=== PATIENT | male | born 1960 | race Caucasian/White ===

== ENCOUNTER → 2016-05-12 | Outpatient (CLI) | payer OTHER ==
[~2016-05-12] MED LIST: ASPI-461 PO; CLX/40 PO; FOLI20CA PO; KPP/1000 PO; LEVE500T PO; MELA3TAB PO; MULT-106 PO; TRAZ50TA35 PO; ZLF/100 PO
[2016-05-12 13:26] LABS: ALT/SGPT 38 U/L (12-78); AST/SGOT 31 U/L (15-37); BLOOD UREA NITROGEN 12 mg/dl (7-18); BUN/CREATININE RATIO 13.5 (10-20); CALCIUM 9.4 mg/dl (8.5-10.1); CARBON DIOXIDE 31 mmol/L (21-32); CHLORIDE 101 mmol/L (98-107); CREATININE 0.88 mg/dl (0.60-1.40); GLUCOSE 92 mg/dl (70-99); POTASSIUM 4.3 mmol/L (3.5-5.1); SODIUM 140 mmol/L (136-145)
[2016-05-12 13:27] LABS: ALB/GLOB RATIO 1.4 (0.9-2); ALKALINE PHOSPHATASE 58 U/L (45-117)
== END | disposition home or self-care (01) ==
LOC: C.LAB1850 11:30
PROVIDERS: ATTEND Internal Medicine
DX: F32.9 Major depressive disorder, single episode, unspecified (principal); Z11.59 Encounter for screening for other viral diseases; R20.0 Anesthesia of skin

== ENCOUNTER 2016-06-17 11:55 | Emergency (ER) | payer OTHER ==
[~2016-06-17] VITALS: Ht 177.8 cm; Wt 56.2 kg
[~2016-06-17 11:55] MED LIST changes: -ASPI-461 PO; -LEVE500T PO; -MELA3TAB PO; -ZLF/100 PO
[2016-06-17 12:05] VITALS: TEMP 36.8; O2SAT 100; Ht 177.8 cm; Wt 56.2 kg
[2016-06-17] MEDS ORDERED: ACETAMINOPHEN 500 MG TAB PO STA (12:15)
[2016-06-17] MEDS ORDERED: SODIUM CHLORIDE 0.9% 1000ML 1,000 ML IV STA (12:15)
[2016-06-17] MEDS ORDERED: MELA3TAB PO (12:49)
[2016-06-17] MEDS ORDERED: LEVE500T PO (12:49)
[2016-06-17] MEDS ORDERED: ZLF/100 PO (12:49)
[2016-06-17] MEDS ORDERED: ASPI-461 PO (12:49)
[2016-06-17 12:55] LABS: BASO % 0.9 %; BASO ABS # 0.04 K/uL (0-0.2); COMPLETE YES; EOS % 2.9 %; HEMATOCRIT 37.3 % (42-52); LYMPH % 16.3 %; LYMPH ABS # 0.74 K/uL (1.2-3.4); MEAN CELL VOLUME 89.7 fL (80-100); MEAN CORPUSCULAR HEMOGLOBIN 31.5 pg (25-34); MEAN CORPUSCULAR HGB CONC 35.1 g/dl (32-36); MEAN PLATELET VOLUME 9.6 fL (7.4-10.4); MONO % 6.2 %; NEUT % 73.7 %; PLATELET COUNT 150 K/uL (130-400); RED BLOOD COUNT 4.16 M/uL (4.7-6.1); WHITE BLOOD COUNT 4.54 K/uL (4.8-10.8)
[2016-06-17 13:03] LABS: INR 1.1 (0.9-1.1); PARTIAL THROMBOPLASTIN RATIO 1.2; PROTHROMBIN TIME (PATIENT) 11.4 SECONDS (9.0-12.0)
--- NOTE | 2016-06-17 13:04 | DIAGNOSTIC IMAGING REPORT ---
CT OF THE HEAD WITHOUT CONTRAST CLINICAL HISTORY: Seizure. COMPARISON STUDY: Head CT T. August and MRI of the brain December 07, 2014. CT DOSE: 537.48 mGy.cm TECHNIQUE: Helical axial images of the head were obtained without IV contrast. Automated exposure control was utilized for the study. FINDINGS: No acute intracranial hemorrhage, midline shift or mass effect is present. Ventricular system is normal. Basilar cisterns are patent. There are no extra-axial collections. Blunt-white differentiation is maintained. There are no findings to suggest acute dural sinus thrombosis or acute territorial infarct. There is no calvarial fracture. Visualized portions of the sinuses and the mastoid air cells are clear. IMPRESSION: No acute intracranial findings. Electronically signed by: Harry Jose M.D. 06/17/2016 1:02 PM Dictated Date/Time: 06/17/2016 1:00 PM
[2016-06-17 13:08] LABS: URINE APPEARANCE CLEAR (CLEAR); URINE BILIRUBIN NEG (NEG); URINE COLOR YELLOW; URINE NITRITE NEG (NEG); URINE SPECIFIC GRAVITY 1.004 (1.000-1.030); UROBILINOGEN NEG (NEG)
[2016-06-17 13:11] LABS: BUN/CREATININE RATIO 12.6 (10-20); CALCIUM 8.9 mg/dl (8.5-10.1); CREATININE 0.85 mg/dl (0.60-1.40); MAGNESIUM 2.1 mg/dl (1.8-2.4)
[2016-06-17 13:11] LABS: MANUAL MICROSCOPIC REQUIRED? NO; REVIEW REQ? NO
[2016-06-17 13:22] LABS: PHOSPHORUS 2.6 mg/dl (2.5-4.9); THYROID STIMULATING HORMONE 2.66 uIu/ml (0.300-4.500)
[2016-06-17] MEDS ORDERED: LEVETIRACETAM 500 MG TAB PO STA (14:40)
[2016-06-17 16:14] VITALS: BP 125/86; PULSE 48; O2SAT 99
--- NOTE | 2016-06-17 19:52 | EMERGENCY ROOM VISIT NOTE ---
History Report prepared by Stellaibsusana: Kate Christiansen Under the Supervision of: Dr. Karthikeyan Lau M.D. First contact with patient: 12:06 Chief Complaint: SEIZURE Stated Complaint: SEIZURE History of Present Illness The patient is a 55 year old male who presents to the Emergency Room with complaints of a possible seizure that occurred this morning. The patient has a history of seizures and takes Keppra twice a day. He denies any recent missed doses. He follows with Kyra De La Rosa of Neurology. Per nursing staff, this morning, the patient was walking through a park and started to feel his legs get numb. He sat down on a bench. Other people in the park found the patient on the ground shaking. Upon EMS arrival, his seizure-like activity seemed to have resolved. Currently, the patient complains of a mild headache. He did hit his head, as he has an abrasion to the right side of the forehead. He reports that he has been gradually feeling better since the event. He did not lose continence or bite his tongue. The patient reports that he gets intermittent numbness in his legs frequently, which his doctor believes is due to circulation issues. Pt denies fevers, chills, diaphoresis, visual changes, neck pain, chest pain, breathing difficulties, nausea, vomiting, abdominal pain, back pain, melena, hematochezia, urinary symptoms, weakness, lymphadenopathy, rash, or other complaints. Source of History: patient, nursing staff Onset: this morning Position: other (global) Quality: other (seizure-like activity) Timing: other (episode) Associated Symptoms: + headache, + numbness (legs) Review of Systems See HPI for pertinent positives and negatives. A total of ten systems were reviewed and were otherwise negative. Past Medical & Surgical Medical Problems: (1) Mental health disorder (2) Seizure Family History FHx: seizures Social History Smoking Status: Never Smoker Alcohol Use: heavy Marital Status: other Housing Status: lives alone Occupation Status: unemployed Current/Historical Medications Scheduled Aspirin (Aspirin), 1 TAB PO DAILY Folic Acid (Folic Acid), 1 CAP PO HS Levetiractam (Levetiracetam), 3 TAB PO BID Melatonin (Melatonin), 1 TAB PO HS Multiple Vitamins W/ Minerals (One Daily Mens), 1 TAB PO QAM Sertraline HCl (Sertraline HCl), 1.5 TAB PO QAM Trazodone Hcl (Trazodone), 100 MG PO HS Allergies Coded Allergies: No Known Allergies (Verified , 06/17/16) Physical Exam Vital Signs Date Time Temp Pulse Resp B/P Pulse Ox O2 Delivery O2 Flow Rate FiO2 06/17/16 16:14 48 18 125/86 99 06/17/16 14:28 53 16 118/83 99 Room Air 06/17/16 13:40 46 18 115/82 100 Room Air 06/17/16 12:06 57 06/17/16 12:05 100 Room Air 06/17/16 12:05 36.8 57 18 120/78 100 Room Air Physical Exam GENERAL: Awake, alert, tired appearing, no distress, slow to answer questions. HENT: Normocephalic, abrasion to the right forehead. TM's normal. Oropharynx unremarkable. EYES: PERRL. EOMI. Normal conjunctiva. Sclera non-icteric. NECK: Supple. No nuchal rigidity. FROM. No JVD or bruit. RESPIRATORY: CTA CARDIAC: RRR. No murmur. ABDOMEN: Soft, non distended. No tenderness to palpation. No rebound or guarding. No masses. RECTAL: Deferred. MUSCULOSKELETAL: Unremarkable. No edema. No discoloration. Gross motor strength symmetric. Upper and lower extremities are atraumatic. NEURO: Cranial nerves 2-12 grossly intact. Normal sensorium. No sensory or motor deficits noted. Speech normal. No pronator drift. SKIN: No rash or jaundice noted. LYMPH: No adenopathy. Medical Decision & Procedures ER Provider Diagnostic Interpretation: Radiology results as stated below per my review and radiologist interpretation CT OF THE HEAD WITHOUT CONTRAST CLINICAL HISTORY: Seizure. COMPARISON STUDY: Head CT T. August and MRI of the brain December 07, 2014. CT DOSE: 537.48 mGy.cm TECHNIQUE: Helical axial images of the head were obtained without IV contrast. Automated exposure control was utilized for the study. FINDINGS: No acute intracranial hemorrhage, midline shift or mass effect is present. Ventricular system is normal. Basilar cisterns are patent. There are no extra-axial collections. Blunt-white differentiation is maintained. There are no findings to suggest acute dural sinus thrombosis or acute territorial infarct. There is no calvarial fracture. Visualized portions of the sinuses and the mastoid air cells are clear. IMPRESSION: No acute intracranial findings. Electronically signed by: Harry Jose M.D. 06/17/2016 1:02 PM Dictated Date/Time: 06/17/2016 1:00 PM Laboratory Results 06/17/16 12:45 Red Blood Count 4.16, Mean Corpuscular Volume 89.7, Mean Corpuscular Hemoglobin 31.5, Mean Corpuscular Hemoglobin Concent 35.1, Mean Platelet Volume 9.6, Neutrophils (%) (Auto) 73.7, Lymphocytes (%) (Auto) 16.3, Monocytes (%) (Auto) 6.2, Eosinophils (%) (Auto) 2.9, Basophils (%) (Auto) 0.9, Neutrophils # (Auto) 3.35, Lymphocytes # (Auto) 0.74, Monocytes # (Auto) 0.28, Eosinophils # (Auto) 0.13, Basophils # (Auto) 0.04 06/17/16 12:45 Test 06/17/16 12:40 06/17/16 12:45 Urine Color YELLOW Urine Appearance CLEAR (CLEAR) Urine pH 7.0 (4.5-7.5) Urine Specific Homer 1.004 (1.000-1.030) Urine Protein NEG (NEG) Urine Glucose (UA) NEG (NEG) Urine Ketones NEG (NEG) Urine Occult Blood NEG (NEG) Urine Nitrite NEG (NEG) Urine Bilirubin NEG (NEG) Urine Urobilinogen NEG (NEG) Urine Leukocyte Esterase NEG (NEG) White Blood Count 4.54 K/uL (4.8-10.8) Red Blood Count 4.16 M/uL (4.7-6.1) Hemoglobin 13.1 g/dL (14.0-18.0) Hematocrit 37.3 % (42-52) Mean Corpuscular Volume 89.7 fL (80-100) Mean Corpuscular Hemoglobin 31.5 pg (25-34) Mean Corpuscular Hemoglobin Concent 35.1 g/dl (32-36) Platelet Count 150 K/uL (130-400) Mean Platelet Volume 9.6 fL (7.4-10.4) Neutrophils (%) (Auto) 73.7 % Lymphocytes (%) (Auto) 16.3 % Monocytes (%) (Auto) 6.2 % Eosinophils (%) (Auto) 2.9 % Basophils (%) (Auto) 0.9 % Neutrophils # (Auto) 3.35 K/uL (1.4-6.5) Lymphocytes # (Auto) 0.74 K/uL (1.2-3.4) Monocytes # (Auto) 0.28 K/uL (0.11-0.59) Eosinophils # (Auto) 0.13 K/uL (0-0.5) Basophils # (Auto) 0.04 K/uL (0-0.2) RDW Standard Deviation 43.4 fL (36.4-46.3) RDW Coefficient of Variation 13.3 % (11.5-14.5) Immature Granulocyte % (Auto) 0.0 % Immature Granulocyte # (Auto) 0.00 K/uL (0.00-0.02) Prothrombin Time 11.4 SECONDS (9.0-12.0) Prothromb Time International Ratio 1.1 (0.9-1.1) Activated Partial Thromboplast Time 30.1 SECONDS (21.0-31.0) Partial Thromboplastin Ratio 1.2 Anion Gap 5.0 mmol/L (3-11) Est Creatinine Clear Calc Drug Dose 78.1 ml/min Estimated GFR () 113.7 Estimated GFR (Non- 98.1 BUN/Creatinine Ratio 12.6 (10-20) Calcium Level 8.9 mg/dl (8.5-10.1) Phosphorus Level 2.6 mg/dl (2.5-4.9) Magnesium Level 2.1 mg/dl (1.8-2.4) Thyroid Stimulating Hormone (TSH) 2.660 uIu/ml (0.300-4.500) Laboratory results reviewed by me Medications Administered Medications (Trade) Dose Ordered Sig/Cameron Route Start Time Stop Time Status Last Admin Dose Admin Sodium Chloride (Nss 1000ml) 1,000 ml @ 999 mls/hr Q1H1M STAT IV 06/17/16 12:15 06/17/16 13:15 DC 06/17/16 12:36 999 MLS/HR Acetaminophen (Tylenol Tab) 1,000 mg NOW STAT PO 06/17/16 12:15 06/17/16 12:17 DC 06/17/16 12:35 1,000 MG Levetiracetam (Keppra Tab) 500 mg NOW STAT PO 06/17/16 14:40 4/11/17 14:42 DC 06/17/16 15:02 500 MG ECG Indication: other (seizure) Rate (beats per minute): 57 Rhythm: sinus bradycardia Findings: 1st degree AV block, no acute ischemic change, no ectopy ED Course 1208: The patient was evaluated in room B12B. A complete history and physical exam was performed. 1215: Ordered Acetaminophen 1000 mg PO, NSS 1000 ml @ 999 mls/hr IV. 1358: I reassessed the patient and updated him on results so far. 1424: I discussed the case with Dr. Isabel Marie Neurology. She recommended increasing the patient's Keppra to 2000 mg BID. The office will call him tomorrow to get him an appointment. 1440: Ordered Keppra 500 mg PO. 1443: I reassessed the patient. He was resting comfortably. 1550: I reevaluated the patient. Discussed results and discharge instructions: He verbalized understanding and agreement. The patient is ready for discharge. Medical Decision Triage Nursing notes reviewed. The patient's presentation and history were concerning for a seizure. Etiologies such as breakthrough seizure, trauma, vasovagal event, infection, hypoglycemia, electrolyte abnormalities, cardiac sources, intracerebral event, toxicologic, neurologic, as well as others were entertained. The patient was evaluated. He had a witnessed episode that was described like a generalized tonic-clonic seizure. There was a postictal period afterwards. The patient suffered a mild contusion to the right forehead. CT imaging did not reveal any intracranial trauma. ECG shows bradycardia without ischemia or ectopy. His CBC, chemistry panel, magnesium, phosphorus, and urinalysis were negative. His abrasion was dressed. The patient was monitored. He did very well. I did consult with his neurology team and spoke to Dr. Kyra Hall. She recommended increasing his Keppra to 2000 mg twice a day. She will see the patient in the office for follow-up. I did discuss this with the patient and he was in agreement. He was given an extra 500 mg of Keppra here and then will take 2000 mg tonight. His Keppra level was sent to assist neurology in his follow-up. The patient is not currently driving. By the evaluation outlined above other emergent etiologies such as those listed in the differential, as well as others, were deemed relatively unlikely. The patient was informed about the findings as listed above. All questions were answered and he was pleased with the treatment. Return instructions were outlined and the patient was discharged in stable condition. The patient was referred to neurology for follow-up this week for a recheck of the current condition. The chart was completed utilizing [employer] Speech voice recognition software. Grammatical errors, random word insertions, pronoun errors, and incomplete sentences are an occasional consequence of this system due to software limitations, ambient noise, and hardware issues. Any formal questions or concerns about the content, text, or information contained within the body of this dictation should be directly addressed to the physician for clarification. Consults Time Called: 1400 Consulting Physician: Dr. Isabel Marie Neurology Returned Call: [phone] I discussed the case with her. She recommended increasing the patient's Keppra to 2000 mg twice a day. The office will call him tomorrow to get him an appointment. Impression Primary Impression: Seizure Scribe Attestation The scribe's documentation has been prepared under my direction and personally reviewed by me in its entirety. I confirm that the note above accurately reflects all work, treatment, procedures, and medical decision making performed by me. Departure Information Dispostion Home / Self-Care Referrals RENE Kirkpatrick., MD Hall, Kyra Raman M.D. Patient Instructions My [facility] Additional Instructions Increase Keppra to 2000 mg twice daily. Ibuprofen(Motrin, Advil) may be used for fever or pain. Use 600mg every six hours as needed. Take with food. Avoid using more than 2400mg in a 24 hour period. Do not use 2400mg per day for more than three consecutive days without physician direction. Prolonged inappropriate use can lead to stomach upset or ulcers. (AND/OR) Acetaminophen(Tylenol) may be used for fever or pain. Use 1000mg every six hours as needed. Avoid using more than 4000mg in a 24 hour period. Rest and drink plenty of fluids as tolerated. Continue current medications. Return to the ER for passing out, chest pain, headache, persistent vomiting, fevers, abdominal pain, chest pains, difficulty breathing, black or bloody stools, worsening of your condition, or as needed. No driving until cleared by neurology. Follow-up with neurology as discussed. You should receive a call from the [facility] tomorrow. If you do not hear from them called them. Follow up with your primary physician in 2-3 days for a recheck of your current condition
== END 2016-06-17 16:17 | disposition home or self-care (01) ==
LOC: EDBD 11:55 → C.EDB 11:57
DX: R56.9 Unspecified convulsions (principal); F99 Mental disorder, not otherwise specified; Z79.82 Long term (current) use of aspirin; Z79.899 Other long term (current) drug therapy

== ENCOUNTER → 2017-05-13 | Outpatient (CLI) | payer OTHER ==
[~2017-05-13] MED LIST changes: -CLX/40 PO; +FLV1 PO; -FOLI20CA PO; -TRAZ50TA35 PO; +ZLF/100 PO
[2017-05-13 12:12] LABS: BASO % 0.7 %; BASO ABS # 0.04 K/uL (0-0.2); EOS % 2.6 %; EOS ABS # 0.14 K/uL (0-0.5); HEMATOCRIT 42.8 % (42-52); HEMOGLOBIN 14.9 g/dL (14.0-18.0); IG# 0.02 K/uL (0.00-0.02); LYMPH % 12.6 %; LYMPH ABS # 0.69 K/uL (1.2-3.4); MEAN CELL VOLUME 95.5 fL (80-100); MEAN CORPUSCULAR HEMOGLOBIN 33.3 pg (25-34); MEAN CORPUSCULAR HGB CONC 34.8 g/dl (32-36); MEAN PLATELET VOLUME 10.1 fL (7.4-10.4); MONO ABS # 0.33 K/uL (0.11-0.59); NEUT % 77.7 %; NEUT ABS # 4.27 K/uL (1.4-6.5); PLATELET COUNT 207 K/uL (130-400); RED CELL DISTRIBUTION WIDTH CV 14.1 % (11.5-14.5); RED CELL DISTRIBUTION WIDTH SD 49.2 fL (36.4-46.3); WHITE BLOOD COUNT 5.49 K/uL (4.8-10.8)
[2017-05-13 12:42] LABS: ALKALINE PHOSPHATASE 60 U/L (45-117); ALT/SGPT 28 U/L (12-78); AST/SGOT 24 U/L (15-37); BLOOD UREA NITROGEN 15 mg/dl (7-18); CALCIUM 9.3 mg/dl (8.5-10.1); CARBON DIOXIDE 27 mmol/L (21-32); CREATININE 0.88 mg/dl (0.60-1.40); GLUCOSE 98 mg/dl (70-99); POTASSIUM 4.6 mmol/L (3.5-5.1); SODIUM 137 mmol/L (136-145); TOTAL PROTEIN 7.4 gm/dl (6.4-8.2)
[2017-05-13 12:53] LABS: CHOLESTEROL 193 mg/dl (0-200); LDL CHOLESTEROL CALCULATED 65 mg/dl
== END | disposition home or self-care (01) ==
LOC: C.LAB1850 10:13
PROVIDERS: ATTEND Internal Medicine
DX: R35.1 Nocturia (principal); F32.9 Major depressive disorder, single episode, unspecified; Z13.220 Encounter for screening for lipoid disorders

== ENCOUNTER 2018-12-30 12:36 | Inpatient (IN) ==
[2018-12-30] MEDS ORDERED: DIAZEPAM 5 MG/ML INJ 10ML VIAL IV STA ×2 (13:00→14:45)
[2018-12-30] MEDS ORDERED: SODIUM CHLORIDE 0.9% 1000ML 1,000 ML IV ONE (13:01)
--- NOTE | 2018-12-30 13:21 | XRay Report ---
XR chest 1V portable CLINICAL HISTORY: weakness dyspnea COMPARISON STUDY: 04/20/2015 FINDINGS: The bones soft tissues and hemidiaphragms are normal. The cardiomediastinal silhouette is n ormal. The lungs are clear. The pulmonary vasculature is normal. There are several old left-sided rib fractures. These are unchanged. IMPRESSION: No acute process. The lungs are clear. The above report was generated using voice recognition software. It may contain grammatical, syntax or spelling errors. Electronically signed by: Murtaza Messer M.D. 12/30/2018 1:19 PM
[2018-12-30 13:49] LABS: Hematocrit (blood only) 43.1 % (42-52); Hemoglobin 15.7 g/dL (14.0-18.0); Mean Corpuscular Hemoglobin 34.2 pg (25-34); Mean Corpuscular Hgb Conc 36.4 g/dL (32-36); Mean Corpuscular Volume 93.9 fL (80-100); Mean Platelet Volume 9.3 fL (7.4-10.4); Platelet Count 84 K/uL (130-400); RDW Coefficient of Variation 13.7 % (11.5-14.5); RDW Standard Deviation 47.2 fL (36.4-46.3); Red Blood Count 4.59 M/uL (4.7-6.1); White Blood Count 6.82 K/uL (4.8-10.8)
--- NOTE | 2018-12-30 13:52 | CT Scan Report ---
CT head/brain wo con CLINICAL HISTORY: 58 years-old Male presenting with nausea vomiting, h/o ICH. TECHNIQUE: Multidetector CT imaging of the head was performed without the use of intravenous contrast . IV contrast: None. One or more dose lowering techniques were used consistent with the principles of ALARA (as low as reasonably achievable), including automatic exposure control, mA or kV adjustment t o individual patient size, and/or use of iterative reconstruction. COMPARISON: 06/04/2018. CT DOSE (mGy.cm): The estimated cumulative dose is 537.48 mGy.cm. FINDINGS: Accounting Coordinator topogram: Unremarkable. Proportional ventricular and sulcal prominence, likely age-related parenchymal volume loss. No hemorr angela. Periventricular and subcortical white matter hypoattenuation, nonspecific but likely indicative of chronic small vessel ischemic change. Limited cortical infarct or other chronic or congenital abn ormality remains present and is unchanged at the right frontoparietal vertex (series 2 image 23). No acute territorial infarct. No mass effect or midline shift. No extra-axial fluid collection. Paranasa l sinuses and mastoid air cells clear. Calvarium intact. IMPRESSION: 1. Chronic small vessel ischemic change. No acute intracranial abnormality. Electronically signed by: Alfredo Johns M.D. 12/30/2018 1:50 PM
[2018-12-30 14:01] LABS: Basophils # (auto) 0.05 K/uL (0-0.2); Basophils % (auto) 0.7 %; Immature Granulocytes # (auto) 0.01 K/uL (0.00-0.02); Immature Granulocytes % (auto) 0.1 %; Lymphocytes # (auto) 0.41 K/uL (1.2-3.4); Monocytes # (auto) 0.22 K/uL (0.11-0.59); Monocytes % (auto) 3.2 %; Neutrophils # (auto) 6.13 K/uL (1.4-6.5)
[2018-12-30 14:05] LABS: Alanine Aminotransferase 49 U/L (12-78); Albumin Level 4.7 gm/dl (3.4-5.0); Aspartate Aminotransferase 83 U/L (15-37); BUN Creatinine Ratio 13.2 (10-20); Blood Urea Nitrogen 11 mg/dl (7-18); Calcium 9.6 mg/dl (8.5-10.1); Carbon Dioxide 18 mmol/L (21-32); Chloride 99 mmol/L (98-107); Creatinine Clr Calc Pharmacy 100.2 ml/min; Est GFR (African American) 112.4; Glucose 88 mg/dl (70-99); Magnesium 1.8 mg/dl (1.8-2.4); Potassium 3.6 mmol/L (3.5-5.1); Sodium 136 mmol/L (136-145)
[2018-12-30 14:19] LABS: Albumin Globulin Ratio 1.3 (0.9-2); Alkaline Phosphatase 80 U/L (45-117); Bilirubin,Total 1.3 mg/dl (0.2-1); Globulin 3.5 gm/dl (2.5-4.0); Total Protein 8.2 gm/dl (6.4-8.2); Troponin I < 0.015 ng/ml (0-0.045)
[2018-12-30] MEDS ORDERED: THIAMINE HCL 200 MG in SODIUM CHLORIDE 0.9% 50 ML IV STA (14:28)
[2018-12-30] MEDS ORDERED: FOLIC ACID 1 MG in SYRINGE 9.8 ML IV STA (14:28)
[2018-12-30] MEDS ORDERED: D5W AND 1/2NSS 1,000 ML IV SCH (14:30)
[2018-12-30 14:37] LABS: Acetaminophen < 2 ug/ml (10-30); Salicylate < 1.7 mg/dl (2.8-20)
[2018-12-30 14:40] LABS: Appearance Urine Clear (Clear); Bacteria Urine Automated Negative (Negative); Bilirubin Urine Negative (Negative); Blood Urine Negative (Negative); Cast Urine Automated 0 /lpf (0-5); Color Urine Dark Yellow; Epithelial Cell Urine Auto 0-5 /lpf (0-5); Glucose Urine UA Negative (Negative); Leukocyte Esterase Urine Negative (Negative); Nitrite Urine Negative (Negative); Protein Urine Trace (Negative); RBC Urine Automated 0-4 /hpf (0-4); Urobilinogen Urine Negative (Negative)
[2018-12-30 14:55] LABS: Ketones Urine 3+ (Negative)
--- NOTE | 2018-12-30 15:22 | History & Physical Report ---
Date of Service December 30, 2018 Assessment & Plan (1) Alcohol withdrawal: Admit to PCU on telemetry Vital signs every 4 hours CIWA per protocol for alcohol withdrawal with lorazepam. Replenish electrolytes Famotidine 20 mg IV for possible varices twice daily\ Seizure precautions PT/INR/PTT Hold DVT prophylaxis patient may have possible varices due to long-term alcohol abuse Ambulation when able SCDs and teds Elevated transaminases AST. Trend down AST. Liver sonogram pending Thiamine, folate acid, given already banana bag. Patient is a full code Present on Admission?: Yes (2) Suicide attempt: Patient denies any suicidal ideations Present on Admission?: Yes (3) History of seizure: Patient denies any recent seizure. Continue monitoring Present on Admission?: Yes History of Present Illness Chief Complaint: Alcohol withdrawal Primary Care Provider: Danyn Hanley MD Patient is a 58 years old male with past medical history of alcohol abuse, history of alcohol induced seizures, status epilepticus, suicide attempt, skull fracture with intracranial hemorrhage who presents to the emergency room with alcohol withdrawal symptoms started this morning. Patient complains of tremors all over his body. He states that he drinks 6 or 7 shots of vodka per day as well as some beer. Patient said that on occasion he had nausea but did not vomit. Patient said nothing helped for his symptoms. Patient denies suicidal ideations at this time. Labs are reviewed and shows white blood cell of 6.82, hemoglobin 15.7, hematocrit 43.1, platelets 84, PT, PTT, INR pending, sodium 136, potassium 3.6, anion gap 19, BUN 11, creatinine 0.83, EFR 97 total bili 1.3, AST 83, ALT 49, troponin 0 0.015, TSH 2.7. Chest x-ray is no acute process the lungs are clear. CT scan of the head: Chronic small vessel ischemic changes. No acute intracranial abnormality. Decision was made to admit patient for acute alcohol withdrawal syndrome and PCU telemetry and to prevent possible seizures. Allergies Allergy/AdvReac Type Severity Reaction Status Date / Time No Known Allergies Allergy Verified 12/30/18 13:54 Home Medications Home Medications Medication Instructions Recorded Confirmed Type multivit with act-[id number] [One 1 tab PO QAM 06/04/18 12/30/18 History Daily For Men] folic acid 1 mg PO QAM 12/30/18 12/30/18 History lacosamide [Vimpat] 150 mg PO BID 12/30/18 12/30/18 History Past Med/Surg History Medical History Seizure (Chronic) Mental health disorder (Resolved) Altered mental status (Acute) Emesis (Acute) Encounter for removal of sutures (Acute) History of seizure (Acute) Intracranial hemorrhage (Acute) Seizure (Acute) Skull fracture (Acute) Status epilepticus (Acute) Suicide attempt (Acute) Wrist pain (Acute) Surgical History No history of previous surgery Family History Sister Seizure Brother Seizure Mother No pertinent family history Father No pertinent family history Social History Preferred Language: Polish Communication Ability: Effective Visual Impairment: No Limitations Hearing Ability: Normal marital status: Current Living Situation: Spouse Feels Safe at Home: Yes Smoking Status: Former smoker Hx Alcohol Use: Yes Hx Substance Use: No Childhood Exposure to Second-Hand Smoke: No Seatbelt Use: always Review of Systems Review of Systems: All systems reviewed & are unremarkable except as noted in HPI & below Physical Exam Constitutional: WD/WN, vitals as above well developed and + frail appearing Eyes: PERRL, conjunctivae normal, anicteric sclerae ENMT: external ear and nose normal, oropharynx normal Neck: trachea midline, no thyromegaly Respiratory: normal respiratory effort, lungs clear to auscultation Cardiovascular: Heart Sounds: normal S1 and normal S2 Palpation: + palpable S3 Vessels: dorsalis pedis pulses present Gastrointestinal (Abdomen): normal bowel sounds, soft, nontender, no hepatosplenomegaly Musculoskeletal: no cyanosis or clubbing, extremities motor strength 5/5 Skin: no rashes, warm and dry Neurologic: Cranial Nerves: PERRL and tongue midline Gait: + shuffling gait Tremulous, Psychiatric: A+Ox3, euthymic affect Lymphatic: no cervical or axillary lymphadenopathy Results & Data Vital Signs (Past 12 Hours) Vital Signs Temp Pulse Pulse Resp BP BP Pulse Ox 12/30/18 14:57 68 15 149/92 H 100 12/30/18 13:13 37.0 C 84 30 H 151/98 H 96 12/30/18 13:00 99 Code Status & VTE Plan Code Status Full code VTE Prophylaxis Plan VTE Prophylaxis will be ordered: No PG Care Time/CCT Total # of Minutes Spent Total Time Spent with Patient: Total time spent is greater than 50% in coordination of care (as documented) at patient's floor/unit and/or counseling patient:
[2018-12-30 15:27] LABS: Amphetamines+Metham, Urine Neg (Neg); Barbiturates, Urine Neg (Neg); Benzodiazepine, Urine Neg (Neg); Cocaine, Urine Neg (Neg); MDMA (Ecstacy), Urine Neg (Neg); Methadone, Urine Neg (Neg); Opiate, Urine Neg (Neg); Phencyclidine, Urine Neg (Neg)
[2018-12-30] MEDS ORDERED: MAGNESIUM SULFATE / D5W 1 GM/100 ML BAG IV ONE (15:36)
[2018-12-30] MEDS ORDERED: ACETAMINOPHEN 325 MG TAB PO PRN (16:03)
[2018-12-30] MEDS ORDERED: POLYETHYLENE (MIRALAX) 17 GM PACK PO PRN (16:03)
[2018-12-30] MEDS ORDERED: MAGNESIUM HYDROXIDE SUSP 30 ML UDC PO PRN (16:03)
[2018-12-30] MEDS ORDERED: LORazepam 1 MG/2 ML VIAL IV PRN (16:03)
[2018-12-30] MEDS ORDERED: POTASSIUM CHLORIDE 20 MEQ TABCR PO STA (16:03)
[2018-12-30] MEDS ORDERED: ALUMINUM/MAGNESIUM SUSP 30 ML UDC PO PRN (16:03)
[2018-12-30] MEDS ORDERED: ONDANSETRON INJ 2 MG/ML 2 ML VIAL IV PRN (16:03)
[2018-12-30] MEDS: SODIUM CHLORIDE 0.9% 1000ML 1,000 ML IV SCH (16:40)
[2018-12-30 16:44] LABS: Prothrombin Time 10.3 Seconds (9.0-12.0)
--- NOTE | 2018-12-30 19:18 | Emergency Department Note ---
Entered by Kristal Barker acting as a scribe for History of Present Illness General Chief complaint: Illness Stated complaint: Illness, Nausea/vomiting Time Seen by Provider: 12/30/18 12:43 Source: patient Mode of arrival: wheelchair Limitations: no limitations History of Present Illness Onset (ago): day(s) 3 Location: abdomen Radiation: non-radiation Pain Consistency: + constant Relieved By: + none Exacerbated By: + none Associated symptoms: + other (+abdominal pain) Treatments prior to arrival: none The patient is a 58 year old white male w/ PMHx of alcoholism, intracranial hemorrhage and seizures who presents to the ED w/ CC of nausea and vomiting beginning a few days ago. He admits to some abdominal pain, stating "its real sore". He states he cannot remember when he last drank alcohol. He does complain of severe "shakiness". He denies any recent falls or injuries. The patient notes he has decreased strength on the left after an intra-cranial hemorrhage last spring. Home Medications Home Medications Medication Instructions Recorded Confirmed Type multivit with [id number] [One 1 tab PO QAM 06/04/18 12/30/18 History Daily For Men] folic acid 1 mg PO QAM 12/30/18 12/30/18 History lacosamide [Vimpat] 150 mg PO BID 12/30/18 12/30/18 History Allergies Allergy/AdvReac Type Severity Reaction Status Date / Time lamotrigine Allergy Unknown Verified 12/30/18 16:16 meclizine Allergy Unknown Verified 12/30/18 16:16 Past Med/Surg History Medical History Seizure (Chronic) Mental health disorder (Resolved) Altered mental status (Acute) Emesis (Acute) Encounter for removal of sutures (Acute) History of seizure (Acute) Intracranial hemorrhage (Acute) Seizure (Acute) Skull fracture (Acute) Status epilepticus (Acute) Suicide attempt (Acute) Wrist pain (Acute) Surgical History No history of previous surgery Family History Sister Seizure Brother Seizure Mother No pertinent family history Father No pertinent family history Social History Preferred Language: Turkmen Communication Ability: Effective Visual Impairment: No Limitations Hearing Ability: Normal Beliefs That Will Affect Care: None marital status: Current Living Situation: Alone Current Living Situation Comment: APARTMENT Feels Safe at Home: Yes Smoking Status: Former smoker Hx Alcohol Use: Yes Alcohol type: hard liquor Hx Substance Use: No Childhood Exposure to Second-Hand Smoke: No Seatbelt Use: always Review of Systems See HPI for pertinent positives & negatives. and A total of 10 systems reviewed and were otherwise negative Physical Exam Vital Signs Vital Signs - 24 hr 12/30/18 13:00 12/30/18 13:13 12/30/18 14:57 Temperature 37.0 C Temperature Source Oral Sepsis Recent Fever Within 48 Hours No Sepsis Action Taken by Nursing No Action Required Pulse Rate 84 Pulse Rate [Right Finger] 68 Respiratory Rate 30 H 15 Respiratory Effort / Characteristics Non-Labored Spontaneous Respiratory Depth Shallow Normal Respiratory Pattern Tachypnea Regular Blood Pressure 151/98 H Blood Pressure [Left Arm] 149/92 H Blood Pressure Mean 115 Blood Pressure Mean [Left Arm] 111 Blood Pressure Position [Left Arm] Lying Pulse Oximetry 99 96 100 Oxygen Delivery Method Room Air Room Air Room Air GENERAL: Patient is tremulous, mild distress EYE EXAM: Normal conjunctiva. PERRL, no anisocoria and EOM's grossly intact w/o pain. OROPHARYNX: Moist mucous membranes. Grossly normal dentition. NECK: Supple, no nuchal rigidity, no adenopathy, non-tender. No signs of meningismus. LUNGS: Clear to auscultation. Normal chest wall mechanics. HEART: NSR, no MRG. ABDOMEN: Abdomen soft, non-tender, normo-active bowel sounds, no masses, no rebound or guarding. BACK: No CVA TTP. SKIN: No rashes and no bruising. UPPER EXTREMITIES: Upper extremities are grossly normal. B/l UE tremors noted. LOWER EXTREMITIES: No pitting edema. No calf pain. NEURO EXAM: A&O x3, cranial nerves II-XII grossly intact, normal speech, b ilateral upper extremity tremors noted, moves all 4 extremities on command w/o issue. Course 1251: The patient was evaluated in room C5 and a complete history and physical were performed. 1415: I reevaluated the patient. He is resting comfortably. I discussed his results and my recommendation he remain in the hospital for further evaluation and management. He is agreeable with the plan. 1435: I [facility] the [facility] The patient will be further evaluated. Consultations Consultation #1: I discussed the patients [facility] The patient will be further evaluated. Time: 14:35 Administered Medications Sodium Chloride (Nss 1000ml) 1,000 mls @ 80 mls/hr IV .[id number] EMIL Stop: 01/29/19 16:02 Last Admin: 12/30/18 16:40 Dose: 80 mls/hr Documented by: [id number] Discontinued Medications Diazepam (Valium) 10 mg IV NOW STA Stop: 12/30/18 13:01 Last Admin: 12/30/18 13:28 Dose: 10 mg Documented by: [id number] Diazepam (Valium) 5 mg IV NOW STA Stop: 12/30/18 14:46 Last Admin: 12/30/18 15:27 Dose: 5 mg Documented by: [id number] Sodium Chloride (Nss 1000ml) 1,000 mls @ 999 mls/hr IV .Q1H1M ONE Stop: 12/30/18 14:01 Last Infusion: 12/30/18 14:55 Dose: 0 mls/hr Documented by: [id number] Admin: 12/30/18 13:27 Dose: 999 mls/hr Documented by: [id number] Dextrose/Sodium Chloride (D5w And 1/2nss) 1,000 mls @ 125 mls/hr IV .Q8H EMIL Stop: 01/29/19 14:29 Last Infusion: 12/30/18 16:27 Dose: 0 mls/hr Documented by: [id number] Admin: 12/30/18 14:57 Dose: 125 mls/hr Documented by: [id number] Thiamine HCl 200 mg/ Sodium (Chloride) 52 mls @ 208 mls/hr IV NOW STA Stop: 12/30/18 14:42 Last Infusion: 12/30/18 15:11 Dose: 0 mls/hr Documented by: [id number] Admin: 12/30/18 14:56 Dose: 208 mls/hr Documented by: [id number] Folic Acid 1 mg/ Syringe 10 mls @ 5 mls/min IV NOW STA Stop: 12/30/18 14:29 Last Admin: 12/30/18 14:56 Dose: 5 mls/min Documented by: [id number] Magnesium Sulfate/Dextrose (Magnesium Sulfate / D5w) 1 gm in 100 mls @ 100 mls/hr IV ONE ONE Stop: 12/30/18 16:35 Last Infusion: 12/30/18 18:52 Dose: 0 mls/hr Documented by: [id number] Admin: 12/30/18 17:41 Dose: 100 mls/hr Documented by: [id number] Potassium Chloride (Klor-Con M20) 40 meq PO NOW STA Stop: 12/30/18 16:04 Last Admin: 12/30/18 16:40 Dose: 40 meq Documented by: [id number] Medical Decision Making Differential Diagnosis Differential diagnosis: Etiologies such as gastroenteritis, food borne illness, infections, appendicitis, diverticulitis, inflammatory bowel disease, obstruction, GI bleed, biliary pathology, alcohol withdrawal, as well as others were entertained. Medical Records Attestation: I reviewed the patient's medical records. Home Medications Current Medication List: was personally reviewed by me Laboratory Data Attestation: I reviewed the patient's lab results. Result diagrams: 12/30/18 13:20 12/30/18 13:20 Lab Results 12/30/18 12/30/18 12/30/18 Range/Units 13:20 13:20 13:20 WBC 6.82 (4.8-10.8) K/uL RBC 4.59 L (4.7-6.1) M/uL Hgb 15.7 (14.0-18.0) g/dL Hct 43.1 (42-52) % MCV 93.9 (80-100) fL MCH 34.2 H (25-34) pg MCHC 36.4 H (32-36) g/dL RDW Std Deviation 47.2 H (36.4-46.3) fL RDW Coeff of Teddy 13.7 (11.5-14.5) % Plt Count 84 L (130-400) K/uL MPV 9.3 (7.4-10.4) fL Immature Gran % (Auto) 0.1 % Neut % (Auto) 90.0 % Lymph % (Auto) 6.0 % [place] % (Auto) 3.2 % Eos % (Auto) 0.0 % Baso % (Auto) 0.7 % Immature Gran # (Auto) 0.01 (0.00-0.02) K/uL Neut # (Auto) 6.13 (1.4-6.5) K/uL Lymph # (Auto) 0.41 L (1.2-3.4) K/uL [place] # (Auto) 0.22 (0.11-0.59) K/uL Eos # (Auto) 0.00 (0-0.5) K/uL Baso # (Auto) 0.05 (0-0.2) K/uL Sodium 136 (136-145) mmol/L Potassium 3.6 (3.5-5.1) mmol/L Chloride 99 (98-107) mmol/L Carbon Dioxide 18 L (21-32) mmol/L Anion Gap 19.0 H (3-11) BUN 11 (7-18) mg/dl Creatinine 0.83 (0.6-1.4) mg/dl Est Cr Clr Drug Dosing 100.2 ml/min Est GFR ( Amer) 112.4 Est GFR (Non-Af Amer) 97.0 BUN/Creatinine Ratio 13.2 (10-20) Glucose 88 (70-99) mg/dl Calcium 9.6 (8.5-10.1) mg/dl Magnesium 1.8 (1.8-2.4) mg/dl Total Bilirubin 1.3 H (0.2-1) mg/dl AST 83 H (15-37) U/L ALT 49 (12-78) U/L Alkaline Phosphatase 80 (45-117) U/L Troponin I < 0.015 (0-0.045) ng/ml Total Protein 8.2 (6.4-8.2) gm/dl Albumin 4.7 (3.4-5.0) gm/dl Globulin 3.5 (2.5-4.0) gm/dl Albumin/Globulin Ratio 1.3 (0.9-2) TSH 2.700 (0.300-4.500) uIu/ml Urine Color Urine Appearance (Clear) Urine pH (4.5-7.5) Ur Specific [place] (1.000-1.030) Urine Protein (Negative) Urine Glucose (UA) (Negative) Urine Ketones (Negative) Urine Blood (Negative) Urine Nitrite (Negative) Urine Bilirubin (Negative) Urine Urobilinogen (Negative) Ur Leukocyte Esterase (Negative) Urine WBC (Auto) (0-5) /hpf Urine RBC (Auto) (0-4) /hpf U Hyaline Cast (Auto) (0-5) /lpf U Epithel Cells (Auto) (0-5) /lpf Urine Bacteria (Auto) (Negative) Salicylates < 1.7 L (2.8-20) mg/dl Urine Opiates Screen (Neg) Ur Methadone, Qual (Neg) Acetaminophen < 2 L (10-30) ug/ml Urine Barbiturates (Neg) Ur Phencyclidine (PCP) (Neg) U Amphetamin/Meth Scrn (Neg) MDMA (Ecstasy) Screen (Neg) U Benzodiazepines Scrn (Neg) Ur Cocaine Metabolite (Neg) U Marijuana (THC) Screen (Neg) Ethyl Alcohol mg/dL (0-3) mg/dl 12/30/18 12/30/18 12/30/18 Range/Units 13:20 14:04 14:04 WBC (4.8-10.8) K/uL RBC (4.7-6.1) M/uL Hgb (14.0-18.0) g/dL Hct (42-52) % MCV (80-100) fL MCH (25-34) pg MCHC (32-36) g/dL RDW Std Deviation (36.4-46.3) fL RDW Coeff of Teddy (11.5-14.5) % Plt Count (130-400) K/uL MPV (7.4-10.4) fL Immature Gran % (Auto) % Neut % (Auto) % Lymph % (Auto) % [place] % (Auto) % Eos % (Auto) % Baso % (Auto) % Immature Gran # (Auto) (0.00-0.02) K/uL Neut # (Auto) (1.4-6.5) K/uL Lymph # (Auto) (1.2-3.4) K/uL [place] # (Auto) (0.11-0.59) K/uL Eos # (Auto) (0-0.5) K/uL Baso # (Auto) (0-0.2) K/uL Sodium (136-145) mmol/L Potassium (3.5-5.1) mmol/L Chloride (98-107) mmol/L Carbon Dioxide (21-32) mmol/L Anion Gap (3-11) BUN (7-18) mg/dl Creatinine (0.6-1.4) mg/dl Est Cr Clr Drug Dosing ml/min Est GFR ( Amer) Est GFR (Non-Af Amer) BUN/Creatinine Ratio (10-20) Glucose (70-99) mg/dl Calcium (8.5-10.1) mg/dl Magnesium (1.8-2.4) mg/dl Total Bilirubin (0.2-1) mg/dl AST (15-37) U/L ALT (12-78) U/L Alkaline Phosphatase (45-117) U/L Troponin I (0-0.045) ng/ml Total Protein (6.4-8.2) gm/dl Albumin (3.4-5.0) gm/dl Globulin (2.5-4.0) gm/dl Albumin/Globulin Ratio (0.9-2) TSH (0.300-4.500) uIu/ml Urine Color Dark Yellow Urine Appearance Clear (Clear) Urine pH 6.0 (4.5-7.5) Ur Specific [place] 1.020 (1.000-1.030) Urine Protein Trace H (Negative) Urine Glucose (UA) Negative (Negative) Urine Ketones 3+ H (Negative) Urine Blood Negative (Negative) Urine Nitrite Negative (Negative) Urine Bilirubin Negative (Negative) Urine Urobilinogen Negative (Negative) Ur Leukocyte Esterase Negative (Negative) Urine WBC (Auto) 1-5 (0-5) /hpf Urine RBC (Auto) 0-4 (0-4) /hpf U Hyaline Cast (Auto) 0 (0-5) /lpf U Epithel Cells (Auto) 0-5 (0-5) /lpf Urine Bacteria (Auto) Negative (Negative) Salicylates (2.8-20) mg/dl Urine Opiates Screen Neg (Neg) Ur Methadone, Qual Neg (Neg) Acetaminophen (10-30) ug/ml Urine Barbiturates Neg (Neg) Ur Phencyclidine (PCP) Neg (Neg) U Amphetamin/Meth Scrn Neg (Neg) MDMA (Ecstasy) Screen Neg (Neg) U Benzodiazepines Scrn Neg (Neg) Ur Cocaine Metabolite Neg (Neg) U Marijuana (THC) Screen Neg (Neg) Ethyl Alcohol mg/dL 16.5 H (0-3) mg/dl Imaging Data Radiologist's Impression: Radiology results as stated below per my review and the radiologist's interpretation: CT head/brain wo con CLINICAL HISTORY: 58 years-old Male presenting with nausea vomiting, h/o ICH. TECHNIQUE: Multidetector CT imaging of the head was performed without the use of intravenous contrast. IV contrast: None. One or more dose lowering techniques were used consistent with the principles of ALARA (as low as reasonably achievable), including automatic exposure control, mA or kV adjustment to individual patient size, and/or use of iterative reconstruction. COMPARISON: 06/04/2018. CT DOSE (mGy.cm): The estimated cumulative dose is 537.48 mGy.cm. FINDINGS: Application Dba topogram: Unremarkable. Proportional ventricular and sulcal prominence, likely age-related parenchymal volume loss. No hemorrhage. Periventricular and subcortical white matter hypoattenuation, nonspecific but likely indicative of chronic small vessel ischemic change. Limited cortical infarct or other chronic or congenital abnormality remains present and is unchanged at the right frontoparietal vertex (series 2 image 23). No acute territorial infarct. No mass effect or midline shift. No extra-axial fluid collection. Paranasal sinuses and mastoid air cells clear. Calvarium intact. IMPRESSION: 1. Chronic small vessel ischemic change. No acute intracranial abnormality. Electronically signed by: Alfredo Johns M.D. 12/30/2018 1:50 PM XR chest 1V portable CLINICAL HISTORY: weakness dyspnea COMPARISON STUDY: 04/20/2015 FINDINGS: The bones soft tissues and hemidiaphragms are normal. The cardiomediastinal silhouette is normal. The lungs are clear. The pulmonary vasculature is normal. There are several old left-sided rib fractures. These are unchanged. IMPRESSION: No acute process. The lungs are clear. The above report was generated using voice recognition software. It may contain grammatical, syntax or spelling errors. Electronically signed by: Murtaza Messer M.D. 12/30/2018 1:19 PM ECG Data Attestation: I personally reviewed and interpreted this ECG as follows: Indication: weakness Rate (beats per minute): 80 Rhythm: normal sinus Findings: + other (Normal intervals, no STS changes), + T-wave inversion (in V2) and + left axis deviation Blood Pressure Blood Pressure Findings: Elevated blood pressure Blood Pressure Disposition: further management by hospitalist ANAMIKA Chen The patient is a 58 year old white male w/ PMHx of alcoholism, intracranial hemorrhage and seizures who presents to the ED w/ CC of nausea and vomiting beginning a few days ago. Patient was seen and evaluated the bedside. The patient does have prior history of seizures as well as prior ICH. The patient is a known alcoholic. The patient did a blood work completed along with urine drug and tox screen alcohol level. The patient was given 10 Valium and IV fluids. Patient also did have CT the brain along with additional blood work. Patient's blood work showed the patient does still have alcohol in his system. Tox screen and UDS negative. The patient was offered admission and the patient is willing to consider alcohol abstinence. Patient was counseled on the harms of alcohol use. Patient was admitted to the medicine service. Impression & Plan Alcohol withdrawal, Tremulousness, Alcohol abuse Critical Care Time Critical Care Time: Yes Total Critical Care Time: 45 I have personally spent 45 minutes of critical care time in the direct management of this patient. This includes bedside care, interpretation of diagnostic studies, and testing, discussion with consultants, patient, and family members, and other required patient management activities. This 45 minutes is in excess of all separately billable procedures. Discharge Plan Visit Data *Final* Discharge Date/Time: 12/30/18 15:55 Chief Complaint: Illness Stated Complaint: Illness, Nausea/vomiting ED Provider: Filemon Malone Discharge Problem: Alcohol withdrawal, Tremulousness, Alcohol abuse Patient Disposition: Admitted As Inpatient Discharge Instructions Interventions: ED Discharge Assessment Last Done: 12/30/18 15:55 The scribe's documentation has been prepared under my direction and personally reviewed by me in its entirety. I confirm that the note above accurately reflects all work, treatment, procedures, and medical decision making performed by me.
[2018-12-30] MEDS: FAMOTIDINE 20 MG in SYRINGE 3 ML IV SCH (21:28)
[2018-12-31] MEDS: SODIUM CHLORIDE 0.9% 1000ML 1,000 ML IV SCH ×2 (05:21→22:15)
[2018-12-31 06:45] LABS: Hematocrit (blood only) 41.3 % (42-52); Hemoglobin 14.7 g/dL (14.0-18.0); Mean Corpuscular Hemoglobin 33.8 pg (25-34); Mean Corpuscular Hgb Conc 35.6 g/dL (32-36); Mean Corpuscular Volume 94.9 fL (80-100); RDW Coefficient of Variation 13.6 % (11.5-14.5); RDW Standard Deviation 47.7 fL (36.4-46.3); Red Blood Count 4.35 M/uL (4.7-6.1); White Blood Count 3.97 K/uL (4.8-10.8)
--- NOTE | 2018-12-31 07:07 | Ultrasound Report ---
ABDOMINAL ULTRASOUND, RIGHT UPPER QUADRANT HISTORY: Elevated transaminases. COMPARISON: Abdomen and pelvis CT 06/04/2017. FINDINGS: Pancreas: The visualized pancreas demonstrates a normal echotexture. Liver: The liver is echogenic consistent with fatty change. Gallbladder: No gallbladder wall thickening. No gallstones. CBD: 4 mm. Right kidney: No hydronephrosis. IMPRESSION: 1. Hepatic steatosis. 2. Normal gallbladder. No gallstones. Electronically signed by: Stevie Morin M.D. 12/31/2018 7:05 AM
[2018-12-31 07:17] LABS: Mean Platelet Volume 9.8 fL (7.4-10.4); Platelet Count 66 K/uL (130-400)
[2018-12-31 07:21] LABS: Albumin Globulin Ratio 1.2 (0.9-2); Albumin Level 3.9 gm/dl (3.4-5.0); BUN Creatinine Ratio 12.6 (10-20); Bilirubin,Total 1.7 mg/dl (0.2-1); Calcium 8.9 mg/dl (8.5-10.1); Creatinine Clr Calc Pharmacy 92.1 ml/min; Est GFR (Non-African American) 97.5; Globulin 3.3 gm/dl (2.5-4.0); Potassium 4.3 mmol/L (3.5-5.1); Total Protein 7.2 gm/dl (6.4-8.2)
[2018-12-31 07:22] LABS: Basophils # (auto) 0.03 K/uL (0-0.2); Basophils % (auto) 0.8 %; Eosinophils # (auto) 0.03 K/uL (0-0.5); Eosinophils % (auto) 0.8 %; Immature Granulocytes # (auto) 0.01 K/uL (0.00-0.02); Immature Granulocytes % (auto) 0.3 %; Lymphocytes # (auto) 0.85 K/uL (1.2-3.4); Lymphocytes % (auto) 21.4 %; Monocytes # (auto) 0.38 K/uL (0.11-0.59); Monocytes % (auto) 9.6 %; Neutrophils # (auto) 2.67 K/uL (1.4-6.5); Neutrophils % (auto) 67.1 %
[2018-12-31 07:24] LABS: RBC Morphology Unremarkable
[2018-12-31] MEDS: FOLIC ACID 1 MG TAB PO SCH (08:42)
[2018-12-31] MEDS: THIAMINE HCL 100 MG TAB PO SCH (08:42)
[2018-12-31] MEDS: FAMOTIDINE 20 MG in SYRINGE 3 ML IV SCH ×2 (08:42→20:36)
--- NOTE | 2018-12-31 09:24 | Family Medicine Progress Note ---
Date of Service December 31, 2018 Assessment & Plan (1) Alcohol withdrawal: Patient currently on alcohol withdrawal precautions. Does not appear he is received any further benzodiazepines since being given Valium in the ER. He appears to be stable now. Continue thiamine and folate repletion by mouth. Continue IV hydration. Case management to discuss possible inpatient versus outpatient alcohol rehab. Patient's LFTs are mildly abnormal, likely secondary to mild alcoholic hepatitis. Improved from admission, will recheck in the morning. (2) Suicide attempt: Patient currently not suicidal, does have a history of suicide ideation in the past. (3) History of seizure: Patient denies any recent seizure. Continue Vimpat as per outpatient regimen. Subjective Patient denies any acute issues at this time. He does have a mild tremor. He is otherwise comfortable and does not appear to be actively withdrawing from alcohol at this time. Patient denies any chest pain, shortness breath, palpitations, diaphoresis, or other issues at this time. Review of Systems Review of Systems: All systems reviewed & are unremarkable except as noted in HPI & below Physical Exam Physical Exam: GENERAL: Non-toxic in appearance. INTEGUMENTARY: Warm, dry, and Gerber. HEAD: Normocephalic. EYES: without scleral icterus or trauma. ENT/OROPHARYNX: clear and moist. LYMPHADENOPATHY/NECK: Is supple without lymphadenopathy or meningismus. RESPIRATORY: Lungs clear and equal. CARDIOVASCULAR: Regular rate and rhythm. GI/ABDOMEN: Soft and nontender. No organomegaly or pulsatile mass. No rebound or guarding. Normal bowel sounds. EXTREMITIES: Warm and well perfused. BACK: No CVA tenderness. NEUROLOGICAL: Intact without focal deficits. Minimal fine tremor. PSYCHIATRIC: normal affect. MUSCULOSKELETAL: Normally developed with good muscle tone. Results & Data Vital Signs (Past 12 Hours) Vital Signs Temp Pulse Pulse Resp BP BP Pulse Ox 12/31/18 08:00 36.9 C 66 16 140/104 H 98 12/31/18 03:27 37.1 C 52 L 20 137/86 98 12/31/18 00:00 53 L 12/30/18 23:41 36.9 C 55 L 20 135/83 100 PG Care Time/CCT Total # of Minutes Spent Total Time Spent with Patient: Total time spent is greater than 50% in coordination of care (as documented) at patient's floor/unit and/or counseling patient:
[2018-12-31] MEDS: LACOSAMIDE PO SCH ×2 (09:56→20:19)
[2018-12-31] MEDS ORDERED: cloNIDine HCL 0.1 MG TAB PO ONE (15:11)
[2019-01-01 06:18] LABS: Hemoglobin 13.5 g/dL (14.0-18.0); Mean Corpuscular Hemoglobin 33.1 pg (25-34); Mean Corpuscular Hgb Conc 34.6 g/dL (32-36); Mean Corpuscular Volume 95.6 fL (80-100); RDW Coefficient of Variation 13.7 % (11.5-14.5); RDW Standard Deviation 47.8 fL (36.4-46.3); Red Blood Count 4.08 M/uL (4.7-6.1); White Blood Count 3.34 K/uL (4.8-10.8)
[2019-01-01 06:27] LABS: Mean Platelet Volume 10.5 fL (7.4-10.4); Platelet Count 59 K/uL (130-400)
[2019-01-01 06:43] LABS: Basophils # (auto) 0.02 K/uL (0-0.2); Basophils % (auto) 0.6 %; Eosinophils # (auto) 0.07 K/uL (0-0.5); Eosinophils % (auto) 2.1 %; Giant Platelets 1+; Immature Granulocytes # (auto) 0.01 K/uL (0.00-0.02); Immature Granulocytes % (auto) 0.3 %; Lymphocytes # (auto) 0.94 K/uL (1.2-3.4); Lymphocytes % (auto) 28.1 %; Monocytes # (auto) 0.35 K/uL (0.11-0.59); Monocytes % (auto) 10.5 %; Neutrophils # (auto) 1.95 K/uL (1.4-6.5); Neutrophils % (auto) 58.4 %
[2019-01-01 06:50] LABS: Albumin Level 3.5 gm/dl (3.4-5.0); BUN Creatinine Ratio 15.9 (10-20); Calcium 8.8 mg/dl (8.5-10.1); Creatinine Clr Calc Pharmacy 100.6 ml/min; Est GFR (African American) 116.6; Est GFR (Non-African American) 100.6; Potassium 3.4 mmol/L (3.5-5.1)
[2019-01-01 06:58] LABS: Albumin Globulin Ratio 1.2 (0.9-2); Bilirubin,Total 1.2 mg/dl (0.2-1); Total Protein 6.5 gm/dl (6.4-8.2)
[2019-01-01] MEDS: FOLIC ACID 1 MG TAB PO SCH (07:21)
[2019-01-01] MEDS: THIAMINE HCL 100 MG TAB PO SCH (07:23)
[2019-01-01] MEDS: LACOSAMIDE PO SCH (07:23)
[2019-01-01] MEDS: FAMOTIDINE 20 MG in SYRINGE 3 ML IV SCH (08:09)
--- NOTE | 2019-01-01 09:07 | Discharge Summary ---
Date of Service January 01, 2019 Admission HPI Per Admitting Provider Patient is a 58 years old male with past medical history of alcohol abuse, history of alcohol induced seizures, status epilepticus, suicide attempt, skull fracture with intracranial hemorrhage who presents to the emergency room with alcohol withdrawal symptoms started this morning. Patient complains of tremors all over his body. He states that he drinks 6 or 7 shots of vodka per day as well as some beer. Patient said that on occasion he had nausea but did not vomit. Patient said nothing helped for his symptoms. Patient denies suicidal ideations at this time. Labs are reviewed and shows white blood cell of 6.82, hemoglobin 15.7, hematocrit 43.1, platelets 84, PT, PTT, INR pending, sodium 136, potassium 3.6, anion gap 19, BUN 11, creatinine 0.83, EFR 97 total bili 1.3, AST 83, ALT 49, troponin 0 0.015, TSH 2.7. Chest x-ray is no acute process the lungs are clear. CT scan of the head: Chronic small vessel ischemic changes. No acute intracranial abnormality. Decision was made to admit patient for acute alcohol withdrawal syndrome and PCU telemetry and to prevent possible seizures. Admission Exam Per Admitting Provider Constitutional: WD/WN, vitals as above well developed and + frail appearing Eyes: PERRL, conjunctivae normal, anicteric sclerae ENMT: external ear and nose normal, oropharynx normal Neck: trachea midline, no thyromegaly Respiratory: normal respiratory effort, lungs clear to auscultation Cardiovascular: Heart Sounds: normal S1 and normal S2 Palpation: + palpable S3 Vessels: dorsalis pedis pulses present Gastrointestinal (Abdomen): normal bowel sounds, soft, nontender, no hepatosplenomegaly Musculoskeletal: no cyanosis or clubbing, extremities motor strength 5/5 Skin: no rashes, warm and dry Neurologic: Cranial Nerves: PERRL and tongue midline Gait: + shuffling gait Tremulous, Psychiatric: A+Ox3, euthymic affect Lymphatic: no cervical or axillary lymphadenopathy Principal Diagnosis 1. Acute alcohol withdrawal 2. History of alcohol abuse 3. History of suicide attempt, stable this admission 4. Seizure disorder by history Discharge Exam GENERAL: Non-toxic in appearance. INTEGUMENTARY: Warm, dry, and [place]. HEAD: Normocephalic. EYES: without scleral icterus or trauma. ENT/OROPHARYNX: clear and moist. LYMPHADENOPATHY/NECK: Is supple without lymphadenopathy or meningismus. RESPIRATORY: Lungs clear and equal. CARDIOVASCULAR: Regular rate and rhythm. GI/ABDOMEN: Soft and nontender. No organomegaly or pulsatile mass. No rebound or guarding. Normal bowel sounds. EXTREMITIES: Warm and well perfused. BACK: No CVA tenderness. NEUROLOGICAL: Intact without focal deficits, very minimal tremor, very much improved since admission PSYCHIATRIC: normal affect. MUSCULOSKELETAL: Normally developed with good muscle tone. Discharge Data Allergies Allergy/AdvReac Type Severity Reaction Status Date / Time lamotrigine Allergy Unknown Verified 12/30/18 16:16 meclizine Allergy Unknown Verified 12/30/18 16:16 Consultations 12/30/18 14:53 ED Decision to Admit Stat Ordered Studies 12/30/18 13:01 CT head/brain wo con Stat 12/30/18 16:[address] head/brain wo con CLINICAL HISTORY: 58 years-old Male presenting with nausea vomiting, h/o ICH. TECHNIQUE: Multidetector CT imaging of the head was performed without the use of intravenous contrast. IV contrast: None. One or more dose lowering techniques were used consistent with the principles of ALARA (as low as reasonably achievable), including automatic exposure control, mA or kV adjustment to individual patient size, and/or use of iterative reconstruction. COMPARISON: 06/04/2018. CT DOSE (mGy.cm): The estimated cumulative dose is 537.48 mGy.cm. FINDINGS: [employer] topogram: Unremarkable. Proportional ventricular and sulcal prominence, likely age-related parenchymal volume loss. No hemorrhage. Periventricular and subcortical white matter hypoattenuation, nonspecific but likely indicative of chronic small vessel ischemic change. Limited cortical infarct or other chronic or congenital abnormality remains present and is unchanged at the right frontoparietal vertex (series 2 image 23). No acute territorial infarct. No mass effect or midline shift. No extra-axial fluid collection. Paranasal sinuses and mastoid air cells clear. Calvarium intact. IMPRESSION: 1. Chronic small vessel ischemic change. No acute intracranial abnormality. --- ABDOMINAL ULTRASOUND, RIGHT UPPER QUADRANT HISTORY: Elevated transaminases. COMPARISON: Abdomen and pelvis CT 06/04/2017. FINDINGS: Pancreas: The visualized pancreas demonstrates a normal echotexture. Liver: The liver is echogenic consistent with fatty change. Gallbladder: No gallbladder wall thickening. No gallstones. CBD: 4 mm. Right kidney: No hydronephrosis. IMPRESSION: 1. Hepatic steatosis. 2. Normal gallbladder. No gallstones. Hospital Course (1) Alcohol withdrawal: Patient was initially admitted with acute alcohol withdrawal. He was given a dose of diazepam in the emergency room. He was admitted to the floor on monitor with alcohol withdrawal protocol. Patient did not require any further Ativan. His tremor did resolve prior to discharge. Patient did not have any further signs and symptoms of alcohol withdrawal. Case management to discuss treatment options with him, patient has had good success in the past with Alcoholics Anonymous and was willing to seek this treatment out again. Plan today will be to discharge patient stable condition. He is to follow with his primary care provider and avoid alcohol use as previously discussed. (2) Suicide attempt: Patient currently not suicidal, does have a history of suicide ideation in the past. (3) History of seizure: Patient denies any recent seizure. Continue Vimpat as per outpatient regimen. Total Time Total Time Spent Total Time Spent (In Minutes): Time for discharge in excess of 30 minutes. Discharge Plan Discharge Items Patient Disposition: Home - Self-Care Reason For Visit: ALCOHOL WITHDRAWAL Discharge Diagnosis: 1. Acute alcohol withdrawal 2. Previous history of suicide attempt 3. Seizure disorder by history Activity: Resume your previous activity Driving/Machine Use: No limitations Weightbearing: Full weightbearing Non-emergency contact: Primary Care Provider Call non-emergency contact if: your symptoms worsen Follow-up/Referrals: Danny Hanley MD [Primary Care Provider] - Diet: Regular Addtl Attending Provider Instructions: None Pending Studies at Discharge: No Stand-Alone Forms: [place], Smoking Cessation Medications and DC Order Prescriptions: Continued One Daily For Men 0.4-600 mg-mcg Tablet 1 tab PO QAM RF: 0 Vimpat 150 mg tablet 150 mg PO BID RF: 0 folic acid 1 mg tablet 1 mg PO QAM RF: 0 Discharge Orders: Discharge Order (Routine); Ordered 01/01/19 Ordered By: Michael Scott Admission Data Admit Date/Time: 12/30/18 15:18 Attending Provider: Michael Scott Admit Provider: Corinna Roberts Primary Care Provider: Danny Hanley V. Other Providers: Corinna Roberts
[2019-01-01] MEDS ORDERED: POTASSIUM CHLORIDE 20 MEQ TABCR PO STA (09:38)
== END 2019-01-01 11:29 | disposition home or self-care (01) | DRG 897 ==
LOC: ED 12:36 → SUATTDRO 15:18 → 2E 15:18

== ENCOUNTER 2019-02-07 15:28 | Inpatient (IN) ==
[2019-02-07] MEDS ORDERED: LORazepam 1 MG/2 ML VIAL IV STA ×2 (15:49→17:06)
[2019-02-07] MEDS ORDERED: MULTI-VITAMIN INFUSION 10 ML, THIAMINE HCL 100 MG, FOLIC ACID 1 MG in SODIUM CHLORIDE 0... IV ONE ×2 (15:49→22:00)
--- NOTE | 2019-02-07 16:06 | Emergency Department Note ---
History of Present Illness General Chief complaint: Confusion Stated complaint: CONFUSION Time Seen by Provider: 02/07/19 15:31 Source: patient Mode of arrival: EMS Limitations: altered mental status History of Present Illness This patient is a 58-year-old male who presents emergency department via EMS for evaluation of confusion. Per EMS, there was a call to the patient's house earlier due to a fall. At that time, the patient had declined transport. They were called again and reported that at that time, the house was trashed and the patient was the only one in the house. The patient believes that he fell while he was taking out the trash. He does not remember falling, but did hit his head. He states that he feels like he is living "in a dream." He states that sometimes he hears people talking but he feels that they do not see him. Patient reports that he drinks alcohol 2 times per week, but admits to drinking a lot last night with his brother who is in town. Patient does report he injured his right elbow when he fell. He denies any complaints at this time. He denies any drug use. He reports a seizure history and is on Vimpat but has not been taking this for some time. Home Medications Home Medications Medication Instructions Recorded Confirmed Type One Daily For Men 1 tab PO QAM 06/04/18 02/07/19 History Vimpat 150 mg PO BID 12/30/18 02/07/19 History folic acid 1 mg PO QAM 12/30/18 02/07/19 History sertraline 50 mg PO QAM 01/20/19 02/07/19 History Allergies Allergy/AdvReac Type Severity Reaction Status Date / Time lamotrigine Allergy Unknown Unknown Verified 02/07/19 16:02 meclizine Allergy Unknown Unknown Verified 02/07/19 16:02 Past Med/Surg History Medical History Alcohol abuse (Acute) Alcohol withdrawal (Acute) Altered mental status (Resolved) Emesis (Resolved) Encounter for removal of sutures (Acute) History of seizure (Resolved) Intracranial hemorrhage (Acute) Mental health disorder (Resolved) Seizure (Chronic) Seizure (Acute) Skull fracture (Acute) Status epilepticus (Acute) Suicide attempt (Resolved) Tremulousness (Acute) Wrist pain (Acute) Surgical History No history of previous surgery Family History Sister Seizure Brother Seizure Mother No pertinent family history Father No pertinent family history Social History Preferred Language: Pakistani Communication Ability: Effective Visual Impairment: No Limitations Hearing Ability: Normal Beliefs That Will Affect Care: None marital status: Current Living Situation: Alone Current Living Situation Comment: Apartment Feels Safe at Home: Yes Smoking Status: Former smoker Hx Alcohol Use: Yes Alcohol type: hard liquor Hx Substance Use: No Childhood Exposure to Second-Hand Smoke: No Seatbelt Use: always Review of Systems A total of 10 systems reviewed and were otherwise negative Physical Exam Vital Signs Vital Signs - 24 hr 02/07/19 15:33 02/07/19 15:36 02/07/19 15:38 Temperature 36.9 C Temperature Source Oral Pulse Rate 111 H 110 H 109 H Pulse Rate [Right Finger] Pulse Rate from SpO2 Sensor 111 H 110 H Pulse Rhythm Regular Pulse Strength Normal Respiratory Rate 25 H 16 22 Respiratory Effort / Characteristics Non-Labored Spontaneous Respiratory Depth Normal Respiratory Pattern Regular Blood Pressure 167/106 H 167/106 H Blood Pressure [Left Arm] Blood Pressure Mean 120 126 Blood Pressure Mean [Left Arm] Blood Pressure Position Lying Pulse Oximetry 99 96 98 Oxygen Delivery Method Room Air Room Air Room Air Sepsis Recent Fever Within 48 Hours No Sepsis New/Unexplained Change in Mental Status No Sepsis Action Taken by Nursing No Action Required 02/07/19 16:00 02/07/19 16:01 02/07/19 16:02 Temperature Temperature Source Pulse Rate 103 H 107 H Pulse Rate [Right Finger] Pulse Rate from SpO2 Sensor 105 H 108 H Pulse Rhythm Pulse Strength Respiratory Rate 19 24 Respiratory Effort / Characteristics Respiratory Depth Respiratory Pattern Blood Pressure 162/107 H Blood Pressure [Left Arm] Blood Pressure Mean 118 Blood Pressure Mean [Left Arm] Blood Pressure Position Pulse Oximetry 99 98 97 Oxygen Delivery Method Room Air Room Air Room Air Sepsis Recent Fever Within 48 Hours Sepsis New/Unexplained Change in Mental Status Sepsis Action Taken by Nursing 02/07/19 16:30 02/07/19 16:31 02/07/19 17:00 Temperature Temperature Source Pulse Rate 113 H 109 H 99 H Pulse Rate [Right Finger] Pulse Rate from SpO2 Sensor 108 H 98 H Pulse Rhythm Pulse Strength Respiratory Rate 17 22 23 Respiratory Effort / Characteristics Respiratory Depth Respiratory Pattern Blood Pressure 168/119 H Blood Pressure [Left Arm] Blood Pressure Mean 129 Blood Pressure Mean [Left Arm] Blood Pressure Position Pulse Oximetry 96 96 Oxygen Delivery Method Room Air Room Air Sepsis Recent Fever Within 48 Hours Sepsis New/Unexplained Change in Mental Status Sepsis Action Taken by Nursing 02/07/19 17:01 02/07/19 17:02 02/07/19 17:30 Temperature Temperature Source Pulse Rate 99 H 101 H 99 H Pulse Rate [Right Finger] Pulse Rate from SpO2 Sensor Pulse Rhythm Pulse Strength Respiratory Rate 20 21 24 Respiratory Effort / Characteristics Respiratory Depth Respiratory Pattern Blood Pressure 159/101 H 157/105 H Blood Pressure [Left Arm] Blood Pressure Mean 109 122 Blood Pressure Mean [Left Arm] Blood Pressure Position Pulse Oximetry 97 98 Oxygen Delivery Method Room Air Room Air Sepsis Recent Fever Within 48 Hours Sepsis New/Unexplained Change in Mental Status Sepsis Action Taken by Nursing 02/07/19 17:31 02/07/19 18:00 02/07/19 18:01 Temperature Temperature Source Pulse Rate 99 H 100 H 99 H Pulse Rate [Right Finger] Pulse Rate from SpO2 Sensor Pulse Rhythm Pulse Strength Respiratory Rate 24 17 18 Respiratory Effort / Characteristics Respiratory Depth Respiratory Pattern Blood Pressure 156/109 H Blood Pressure [Left Arm] Blood Pressure Mean 112 Blood Pressure Mean [Left Arm] Blood Pressure Position Pulse Oximetry 97 99 Oxygen Delivery Method Room Air Room Air Sepsis Recent Fever Within 48 Hours Sepsis New/Unexplained Change in Mental Status Sepsis Action Taken by Nursing 02/07/19 18:30 02/07/19 18:31 02/07/19 19:24 Temperature Temperature Source Pulse Rate 97 H 90 Pulse Rate [Right Finger] 114 H Pulse Rate from SpO2 Sensor Pulse Rhythm Pulse Strength Respiratory Rate 19 24 18 Respiratory Effort / Characteristics Respiratory Depth Respiratory Pattern Blood Pressure 159/110 H Blood Pressure [Left Arm] 173/113 H Blood Pressure Mean 120 Blood Pressure Mean [Left Arm] 133 Blood Pressure Position Pulse Oximetry 98 98 Oxygen Delivery Method Room Air Room Air Sepsis Recent Fever Within 48 Hours Sepsis New/Unexplained Change in Mental Status Sepsis Action Taken by Nursing VITALS: Vitals are noted on the nurse's note and reviewed by myself. GENERAL: This is a 58-year-old male, cachectic appearing, tremulous. SKIN: Superficial abrasion noted to the right elbow. HEAD: Normocephalic atraumatic. EARS: External auditory canals clear, tympanic membranes pearly pinto without erythema or effusion bilaterally. No hemotympanum. EYES: Pupils equal round and reactive to light and accommodation. Extraocular movements intact. MOUTH: Mucous membranes dry, lips dry and cracked. NECK: Supple without nuchal rigidity. Cervical spine is nontender. HEART: Regular rate and rhythm without murmurs gallops or rubs. LUNGS: Clear to auscultation bilaterally without wheezes, rales or rhonchi. MUSCULOSKELETAL: Strength 5/5 throughout. EXTREMITIES: No peripheral edema. NEURO: Patient was alert and oriented to person place and time. Patient rambling and repeating several statements. Course Consultations Consultation #1: Dr. Arturo Jeong [facility] [place] hospitalist Administered Medications Folic Acid (Folvite) 1 mg PO QAM [facility] Stop: 03/10/19 08:59 Last Admin: 02/09/19 07:51 Dose: 1 mg Documented by: [id number] Admin: 02/08/19 08:45 Dose: Not Given Documented by: [id number] Lorazepam (Ativan) 1 mg in 2 mls @ 2 mls/min IV UD PRN; Protocol PRN Reason: EtOH Withdrawl AWSS Score 6,7 Stop: 03/09/19 21:24 Last Admin: 02/08/19 01:20 Dose: 2 mls/min Documented by: [id number] Lorazepam (Ativan) 3 mg in 6 mls @ 4 mls/min IV ONCE PRN; Protocol PRN Reason: EtOH Withdrawl AWSS Score >=10 Stop: 03/09/19 21:24 Last Admin: 02/08/19 08:21 Dose: 4 mls/min Documented by: [id number] Admin: 02/08/19 04:35 Dose: 4 mls/min Documented by: [id number] Lacosamide (Vimpat) 150 mg PO BID [facility] Stop: 03/09/19 22:59 Last Admin: 02/09/19 20:57 Dose: 150 mg Documented by: [id number] Admin: 02/09/19 07:51 Dose: 150 mg Documented by: [id number] Admin: 02/08/19 19:35 Dose: 150 mg Documented by: [id number] Admin: 02/08/19 08:03 Dose: 150 mg Documented by: [id number] Admin: 02/07/19 22:43 Dose: 150 mg Documented by: [id number] Sertraline HCl (Zoloft) 50 mg PO [facility] Stop: 03/10/19 08:59 Last Admin: 02/09/19 07:51 Dose: 50 mg Documented by: [id number] Admin: 02/08/19 08:03 Dose: 50 mg Documented by: [id number] Tamsulosin HCl (Flomax) 0.4 mg PO [facility] Stop: 03/11/19 20:59 Last Admin: 02/09/19 20:57 Dose: 0.4 mg Documented by: [id number] Thiamine HCl (Vitamin B-1) 100 mg PO [facility] Stop: 03/10/19 08:59 Last Admin: 02/09/19 07:51 Dose: 100 mg Documented by: [id number] Admin: 02/08/19 08:45 Dose: Not Given Documented by: [id number] Discontinued Medications Diazepam (Valium) 10 mg PO NOW ONE Stop: 02/07/19 22:01 Last Admin: 02/07/19 22:42 Dose: 10 mg Documented by: [id number] Diazepam (Valium) 10 mg PO NOW ONE Stop: 02/08/19 01:01 Last Admin: 02/08/19 01:20 Dose: 10 mg Documented by: [id number] Multivitamins 10 ml/ Thiamine HCl 100 mg/ Folic Acid 1 mg/Sodium Chloride 1,011.2 mls @ 1,011.2 mls/hr IV .Q1H ONE Stop: 02/07/19 16:48 Last Infusion: 02/07/19 17:32 Dose: 0 mls/hr Documented by: [id number] Admin: 02/07/19 16:32 Dose: 1,011.2 mls/hr Documented by: [id number] Lorazepam (Ativan) 1 mg in 2 mls @ 2 mls/min IV NOW STA Stop: 02/07/19 15:50 Last Admin: 02/07/19 16:32 Dose: 2 mls/min Documented by: [id number] Lorazepam (Ativan) 1 mg in 2 mls @ 2 mls/min IV NOW STA Stop: 02/07/19 17:07 Last Admin: 02/07/19 17:17 Dose: 2 mls/min Documented by: [id number] Lorazepam (Ativan) 2 mg in 4 mls @ 4 mls/min IV NOW STA Stop: 02/07/19 19:51 Last Admin: 02/07/19 19:56 Dose: 4 mls/min Documented by: [id number] Thiamine HCl 500 mg/ Sodium (Chloride) 105 mls @ 210 mls/hr IV NOW STA Stop: 02/07/19 21:08 Last Infusion: 02/07/19 23:21 Dose: 0 mls/hr Documented by: [id number] Admin: 02/07/19 21:01 Dose: 210 mls/hr Documented by: [id number] Multivitamins 10 ml/ Thiamine HCl 100 mg/ Folic Acid 1 mg/Sodium Chloride 1,011.2 mls @ 500 mls/hr IV .Q2H2M ONE Stop: 02/08/19 00:01 Last Infusion: 02/08/19 00:53 Dose: 0 mls/hr Documented by: [id number] Admin: 02/07/19 22:42 Dose: 500 mls/hr Documented by: [id number] Thiamine HCl 100 mg/ Syringe 10 mls @ 2 mls/min IV QAM [facility] Stop: 03/10/19 08:59 Last Admin: 02/08/19 08:03 Dose: 2 mls/min Documented by: [id number] Folic Acid 1 mg/ Syringe 10 mls @ 5 mls/min IV QAM [facility] Stop: 03/10/19 08:59 Last Admin: 02/08/19 08:03 Dose: 5 mls/min Documented by: [id number] Lorazepam (Ativan) 4 mg in 8 mls @ 1 mls/min IV NOW STA Stop: 02/08/19 05:16 Last Admin: 02/08/19 06:36 Dose: 1 mls/min Documented by: [id number] Potassium Chloride (Klor-Con M20) 40 meq PO NOW STA Stop: 02/08/19 10:09 Last Admin: 02/08/19 10:55 Dose: 40 meq Documented by: [id number] Medical Decision Making Differential Diagnosis Differential diagnosis includes alcohol withdrawal, alcohol intoxication, intracranial bleed, CVA, TIA, infection, among others. Medical Records Attestation: I reviewed the patient's medical records. Home Medications Current Medication List: was personally reviewed by me Laboratory Data Attestation: I reviewed the patient's lab results. Result diagrams: 02/09/19 06:21 02/09/19 06:21 Lab Results 02/07/19 02/07/19 02/07/19 Range/Units 16:21 16:21 16:21 WBC (4.8-10.8) K/uL RBC (4.7-6.1) M/uL Hgb (14.0-18.0) g/dL Hct (42-52) % MCV (80-100) fL MCH (25-34) pg MCHC (32-36) g/dL RDW Std Deviation (36.4-46.3) fL RDW Coeff of Teddy (11.5-14.5) % Plt Count Not Reportable MPV (7.4-10.4) fL Immature Gran % (Auto) % Neut % (Auto) % Lymph % (Auto) % Jack % (Auto) % Eos % (Auto) % Baso % (Auto) % Immature Gran # (Auto) (0.00-0.02) K/uL Neut # (Auto) (1.4-6.5) K/uL Lymph # (Auto) (1.2-3.4) K/uL Jack # (Auto) (0.11-0.59) K/uL Eos # (Auto) (0-0.5) K/uL Baso # (Auto) (0-0.2) K/uL Platelet Estimate (Normal) PT (9.0-12.0) Seconds INR (0.9-1.1) APTT (21.0-31.0) Seconds PTT Ratio Sodium 137 (136-145) mmol/L Potassium 3.5 (3.5-5.1) mmol/L Chloride 104 (98-107) mmol/L Carbon Dioxide 19 L (21-32) mmol/L Anion Gap 14.0 H (3-11) BUN 13 (7-18) mg/dl Creatinine 1.35 (0.6-1.4) mg/dl Est Cr Clr Drug Dosing 56.3 ml/min Est GFR ( Amer) 66.6 Est GFR (Non-Af Amer) 57.5 BUN/Creatinine Ratio 9.6 L (10-20) Glucose 93 (70-99) mg/dl Calcium 10.0 (8.5-10.1) mg/dl Magnesium 2.5 H (1.8-2.4) mg/dl Total Bilirubin 1.1 H (0.2-1) mg/dl AST 71 H (15-37) U/L ALT 64 (12-78) U/L Alkaline Phosphatase 85 (45-117) U/L Ammonia (11-32) umol/L Troponin I < 0.015 (0-0.045) ng/ml Total Protein 8.3 H (6.4-8.2) gm/dl Albumin 4.8 (3.4-5.0) gm/dl Globulin 3.5 (2.5-4.0) gm/dl Albumin/Globulin Ratio 1.4 (0.9-2) Ethyl Alcohol mg/dL 56.0 H (0-3) mg/dl 02/07/19 02/07/19 02/07/19 Range/Units 16:21 16:21 17:28 WBC 8.02 (4.8-10.8) K/uL RBC 3.73 L (4.7-6.1) M/uL Hgb 12.4 L (14.0-18.0) g/dL Hct 35.8 L (42-52) % MCV 96.0 (80-100) fL MCH 33.2 (25-34) pg MCHC 34.6 (32-36) g/dL RDW Std Deviation 47.2 H (36.4-46.3) fL RDW Coeff of Teddy 13.4 (11.5-14.5) % Plt Count 83 L MPV 9.1 (7.4-10.4) fL Immature Gran % (Auto) 0.1 % Neut % (Auto) 86.7 % Lymph % (Auto) 7.1 % Jack % (Auto) 6.0 % Eos % (Auto) 0.0 % Baso % (Auto) 0.1 % Immature Gran # (Auto) 0.01 (0.00-0.02) K/uL Neut # (Auto) 6.95 H (1.4-6.5) K/uL Lymph # (Auto) 0.57 L (1.2-3.4) K/uL Jack # (Auto) 0.48 (0.11-0.59) K/uL Eos # (Auto) 0.00 (0-0.5) K/uL Baso # (Auto) 0.01 (0-0.2) K/uL Platelet Estimate Decreased L (Normal) PT 10.3 (9.0-12.0) Seconds INR 1.0 (0.9-1.1) APTT 29.1 (21.0-31.0) Seconds PTT Ratio 1.1 Sodium (136-145) mmol/L Potassium (3.5-5.1) mmol/L Chloride (98-107) mmol/L Carbon Dioxide (21-32) mmol/L Anion Gap (3-11) BUN (7-18) mg/dl Creatinine (0.6-1.4) mg/dl Est Cr Clr Drug Dosing ml/min Est GFR ( Amer) Est GFR (Non-Af Amer) BUN/Creatinine Ratio (10-20) Glucose (70-99) mg/dl Calcium (8.5-10.1) mg/dl Magnesium (1.8-2.4) mg/dl Total Bilirubin (0.2-1) mg/dl AST (15-37) U/L ALT (12-78) U/L Alkaline Phosphatase (45-117) U/L Ammonia 26.0 (11-32) umol/L Troponin I (0-0.045) ng/ml Total Protein (6.4-8.2) gm/dl Albumin (3.4-5.0) gm/dl Globulin (2.5-4.0) gm/dl Albumin/Globulin Ratio (0.9-2) Ethyl Alcohol mg/dL (0-3) mg/dl Imaging Data Attestation: I personally reviewed and interpreted this imaging study as follows: Blood Pressure Blood Pressure Findings: Elevated blood pressure Blood Pressure Disposition: further management by hospitalist [facility] Narrative This patient is a 58-year-old male who presents to the emergency department for evaluation of a fall and confusion. Labs revealed no leukocytosis, mild anemia and thrombocytopenia. Labs consistent with a mild acidosis, with bicarb of 19 and anion gap of 14. There were no significant electrolyte abnormalities. Troponin is not elevated. EtOH measured at 56. Patient did seem to be displaying some hallucinations which worsened throughout his visit. I believe these are likely due to alcohol withdrawal/early delirium tremens. Patient was given IV lorazepam, banana bag and thiamine. Patient did state several times that he wanted to leave, however after evaluation the patient does not have decision-making capacity. After lengthy discussions, patient is agreeable to admission. [facility] for further care. The patient was independently evaluated by Dr. Jean Baptiste, who agreed with my assessment and treatment plan. Impression & Plan Alcohol withdrawal, Hallucinations, visual Discharge Plan Visit Data *Final* Discharge Date/Time: 02/07/19 21:13 Chief Complaint: Confusion Stated Complaint: CONFUSION ED Provider: Edy Jean Baptiste ED Midlevel Provider: Alayna López Discharge Problem: Alcohol withdrawal, Hallucinations, visual Patient Disposition: Admitted As Inpatient Discharge Instructions Interventions: ED Discharge Assessment Last Done: 02/07/19 21:13
--- NOTE | 2019-02-07 16:12 | XRay Report ---
XR chest 1V portable CLINICAL HISTORY: confusion COMPARISON STUDY: 01/10/2019 FINDINGS: The cardiac and mediastinal contours are normal. There is no evidence of focal pulmonary co nsolidation. There is no evidence of failure. No pleural effusions are visualized.[There are multiple old left-sided rib fractures. IMPRESSION: No active disease in the chest. Electronically signed by: Miki Gleason M.D. 02/07/2019 4:11 PM
--- NOTE | 2019-02-07 16:13 | XRay Report ---
XR elbow RT min 3V routine CLINICAL HISTORY: Right elbow pain status post trauma COMPARISON: None. DISCUSSION: No acute fractures or dislocations are visualized. There are moderate arthritic changes p resent with radial head spurring, as well as trochlear and coronoid process spurring. IMPRESSION: 1. No acute fractures or dislocations 2. Moderate arthritic change Electronically signed by: Miki Gleason M.D. 02/07/2019 4:12 PM
[2019-02-07 16:48] LABS: Partial Thromboplastin Ratio 1.1; Partial Thromboplastin Time 29.1 Seconds (21.0-31.0); Prothrombin Time 10.3 Seconds (9.0-12.0)
[2019-02-07 16:58] LABS: Alanine Aminotransferase 64 U/L (12-78); Albumin Level 4.8 gm/dl (3.4-5.0); Aspartate Aminotransferase 71 U/L (15-37); BUN Creatinine Ratio 9.6 (10-20); Blood Urea Nitrogen 13 mg/dl (7-18); Carbon Dioxide 19 mmol/L (21-32); Chloride 104 mmol/L (98-107); Creatinine Clr Calc Pharmacy 56.3 ml/min; Est GFR (African American) 66.6; Est GFR (Non-African American) 57.5; Glucose 93 mg/dl (70-99); Magnesium 2.5 mg/dl (1.8-2.4); Potassium 3.5 mmol/L (3.5-5.1); Sodium 137 mmol/L (136-145)
[2019-02-07 17:03] LABS: Albumin Globulin Ratio 1.4 (0.9-2); Alkaline Phosphatase 85 U/L (45-117); Bilirubin,Total 1.1 mg/dl (0.2-1); Globulin 3.5 gm/dl (2.5-4.0); Total Protein 8.3 gm/dl (6.4-8.2); Troponin I < 0.015 ng/ml (0-0.045)
--- NOTE | 2019-02-07 17:04 | CT Scan Report ---
CT head/brain wo con CLINICAL HISTORY: fall, confusion COMPARISON STUDY: 01/10/2019 TECHNIQUE: Axial CT of the brain is performed from the vertex to the skull base. IV contrast was not administered for this examination. A dose lowering technique was utilized adhering to the principles of ALARA. CT DOSE: 1041.11 mGy.cm FINDINGS: No intra or extra-axial mass lesions are visualized. There is no CT evidence of acute cortical infarc tion. There is no evidence of midline shift. There is no acute hemorrhage. No calvarial fractures ar e visualized. There are minimal white matter hypodensities likely on a small vessel basis. There is no evidence of pathologic ventricular dilatation. There is minimal max sinus mucosal thickening IMPRESSION: No acute intracranial findings Electronically signed by: Miki Gleason M.D. 02/07/2019 5:02 PM
--- NOTE | 2019-02-07 17:05 | CT Scan Report ---
CT OF THE CERVICAL SPINE CLINICAL HISTORY: Neck pain status post trauma COMPARISON STUDY: 01/10/2019 CT DOSE: TECHNIQUE: CT scan of the cervical spine was performed from the skull base to the thoracic inlet. Mabel ges are reviewed in the axial, sagittal, and coronal planes. IV contrast was not administered for thi s examination. A dose lowering technique was utilized adhering to the principles of ALARA. FINDINGS: The visualized portions of the lung apices reveal no evidence of pneumothorax. The prevertebral soft tissues are normal. No fractures or subluxations are visualized. There are multilevel degenerative changes IMPRESSION: No evidence of acute fracture or traumatic subluxation. Electronically signed by: Miki Gleason M.D. 02/07/2019 5:04 PM
[2019-02-07 17:43] LABS: Hematocrit (blood only) 35.8 % (42-52); Hemoglobin 12.4 g/dL (14.0-18.0); Mean Corpuscular Hemoglobin 33.2 pg (25-34); Mean Corpuscular Hgb Conc 34.6 g/dL (32-36); RDW Coefficient of Variation 13.4 % (11.5-14.5); RDW Standard Deviation 47.2 fL (36.4-46.3); Red Blood Count 3.73 M/uL (4.7-6.1); White Blood Count 8.02 K/uL (4.8-10.8)
[2019-02-07 18:03] LABS: Mean Platelet Volume 9.1 fL (7.4-10.4); Platelet Count 83 K/uL (130-400)
[2019-02-07 18:04] LABS: Basophils # (auto) 0.01 K/uL (0-0.2); Basophils % (auto) 0.1 %; Immature Granulocytes # (auto) 0.01 K/uL (0.00-0.02); Immature Granulocytes % (auto) 0.1 %; Lymphocytes # (auto) 0.57 K/uL (1.2-3.4); Lymphocytes % (auto) 7.1 %; Monocytes # (auto) 0.48 K/uL (0.11-0.59); Neutrophils # (auto) 6.95 K/uL (1.4-6.5); Neutrophils % (auto) 86.7 %; Platelet Estimate Decreased (Normal)
[2019-02-07] MEDS ORDERED: LORazepam 2 MG/4 ML VIAL IV STA (19:50)
[2019-02-07] MEDS ORDERED: THIAMINE HCL 500 MG in SYRINGE 9 ML IV STA (20:32)
[2019-02-07] MEDS ORDERED: THIAMINE HCL 500 MG in 0.9 % SODIUM CHLORIDE 100 ML IV STA (20:39)
[2019-02-07] MEDS ORDERED: ATIVAN IV ALCOHOL WITHDRAWL IV SCH (20:45)
[2019-02-07] MEDS ORDERED: LORazepam 2 MG/4 ML VIAL IV PRN (21:25)
[2019-02-07] MEDS ORDERED: LORazepam 1 MG/2 ML VIAL IV PRN (21:25)
[2019-02-07] MEDS ORDERED: ATIVAN IV ALCOHOL WITHDRAWL IV PRN (21:25)
--- NOTE | 2019-02-07 21:45 | Emergency Department Note ---
ED Visit Note HPI: 58M with PMHX etoh abuse, etoh withdrawl, sz d/o vs etoh withdrawal seizure presents with altered mental status and falls in the setting of likely etoh withdrawal. PE: AFVSS, NAD Neuro: Tremulous. Unsteady gait. Poor insight. A/P: Presentation c/w etoh withdrawal/delirium tremens. Admit CIWA, Ativan, Fluids, Banana bag. Patient initially declining admission however he does not have medical decision making capacity. I wet with the patient together with OTTONIEL López and despite being told multiple times about his condition and our concerns he was unable to explain sufficiently in his own words concerns for worsening withdrawal, seizures, delirium and the risks/benefits of recommended treatment and alternatives. Ultimately the patient was redirectable and agreeable for admission. I reviewed the patient's past medical history, medications, and visit nursing notes. I discussed the case with the physician financial administrative assistant, examined the patient, and agree with the findings and plan as documented in OTTONIEL López's note. .
[2019-02-07] MEDS ORDERED: diazePAM 5 MG TABLET PO ONE (22:00)
--- NOTE | 2019-02-07 22:28 | History & Physical Report ---
Date of Service February 07, 2019 Assessment & Plan (1) Alcohol withdrawal: Suspected alcohol withdrawal. Unable to quantify amount of EtOH consumed or last drink. Patient presently tremulous, tachycardic, hypertensive and seems to be hallucinating. -Admit to PCU -Check U tox, UA, TFTs Seizure precautions We will administer Valium 10 mg p.o. x1 Ativan per AWSS -Continue thiamine and folate supplementation Present on Admission?: Yes (2) Seizure: Chronic. Patient not adherent with medications for the last 2 weeks at least due to inability to obtain his medicines. -Continue Vimpat 150 mg p.o. twice daily Consider case management consult to assist with obtaining medications Present on Admission?: Yes (3) Anxiety: Chronic. Continue sertraline 50 mg p.o. every morning F/E/Nadminister banana bag x1, monitor electrolytes and replete as needed, diet as tolerated Prophylaxispatient low risk for DVT Codefull Admit to PCU History of Present Illness Chief Complaint: Confusion Primary Care Provider: Danny Kebede MD 58-year-old male presenting to the ER via EMS for evaluation of confusion. They were called to the patient's house earlier in the day secondary to a fall. Patient reports that he tripped while taking out the trash and suffered an abrasion to his right elbow. He denies head trauma or loss of consciousness. Patient reports he drinks alcohol but is unable to quantify amount or when he had his last drink. Upon arrival to the ER he was found to be tachycardic, hypertensive, episodes of auditory and visual hallucinations as well as tremulous numbness. ER coursebanana bag x1, Ativan 1 mg, 1 mg, 2 mg, thiamine 500 mg IV Allergies Allergy/AdvReac Type Severity Reaction Status Date / Time lamotrigine Allergy Unknown Unknown Verified 02/07/19 16:02 meclizine Allergy Unknown Unknown Verified 02/07/19 16:02 Home Medications Home Medications Medication Instructions Recorded Confirmed Type One Daily For Men 1 tab PO QAM 06/04/18 02/07/19 History Vimpat 150 mg PO BID 12/30/18 02/07/19 History folic acid 1 mg PO QAM 12/30/18 02/07/19 History sertraline 50 mg PO QAM 01/20/19 02/07/19 History Past Med/Surg History Medical History Alcohol abuse (Acute) Alcohol withdrawal (Acute) Altered mental status (Resolved) Emesis (Resolved) Encounter for removal of sutures (Acute) History of seizure (Resolved) Intracranial hemorrhage (Acute) Mental health disorder (Resolved) Seizure (Chronic) Seizure (Acute) Skull fracture (Acute) Status epilepticus (Acute) Suicide attempt (Resolved) Tremulousness (Acute) Wrist pain (Acute) Surgical History No history of previous surgery Social History Preferred Language: [place] Communication Ability: Effective Visual Impairment: No Limitations Hearing Ability: Normal Beliefs That Will Affect Care: None marital status: Current Living Situation: Alone Current Living Situation Comment: Apartment Other Information That Helps Us Care for You: No Feels Safe at Home: Yes Safety Concerns: Feels Safe At This Time Smoking Status: Former smoker Hx Alcohol Use: Yes Alcohol type: hard liquor Hx Substance Use: No Childhood Exposure to Second-Hand Smoke: No Seatbelt Use: always Review of Systems Review of Systems: Unobtainable due to cognitive status Physical Exam Physical Exam: General: patient restless, tremulous, appears ill kempt and cachectic appearing Skin: warm, dry, superficial abrasion on the right elbow with bandage in place HEENT: NC/AT, pupils dilated, round and reactive bilaterally, EOMI, anicteric sclera, conjunctiva without injection, external ear normal to inspection and nontender, nares patent, dry mucus membranes, dentition intact, no oropharyngeal lesions, neck supple, trachea midline, no LAD, no thyromegaly, no JVD Heart: +S1/S2, regular, tachycardic, no m/r/g Lungs: equal air entry bilaterally, no rales/rhonchi/wheezes Abd: +BS, soft, NT/ND, no masses/organomegaly/ascites Ext: warm, 2+ pulses in UE/LE bilaterally, no clubbing/cyanosis or edema Neuro: nonfocal, patient AA&O x 4, speech intact, no facial droop, moving all extremities on command with equal strength 5/5, episodes of questionable hallucinations. Patient seeing "snipers in trees" and other people in the room Results & Data Vital Signs (Past 12 Hours) Vital Signs Temp Pulse Pulse Resp BP BP Pulse Ox 02/07/19 21:26 37.0 C 108 H 20 178/112 H 96 02/07/19 21:02 91 H 20 166/109 H 98 02/07/19 19:24 114 H 18 173/113 H 98 02/07/19 18:31 90 24 02/07/19 18:30 97 H 19 159/110 H 98 02/07/19 18:01 99 H 18 02/07/19 18:00 100 H 17 156/109 H 99 02/07/19 17:31 99 H 24 97 02/07/19 17:30 99 H 24 157/105 H 98 02/07/19 17:02 101 H 21 02/07/19 17:01 99 H 20 159/101 H 97 02/07/19 17:00 99 H 23 96 02/07/19 16:31 109 H 22 168/119 H 96 02/07/19 16:30 113 H 17 02/07/19 16:02 97 02/07/19 16:01 107 H 24 98 02/07/19 16:00 103 H 19 162/107 H 99 02/07/19 15:38 109 H 22 98 02/07/19 15:36 36.9 C 110 H 16 167/106 H 96 02/07/19 15:33 111 H 25 H 167/106 H 99 Laboratory Results Lab Results 02/07/19 02/07/19 02/07/19 Range/Units 16:21 16:21 16:21 WBC (4.8-10.8) K/uL RBC (4.7-6.1) M/uL Hgb (14.0-18.0) g/dL Hct (42-52) % MCV (80-100) fL MCH (25-34) pg MCHC (32-36) g/dL RDW Std Deviation (36.4-46.3) fL RDW Coeff of Teddy (11.5-14.5) % Plt Count Not Reportable MPV (7.4-10.4) fL Immature Gran % (Auto) % Neut % (Auto) % Lymph % (Auto) % Phillips % (Auto) % Eos % (Auto) % Baso % (Auto) % Immature Gran # (Auto) (0.00-0.02) K/uL Neut # (Auto) (1.4-6.5) K/uL Lymph # (Auto) (1.2-3.4) K/uL Phillips # (Auto) (0.11-0.59) K/uL Eos # (Auto) (0-0.5) K/uL Baso # (Auto) (0-0.2) K/uL Platelet Estimate (Normal) PT (9.0-12.0) Seconds INR (0.9-1.1) APTT (21.0-31.0) Seconds PTT Ratio Sodium 137 (136-145) mmol/L Potassium 3.5 (3.5-5.1) mmol/L Chloride 104 (98-107) mmol/L Carbon Dioxide 19 L (21-32) mmol/L Anion Gap 14.0 H (3-11) BUN 13 (7-18) mg/dl Creatinine 1.35 (0.6-1.4) mg/dl Est Cr Clr Drug Dosing 56.3 ml/min Est GFR ( Amer) 66.6 Est GFR (Non-Af Amer) 57.5 BUN/Creatinine Ratio 9.6 L (10-20) Glucose 93 (70-99) mg/dl Calcium 10.0 (8.5-10.1) mg/dl Magnesium 2.5 H (1.8-2.4) mg/dl Total Bilirubin 1.1 H (0.2-1) mg/dl AST 71 H (15-37) U/L ALT 64 (12-78) U/L Alkaline Phosphatase 85 (45-117) U/L Ammonia (11-32) umol/L Troponin I < 0.015 (0-0.045) ng/ml Total Protein 8.3 H (6.4-8.2) gm/dl Albumin 4.8 (3.4-5.0) gm/dl Globulin 3.5 (2.5-4.0) gm/dl Albumin/Globulin Ratio 1.4 (0.9-2) Ethyl Alcohol mg/dL 56.0 H (0-3) mg/dl 02/07/19 02/07/19 02/07/19 Range/Units 16:21 16:21 17:28 WBC 8.02 (4.8-10.8) K/uL RBC 3.73 L (4.7-6.1) M/uL Hgb 12.4 L (14.0-18.0) g/dL Hct 35.8 L (42-52) % MCV 96.0 (80-100) fL MCH 33.2 (25-34) pg MCHC 34.6 (32-36) g/dL RDW Std Deviation 47.2 H (36.4-46.3) fL RDW Coeff of Teddy 13.4 (11.5-14.5) % Plt Count 83 L MPV 9.1 (7.4-10.4) fL Immature Gran % (Auto) 0.1 % Neut % (Auto) 86.7 % Lymph % (Auto) 7.1 % Phillips % (Auto) 6.0 % Eos % (Auto) 0.0 % Baso % (Auto) 0.1 % Immature Gran # (Auto) 0.01 (0.00-0.02) K/uL Neut # (Auto) 6.95 H (1.4-6.5) K/uL Lymph # (Auto) 0.57 L (1.2-3.4) K/uL Phillips # (Auto) 0.48 (0.11-0.59) K/uL Eos # (Auto) 0.00 (0-0.5) K/uL Baso # (Auto) 0.01 (0-0.2) K/uL Platelet Estimate Decreased L (Normal) PT 10.3 (9.0-12.0) Seconds INR 1.0 (0.9-1.1) APTT 29.1 (21.0-31.0) Seconds PTT Ratio 1.1 Sodium (136-145) mmol/L Potassium (3.5-5.1) mmol/L Chloride (98-107) mmol/L Carbon Dioxide (21-32) mmol/L Anion Gap (3-11) BUN (7-18) mg/dl Creatinine (0.6-1.4) mg/dl Est Cr Clr Drug Dosing ml/min Est GFR ( Amer) Est GFR (Non-Af Amer) BUN/Creatinine Ratio (10-20) Glucose (70-99) mg/dl Calcium (8.5-10.1) mg/dl Magnesium (1.8-2.4) mg/dl Total Bilirubin (0.2-1) mg/dl AST (15-37) U/L ALT (12-78) U/L Alkaline Phosphatase (45-117) U/L Ammonia 26.0 (11-32) umol/L Troponin I (0-0.045) ng/ml Total Protein (6.4-8.2) gm/dl Albumin (3.4-5.0) gm/dl Globulin (2.5-4.0) gm/dl Albumin/Globulin Ratio (0.9-2) Ethyl Alcohol mg/dL (0-3) mg/dl Diagnostic Findings CT OF THE CERVICAL SPINE CLINICAL HISTORY: Neck pain status post trauma COMPARISON STUDY: 01/10/2019 CT DOSE: TECHNIQUE: CT scan of the cervical spine was performed from the skull base to the thoracic inlet. Images are reviewed in the axial, sagittal, and coronal planes. IV contrast was not administered for this examination. A dose lowering technique was utilized adhering to the principles of ALARA. FINDINGS: The visualized portions of the lung apices reveal no evidence of pneumothorax. The prevertebral soft tissues are normal. No fractures or subluxations are visualized. There are multilevel degenerative changes IMPRESSION: No evidence of acute fracture or traumatic subluxation. Electronically signed by: Miki Gleason M.D. 02/07/2019 5:04 PM Dictated: 02/07/191701 Transcribed: 02/07/191701 CT head/brain wo con CLINICAL HISTORY: fall, confusion COMPARISON STUDY: 01/10/2019 TECHNIQUE: Axial CT of the brain is performed from the vertex to the skull base. IV contrast was not administered for this examination. A dose lowering technique was utilized adhering to the principles of ALARA. CT DOSE: 1041.11 mGy.cm FINDINGS: No intra or extra-axial mass lesions are visualized. There is no CT evidence of acute cortical infarction. There is no evidence of midline shift. There is no acute hemorrhage. No calvarial fractures are visualized. There are minimal white matter hypodensities likely on a small vessel basis. There is no evidence of pathologic ventricular dilatation. There is minimal max sinus mucosal thickening IMPRESSION: No acute intracranial findings Electronically signed by: Miki Gleason M.D. 02/07/2019 5:02 PM Dictated: 02/07/191701 Transcribed: 02/07/191701 XR chest 1V portable CLINICAL HISTORY: confusion COMPARISON STUDY: 01/10/2019 FINDINGS: The cardiac and mediastinal contours are normal. There is no evidence of focal pulmonary consolidation. There is no evidence of failure. No pleural effusions are visualized.[There are multiple old left-sided rib fractures. IMPRESSION: No active disease in the chest. Electronically signed by: Miki Gleason M.D. 02/07/2019 4:11 PM Dictated: 02/07/191609 Transcribed: 02/07/191609 XR elbow RT min 3V routine CLINICAL HISTORY: Right elbow pain status post trauma COMPARISON: None. DISCUSSION: No acute fractures or dislocations are visualized. There are moderate arthritic changes present with radial head spurring, as well as trochlear and coronoid process spurring. IMPRESSION: 1. No acute fractures or dislocations 2. Moderate arthritic change Electronically signed by: Miki Gleason M.D. 02/07/2019 4:12 PM Dictated: 02/07/191610 Transcribed: 02/07/191610 Code Status & VTE Plan Code Status Full code PG Care Time/CCT Total # of Minutes Spent Total Time Spent with Patient: Total time spent is greater than 50% in coordination of care (as documented) at patient's floor/unit and/or counseling patient: (1) Alcohol withdrawal Complication of substance-induced condition: with delirium Qualified Code(s): F10.231 - Alcohol dependence with withdrawal delirium
[2019-02-07] MEDS: LACOSAMIDE 50 MG TABLET PO SCH (22:43)
[2019-02-08] MEDS ORDERED: diazePAM 5 MG TABLET PO ONE (01:00)
[2019-02-08 01:45] LABS: Appearance Urine Clear (Clear); Bacteria Urine Automated Negative (Negative); Bilirubin Urine Negative (Negative); Blood Urine Negative (Negative); Color Urine Dark Yellow; Glucose Urine UA Negative (Negative); Ketones Urine 2+ (Negative); Leukocyte Esterase Urine Negative (Negative); Nitrite Urine Negative (Negative); Protein Urine 1+ (Negative); RBC Urine Automated 0-4 /hpf (0-4); Specific Gravity Urine 1.021 (1.000-1.030); Urobilinogen Urine Negative (Negative)
[2019-02-08 02:10] LABS: Amphetamines+Metham, Urine Pos (Neg); Barbiturates, Urine Neg (Neg); Benzodiazepine, Urine Neg (Neg); Cocaine, Urine Neg (Neg); MDMA (Ecstacy), Urine Pos (Neg); Methadone, Urine Neg (Neg); Opiate, Urine Neg (Neg); Phencyclidine, Urine Neg (Neg)
[2019-02-08] MEDS: LORazepam 3 MG/6 ML VIAL IV PRN ×2 (04:35→08:21)
[2019-02-08] MEDS ORDERED: LORazepam 4 MG/8 ML VIAL IV STA (05:09)
[2019-02-08 06:25] LABS: Hematocrit (blood only) 33.7 % (42-52); Hemoglobin 12.2 g/dL (14.0-18.0); Mean Corpuscular Hemoglobin 34.4 pg (25-34); Mean Corpuscular Hgb Conc 36.2 g/dL (32-36); Mean Corpuscular Volume 94.9 fL (80-100); RDW Coefficient of Variation 13.4 % (11.5-14.5); RDW Standard Deviation 47.1 fL (36.4-46.3); Red Blood Count 3.55 M/uL (4.7-6.1); White Blood Count 4.21 K/uL (4.8-10.8)
[2019-02-08 06:27] LABS: Mean Platelet Volume 9.5 fL (7.4-10.4); Platelet Count 82 K/uL (130-400)
[2019-02-08 06:44] LABS: Basophils # (auto) 0.01 K/uL (0-0.2); Basophils % (auto) 0.2 %; Eosinophils # (auto) 0.03 K/uL (0-0.5); Eosinophils % (auto) 0.7 %; Immature Granulocytes # (auto) 0.01 K/uL (0.00-0.02); Immature Granulocytes % (auto) 0.2 %; Lymphocytes % (auto) 11.9 %; Monocytes # (auto) 0.55 K/uL (0.11-0.59); Monocytes % (auto) 13.1 %; Neutrophils # (auto) 3.11 K/uL (1.4-6.5); Neutrophils % (auto) 73.9 %
[2019-02-08 06:52] LABS: Giant Platelets 1+
[2019-02-08 07:02] LABS: BUN Creatinine Ratio 15.5 (10-20); Calcium 8.9 mg/dl (8.5-10.1); Creatinine Clr Calc Pharmacy 100.2 ml/min; Est GFR (African American) 118.5; Est GFR (Non-African American) 102.2
[2019-02-08 07:14] LABS: Thyroid Stimulating Hormone 2.51 uIu/ml (0.300-4.500)
[2019-02-08] MEDS: LACOSAMIDE 50 MG TABLET PO SCH ×2 (08:03→19:35)
[2019-02-08] MEDS: SERTRALINE HCL 50 MG TABLET PO SCH (08:03)
--- NOTE | 2019-02-08 08:40 | Hospitalist Progress Note ---
Date of Service February 08, 2019 Assessment & Plan (1) Alcohol withdrawal: Patient likely has multiple reasons for active confusion hallucinations, including acute alcohol withdrawal. Patient also tested positive for methamphetamine and MDMA at time of presentation which is likely contributing to this confusion. For now we will need to continue alcohol withdrawal, monitor vitals closely and treat as needed. Patient will continue to need one-to-one as he is climbing in bed and is a definite fall risk. Vitals are otherwise stable. Continue thiamine and folate, can be changed over to oral preparations. (2) Seizure: Patient is high risk for seizures, especially considering alcohol withdrawal. Vimpat was restarted on admission he will need to be continued. Again, close monitoring over the next 24-48 hours will be needed. (3) Anxiety: Chronic. Continue sertraline 50 mg p.o. every morning F/E/Nadminister banana bag x1, monitor electrolytes and replete as needed, diet as tolerated Prophylaxispatient low risk for DVT Codefull Subjective Patient awake, oriented to person and place. Otherwise seems very confused and attempting to climb out of bed. Patient has a one-to-one in the room. About to be medicated with Ativan for alcohol withdrawal. Patient expresses no complaints and seems to be in a very good mood today. Physical Exam Physical Exam: Gen: Alert, oriented to person and place. Very confused and climbing out of bed HEENT: neck supple, no JVD. MMM. Heart: RR, no murmurs, limited exam Lungs: clear to auscultation in all elise, limited exam Abd: soft, nontender, nondistended. Normal BS Neuro: awake, alert. Psych: Confused as noted above. Ext: No clubbing, cyanosis, edema Results & Data Vital Signs (Past 12 Hours) Vital Signs Temp Pulse Pulse Resp BP Pulse Ox 02/08/19 08:04 36.9 C 92 H 18 126/97 97 02/08/19 07:03 36.7 C 75 24 139/81 96 02/08/19 06:28 36.9 C 96 H 22 132/89 02/08/19 04:28 37.0 C 112 H 20 149/100 H 02/08/19 03:22 36.6 C 95 H 20 130/90 98 02/08/19 01:46 98 H 02/08/19 01:10 37.3 C 88 20 145/93 H 97 02/07/19 23:27 36.8 C 02/07/19 23:25 166/102 H 02/07/19 22:55 36.6 C 100 H 20 193/121 H 99 02/07/19 21:26 37.0 C 108 H 20 178/112 H 96 02/07/19 21:02 91 H 20 166/109 H 98 PG Care Time/CCT Total # of Minutes Spent Total Time Spent with Patient: Total time spent is greater than 50% in coordinat ion of care (as documented) at patient's floor/unit and/or counseling patient:
[2019-02-08] MEDS: FOLIC ACID 1 MG TAB PO SCH (08:45)
[2019-02-08] MEDS: THIAMINE HCL 100 MG TAB PO SCH (08:45)
[2019-02-08] MEDS ORDERED: FOLIC ACID 1 MG in SYRINGE 9.8 ML IV SCH (09:00)
[2019-02-08] MEDS ORDERED: THIAMINE HCL 100 MG in SYRINGE 9 ML IV SCH (09:00)
[2019-02-08] MEDS ORDERED: POTASSIUM CHLORIDE 20 MEQ TABCR PO STA (10:08)
[2019-02-09 06:47] LABS: Basophils # (auto) 0.03 K/uL (0-0.2); Basophils % (auto) 0.7 %; Eosinophils # (auto) 0.04 K/uL (0-0.5); Hematocrit (blood only) 35.8 % (42-52); Lymphocytes # (auto) 0.81 K/uL (1.2-3.4); Lymphocytes % (auto) 19.3 %; Mean Corpuscular Hemoglobin 35.4 pg (25-34); Mean Corpuscular Hgb Conc 36.3 g/dL (32-36); Mean Corpuscular Volume 97.5 fL (80-100); Mean Platelet Volume 9.2 fL (7.4-10.4); Monocytes # (auto) 0.56 K/uL (0.11-0.59); Monocytes % (auto) 13.3 %; Neutrophils # (auto) 2.76 K/uL (1.4-6.5); Neutrophils % (auto) 65.7 %; Platelet Count 104 K/uL (130-400); RDW Coefficient of Variation 13.3 % (11.5-14.5); RDW Standard Deviation 47.5 fL (36.4-46.3); Red Blood Count 3.67 M/uL (4.7-6.1)
[2019-02-09 07:20] LABS: BUN Creatinine Ratio 17.1 (10-20); Calcium 8.9 mg/dl (8.5-10.1); Creatinine Clr Calc Pharmacy 104.3 ml/min; Est GFR (African American) 119.9; Est GFR (Non-African American) 103.4; Potassium 3.1 mmol/L (3.5-5.1)
[2019-02-09] MEDS: LACOSAMIDE 50 MG TABLET PO SCH ×2 (07:51→20:57)
[2019-02-09] MEDS: SERTRALINE HCL 50 MG TABLET PO SCH (07:51)
[2019-02-09] MEDS: FOLIC ACID 1 MG TAB PO SCH (07:51)
[2019-02-09] MEDS: THIAMINE HCL 100 MG TAB PO SCH (07:51)
--- NOTE | 2019-02-09 09:02 | Hospitalist Progress Note ---
Date of Service February 09, 2019 Assessment & Plan (1) Alcohol withdrawal: Patient's mental status is likely at his baseline. I suspect the effects of MDMA, meth, and alcohol since resolved. He does not appear to be in alcohol withdrawal at this time.We will continue to monitor for the next 24 hours. Patient will need PT/OT evaluations prior to any consideration of discharge. (2) Seizure: Patient was started on Vimpat yesterday which seems to tolerate well. Continue to monitor. (3) Anxiety: Chronic. Continue sertraline 50 mg p.o. every morning F/E/Nadminister banana bag x1, monitor electrolytes and replete as needed, diet as tolerated Prophylaxispatient low risk for DVT Codefull (4) Urinary retention: May be secondary to patient's illicit substance abuse. Continue straight cath. Will ask urology to evaluate. Subjective Patient's mental status seems much improved today. I suspect this is his baseline as he is able to answer questions. He is oriented to person place and time, no longer trying to climb out of bed. Nursing does report that the patient has been having urinary retention requiring straight cath x2 during the night. Physical Exam Physical Exam: Gen: AAOx3, NAD HEENT: neck supple, no JVD. MMM. Heart: RR, no murmurs Lungs: clear to auscultation in all elise Abd: soft, nontender, nondistended. Normal BS Neuro: awake, alert. Nonfocal Psych: appropriate mood and affect Ext: No clubbing, cyanosis, edema Results & Data Vital Signs (Past 12 Hours) Vital Signs Temp Pulse Pulse Resp BP Pulse Ox 02/09/19 08:22 36.9 C 92 H 20 145/97 H 95 02/09/19 02:51 37 C 65 16 137/85 97 02/08/19 23:08 69 02/08/19 23:03 37.1 C 73 18 157/103 H 98 PG Care Time/CCT Total # of Minutes Spent Total Time Spent with Patient: Total time spent is greater than 50% in coordination of care (as documented) at patient's floor/unit and/or counseling patient:
--- NOTE | 2019-02-09 09:19 | Urology Consultation ---
Date of Consultation February 09, 2019 Assessment & Plan (1) Urinary retention: 58yo comorbid male, admitted with multifactorial confusion, including positive drug screen; with urinary retention. Pt likely with baseline LUTS, but difficult to determine. Given hx of being uncooperative and climbing out of bed, I don't feel an indwelling catheter is a responsible choice at this time. Will continue straight cath x8 hours for now. May consider restarting IVF for poor PO intake. Will allow for primary team to manage. Will add flomax, monitor for orthostasis. Will continue to monitor, thank you for the consultation. History of Present Illness Attending Physician: Michael Scott, DO History of Present Illness 58yo M with multiple comorbidities including seizure admitted on 02/07 due to AMS, confusion; suspected ETOH withdrawal, positive for MDMA and methamphetamine. During hospitalization, pt has required repeat straight catheterization, unable to spontaneously void. On chart review, his Creatinine is WNL, UA not suspicious for UTI. Pt is oriented to self and place, but only answering yes/no questions. Giving blank stare with all questioning, but able to converse on phone with family members. Denies any previous urologic issues, never previously evaluated by Urology service. Per nursing, pt has required straight cath q8h, marginal urine output. Cr WNL Pt taking PO but unsure of quantity. PSA levels have been normal in the past. 2018 - 0.845, [address] abd/pelvis obtained in May 2018 reveals a distended bladder at that time, mild prostatomegaly. No stones, no hydronephrosis. Per PCP notes, pt has noted nocturia in the past. Allergies Allergy/AdvReac Type Severity Reaction Status Date / Time lamotrigine Allergy Unknown Unknown Verified 02/07/19 16:02 meclizine Allergy Unknown Unknown Verified 02/07/19 16:02 Home Medications Home Medications Medication Instructions Recorded Confirmed Type One Daily For Men 1 tab PO QAM 06/04/18 02/07/19 History Vimpat 150 mg PO BID 12/30/18 02/07/19 History folic acid 1 mg PO QAM 12/30/18 02/07/19 History sertraline 50 mg PO QAM 01/20/19 02/07/19 History Patient History Medical History Alcohol abuse (Acute) Alcohol withdrawal (Acute) Altered mental status (Resolved) Emesis (Resolved) Encounter for removal of sutures (Acute) History of seizure (Resolved) Intracranial hemorrhage (Acute) Mental health disorder (Resolved) Seizure (Chronic) Seizure (Acute) Skull fracture (Acute) Status epilepticus (Acute) Suicide attempt (Resolved) Tremulousness (Acute) Wrist pain (Acute) Surgical History No history of previous surgery Family History Sister Seizure Brother Seizure Mother No pertinent family history Father No pertinent family history Social History Preferred Language: Ma[place] Communication Ability: Effective Visual Impairment: No Limitations Hearing Ability: Normal Beliefs That Will Affect Care: None marital status: Current Living Situation: Alone Current Living Situation Comment: Apartment Other Information That Helps Us Care for You: No Feels Safe at Home: Yes Safety Concerns: Feels Safe At This Time Smoking Status: Former smoker Hx Alcohol Use: Yes Alcohol type: hard liquor Hx Substance Use: No Childhood Exposure to Second-Hand Smoke: No Seatbelt Use: always Physical Exam Physical Exam: A&Ox3 RRR abd soft, flat Results & Data Vital Signs (Past 12 Hours) Vital Signs Temp Pulse Pulse Resp BP Pulse Ox 02/09/19 08:22 36.9 C 92 H 20 145/97 H 95 02/09/19 02:51 37 C 65 16 137/85 97 02/08/19 23:08 69 02/08/19 23:03 37.1 C 73 18 157/103 H 98 PG Care Time/CCT Total # of Minutes Spent Total Time Spent with Patient: Total time spent is greater than 50% in coordination of care (as documented) at patient's floor/unit and/or counseling patient:
[2019-02-09] MEDS ORDERED: TAMSULOSIN HCL 0.4 MG CAP PO SCH (21:00)
[2019-02-10 07:48] LABS: Basophils # (auto) 0.02 K/uL (0-0.2); Basophils % (auto) 0.6 %; Eosinophils # (auto) 0.05 K/uL (0-0.5); Eosinophils % (auto) 1.6 %; Hematocrit (blood only) 37.6 % (42-52); Immature Granulocytes # (auto) 0.01 K/uL (0.00-0.02); Immature Granulocytes % (auto) 0.3 %; Lymphocytes # (auto) 0.77 K/uL (1.2-3.4); Lymphocytes % (auto) 24.1 %; Mean Corpuscular Hemoglobin 33.5 pg (25-34); Mean Corpuscular Hgb Conc 34.6 g/dL (32-36); Mean Corpuscular Volume 96.9 fL (80-100); Mean Platelet Volume 9.6 fL (7.4-10.4); Monocytes # (auto) 0.53 K/uL (0.11-0.59); Monocytes % (auto) 16.6 %; Neutrophils # (auto) 1.81 K/uL (1.4-6.5); Neutrophils % (auto) 56.8 %; Platelet Count 118 K/uL (130-400); RDW Coefficient of Variation 13.3 % (11.5-14.5); RDW Standard Deviation 46.6 fL (36.4-46.3); Red Blood Count 3.88 M/uL (4.7-6.1); White Blood Count 3.19 K/uL (4.8-10.8)
[2019-02-10 08:14] LABS: RBC Morphology Unremarkable
[2019-02-10 08:17] LABS: BUN Creatinine Ratio 18.6 (10-20); Calcium 9.5 mg/dl (8.5-10.1); Creatinine Clr Calc Pharmacy 104.4 ml/min; Est GFR (African American) 119.9; Est GFR (Non-African American) 103.4; Potassium 3.2 mmol/L (3.5-5.1)
[2019-02-10] MEDS: FOLIC ACID 1 MG TAB PO SCH (08:31)
[2019-02-10] MEDS: LACOSAMIDE 50 MG TABLET PO SCH (08:31)
[2019-02-10] MEDS: THIAMINE HCL 100 MG TAB PO SCH (08:31)
[2019-02-10] MEDS: SERTRALINE HCL 50 MG TABLET PO SCH (08:32)
[2019-02-10] MEDS ORDERED: POTASSIUM CHLORIDE 20 MEQ TABCR PO STA (09:24)
--- NOTE | 2019-02-10 16:29 | Hospitalist Progress Note ---
Date of Service February 10, 2019 Assessment & Plan (1) Alcohol withdrawal: Patient's mental status is likely at his baseline. I suspect the effects of MDMA, meth, and alcohol since resolved. He does not appear to be in alcohol withdrawal at this time.We will continue to monitor for the next 24 hours. Patient will need PT/OT evaluations prior to any consideration of discharge. (2) Seizure: Patient was started on Vimpat yesterday which seems to tolerate well. Continue to monitor. (3) Anxiety: Chronic. Continue sertraline 50 mg p.o. every morning F/E/Nadminister banana bag x1, monitor electrolytes and replete as needed, diet as tolerated Prophylaxispatient low risk for DVT Codefull (4) Urinary retention: May be secondary to patient's illicit substance abuse. Continue straight cath. Will ask urology to evaluate. Results & Data Vital Signs (Past 12 Hours) Vital Signs Temp Pulse Pulse Resp BP Pulse Ox 02/10/19 15:33 36.9 C 72 17 122/82 97 02/10/19 11:16 37.0 C 79 15 125/92 98 02/10/19 09:50 59 L 02/10/19 07:30 36.9 C 71 16 124/80 97 02/10/19 04:33 36.8 C 82 20 130/88 98 PG Care Time/CCT Total # of Minutes Spent Total Time Spent with Patient: Total time spent is greater than 50% in coordination of care (as documented) at patient's floor/unit and/or counseling patient:
[2019-02-10] MEDS ORDERED: LACOSAMIDE 50 MG TABLET PO SCH ×2 (21:00)
[2019-02-11 15:46] LABS: Amphetamine Urine, Confirm 11100 ng/mL (<250)
--- NOTE | 2019-02-14 16:58 | Discharge Summary ---
Date of Service February 10, 2019 Admission HPI Per Admitting Provider 58-year-old male presenting to the ER via EMS for evaluation of confusion. They were called to the patient's house earlier in the day secondary to a fall. Patient reports that he tripped while taking out the trash and suffered an abrasion to his right elbow. He denies head trauma or loss of consciousness. Patient reports he drinks alcohol but is unable to quantify amount or when he had his last drink. Upon arrival to the ER he was found to be tachycardic, hypertensive, episodes of auditory and visual hallucinations as well as tremulous numbness. ER coursebanana bag x1, Ativan 1 mg, 1 mg, 2 mg, thiamine 500 mg IV Discharge Data Allergies Allergy/AdvReac Type Severity Reaction Status Date / Time lamotrigine Allergy Unknown Unknown Verified 02/07/19 16:02 meclizine Allergy Unknown Unknown Verified 02/07/19 16:02 Consultations 02/07/19 18:21 ED Decision to Admit Stat 02/09/19 09:00 Consult Urology Routine Ordered Studies 02/07/19 15:49 CT cervical spine wo con Stat 02/07/19 15:50 CT head/brain wo con Stat Hospital Course (1) Alcohol withdrawal: Patient's mental status is likely at his baseline. I suspect the effects of MDMA, meth, and alcohol since resolved. He does not appear to be in alcohol withdrawal at this time.We will continue to monitor for the next 24 hours. Patient will need PT/OT evaluations prior to any consideration of discharge. (2) Seizure: Patient was started on Vimpat yesterday which seems to tolerate well. Continue to monitor. (3) Anxiety: Chronic. Continue sertraline 50 mg p.o. every morning F/E/Nadminister banana bag x1, monitor electrolytes and replete as needed, diet as tolerated Prophylaxispatient low risk for DVT Codefull (4) Urinary retention: May be secondary to patient's illicit substance abuse. Continue straight cath. Will ask urology to evaluate. Discharge Plan Discharge Items Patient Disposition: Home - Self-Care Reason For Visit: Alcohol WITHDRAWAL Discharge Diagnosis: Alcohol withdrawal Condition on Discharge: Fair Activity: Resume your previous activity Non-emergency contact: Primary Care Provider and Neurologist Call non-emergency contact if: you have any medication questions and your symptoms worsen Follow-up/Referrals: Danny Hanley MD [Primary Care Provider] - 02/15/19 11:15 am (Please, follow up with Dr. Kirkpatrick on ThursdayFebruary 15 at 11:15 am. *If you need to change this appointment, call the office at [phone].) Kyra De La Rosa PA-C [Physician Senior Contracts Manager] - 03/24/19 10:25 am (Please, follow up at [facility] with Kyra De La Rosa PA-C on March 24 at 10:25 am. *SOMEONE FROM THIS OFFICE MAY BE CALLING YOU WITH A SOONER APPOINTMENT, IF IT CAN BE ARRANGED. The office is located at [address] in [place]. If you need to change this appointment, call the office at [phone].) Diet: Regular Addtl Attending Provider Instructions: Please go to see Kyra De La Rosa's nurse tomorrow morning at the [facility] office at 10:30. They will help you fill out paperwork to get your Vimpat after you leave the hospital. For now, the hospital pharmacy has given you a 5 day supply of the medication. It is very important that you NOT DRINK ANY ALCOHOL any more. You were started on a medication to help you urinate better called tamsulosin. Please continue this once daily at bedtime. Your sertraline can be obtained at a [facility] pharmacy for $4 if you desire. Please follow up with your primary care provider as scheduled for you. Pending Studies at Discharge: No Stand-Alone Forms: My [facility], Smoking Cessation Medications and DC Order Prescriptions: New thiamine HCl (vitamin B1) [Vitamin B-1] 100 mg Tablet 100 mg PO QAM Qty: 30 RF: 0 tamsulosin 0.4 mg Capsule 0.4 mg PO HS Qty: 30 RF: 0 Continued One Daily For Men 0.4-600 mg-mcg Tablet 1 tab PO QAM RF: 0 Vimpat 150 mg tablet 150 mg PO BID RF: 0 folic acid 1 mg tablet 1 mg PO QAM RF: 0 sertraline 50 mg tablet 50 mg PO QAM Qty: 30 RF: 0 Discharge Orders: Discharge Order (Routine); Ordered 02/10/19 Ordered By: Estelita Mack/Other Patient Handouts: Alcoholism, Alcoholism Get Help Admission Data Admit Date/Time: 02/07/19 20:21 Attending Provider: Estelita Yao Admit Provider: Cynthia Morris Primary Care Provider: Danny Hanley V. Other Providers: Cynthia Morris ; Sen Last Other Interventions: Discharge Summary Assessment (RN) Last Done: 02/10/19 18:01 DC Date/Time DO NOT enter until pt leaves facility: 02/10/19 18:43
== END 2019-02-10 18:43 | disposition home or self-care (01) | DRG 897 ==
LOC: ED 15:28 → SUATTDRO 20:21 → 2E 20:21

== ENCOUNTER 2020-03-01 18:24 | Inpatient (IN) ==
[2020-03-01] MEDS ORDERED: LORazepam 2 MG/4 ML VIAL IV STA (18:37)
[2020-03-01] MEDS ORDERED: MULTI-VITAMIN INFUSION 10 ML, THIAMINE HCL 100 MG, FOLIC ACID 1 MG in SODIUM CHLORIDE 0... IV ONE (18:37)
[2020-03-01] MEDS ORDERED: THIAMINE HCL 200 MG in SODIUM CHLORIDE 0.9% 50 ML IV STA (18:37)
[2020-03-01] MEDS ORDERED: LACOSAMIDE 150 MG in SODIUM CHLORIDE 0.9% 50 ML IV STA (18:37)
[2020-03-01] MEDS ORDERED: DIPHTHERIA/TETANUS/PERTUSSIS 0.5 ML SYR/VIAL IM ONE (18:42)
--- NOTE | 2020-03-01 19:07 | XRay Report ---
XR chest 1V portable HISTORY: SEPSIS COMPARISON: Chest 03/21/2019. FINDINGS: Cardiac silhouette is normal in size. No pleural effusions. No pneumothorax. Old, healed le ft-sided rib fractures. No acute fractures identified. The lungs are clear. IMPRESSION: No acute process. ACT 112: Negative or not required by law. Electronically signed by: Stevie Morin M.D. 03/01/2020 7:06 PM
[2020-03-01 19:30] LABS: Hematocrit (blood only) 39.7 % (42-52); Hemoglobin 13.5 g/dL (14.0-18.0); Mean Corpuscular Hemoglobin 34.9 pg (25-34); Mean Corpuscular Volume 102.6 fL (80-100); RDW Coefficient of Variation 14.5 % (11.5-14.5); RDW Standard Deviation 54.3 fL (36.4-46.3); Red Blood Count 3.87 M/uL (4.7-6.1); White Blood Count 3.09 K/uL (4.8-10.8)
[2020-03-01 19:36] LABS: iSTAT Creatinine 1.2 mg/dl (0.6-1.3); iSTAT Hemoglobin 14.3 g/dl (14.0-18.0); iSTAT Ionized Calcium 1.08 mmol/l (1.12-1.32); iSTAT Potassium 3.7 mmol/L (3.3-5.0)
[2020-03-01 19:39] LABS: Partial Thromboplastin Time 28.9 Seconds (21.0-31.0); Prothrombin Time 10.3 Seconds (9.0-12.0)
[2020-03-01] MEDS ORDERED: IOVERSOL 100ml IV ONE (19:40)
[2020-03-01 19:46] LABS: Alanine Aminotransferase 93 U/L (12-78); Aspartate Aminotransferase 115 U/L (15-37); BUN Creatinine Ratio 21.6 (10-20); Bilirubin Direct 0.1 mg/dl (0-0.2); Blood Urea Nitrogen 16 mg/dl (7-18); Calcium 8.8 mg/dl (8.5-10.1); Carbon Dioxide 26 mmol/L (21-32); Chloride 107 mmol/L (98-107); Creatinine Clr Calc Pharmacy 107.5 ml/min; Glucose 98 mg/dl (70-99); Magnesium 2.2 mg/dl (1.8-2.4); Potassium 3.7 mmol/L (3.5-5.1); Sodium 144 mmol/L (136-145)
[2020-03-01 19:51] LABS: Mean Platelet Volume 9.3 fL (7.4-10.4); Platelet Count 75 K/uL (130-400)
[2020-03-01 19:55] LABS: Albumin Globulin Ratio 1.2 (0.9-2); Alkaline Phosphatase 105 U/L (45-117); Bilirubin,Total 0.3 mg/dl (0.2-1); Creatine Kinase 240 U/L (39-308); Globulin 3.3 gm/dl (2.5-4.0); Total Protein 7.3 gm/dl (6.4-8.2); Troponin I < 0.015 ng/ml (0-0.045)
[2020-03-01 20:01] LABS: Base Excess VBG 2.4 mEq/L; HCO3 VBG 29 mmol/L; PCO2 VBG 52 mmHg (38-50); PO2 VBG 29 mmHg; pH VBG 7.36 (7.36-7.41)
[2020-03-01 20:02] LABS: Oxygen Saturation VBG < 60.0 %
[2020-03-01 20:07] LABS: T4 Free Thyroxine 0.75 ng/dl (0.8-1.6)
[2020-03-01] MEDS ORDERED: XYLOCAINE 1%/SOD BICARB 20 ML VIAL INFIL ONE (20:08)
[2020-03-01 20:14] LABS: Basophils # (auto) 0.09 K/uL (0-0.2); Basophils % (auto) 2.9 %; Eosinophils # (auto) 0.03 K/uL (0-0.5); Giant Platelets 1+; Immature Granulocytes # (auto) 0.02 K/uL (0.00-0.02); Immature Granulocytes % (auto) 0.6 %; Lymphocytes # (auto) 0.65 K/uL (1.2-3.4); Monocytes # (auto) 0.25 K/uL (0.11-0.59); Monocytes % (auto) 8.1 %; Neutrophils # (auto) 2.05 K/uL (1.4-6.5); Neutrophils % (auto) 66.4 %
[2020-03-01] MEDS ORDERED: SODIUM CHLORIDE 0.9% 1000ML 1,000 ML IV ONE (20:14)
--- NOTE | 2020-03-01 20:14 | Emergency Department Note ---
Impression & Plan Alcohol abuse, Seizure disorder, Elevated lactic acid level, Dehydration, Laceration of eyebrow, left ED Provider Note NAME: TO GASPAR AGE: 59 SEX: M ARRIVES VIA: Ambulance INFORMANT: Patient, ED PROVIDER(S): Edy Jean Baptiste MD CHIEF COMPLAINT: Syncope, Seizure PLAN: Disposition: Admit MEDICAL DECISION MAKING: The patient is a 59-year-old gentleman with a past medical history of alcohol abuse, alcohol withdrawal, seizure disorder on Vimpat, history of subarachnoid hemorrhage who presents emergency department after being found on the ground wet and confused by police on [facility]. EMS reports he had brief episodes of absence seizure-like episodes but no tonic-clonic activity. The patient arrives alert and oriented to self mildly disoriented to situation and does not recall how he fell or what he was doing. He does admit to drinking alcohol every day and feels as though he did today but admits that he may also be having some withdrawal symptoms. He does agree with recommendation for admission given the severity of his presentation On arrival the patient is in no acute distress, afebrile with temperature of 36.4 rectally and vital signs otherwise stable. He does have superficial abrasion to the midline forehead and left lateral temporal area. There is a 2.6 cm slightly gaping laceration of the left eyebrow. The patient is moving all extremities equally without focal neurologic deficits. He appears clinically dry. EKG without overt acute ischemia. Chest x-ray negative for acute cardiopulm onary process. WBC 3, nonspecific. H/H 13.5/three 9.7 similar to prior range of values. Platelets 70 5K, similar to prior range of values in the setting of alcohol abuse. VBG unremarkable. Chemistry without metabolic acidosis. BUN/creatinine > 20 consistent with the patient's clinically dry appearance. Lactate 3.8 most likely related to dehydration. LFTs slightly elevated from prior, nonspecific with AST and ALT 115 and 93 respectively. Ammonia 38, marginally elevated and nonspecific. Troponin negative/undetectable. CPK within normal limits. Procalcitonin undetectable. TSH 5.8 with free T4 slightly decreased at 0.75. Patient's blood alcohol was 340. COVID-19 RNA, NAAT test was negative. CT of the head and cervical spine negative for acute process. Done pelvis negative for acute process. Question of slightly progressed enlargement of appendix however without periappendiceal inflammation. Unlikely represent appendicitis at this time given the patient has no GI symptoms or abdominal pain on exam. Left eyebrow laceration repair per PAC Airam's note. Case was discussed with Dr. New, [facility] hospitalist, who will evaluate the patient for admission. Triage Nursing notes reviewed and agree them. Additional history obtained from EMS Prior medical records reviewed Vital Signs: reviewed and remarkable for no significant abnormalities Differential diagnosis: Infection, dehydration, metabolic abnormality, hypo/hyperglycemia, electrolyte disturbance, anemia, hypoxia, cardiac sources, intracerebral event, toxicologic, neurologic, as well as other pathologies. ER treatment provided: See below. Diagnostics interpreted by me: ECG: Normal sinus rhythm with sinus arrhythmia, 71 bpm, no ectopy, no overt ST elevation or depression, QTC 425, QRS 90. Cardiac Monitoring: An order for continuous cardiac monitoring was placed and demonstrated normal sinus rhythm, sinus arrhythmia, 71 bpm, no ectopy. Laboratory studies: See below Imaging studies: XR chest 1V portable HISTORY: SEPSIS COMPARISON: Chest 03/21/2019. FINDINGS: Cardiac silhouette is normal in size. No pleural effusions. No pneumothorax. Old, healed left-sided rib fractures. No acute fractures identified. The lungs are clear. IMPRESSION: No acute process. -- HEAD CT NONCONTRAST CT DOSE: 1773.38 mGy.cm HISTORY: pain fall TECHNIQUE: Multiaxial CT images of the head were performed without the use of intravenous contrast. Automated exposure control was utilized for this study. A dose lowering technique was utilized adhering to the principles of ALARA. Comparison: Mild mucosal thickening within the maxillary sinuses. There is left periorbital soft tissue swelling. Findings: The paranasal sinuses and mastoid air cells are clear. The calvarium and skull base are intact. There is no mass, hematoma, midline shift, acute infarct. White matter hypodensity is nonspecific but suggestive of microvascular ischemic change. The ventricles and sulci demonstrate mild age-related involutional changes. Small focus of encephalomalacia within the right frontal lobe consistent with an old infarct. Impression: No acute intracranial abnormality. ACT 112: Negative or not required by law. CERVICAL SPINE CT CT DOSE: HISTORY: Neck pain fall TECHNIQUE: Multiaxial CT images of the cervical spine were performed and reformatted in the sagittal and coronal plane without the use of contrast. A dose lowering technique was utilized adhering to the principles of ALARA. COMPARISON: Cervical spine CT 04/28/2019. FINDINGS: No fractures. No subluxation. Prevertebral soft tissues and the C1-C2 interval are intact. No pneumothorax. Moderate disc space narrowing at C5-C6. IMPRESSION: No fractures within the cervical spine. -- ABDOMEN AND PELVIS CT WITH IV CONTRAST CT DOSE: HISTORY: back pain, fall TECHNIQUE: Multiaxial CT images of the abdomen and pelvis were performed following the use of intravenous contrast. A dose lowering technique was utilized adhering to the principles of ALARA. COMPARISON STUDY: Abdomen and pelvis CT 06/04/2018. FINDINGS: Groundglass densities within the lower lobes favor mild dependent change. No pneumoperitoneum. No pneumatosis. Old left-sided rib fractures. There is also an old L2 superior endplate compression fracture. No acute fractures identified. Small fat-containing left inguinal hernia. Mild hepatic steatosis. The main portal vein is patent. The gallbladder, pancreas, spleen, adrenal glands, and kidneys are within normal limits. No hydronephrosis. Mild bilateral perinephric edema is likely chronic. No retroperitoneal lymphadenopathy or hematoma. Normal caliber abdominal aorta. The bladder is mildly distended. No pelvic free fluid. No bowel wall thickening or obstruction. The appendix is slightly distended measuring up to 7 mm in diameter. This has slightly progressed compared to the prior study. The mid to distal appendix remains filled with fluid. No periappendiceal fat stranding to suggest acute appe ndicitis. IMPRESSION: 1. No acute traumatic process within the abdomen or pelvis. 2. Old, healed left-sided rib fractures and an old L2 superior endplate compression fracture. 3. Mildly distended and fluid-filled appendix measuring up to 7 mm in diameter. This has slightly progressed. No periappendiceal fat stranding to suggest acute appendicitis. Consider follow-up nonemergent surgical consultation to exclude the possibility of a mucocele. Consultation(s): Case was discussed with Dr. New, [facility] hospitalist, who will evaluate the patient for admission. HPI: The patient is a 59-year-old gentleman with a past medical history of alcohol abuse, alcohol withdrawal, seizure disorder on Vimpat, history of subarachnoid hemorrhage who presents emergency department after being found on the ground wet and confused by police on [facility]. EMS reports he had brief episodes of absence seizure-like episodes but no tonic-clonic activity. The patient arrives alert and oriented to self mildly disoriented to situation and does not recall how he fell or what he was doing. He does admit to drinking alcohol every day and feels as though he did today but admits that he may also be having some withdrawal symptoms. ROS: See above HPI for pertinent positives & negatives. A total of 10 systems re viewed and were otherwise negative. PAST MEDICAL HISTORY:See Below PAST SURGICAL HISTORY:See Below FAMILY HISTORY:See Below SOCIAL HISTORY:See Below HOME MEDICATIONS:See Below ALLERGIES:See Below VITALS:See Below PHYSICAL EXAMINATION: GENERAL: Awake, alert, fatigued, confused-appearing, in no distress HENT: Normocephalic. Superficial abrasion to the midline forehead and left lateral temporal area. There is a 1 cm slightly gaping laceration of the left eyebrow. Oropharynx with dry mucous membranes and otherwise unremarkable. EYES: Normal conjunctiva. Sclera non-icteric. NECK: Supple. No nuchal rigidity. FROM. No JVD. RESPIRATORY: Clear to auscultation. CARDIAC: Regular rate, normal rhythm. Extremities warm and well perfused. Pulses equal. ABDOMEN: Soft, non-distended. No tenderness to palpation. No rebound or guarding. No masses. RECTAL: Deferred. MUSCULOSKELETAL: Chest examination reveals no tenderness. The back is symmetrical on inspection without obvious abnormality. There is no CVA tenderness to palpation. No joint edema. LOWER EXTREMITIES: Calves are equal size bilaterally and non-tender. No edema. No discoloration. NEURO: Normal sensorium. No sensory or motor deficits noted. SKIN: No rash or jaundice noted. ED COURSE: Critical Care: I have personally spent greater than 45 minutes of critical care time in the direct management of this patient. This includes bedside care, interpretation of diagnostic studies, and testing, discussion with consultants, patient, and family members, and other required patient management activities. This 45 minutes is in excess of all separately billable procedures. Edy Jean Baptiste MD Past Med/Surg History Medical History Alcohol abuse Alcohol withdrawal Altered mental status Emesis History of seizure Intracranial hemorrhage Mental health disorder Seizure Skull fracture Status epilepticus Suicide attempt Surgical History No history of previous surgery Family History Sister Seizure Brother Seizure Mother No pertinent family history Father No pertinent family history Social History Smoking Status: Never smoker Hx Alcohol Use: Yes Alcohol type: beer and hard liquor Hx Substance Use: No Preferred Language: Bahraini Communication Ability: Effective Visual Impairment: No Limitations Hearing Ability: Normal Caustic Liquor Maker Required: No Beliefs That Will Affect Care: None marital status: Current Living Situation: Alone Current Living Situation Comment: Apartment current occupational status: disabled Feels Safe at Home: Yes Childhood Exposure to Second-Hand Smoke: No Seatbelt Use: always Assistive Devices: Contacts Allergies Allergies Allergy/AdvReac Type Severity Reaction Status Date / Time lamotrigine Allergy Unknown Unknown Verified 03/01/20 18:52 meclizine Allergy Unknown Unknown Verified 03/01/20 18:52 Home Meds Home Medications Medication Instructions Recorded Confirmed multivitamin with minerals [Men's 1 tab PO DAILY 03/01/20 03/01/20 One Daily] Previous Rx's Medication Instructions Recorded folic acid 1 mg tablet 1 mg PO QAM #90 tab 06/27/19 Results & Data (ED) Vital Signs Vital Signs - 24 hr 03/01/20 18:47 03/01/20 19:09 03/01/20 19:29 Temperature 36.4 C L Temperature Source Rectal Pulse Rate 97 H 88 Respiratory Rate 18 16 Respiratory Effort / Characteristics Non-Labored Blood Pressure 171/112 H 137/101 H Blood Pressure Mean 131 108 Pulse Oximetry 96 96 93 Oxygen Delivery Method Room Air Room Air Sepsis Recent Fever Within 48 Hours No Sepsis New/Unexplained Change in Mental Status No Sepsis Action Taken by Nursing No Action Required 03/01/20 20:30 03/01/20 21:00 Temperature Temperature Source Pulse Rate 91 H 85 Respiratory Rate 18 16 Respiratory Effort / Characteristics Blood Pressure 148/109 H 143/103 H Blood Pressure Mean 125 114 Pulse Oximetry 96 96 Oxygen Delivery Method Sepsis Recent Fever Within 48 Hours Sepsis New/Unexplained Change in Mental Status Sepsis Action Taken by Nursing Laboratory Data Attestation: I reviewed the patient's lab results. Result diagrams: 03/01/20 19:17 03/01/20 19:17 Lab Results 03/01/20 03/01/20 03/01/20 Range/Units 19:17 19:17 19:17 WBC 3.09 L (4.8-10.8) K/uL RBC 3.87 L (4.7-6.1) M/uL Hgb 13.5 L (14.0-18.0) g/dL POC Hgb (14.0-18.0) g/dl Hct 39.7 L (42-52) % POC Hct (42-52) % MCV 102.6 H (80-100) fL MCH 34.9 H (25-34) pg MCHC 34.0 (32-36) g/dL RDW Std Deviation 54.3 H (36.4-46.3) fL RDW Coeff of Teddy 14.5 (11.5-14.5) % Plt Count 75 L (130-400) K/uL MPV 9.3 (7.4-10.4) fL Immature Gran % (Auto) 0.6 % Neut % (Auto) 66.4 % Lymph % (Auto) 21.0 % [place] % (Auto) 8.1 % Eos % (Auto) 1.0 % Baso % (Auto) 2.9 % Neut # (Auto) 2.05 (1.4-6.5) K/uL Lymph # (Auto) 0.65 L (1.2-3.4) K/uL [place] # (Auto) 0.25 (0.11-0.59) K/uL Eos # (Auto) 0.03 (0-0.5) K/uL Baso # (Auto) 0.09 (0-0.2) K/uL Immature Gran # (Auto) 0.02 (0.00-0.02) K/uL Giant Platelets 1+ PT (9.0-12.0) Seconds INR (0.9-1.1) APTT (21.0-31.0) Seconds PTT Ratio VBG pH (7.36-7.41) VBG pCO2 (38-50) mmHg VBG pO2 mmHg VBG HCO3 mmol/L VBG O2 Saturation % VBG Base Excess mEq/L Barometric Pressure mm/Hg POC Sodium (135-144) mmol/L Sodium 144 (136-145) mmol/L POC Potassium (3.3-5.0) mmol/L Potassium 3.7 (3.5-5.1) mmol/L POC Chloride (101-112) mmol/L Chloride 107 (98-107) mmol/L Carbon Dioxide 26 (21-32) mmol/L POC Total CO2 (24-31) mmol/L Anion Gap 11.0 (3-11) POC Anion Gap (16-25) mmol/L POC BUN (7-18) mg/dl BUN 16 (7-18) mg/dl Creatinine 0.74 (0.6-1.4) mg/dl POC Creatinine (0.6-1.3) mg/dl Est Cr Clr Drug Dosing 107.5 ml/min Est GFR ( Amer) 117.0 Est GFR (Non-Af Amer) 101.0 BUN/Creatinine Ratio 21.6 H (10-20) Glucose 98 (70-99) mg/dl POC Glucose (other) (70-99) mg/dl Lactate (0.4-2.0) mmol/L Calcium 8.8 (8.5-10.1) mg/dl POC Ioniz Calcium Gio (1.12-1.32) mmol/l Phosphorus 4.0 (2.5-4.9) mg/dl Magnesium 2.2 (1.8-2.4) mg/dl Total Bilirubin 0.3 (0.2-1) mg/dl Direct Bilirubin 0.1 (0-0.2) mg/dl AST 115 H (15-37) U/L ALT 93 H (12-78) U/L Alkaline Phosphatase 105 (45-117) U/L Ammonia (11-32) umol/L Total Creatine Kinase 240 (39-308) U/L Troponin I < 0.015 (0-0.045) ng/ml Total Protein 7.3 (6.4-8.2) gm/dl Albumin 4.0 (3.4-5.0) gm/dl Globulin 3.3 (2.5-4.0) gm/dl Albumin/Globulin Ratio 1.2 (0.9-2) Procalcitonin < 0.05 (0-0.5) ng/ml TSH 5.850 H (0.300-4.500) uIu/ml Free T4 0.75 L (0.8-1.6) ng/dl Urine Color Urine Appearance (Clear) Urine pH (4.5-7.5) Ur Specific [place] (1.000-1.030) Urine Protein (Negative) Urine Glucose (UA) (Negative) Urine Ketones (Negative) Urine Blood (Negative) Urine Nitrite (Negative) Urine Bilirubin (Negative) Urine Urobilinogen (Negative) Ur Leukocyte Esterase (Negative) Urine WBC (Auto) (0-5) /hpf Urine RBC (Auto) (0-4) /hpf U Hyaline Cast (Auto) (0-5) /lpf U Epithel Cells (Auto) (0-5) /lpf Urine Bacteria (Auto) (Negative) Urine Yeast Ethyl Alcohol mg/dL (0-3) mg/dl COVID-19 Eval Order SARS-CoV-2, RNA, NAAT (NEGATIVE) 03/01/20 03/01/20 03/01/20 Range/Units 19:17 19:17 19:17 WBC (4.8-10.8) K/uL RBC (4.7-6.1) M/uL Hgb (14.0-18.0) g/dL POC Hgb (14.0-18.0) g/dl Hct (42-52) % POC Hct (42-52) % MCV (80-100) fL MCH (25-34) pg MCHC (32-36) g/dL RDW Std Deviation (36.4-46.3) fL RDW Coeff of Teddy (11.5-14.5) % Plt Count (130-400) K/uL MPV (7.4-10.4) fL Immature Gran % (Auto) % Neut % (Auto) % Lymph % (Auto) % [place] % (Auto) % Eos % (Auto) % Baso % (Auto) % Neut # (Auto) (1.4-6.5) K/uL Lymph # (Auto) (1.2-3.4) K/uL [place] # (Auto) (0.11-0.59) K/uL Eos # (Auto) (0-0.5) K/uL Baso # (Auto) (0-0.2) K/uL Immature Gran # (Auto) (0.00-0.02) K/uL Giant Platelets PT 10.3 (9.0-12.0) Seconds INR 1.0 (0.9-1.1) APTT 28.9 (21.0-31.0) Seconds PTT Ratio 1.0 VBG pH (7.36-7.41) VBG pCO2 (38-50) mmHg VBG pO2 mmHg VBG HCO3 mmol/L VBG O2 Saturation % VBG Base Excess mEq/L Barometric Pressure mm/Hg POC Sodium (135-144) mmol/L Sodium (136-145) mmol/L POC Potassium (3.3-5.0) mmol/L Potassium (3.5-5.1) mmol/L POC Chloride (101-112) mmol/L Chloride (98-107) mmol/L Carbon Dioxide (21-32) mmol/L POC Total CO2 (24-31) mmol/L Anion Gap (3-11) POC Anion Gap (16-25) mmol/L POC BUN (7-18) mg/dl BUN (7-18) mg/dl Creatinine (0.6-1.4) mg/dl POC Creatinine (0.6-1.3) mg/dl Est Cr Clr Drug Dosing ml/min Est GFR ( Amer) Est GFR (Non-Af Amer) BUN/Creatinine Ratio (10-20) Glucose (70-99) mg/dl POC Glucose (other) (70-99) mg/dl Lactate 3.8 H* (0.4-2.0) mmol/L Calcium (8.5-10.1) mg/dl POC Ioniz Calcium Gio (1.12-1.32) mmol/l Phosphorus (2.5-4.9) mg/dl Magnesium (1.8-2.4) mg/dl Total Bilirubin (0.2-1) mg/dl Direct Bilirubin (0-0.2) mg/dl AST (15-37) U/L ALT (12-78) U/L Alkaline Phosphatase (45-117) U/L Ammonia 38.4 H (11-32) umol/L Total Creatine Kinase (39-308) U/L Troponin I (0-0.045) ng/ml Total Protein (6.4-8.2) gm/dl Albumin (3.4-5.0) gm/dl Globulin (2.5-4.0) gm/dl Albumin/Globulin Ratio (0.9-2) Procalcitonin (0-0.5) ng/ml TSH (0.300-4.500) uIu/ml Free T4 (0.8-1.6) ng/dl Urine Color Urine Appearance (Clear) Urine pH (4.5-7.5) Ur Specific [place] (1.000-1.030) Urine Protein (Negative) Urine Glucose (UA) (Negative) Urine Ketones (Negative) Urine Blood (Negative) Urine Nitrite (Negative) Urine Bilirubin (Negative) Urine Urobilinogen (Negative) Ur Leukocyte Esterase (Negative) Urine WBC (Auto) (0-5) /hpf Urine RBC (Auto) (0-4) /hpf U Hyaline Cast (Auto) (0-5) /lpf U Epithel Cells (Auto) (0-5) /lpf Urine Bacteria (Auto) (Negative) Urine Yeast Ethyl Alcohol mg/dL (0-3) mg/dl COVID-19 Eval Order SARS-CoV-2, RNA, NAAT (NEGATIVE) 03/01/20 03/01/20 03/01/20 Range/Units 19:17 19:17 19:23 WBC (4.8-10.8) K/uL RBC (4.7-6.1) M/uL Hgb (14.0-18.0) g/dL POC Hgb 14.3 (14.0-18.0) g/dl Hct (42-52) % POC Hct 42 (42-52) % MCV (80-100) fL MCH (25-34) pg MCHC (32-36) g/dL RDW Std Deviation (36.4-46.3) fL RDW Coeff of Teddy (11.5-14.5) % Plt Count (130-400) K/uL MPV (7.4-10.4) fL Immature Gran % (Auto) % Neut % (Auto) % Lymph % (Auto) % [place] % (Auto) % Eos % (Auto) % Baso % (Auto) % Neut # (Auto) (1.4-6.5) K/uL Lymph # (Auto) (1.2-3.4) K/uL [place] # (Auto) (0.11-0.59) K/uL Eos # (Auto) (0-0.5) K/uL Baso # (Auto) (0-0.2) K/uL Immature Gran # (Auto) (0.00-0.02) K/uL Giant Platelets PT (9.0-12.0) Seconds INR (0.9-1.1) APTT (21.0-31.0) Seconds PTT Ratio VBG pH (7.36-7.41) VBG pCO2 (38-50) mmHg VBG pO2 mmHg VBG HCO3 mmol/L VBG O2 Saturation % VBG Base Excess mEq/L Barometric Pressure mm/Hg POC Sodium 142 (135-144) mmol/L Sodium (136-145) mmol/L POC Potassium 3.7 (3.3-5.0) mmol/L Potassium (3.5-5.1) mmol/L POC Chloride 104 (101-112) mmol/L Chloride (98-107) mmol/L Carbon Dioxide (21-32) mmol/L POC Total CO2 26 (24-31) mmol/L Anion Gap (3-11) POC Anion Gap 17.0 (16-25) mmol/L POC BUN 15 (7-18) mg/dl BUN (7-18) mg/dl Creatinine (0.6-1.4) mg/dl POC Creatinine 1.2 (0.6-1.3) mg/dl Est Cr Clr Drug Dosing ml/min Est GFR ( Amer) Est GFR (Non-Af Amer) BUN/Creatinine Ratio (10-20) Glucose (70-99) mg/dl POC Glucose (other) 102 H (70-99) mg/dl Lactate (0.4-2.0) mmol/L Calcium (8.5-10.1) mg/dl POC Ioniz Calcium Gio 1.08 L (1.12-1.32) mmol/l Phosphorus (2.5-4.9) mg/dl Magnesium (1.8-2.4) mg/dl Total Bilirubin (0.2-1) mg/dl Direct Bilirubin (0-0.2) mg/dl AST (15-37) U/L ALT (12-78) U/L Alkaline Phosphatase (45-117) U/L Ammonia (11-32) umol/L Total Creatine Kinase (39-308) U/L Troponin I (0-0.045) ng/ml Total Protein (6.4-8.2) gm/dl Albumin (3.4-5.0) gm/dl Globulin (2.5-4.0) gm/dl Albumin/Globulin Ratio (0.9-2) Procalcitonin (0-0.5) ng/ml TSH (0.300-4.500) uIu/ml Free T4 (0.8-1.6) ng/dl Urine Color Urine Appearance (Clear) Urine pH (4.5-7.5) Ur Specific [place] (1.000-1.030) Urine Protein (Negative) Urine Glucose (UA) (Negative) Urine Ketones (Negative) Urine Blood (Negative) Urine Nitrite (Negative) Urine Bilirubin (Negative) Urine Urobilinogen (Negative) Ur Leukocyte Esterase (Negative) Urine WBC (Auto) (0-5) /hpf Urine RBC (Auto) (0-4) /hpf U Hyaline Cast (Auto) (0-5) /lpf U Epithel Cells (Auto) (0-5) /lpf Urine Bacteria (Auto) (Negative) Urine Yeast Ethyl Alcohol mg/dL (0-3) mg/dl COVID-19 Eval Order Covid19 IDNow On license of [facility] SARS-CoV-2, RNA, NAAT NEGATIVE (NEGATIVE) 03/01/20 03/01/20 03/01/20 Range/Units 19:42 19:42 20:50 WBC (4.8-10.8) K/uL RBC (4.7-6.1) M/uL Hgb (14.0-18.0) g/dL POC Hgb (14.0-18.0) g/dl Hct (42-52) % POC Hct (42-52) % MCV (80-100) fL MCH (25-34) pg MCHC (32-36) g/dL RDW Std Deviation (36.4-46.3) fL RDW Coeff of Teddy (11.5-14.5) % Plt Count (130-400) K/uL MPV (7.4-10.4) fL Immature Gran % (Auto) % Neut % (Auto) % Lymph % (Auto) % [place] % (Auto) % Eos % (Auto) % Baso % (Auto) % Neut # (Auto) (1.4-6.5) K/uL Lymph # (Auto) (1.2-3.4) K/uL [place] # (Auto) (0.11-0.59) K/uL Eos # (Auto) (0-0.5) K/uL Baso # (Auto) (0-0.2) K/uL Immature Gran # (Auto) (0.00-0.02) K/uL Giant Platelets PT (9.0-12.0) Seconds INR (0.9-1.1) APTT (21.0-31.0) Seconds PTT Ratio VBG pH 7.36 (7.36-7.41) VBG pCO2 52 H (38-50) mmHg VBG pO2 29 mmHg VBG HCO3 29 mmol/L VBG O2 Saturation < 60.0 % VBG Base Excess 2.4 mEq/L Barometric Pressure 722.6 mm/Hg POC Sodium (135-144) mmol/L Sodium (136-145) mmol/L POC Potassium (3.3-5.0) mmol/L Potassium (3.5-5.1) mmol/L POC Chloride (101-112) mmol/L Chloride (98-107) mmol/L Carbon Dioxide (21-32) mmol/L POC Total CO2 (24-31) mmol/L Anion Gap (3-11) POC Anion Gap (16-25) mmol/L POC BUN (7-18) mg/dl BUN (7-18) mg/dl Creatinine (0.6-1.4) mg/dl POC Creatinine (0.6-1.3) mg/dl Est Cr Clr Drug Dosing ml/min Est GFR ( Amer) Est GFR (Non-Af Amer) BUN/Creatinine Ratio (10-20) Glucose (70-99) mg/dl POC Glucose (other) (70-99) mg/dl Lactate (0.4-2.0) mmol/L Calcium (8.5-10.1) mg/dl POC Ioniz Calcium Gio (1.12-1.32) mmol/l Phosphorus (2.5-4.9) mg/dl Magnesium (1.8-2.4) mg/dl Total Bilirubin (0.2-1) mg/dl Direct Bilirubin (0-0.2) mg/dl AST (15-37) U/L ALT (12-78) U/L Alkaline Phosphatase (45-117) U/L Ammonia (11-32) umol/L Total Creatine Kinase (39-308) U/L Troponin I (0-0.045) ng/ml Total Protein (6.4-8.2) gm/dl Albumin (3.4-5.0) gm/dl Globulin (2.5-4.0) gm/dl Albumin/Globulin Ratio (0.9-2) Procalcitonin (0-0.5) ng/ml TSH (0.300-4.500) uIu/ml Free T4 (0.8-1.6) ng/dl Urine Color Yellow Urine Appearance Clear (Clear) Urine pH 5.0 (4.5-7.5) Ur Specific [place] 1.023 (1.000-1.030) Urine Protein Trace H (Negative) Urine Glucose (UA) Negative (Negative) Urine Ketones Negative (Negative) Urine Blood Negative (Negative) Urine Nitrite Negative (Negative) Urine Bilirubin Negative (Negative) Urine Urobilinogen Negative (Negative) Ur Leukocyte Esterase Negative (Negative) Urine WBC (Auto) 1-5 (0-5) /hpf Urine RBC (Auto) 0-4 (0-4) /hpf U Hyaline Cast (Auto) 0 (0-5) /lpf U Epithel Cells (Auto) 0-5 (0-5) /lpf Urine Bacteria (Auto) Negative (Negative) Urine Yeast Not Reportable Ethyl Alcohol mg/dL 340.3 H (0-3) mg/dl COVID-19 Eval Order SARS-CoV-2, RNA, NAAT (NEGATIVE) Administered Medications Potassium Chloride/Sodium Chloride (Normal Saline W/20 Meq Kcl) 20 meq in 1,000 mls @ 100 mls/hr IV .Q10H [facility] Stop: 03/31/20 22:42 Last Admin: 03/01/20 23:50 Dose: 100 mls/hr Documented by: [id number] Discontinued Medications Diphtheria/Pertussis/Tetanus Vacc (Diphtheria/Tetanus/Pertussis 0.5 Ml Syr/Vial) 0.5 ml IM .ONCE ONE Stop: 03/01/20 18:43 Last Admin: 03/01/20 19:26 Dose: Not Given Documented by: [id number] Gabapentin (Gabapentin 600 Mg Tab) 1,200 mg PO NOW ONE Stop: 03/01/20 22:44 Last Admin: 03/01/20 23:52 Dose: 1,200 mg Documented by: [id number] Lacosamide 150 mg/ Sodium (Chloride) 65 mls @ 130 mls/hr IV NOW STA Stop: 03/01/20 18:38 Last Infusion: 03/01/20 20:20 Dose: 0 mls/hr Documented by: [id number] Admin: 03/01/20 19:34 Dose: 130 mls/hr Documented by: [id number] Lorazepam (Ativan) 2 mg in 4 mls @ 4 mls/min IV NOW STA Stop: 03/01/20 18:38 Last Admin: 03/01/20 19:12 Dose: 4 mls/min Documented by: [id number] Multivitamins 10 ml/ Thiamine HCl 100 mg/ Folic Acid 1 mg/Sodium Chloride 1,011.2 mls @ 1,011.2 mls/hr IV .Q1H ONE Stop: 03/01/20 19:36 Last Infusion: 03/01/20 21:42 Dose: 0 mls/hr Documented by: [id number] Admin: 03/01/20 20:28 Dose: 1,011.2 mls/hr Documented by: [id number] Thiamine HCl 200 mg/ Sodium (Chloride) 52 mls @ 208 mls/hr IV NOW STA Stop: 03/01/20 18:51 Last Infusion: 03/01/20 20:54 Dose: 0 mls/hr Documented by: [id number] Admin: 03/01/20 20:29 Dose: 208 mls/hr Documented by: [id number] Sodium Chloride (Nss 1000ml) 1,000 mls @ 999 mls/hr IV .Q1H1M ONE Stop: 03/01/20 21:14 Last Infusion: 03/01/20 21:30 Dose: 0 mls/hr Documented by: [id number] Admin: 03/01/20 20:28 Dose: 999 mls/hr Documented by: [id number] Ioversol (Ioversol 100ml) 93 ml IV ONCE ONE Stop: 03/01/20 19:41 Last Admin: 03/01/20 19:40 Dose: 1 ml Documented by: [id number] Lidocaine HCl (Xylocaine 1%/Sod Bicarb 20 Ml Vial) 20 ml INFIL NOW ONE Stop: 03/01/20 20:09 Last Admin: 03/01/20 20:32 Dose: 20 ml Documented by: [id number] Discharge Plan Visit Data Chief Complaint: Fall Stated Complaint: FALL, HEAD INJURY ED Provider: Edy Jean Baptiste Discharge Problem: Alcohol abuse, Seizure disorder, Elevated lactic acid level, Dehydration, Laceration of eyebrow, left Patient Disposition: Admitted As Inpatient Discharge Instructions Interventions: ED Discharge Assessment Last Done: 03/01/20 22:04
--- NOTE | 2020-03-01 20:31 | CT Scan Report ---
HEAD CT NONCONTRAST CT DOSE: 1773.38 mGy.cm HISTORY: pain fall TECHNIQUE: Multiaxial CT images of the head were performed without the use of intravenous contrast. A utomated exposure control was utilized for this study. A dose lowering technique was utilized adheri ng to the principles of ALARA. Comparison: Mild mucosal thickening within the maxillary sinuses. There is left periorbital soft tiss ue swelling. Findings: The paranasal sinuses and mastoid air cells are clear. The calvarium and skull base are int act. There is no mass, hematoma, midline shift, acute infarct. White matter hypodensity is nonspecifi c but suggestive of microvascular ischemic change. The ventricles and sulci demonstrate mild age-rela osmin involutional changes. Small focus of encephalomalacia within the right frontal lobe consistent wi th an old infarct. Impression: No acute intracranial abnormality. ACT 112: Negative or not required by law. Electronically signed by: Stevie Morin M.D. 03/01/2020 8:29 PM
--- NOTE | 2020-03-01 20:34 | CT Scan Report ---
CERVICAL SPINE CT CT DOSE: HISTORY: Neck pain fall TECHNIQUE: Multiaxial CT images of the cervical spine were performed and reformatted in the sagittal and coronal plane without the use of contrast. A dose lowering technique was utilized adhering to th e principles of ALARA. COMPARISON: Cervical spine CT 04/28/2019. FINDINGS: No fractures. No subluxation. Prevertebral soft tissues and the C1-C2 interval are intact. No pneumothorax. Moderate disc space narrowing at C5-C6. IMPRESSION: No fractures within the cervical spine. ACT 112: Negative or not required by law. Electronically signed by: Stevie Morin M.D. 03/01/2020 8:33 PM
--- NOTE | 2020-03-01 20:42 | CT Scan Report ---
ABDOMEN AND PELVIS CT WITH IV CONTRAST CT DOSE: HISTORY: back pain, fall TECHNIQUE: Multiaxial CT images of the abdomen and pelvis were performed following the use of intrave nous contrast. A dose lowering technique was utilized adhering to the principles of ALARA. COMPARISON STUDY: Abdomen and pelvis CT 06/04/2018. FINDINGS: Groundglass densities within the lower lobes favor mild dependent change. No pneumoperitone um. No pneumatosis. Old left-sided rib fractures. There is also an old L2 superior endplate compressi on fracture. No acute fractures identified. Small fat-containing left inguinal hernia. Mild hepatic s teatosis. The main portal vein is patent. The gallbladder, pancreas, spleen, adrenal glands, and kidn eys are within normal limits. No hydronephrosis. Mild bilateral perinephric edema is likely chronic. No retroperitoneal lymphadenopathy or hematoma. Normal caliber abdominal aorta. The bladder is mildly distended. No pelvic free fluid. No bowel wall thickening or obstruction. The appendix is slightly d istended measuring up to 7 mm in diameter. This has slightly progressed compared to the prior study. The mid to distal appendix remains filled with fluid. No periappendiceal fat stranding to suggest acu te appendicitis. IMPRESSION: 1. No acute traumatic process within the abdomen or pelvis. 2. Old, healed left-sided rib fractures and an old L2 superior endplate compression fracture. 3. Mildly distended and fluid-filled appendix measuring up to 7 mm in diameter. This has slightly pro gressed. No periappendiceal fat stranding to suggest acute appendicitis. Consider follow-up nonemerge nt surgical consultation to exclude the possibility of a mucocele. ACT 112: Negative or not required by law. Electronically signed by: Stevie Morin M.D. 03/01/2020 8:41 PM
[2020-03-01 21:01] LABS: Appearance Urine Clear (Clear); Bacteria Urine Automated Negative (Negative); Bilirubin Urine Negative (Negative); Blood Urine Negative (Negative); Cast Urine Automated 0 /lpf (0-5); Color Urine Yellow; Epithelial Cell Urine Auto 0-5 /lpf (0-5); Glucose Urine UA Negative (Negative); Ketones Urine Negative (Negative); Leukocyte Esterase Urine Negative (Negative); Nitrite Urine Negative (Negative); Protein Urine Trace (Negative); RBC Urine Automated 0-4 /hpf (0-4); Specific Gravity Urine 1.023 (1.000-1.030); Urobilinogen Urine Negative (Negative)
--- NOTE | 2020-03-01 21:03 | History & Physical Report ---
Date of Service March 01, 2020 Assessment & Plan (1) Confusion and disorientation: Confusion disorientation/alcohol withdrawal/history of alcohol abuse/alcohol withdrawal seizures/diffuse cerebral atrophy and encephalomalacia/memory deficit- Likely has Warnicke's encephalopathy The patient will be admitted to telemetry for serial cardiac enzymes, serial EKG's, cardiac rhythm monitoring and a 2-D echocardiogram with Dopplers. CT of head, cervical spine, abdomen and pelvis without acute findings Seizure precautions Folic acid 1 mg p.o. every morning Thiamine 100 mg p.o. every morning Multivitamin 1 p.o. every morning NSS + KCl 20 mEq at 100 mils per hour AWSS protocol with gabapentin orally and Ativan IV Consult social work supervisor. Present on Admission?: Yes (2) Alcohol abuse: (3) Alcohol withdrawal: (4) Seizure disorder: (5) Depression: (6) Encephalomalacia: (7) Diffuse cerebral atrophy: (8) Alcohol withdrawal seizure: (9) Memory deficit: (10) SAH (subarachnoid hemorrhage): No recurrence on CT today Present on Admission?: Yes (11) Thrombocytopenia: Platelets 75 upon admission. Follow serially Present on Admission?: Yes History of Present Illness Chief Complaint: The patient was brought to the emergency department by police after being found on the ground wet and confused on [facility] [place] Primary Care Provider: Danny Hanley MD The patient is a 59-year-old male with a past medical history including subarachnoid hemorrhage, bilateral hand numbness, depression, difficulty controlling anger, diffuse cerebral atrophy, encephalomalacia, headache, hearing loss, alcohol withdrawal seizures, memory deficit, nocturia, thrombosis of right popliteal vein, anxiety and alcohol withdrawal seizures. The patient was brought to the emergency department by police after being found on the ground wet and confused on [facility] [place]. EMS reported patient had brief episodes of absence type seizures without tonic-clonic activity. The patient does not remember how he fell or what he was doing at the time. Reports his last alcohol intake was yesterday but does drink on a daily basis. He does feel that he is having some withdrawal symptoms at this time. He was found to have head laceration that required suturing in the ED. Allergies Allergy/AdvReac Type Severity Reaction Status Date / Time lamotrigine Allergy Unknown Unknown Verified 03/01/20 18:52 meclizine Allergy Unknown Unknown Verified 03/01/20 18:52 Home Medications Medication Instructions Recorded Confirmed Type folic acid 1 mg tablet 1 mg PO QAM #90 tab 06/27/19 03/01/20 Rx multivitamin with minerals [Men's 1 tab PO DAILY 03/01/20 03/01/20 History One Daily] Past Med/Surg History Medical History (Updated 03/01/20 @ 22:30 by George New MD) Alcohol abuse Alcohol withdrawal Altered mental status Emesis History of seizure Intracranial hemorrhage Mental health disorder Seizure Skull fracture Status epilepticus Suicide attempt Surgical History No history of previous surgery Family History Sister Seizure Brother Seizure Mother No pertinent family history Father No pertinent family history Social History Smoking Status: Current every day smoker Hx Alcohol Use: Yes Alcohol type: hard liquor Hx Substance Use: No Preferred Language: Kinyarwanda Communication Ability: Effective Visual Impairment: No Limitations Hearing Ability: Normal Beliefs That Will Affect Care: None marital status: Current Living Situation: Alone Current Living Situation Comment: Apartment current occupational status: disabled Feels Safe at Home: Yes Childhood Exposure to Second-Hand Smoke: No Seatbelt Use: always Assistive Devices: None Review of Systems Review of Systems: The patient denies chest pain, palpitations, shortness of breath, dyspnea on exertion, cough, lower extremity swelling, sore throat, fevers, chills, sweats, nausea, vomiting, diarrhea , constipation, abdominal pain, pelvic pain, blood in urine or stool, dysuria, urinary frequency or urgency, focal weakness, numbness or tingling in arms or legs, back or neck pain, or night sweats. The review of systems is otherwise negative other than for that already noted above, and at least 10 systems have been reviewed. Physical Exam Physical Exam: The patient is awake, lethargic, mildly confused, lying in bed and in no acute distress. HEENT--PERRL, EOMI, mucous membranes and oropharynx dry. Scalp laceration noted Neck--supple. No JVD. No bruits. Thyroid normal, trachea midline, no adenopathy. Heart--normal S1 and S2. No murmurs, rubs or gallops. Lungs--clear bilaterally, no respiratory distress, no accessory muscle use. Abdomen--normal bowel sounds and soft. Nontender. Nondistended. Extremities--no cyanosis or clubbing. No edema. Dermatologic--head neck laceration noted Neurologic--cranial nerves II through XII grossly intact. Rheumatologic--normal range of motion. Psychiatric--lethargic Results & Data Results & Data ([facility]) Vital Signs (Past 12 Hours) Vital Signs Temp Pulse Resp BP Pulse Ox 03/01/20 21:00 85 16 143/103 H 96 03/01/20 20:30 91 H 18 148/109 H 96 03/01/20 19:29 93 03/01/20 19:09 88 16 137/101 H 96 03/01/20 18:47 97.5 F L 97 H 18 171/112 H 96 Laboratory Results Laboratory Results WBC 3.09 K/uL (4.8-10.8) L 03/01/20 19:17 RBC 3.87 M/uL (4.7-6.1) L 03/01/20 19:17 Hgb 13.5 g/dL (14.0-18.0) L 03/01/20 19:17 POC Hgb 14.3 g/dl (14.0-18.0) 03/01/20 19:23 Hct 39.7 % (42-52) L 03/01/20 19:17 POC Hct 42 % (42-52) 03/01/20 19:23 MCV 102.6 fL (80-100) H 03/01/20 19:17 MCH 34.9 pg (25-34) H 03/01/20 19:17 MCHC 34.0 g/dL (32-36) 03/01/20 19:17 RDW Std Deviation 54.3 fL (36.4-46.3) H 03/01/20 19:17 RDW Coeff of Teddy 14.5 % (11.5-14.5) 03/01/20 19:17 Plt Count 75 K/uL (130-400) L 03/01/20 19:17 MPV 9.3 fL (7.4-10.4) 03/01/20 19:17 Immature Gran % (Auto) 0.6 % 03/01/20 19:17 Neut % (Auto) 66.4 % 03/01/20 19:17 Lymph % (Auto) 21.0 % 03/01/20 19:17 Ferry % (Auto) 8.1 % 03/01/20 19:17 Eos % (Auto) 1.0 % 03/01/20 19:17 Baso % (Auto) 2.9 % 03/01/20 19:17 Neut # (Auto) 2.05 K/uL (1.4-6.5) 03/01/20 19:17 Lymph # (Auto) 0.65 K/uL (1.2-3.4) L 03/01/20 19:17 Ferry # (Auto) 0.25 K/uL (0.11-0.59) 03/01/20 19:17 Eos # (Auto) 0.03 K/uL (0-0.5) 03/01/20 19:17 Baso # (Auto) 0.09 K/uL (0-0.2) 03/01/20 19:17 Immature Gran # (Auto) 0.02 K/uL (0.00-0.02) 03/01/20 19:17 Giant Platelets 1+ 03/01/20 19:17 PT 10.3 Seconds (9.0-12.0) 03/01/20 19:17 INR 1.0 (0.9-1.1) 03/01/20 19:17 APTT 28.9 Seconds (21.0-31.0) 03/01/20 19:17 PTT Ratio 1.0 03/01/20 19:17 VBG pH 7.36 (7.36-7.41) 03/01/20 19:42 VBG pCO2 52 mmHg (38-50) H 03/01/20 19:42 VBG pO2 29 mmHg 03/01/20 19:42 VBG HCO3 29 mmol/L 03/01/20 19:42 VBG O2 Saturation < 60.0 % 03/01/20 19:42 VBG Base Excess 2.4 mEq/L 03/01/20 19:42 Barometric Pressure 722.6 mm/Hg 03/01/20 19:42 POC Sodium 142 mmol/L (135-144) 03/01/20 19:23 Sodium 144 mmol/L (136-145) 03/01/20 19:17 POC Potassium 3.7 mmol/L (3.3-5.0) 03/01/20 19:23 Potassium 3.7 mmol/L (3.5-5.1) 03/01/20 19:17 POC Chloride 104 mmol/L (101-112) 03/01/20 19:23 Chloride 107 mmol/L (98-107) 03/01/20 19:17 Carbon Dioxide 26 mmol/L (21-32) 03/01/20 19:17 POC Total CO2 26 mmol/L (24-31) 03/01/20 19:23 Anion Gap 11.0 (3-11) 03/01/20 19:17 POC Anion Gap 17.0 mmol/L (16-25) 03/01/20 19:23 POC BUN 15 mg/dl (7-18) 03/01/20 19:23 BUN 16 mg/dl (7-18) 03/01/20 19:17 Creatinine 0.74 mg/dl (0.6-1.4) 03/01/20 19:17 POC Creatinine 1.2 mg/dl (0.6-1.3) 03/01/20 19:23 Est Cr Clr Drug Dosing 107.5 ml/min 03/01/20 19:17 Est GFR ( Amer) 117.0 03/01/20 19:17 Est GFR (Non-Af Amer) 101.0 03/01/20 19:17 BUN/Creatinine Ratio 21.6 (10-20) H 03/01/20 19:17 Glucose 98 mg/dl (70-99) 03/01/20 19:17 POC Glucose (other) 102 mg/dl (70-99) H 03/01/20 19:23 Lactate 3.0 mmol/L (0.4-2.0) H* 03/01/20 21:38 Calcium 8.8 mg/dl (8.5-10.1) 03/01/20 19:17 POC Ioniz Calcium Gio 1.08 mmol/l (1.12-1.32) L 03/01/20 19:23 Phosphorus 4.0 mg/dl (2.5-4.9) 03/01/20 19:17 Magnesium 2.2 mg/dl (1.8-2.4) 03/01/20 19:17 Total Bilirubin 0.3 mg/dl (0.2-1) 03/01/20 19:17 Direct Bilirubin 0.1 mg/dl (0-0.2) 03/01/20 19:17 AST 115 U/L (15-37) H 03/01/20 19:17 ALT 93 U/L (12-78) H 03/01/20 19:17 Alkaline Phosphatase 105 U/L (45-117) 03/01/20 19:17 Ammonia 38.4 umol/L (11-32) H 03/01/20 19:17 Total Creatine Kinase 240 U/L (39-308) 03/01/20 19:17 Troponin I < 0.015 ng/ml (0-0.045) 03/01/20 19:17 Total Protein 7.3 gm/dl (6.4-8.2) 03/01/20 19:17 Albumin 4.0 gm/dl (3.4-5.0) 03/01/20 19:17 Globulin 3.3 gm/dl (2.5-4.0) 03/01/20 19:17 Albumin/Globulin Ratio 1.2 (0.9-2) 03/01/20 19:17 Procalcitonin < 0.05 ng/ml (0-0.5) 03/01/20 19:17 TSH 5.850 uIu/ml (0.300-4.500) H 03/01/20 19:17 Free T4 0.75 ng/dl (0.8-1.6) L 03/01/20 19:17 Urine Color Yellow 03/01/20 20:50 Urine Appearance Clear (Clear) 03/01/20 20:50 Urine pH 5.0 (4.5-7.5) 03/01/20 20:50 Ur Specific [place] 1.023 (1.000-1.030) 03/01/20 20:50 Urine Protein Trace (Negative) H 03/01/20 20:50 Urine Glucose (UA) Negative (Negative) 03/01/20 20:50 Urine Ketones Negative (Negative) 03/01/20 20:50 Urine Blood Negative (Negative) 03/01/20 20:50 Urine Nitrite Negative (Negative) 03/01/20 20:50 Urine Bilirubin Negative (Negative) 03/01/20 20:50 Urine Urobilinogen Negative (Negative) 03/01/20 20:50 Ur Leukocyte Esterase Negative (Negative) 03/01/20 20:50 Urine WBC (Auto) 1-5 /hpf (0-5) 03/01/20 20:50 Urine RBC (Auto) 0-4 /hpf (0-4) 03/01/20 20:50 U Hyaline Cast (Auto) 0 /lpf (0-5) 03/01/20 20:50 U Epithel Cells (Auto) 0-5 /lpf (0-5) 03/01/20 20:50 Urine Bacteria (Auto) Negative (Negative) 03/01/20 20:50 Urine Yeast Not Reportable 03/01/20 20:50 Ethyl Alcohol mg/dL 340.3 mg/dl (0-3) H 03/01/20 19:42 COVID-19 Eval Order Covid19 IDNow atMAZC 03/01/20 19:17 SARS-CoV-2, RNA, NAAT NEGATIVE (NEGATIVE) 03/01/20 19:17 Diagnostic Findings [facility], [id number] CT Scan Report Patient: TO GASPAR DAdmit Date: 03/01/20#: [id number]: [address]Acct ID:[id number]: [facility] Zip: [place], [place] [address]Erw: 59Location: EDSex: MRoom/Bed:Att Phy:Diagnosis: FALL, HEAD INJURYPri Phy: RV. Kaya, MDService Date: 03/01/20Fam Phy:Interpreting Phy: Stevie Morin MDAdmit Phy: Ordering Phy: Edy Jean Baptiste M.D. cc: ~ ABDOMEN AND PELVIS CT WITH IV CONTRAST CT DOSE: HISTORY: back pain, fall TECHNIQUE: Multiaxial CT images of the abdomen and pelvis were performed following the use of intravenous contrast. A dose lowering technique was utilized adhering to the principles of ALARA. COMPARISON STUDY: Abdomen and pelvis CT 06/04/2018. FINDINGS: Groundglass densities within the lower lobes favor mild dependent change. No pneumoperitoneum. No pneumatosis. Old left-sided rib fractures. There is also an old L2 superior endplate compression fracture. No acute fractures identified. Small fat-containing left inguinal hernia. Mild hepatic steatosis. The main portal vein is patent. The gallbladder, pancreas, spleen, adrenal glands, and kidneys are within normal limits. No hydronephrosis. Mild bilateral perinephric edema is likely chronic. No retroperitoneal lymphadenopathy or hematoma. Normal caliber abdominal aorta. The bladder is mildly distended. No pelvic free fluid. No bowel wall thickening or obstruction. The appendix is slightly distended measuring up to 7 mm in diameter. This has slightly progressed compared to the prior study. The mid to distal appendix remains filled with fluid. No periappendiceal fat stranding to suggest acute appendicitis. IMPRESSION: 1. No acute traumatic process within the abdomen or pelvis. 2. Old, healed left-sided rib fractures and an old L2 superior endplate compression fracture. 3. Mildly distended and fluid-filled appendix measuring up to 7 mm in diameter. This has slightly progressed. No periappendiceal fat stranding to suggest acute appendicitis. Consider follow-up nonemergent surgical consultation to exclude the possibility of a mucocele. ACT 112: Negative or not required by law. Electronically signed by: Stevie Morin M.D. 03/01/2020 8:41 PM Dictated: 03/01/202032Transcribed: 03/01/202032 [facility], [id number] CT Scan Report Patient: TO GASPAR DAdmit Date: 03/01/20#: [id number]: [address]Acct ID:[id number]: Date: [address] [place] [address] Zip: [place], [place] [address]Evw: 59Location: EDSex: MRoom/Bed:Att Phy:Diagnosis: FALL, HEAD INJURYPri Phy: RV. Kaya, MDService Date: 03/01/20Fa Phy:Interpreting Phy: Stevie Morin MDAit Phy: Ordering Phy: Edy Jean Baptiste M.D. cc: ~ CERVICAL SPINE CT CT DOSE: HISTORY: Neck pain fall TECHNIQUE: Multiaxial CT images of the cervical spine were performed and reformatted in the sagittal and coronal plane without the use of contrast. A dose lowering technique was utilized adhering to the principles of ALARA. COMPARISON: Cervical spine CT 04/28/2019. FINDINGS: No fractures. No subluxation. Prevertebral soft tissues and the C1-C2 interval are intact. No pneumothorax. Moderate disc space narrowing at C5-C6. IMPRESSION: No fractures within the cervical spine. ACT 112: Negative or not required by law. Electronically signed by: Stevie Morin M.D. 03/01/2020 8:33 PM Dictated: 03/01/202028Transcribed: 03/01/202028 [facility], [id number] CT Scan Report Patient: TO GASPAR Date: 03/01/20#: [id number]: [address]Acct ID:[id number]: Date: [address] [place] [address] Zip: [place], [place] [address]Jlm: 59Location: EDSex: MRoom/Bed:Att Phy:Diagnosis: FALL, HEAD INJURYPri Phy: RV. Kaya, MDService Date: 03/01/20Fa Phy:Interpreting Phy: Stevie Morin MDAdmit Phy: Ordering Phy: Edy Jean Baptiste M.D. cc: ~ HEAD CT NONCONTRAST CT DOSE: 1773.38 mGy.cm HISTORY: pain fall TECHNIQUE: Multiaxial CT images of the head were performed without the use of intravenous contrast. Automated exposure control was utilized for this study. A dose lowering technique was utilized adhering to the principles of ALARA. Comparison: Mild mucosal thickening within the maxillary sinuses. There is left periorbital soft tissue swelling. Findings: The paranasal sinuses and mastoid air cells are clear. The calvarium and skull base are intact. There is no mass, hematoma, midline shift, acute infarct. White matter hypodensity is nonspecific but suggestive of microvascular ischemic change. The ventricles and sulci demonstrate mild age-related involutional changes. Small focus of encephalomalacia within the right frontal lobe consistent with an old infarct. Impression: No acute intracranial abnormality. ACT 112: Negative or not required by law. Electronically signed by: Stevie Morin M.D. 03/01/2020 8:29 PM Dictated: 03/01/202025Transcribed: 03/01/202025 [facility], [id number] XRay Report Patient: TO GASPAR Date: 03/01/20MR#: [id number]: [address]Acct ID:[id number]: [facility] Zip: [place], [place] [address]Klm: 59Location: EDSex: MRoom/Bed:Att Phy:Diagnosis: FALL, HEAD INJURYPri Phy: RV. Kaya, MDService Date: 03/01/20Fa Phy:Interpreting Phy: Stevie Morin MDAdmit Phy: Ordering Phy: Edy Jean Baptiste M.D. cc: ~ XR chest 1V portable HISTORY: SEPSIS COMPARISON: Chest 03/21/2019. FINDINGS: Cardiac silhouette is normal in size. No pleural effusions. No pneumothorax. Old, healed left-sided rib fractures. No acute fractures identifi ed. The lungs are clear. IMPRESSION: No acute process. ACT 112: Negative or not required by law. Electronically signed by: Stevie Morin M.D. 03/01/2020 7:06 PM Dictated: 03/01/201902Transcribed: 03/01/201902 Code Status & VTE Plan Code Status Full code VTE Prophylaxis Plan VTE Prophylaxis will be ordered: Yes PG Care Time/CCT Total # of Minutes Spent Total Time Spent with Patient: Total time spent is greater than 50% in coordination of care (as documented) at patient's floor/unit and/or counseling patient: Coding Level of Care Code 53025 Initial Inpt Care Lvl 2 Diagnoses Confusion and disorientation R41.0 Alcohol abuse F10.10 Alcohol withdrawal F10.239 Seizure disorder G40.909 Depression F32.9 Encephalomalacia G93.89 Diffuse cerebral atrophy G31.9 Alcohol withdrawal seizure F10.239; R56.9 Memory deficit R41.3 SAH (subarachnoid hemorrhage) I60.9 Thrombocytopenia D69.6
--- NOTE | 2020-03-01 21:41 | Emergency Department Note ---
Impression & Plan Alcohol abuse, Seizure disorder, Elevated lactic acid level, Dehydration, Laceration of eyebrow, left ED Provider Note Patient was seen and evaluated at the request of my attending physician, Dr. Jean Baptiste, for a left eyebrow laceration. Please see Dr. Jean Baptiste dictation for full history of present illness and emergency department course. On examination the patient has a jagged 2.6 cm laceration to the lateral left eyebrow. This does gape and will require repair. Laceration repair. Patient elects to have their laceration repaired. Verbal consent was obtained to perform the procedure. There is an abundance of materials available for the procedure. Patient is not allergic to latex. Using sterile technique the wound was cleaned with Betadine. The area was ster ilely draped. 3 ml of 1% buffered lidocaine was used to anesthetize the eyebrow laceration. Once the patient was anesthetized, the wound was copiously irrigated under pressure with sterile saline. The wound was explored and there were no deep structures injured such as tendons, bone, or significant blood vessels. The laceration was repaired using 3 simple interrupted 5-0 nylon sutures with the wound edges being well approximated. Hemostasis was achieved. The area was cleaned with sterile saline and dressed with bacitracin ointment and bandage. Patient tolerated the procedure well without complications. Blood loss was negligible. Past Med/Surg History Medical History Alcohol abuse Alcohol withdrawal Altered mental status Emesis History of seizure Intracranial hemorrhage Mental health disorder Seizure Skull fracture Status epilepticus Suicide attempt Surgical History No history of previous surgery Family History Sister Seizure Brother Seizure Mother No pertinent family history Father No pertinent family history Social History Smoking Status: Never smoker Hx Alcohol Use: Yes Alcohol type: beer and hard liquor Hx Substance Use: No Preferred Language: Persian Communication Ability: Effective Visual Impairment: No Limitations 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 Beliefs That Will Affect Care: None marital status: Single Current Living Situation: Alone Current Living Situation Comment: Apartment current occupational status: disabled Feels Safe at Home: Yes Childhood Exposure to Second-Hand Smoke: No Seatbelt Use: always Assistive Devices: Denture - Upper Allergies Allergies Allergy/AdvReac Type Severity Reaction Status Date / Time lamotrigine Allergy Unknown Unknown Verified 03/01/20 18:52 meclizine Allergy Unknown Unknown Verified 03/01/20 18:52 Home Meds Home Medications Medication Instructions Recorded Confirmed multivitamin with minerals [Men's 1 tab PO DAILY 03/01/20 03/01/20 One Daily] Previous Rx's Medication Instructions Recorded folic acid 1 mg tablet 1 mg PO QAM #90 tab 06/27/19 Results & Data (ED) Vital Signs Vital Signs - 24 hr 03/01/20 18:47 03/01/20 19:09 03/01/20 19:29 Temperature 36.4 C L Temperature Source Rectal Pulse Rate 97 H 88 Respiratory Rate 18 16 Respiratory Effort / Characteristics Non-Labored Blood Pressure 171/112 H 137/101 H Blood Pressure Mean 131 108 Pulse Oximetry 96 96 93 Oxygen Delivery Method Room Air Room Air Sepsis Recent Fever Within 48 Hours No Sepsis New/Unexplained Change in Mental Status No Sepsis Action Taken by Nursing No Action Required 03/01/20 20:30 03/01/20 21:00 Temperature Temperature Source Pulse Rate 91 H 85 Respiratory Rate 18 16 Respiratory Effort / Characteristics Blood Pressure 148/109 H 143/103 H Blood Pressure Mean 125 114 Pulse Oximetry 96 96 Oxygen Delivery Method Sepsis Recent Fever Within 48 Hours Sepsis New/Unexplained Change in Mental Status Sepsis Action Taken by Nursing Laboratory Data Result diagrams: 03/02/20 05:24 03/02/20 05:24 Lab Results 03/01/20 03/01/20 03/01/20 Range/Units 19:17 19:17 19:17 WBC 3.09 L (4.8-10.8) K/uL RBC 3.87 L (4.7-6.1) M/uL Hgb 13.5 L (14.0-18.0) g/dL POC Hgb (14.0-18.0) g/dl Hct 39.7 L (42-52) % POC Hct (42-52) % MCV 102.6 H (80-100) fL MCH 34.9 H (25-34) pg MCHC 34.0 (32-36) g/dL RDW Std Deviation 54.3 H (36.4-46.3) fL RDW Coeff of Teddy 14.5 (11.5-14.5) % Plt Count 75 L (130-400) K/uL MPV 9.3 (7.4-10.4) fL Immature Gran % (Auto) 0.6 % Neut % (Auto) 66.4 % Lymph % (Auto) 21.0 % Bradford % (Auto) 8.1 % Eos % (Auto) 1.0 % Baso % (Auto) 2.9 % Neut # (Auto) 2.05 (1.4-6.5) K/uL Lymph # (Auto) 0.65 L (1.2-3.4) K/uL Bradford # (Auto) 0.25 (0.11-0.59) K/uL Eos # (Auto) 0.03 (0-0.5) K/uL Baso # (Auto) 0.09 (0-0.2) K/uL Immature Gran # (Auto) 0.02 (0.00-0.02) K/uL Giant Platelets 1+ PT (9.0-12.0) Seconds INR (0.9-1.1) APTT (21.0-31.0) Seconds PTT Ratio VBG pH (7.36-7.41) VBG pCO2 (38-50) mmHg VBG pO2 mmHg VBG HCO3 mmol/L VBG O2 Saturation % VBG Base Excess mEq/L Barometric Pressure mm/Hg POC Sodium (135-144) mmol/L Sodium 144 (136-145) mmol/L POC Potassium (3.3-5.0) mmol/L Potassium 3.7 (3.5-5.1) mmol/L POC Chloride (101-112) mmol/L Chloride 107 (98-107) mmol/L Carbon Dioxide 26 (21-32) mmol/L POC Total CO2 (24-31) mmol/L Anion Gap 11.0 (3-11) POC Anion Gap (16-25) mmol/L POC BUN (7-18) mg/dl BUN 16 (7-18) mg/dl Creatinine 0.74 (0.6-1.4) mg/dl POC Creatinine (0.6-1.3) mg/dl Est Cr Clr Drug Dosing 107.5 ml/min Est GFR ( Amer) 117.0 Est GFR (Non-Af Amer) 101.0 BUN/Creatinine Ratio 21.6 H (10-20) Glucose 98 (70-99) mg/dl POC Glucose (other) (70-99) mg/dl Lactate (0.4-2.0) mmol/L Calcium 8.8 (8.5-10.1) mg/dl POC Ioniz Calcium Gio (1.12-1.32) mmol/l Phosphorus 4.0 (2.5-4.9) mg/dl Magnesium 2.2 (1.8-2.4) mg/dl Total Bilirubin 0.3 (0.2-1) mg/dl Direct Bilirubin 0.1 (0-0.2) mg/dl AST 115 H (15-37) U/L ALT 93 H (12-78) U/L Alkaline Phosphatase 105 (45-117) U/L Ammonia (11-32) umol/L Total Creatine Kinase 240 (39-308) U/L Troponin I < 0.015 (0-0.045) ng/ml Total Protein 7.3 (6.4-8.2) gm/dl Albumin 4.0 (3.4-5.0) gm/dl Globulin 3.3 (2.5-4.0) gm/dl Albumin/Globulin Ratio 1.2 (0.9-2) Procalcitonin < 0.05 (0-0.5) ng/ml TSH 5.850 H (0.300-4.500) uIu/ml Free T4 0.75 L (0.8-1.6) ng/dl Urine Color Urine Appearance (Clear) Urine pH (4.5-7.5) Ur Specific [place] (1.000-1.030) Urine Protein (Negative) Urine Glucose (UA) (Negative) Urine Ketones (Negative) Urine Blood (Negative) Urine Nitrite (Negative) Urine Bilirubin (Negative) Urine Urobilinogen (Negative) Ur Leukocyte Esterase (Negative) Urine WBC (Auto) (0-5) /hpf Urine RBC (Auto) (0-4) /hpf U Hyaline Cast (Auto) (0-5) /lpf U Epithel Cells (Auto) (0-5) /lpf Urine Bacteria (Auto) (Negative) Urine Yeast Ethyl Alcohol mg/dL (0-3) mg/dl COVID-19 Eval Order SARS-CoV-2, RNA, NAAT (NEGATIVE) 03/01/20 03/01/20 03/01/20 Range/Units 19:17 19:17 19:17 WBC (4.8-10.8) K/uL RBC (4.7-6.1) M/uL Hgb (14.0-18.0) g/dL POC Hgb (14.0-18.0) g/dl Hct (42-52) % POC Hct (42-52) % MCV (80-100) fL MCH (25-34) pg MCHC (32-36) g/dL RDW Std Deviation (36.4-46.3) fL RDW Coeff of Teddy (11.5-14.5) % Plt Count (130-400) K/uL MPV (7.4-10.4) fL Immature Gran % (Auto) % Neut % (Auto) % Lymph % (Auto) % Bradford % (Auto) % Eos % (Auto) % Baso % (Auto) % Neut # (Auto) (1.4-6.5) K/uL Lymph # (Auto) (1.2-3.4) K/uL Bradford # (Auto) (0.11-0.59) K/uL Eos # (Auto) (0-0.5) K/uL Baso # (Auto) (0-0.2) K/uL Immature Gran # (Auto) (0.00-0.02) K/uL Giant Platelets PT 10.3 (9.0-12.0) Seconds INR 1.0 (0.9-1.1) APTT 28.9 (21.0-31.0) Seconds PTT Ratio 1.0 VBG pH (7.36-7.41) VBG pCO2 (38-50) mmHg VBG pO2 mmHg VBG HCO3 mmol/L VBG O2 Saturation % VBG Base Excess mEq/L Barometric Pressure mm/Hg POC Sodium (135-144) mmol/L Sodium (136-145) mmol/L POC Potassium (3.3-5.0) mmol/L Potassium (3.5-5.1) mmol/L POC Chloride (101-112) mmol/L Chloride (98-107) mmol/L Carbon Dioxide (21-32) mmol/L POC Total CO2 (24-31) mmol/L Anion Gap (3-11) POC Anion Gap (16-25) mmol/L POC BUN (7-18) mg/dl BUN (7-18) mg/dl Creatinine (0.6-1.4) mg/dl POC Creatinine (0.6-1.3) mg/dl Est Cr Clr Drug Dosing ml/min Est GFR ( Amer) Est GFR (Non-Af Amer) BUN/Creatinine Ratio (10-20) Glucose (70-99) mg/dl POC Glucose (other) (70-99) mg/dl Lactate 3.8 H* (0.4-2.0) mmol/L Calcium (8.5-10.1) mg/dl POC Ioniz Calcium Gio (1.12-1.32) mmol/l Phosphorus (2.5-4.9) mg/dl Magnesium (1.8-2.4) mg/dl Total Bilirubin (0.2-1) mg/dl Direct Bilirubin (0-0.2) mg/dl AST (15-37) U/L ALT (12-78) U/L Alkaline Phosphatase (45-117) U/L Ammonia 38.4 H (11-32) umol/L Total Creatine Kinase (39-308) U/L Troponin I (0-0.045) ng/ml Total Protein (6.4-8.2) gm/dl Albumin (3.4-5.0) gm/dl Globulin (2.5-4.0) gm/dl Albumin/Globulin Ratio (0.9-2) Procalcitonin (0-0.5) ng/ml TSH (0.300-4.500) uIu/ml Free T4 (0.8-1.6) ng/dl Urine Color Urine Appearance (Clear) Urine pH (4.5-7.5) Ur Specific [place] (1.000-1.030) Urine Protein (Negative) Urine Glucose (UA) (Negative) Urine Ketones (Negative) Urine Blood (Negative) Urine Nitrite (Negative) Urine Bilirubin (Negative) Urine Urobilinogen (Negative) Ur Leukocyte Esterase (Negative) Urine WBC (Auto) (0-5) /hpf Urine RBC (Auto) (0-4) /hpf U Hyaline Cast (Auto) (0-5) /lpf U Epithel Cells (Auto) (0-5) /lpf Urine Bacteria (Auto) (Negative) Urine Yeast Ethyl Alcohol mg/dL (0-3) mg/dl COVID-19 Eval Order SARS-CoV-2, RNA, NAAT (NEGATIVE) 03/01/20 03/01/20 03/01/20 Range/Units 19:17 19:17 19:23 WBC (4.8-10.8) K/uL RBC (4.7-6.1) M/uL Hgb (14.0-18.0) g/dL POC Hgb 14.3 (14.0-18.0) g/dl Hct (42-52) % POC Hct 42 (42-52) % MCV (80-100) fL MCH (25-34) pg MCHC (32-36) g/dL RDW Std Deviation (36.4-46.3) fL RDW Coeff of Teddy (11.5-14.5) % Plt Count (130-400) K/uL MPV (7.4-10.4) fL Immature Gran % (Auto) % Neut % (Auto) % Lymph % (Auto) % Bradford % (Auto) % Eos % (Auto) % Baso % (Auto) % Neut # (Auto) (1.4-6.5) K/uL Lymph # (Auto) (1.2-3.4) K/uL Bradford # (Auto) (0.11-0.59) K/uL Eos # (Auto) (0-0.5) K/uL Baso # (Auto) (0-0.2) K/uL Immature Gran # (Auto) (0.00-0.02) K/uL Giant Platelets PT (9.0-12.0) Seconds INR (0.9-1.1) APTT (21.0-31.0) Seconds PTT Ratio VBG pH (7.36-7.41) VBG pCO2 (38-50) mmHg VBG pO2 mmHg VBG HCO3 mmol/L VBG O2 Saturation % VBG Base Excess mEq/L Barometric Pressure mm/Hg POC Sodium 142 (135-144) mmol/L Sodium (136-145) mmol/L POC Potassium 3.7 (3.3-5.0) mmol/L Potassium (3.5-5.1) mmol/L POC Chloride 104 (101-112) mmol/L Chloride (98-107) mmol/L Carbon Dioxide (21-32) mmol/L POC Total CO2 26 (24-31) mmol/L Anion Gap (3-11) POC Anion Gap 17.0 (16-25) mmol/L POC BUN 15 (7-18) mg/dl BUN (7-18) mg/dl Creatinine (0.6-1.4) mg/dl POC Creatinine 1.2 (0.6-1.3) mg/dl Est Cr Clr Drug Dosing ml/min Est GFR ( Amer) Est GFR (Non-Af Amer) BUN/Creatinine Ratio (10-20) Glucose (70-99) mg/dl POC Glucose (other) 102 H (70-99) mg/dl Lactate (0.4-2.0) mmol/L Calcium (8.5-10.1) mg/dl POC Ioniz Calcium Gio 1.08 L (1.12-1.32) mmol/l Phosphorus (2.5-4.9) mg/dl Magnesium (1.8-2.4) mg/dl Total Bilirubin (0.2-1) mg/dl Direct Bilirubin (0-0.2) mg/dl AST (15-37) U/L ALT (12-78) U/L Alkaline Phosphatase (45-117) U/L Ammonia (11-32) umol/L Total Creatine Kinase (39-308) U/L Troponin I (0-0.045) ng/ml Total Protein (6.4-8.2) gm/dl Albumin (3.4-5.0) gm/dl Globulin (2.5-4.0) gm/dl Albumin/Globulin Ratio (0.9-2) Procalcitonin (0-0.5) ng/ml TSH (0.300-4.500) uIu/ml Free T4 (0.8-1.6) ng/dl Urine Color Urine Appearance (Clear) Urine pH (4.5-7.5) Ur Specific [place] (1.000-1.030) Urine Protein (Negative) Urine Glucose (UA) (Negative) Urine Ketones (Negative) Urine Blood (Negative) Urine Nitrite (Negative) Urine Bilirubin (Negative) Urine Urobilinogen (Negative) Ur Leukocyte Esterase (Negative) Urine WBC (Auto) (0-5) /hpf Urine RBC (Auto) (0-4) /hpf U Hyaline Cast (Auto) (0-5) /lpf U Epithel Cells (Auto) (0-5) /lpf Urine Bacteria (Auto) (Negative) Urine Yeast Ethyl Alcohol mg/dL (0-3) mg/dl COVID-19 Eval [email or web address] SARS-[facility]-2, RNA, NAAT NEGATIVE (NEGATIVE) 03/01/20 03/01/20 03/01/20 Range/Units 19:42 19:42 20:50 WBC (4.8-10.8) K/uL RBC (4.7-6.1) M/uL Hgb (14.0-18.0) g/dL POC Hgb (14.0-18.0) g/dl Hct (42-52) % POC Hct (42-52) % MCV (80-100) fL MCH (25-34) pg MCHC (32-36) g/dL RDW Std Deviation (36.4-46.3) fL RDW Coeff of Teddy (11.5-14.5) % Plt Count (130-400) K/uL MPV (7.4-10.4) fL Immature Gran % (Auto) % Neut % (Auto) % Lymph % (Auto) % Bradford % (Auto) % Eos % (Auto) % Baso % (Auto) % Neut # (Auto) (1.4-6.5) K/uL Lymph # (Auto) (1.2-3.4) K/uL Bradford # (Auto) (0.11-0.59) K/uL Eos # (Auto) (0-0.5) K/uL Baso # (Auto) (0-0.2) K/uL Immature Gran # (Auto) (0.00-0.02) K/uL Giant Platelets PT (9.0-12.0) Seconds INR (0.9-1.1) APTT (21.0-31.0) Seconds PTT Ratio VBG pH 7.36 (7.36-7.41) VBG pCO2 52 H (38-50) mmHg VBG pO2 29 mmHg VBG HCO3 29 mmol/L VBG O2 Saturation < 60.0 % VBG Base Excess 2.4 mEq/L Barometric Pressure 722.6 mm/Hg POC Sodium (135-144) mmol/L Sodium (136-145) mmol/L POC Potassium (3.3-5.0) mmol/L Potassium (3.5-5.1) mmol/L POC Chloride (101-112) mmol/L Chloride (98-107) mmol/L Carbon Dioxide (21-32) mmol/L POC Total CO2 (24-31) mmol/L Anion Gap (3-11) POC Anion Gap (16-25) mmol/L POC BUN (7-18) mg/dl BUN (7-18) mg/dl Creatinine (0.6-1.4) mg/dl POC Creatinine (0.6-1.3) mg/dl Est Cr Clr Drug Dosing ml/min Est GFR ( Amer) Est GFR (Non-Af Amer) BUN/Creatinine Ratio (10-20) Glucose (70-99) mg/dl POC Glucose (other) (70-99) mg/dl Lactate (0.4-2.0) mmol/L Calcium (8.5-10.1) mg/dl POC Ioniz Calcium Gio (1.12-1.32) mmol/l Phosphorus (2.5-4.9) mg/dl Magnesium (1.8-2.4) mg/dl Total Bilirubin (0.2-1) mg/dl Direct Bilirubin (0-0.2) mg/dl AST (15-37) U/L ALT (12-78) U/L Alkaline Phosphatase (45-117) U/L Ammonia (11-32) umol/L Total Creatine Kinase (39-308) U/L Troponin I (0-0.045) ng/ml Total Protein (6.4-8.2) gm/dl Albumin (3.4-5.0) gm/dl Globulin (2.5-4.0) gm/dl Albumin/Globulin Ratio (0.9-2) Procalcitonin (0-0.5) ng/ml TSH (0.300-4.500) uIu/ml Free T4 (0.8-1.6) ng/dl Urine Color Yellow Urine Appearance Clear (Clear) Urine pH 5.0 (4.5-7.5) Ur Specific [place] 1.023 (1.000-1.030) Urine Protein Trace H (Negative) Urine Glucose (UA) Negative (Negative) Urine Ketones Negative (Negative) Urine Blood Negative (Negative) Urine Nitrite Negative (Negative) Urine Bilirubin Negative (Negative) Urine Urobilinogen Negative (Negative) Ur Leukocyte Esterase Negative (Negative) Urine WBC (Auto) 1-5 (0-5) /hpf Urine RBC (Auto) 0-4 (0-4) /hpf U Hyaline Cast (Auto) 0 (0-5) /lpf U Epithel Cells (Auto) 0-5 (0-5) /lpf Urine Bacteria (Auto) Negative (Negative) Urine Yeast Not Reportable Ethyl Alcohol mg/dL 340.3 H (0-3) mg/dl COVID-19 Eval Order SARS-CoV-2, RNA, NAAT (NEGATIVE) Administered Medications Acetaminophen (Acetaminophen 325 Mg Tab) 650 mg PO Q6H PRN PRN Reason: Pain or Fever Stop: 04/01/20 08:47 Last Admin: 03/02/20 09:05 Dose: 650 mg Documented by: [id number] Folic Acid (Folic Acid 1 Mg Tab) 1 mg PO QAM EMIL Stop: 04/01/20 08:59 Last Admin: 03/02/20 08:33 Dose: 1 mg Documented by: [id number] Lorazepam (Ativan) 1 mg in 2 mls @ 2 mls/min IV UD PRN; Protocol PRN Reason: EtOH Withdrawl AWSS Score 6,7 Stop: 03/31/20 22:42 Last Admin: 03/02/20 09:05 Dose: 2 mls/min Documented by: [id number] Potassium Chloride/Sodium Chloride (Normal Saline W/20 Meq Kcl) 20 meq in 1,000 mls @ 100 mls/hr IV .Q10H EMIL Stop: 03/31/20 22:42 Last Admin: 03/02/20 09:07 Dose: 100 mls/hr Documented by: [id number] Infusion: 03/02/20 09:07 Dose: 100 mls/hr Documented by: [id number] Admin: 03/01/20 23:50 Dose: 100 mls/hr Documented by: [id number] Multivitamins/Minerals (Cerovite Adv Formula Tab) 1 tab PO DAILY EMIL Stop: 04/01/20 08:59 Last Admin: 03/02/20 08:34 Dose: 1 tab Documented by: [id number] Thiamine HCl (Thiamine Hcl 100 Mg Tab) 100 mg PO QAM [facility] Stop: 04/01/20 08:59 Last Admin: 03/02/20 08:34 Dose: 100 mg Documented by: [id number] Discontinued Medications Diphtheria/Pertussis/Tetanus Vacc (Diphtheria/Tetanus/Pertussis 0.5 Ml Syr/Vial) 0.5 ml IM .ONCE ONE Stop: 03/01/20 18:43 Last Admin: 03/01/20 19:26 Dose: Not Given Documented by: [id number] Gabapentin (Gabapentin 600 Mg Tab) 1,200 mg PO NOW ONE Stop: 03/01/20 22:44 Last Admin: 03/01/20 23:52 Dose: 1,200 mg Documented by: [id number] Gabapentin (Gabapentin 600 Mg Tab) 600 mg PO Q6H [facility] Stop: 03/02/20 12:01 Last Admin: 03/02/20 12:22 Dose: 600 mg Documented by: [id number] Admin: 03/02/20 05:33 Dose: 600 mg Documented by: [id number] Lacosamide 150 mg/ Sodium (Chloride) 65 mls @ 130 mls/hr IV NOW STA Stop: 03/01/20 18:38 Last Infusion: 03/01/20 20:20 Dose: 0 mls/hr Documented by: [id number] Admin: 03/01/20 19:34 Dose: 130 mls/hr Documented by: [id number] Lorazepam (Ativan) 2 mg in 4 mls @ 4 mls/min IV NOW STA Stop: 03/01/20 18:38 Last Admin: 03/01/20 19:12 Dose: 4 mls/min Documented by: [id number] Multivitamins 10 ml/ Thiamine HCl 100 mg/ Folic Acid 1 mg/Sodium Chloride 1,011.2 mls @ 1,011.2 mls/hr IV .Q1H ONE Stop: 03/01/20 19:36 Last Infusion: 03/01/20 21:42 Dose: 0 mls/hr Documented by: [id number] Admin: 03/01/20 20:28 Dose: 1,011.2 mls/hr Documented by: [id number] Thiamine HCl 200 mg/ Sodium (Chloride) 52 mls @ 208 mls/hr IV NOW STA Stop: 03/01/20 18:51 Last Infusion: 03/01/20 20:54 Dose: 0 mls/hr Documented by: [id number] Admin: 03/01/20 20:29 Dose: 208 mls/hr Documented by: [id number] Sodium Chloride (Nss 1000ml) 1,000 mls @ 999 mls/hr IV .Q1H1M ONE Stop: 03/01/20 21:14 Last Infusion: 03/01/20 21:30 Dose: 0 mls/hr Documented by: [id number] Admin: 03/01/20 20:28 Dose: 999 mls/hr Documented by: [id number] Ioversol (Ioversol 100ml) 93 ml IV ONCE ONE Stop: 03/01/20 19:41 Last Admin: 03/01/20 19:40 Dose: 1 ml Documented by: [id number] Lidocaine HCl (Xylocaine 1%/Sod Bicarb 20 Ml Vial) 20 ml INFIL NOW ONE Stop: 03/01/20 20:09 Last Admin: 03/01/20 20:32 Dose: 20 ml Documented by: [id number] Discharge Plan Visit Data Chief Complaint: Fall Stated Complaint: FALL, HEAD INJURY ED Provider: Edy Jean Baptiste Discharge Problem: Alcohol abuse, Seizure disorder, Elevated lactic acid level, Dehydration, Laceration of eyebrow, left Patient Disposition: Admitted As Inpatient Discharge Instructions Interventions: ED Discharge Assessment Last Done: 03/01/20 22:04
[2020-03-01] MEDS ORDERED: ONDANSETRON INJ 2 MG/ML 2 ML VIAL IV PRN (22:43)
[2020-03-01] MEDS ORDERED: ATIVAN IV ALCOHOL WITHDRAWL IV PRN (22:43)
[2020-03-01] MEDS ORDERED: GABAPENTIN 1200MG ALCOHOL WITHDRAWAL LOAD PO STA (22:43)
[2020-03-01] MEDS ORDERED: GABAPENTIN 600 MG TAB PO ONE (22:43)
[2020-03-01] MEDS ORDERED: LORazepam 3 MG/6 ML VIAL IV PRN (22:43)
[2020-03-01] MEDS: NSS + 20MEQ KCL 20 MEQ/1,000 ML BAG IV SCH (23:50)
[2020-03-02] MEDS: GABAPENTIN 600 MG TAB PO SCH ×3 (05:33→19:36)
[2020-03-02 05:51] LABS: Hematocrit (blood only) 36.5 % (42-52); Hemoglobin 12.4 g/dL (14.0-18.0); Mean Corpuscular Hemoglobin 34.8 pg (25-34); Mean Corpuscular Volume 102.5 fL (80-100); RDW Coefficient of Variation 14.4 % (11.5-14.5); RDW Standard Deviation 54.2 fL (36.4-46.3); Red Blood Count 3.56 M/uL (4.7-6.1); White Blood Count 3.86 K/uL (4.8-10.8)
[2020-03-02 06:02] LABS: Platelet Count 74 K/uL (130-400)
[2020-03-02 06:03] LABS: Partial Thromboplastin Ratio 1.1; Partial Thromboplastin Time 30.2 Seconds (21.0-31.0); Prothrombin Time 10.9 Seconds (9.0-12.0)
[2020-03-02 06:14] LABS: Basophils # (auto) 0.08 K/uL (0-0.2); Basophils % (auto) 2.1 %; Eosinophils # (auto) 0.05 K/uL (0-0.5); Eosinophils % (auto) 1.3 %; Giant Platelets 1+; Immature Granulocytes # (auto) 0.01 K/uL (0.00-0.02); Immature Granulocytes % (auto) 0.3 %; Lymphocytes % (auto) 18.1 %; Monocytes # (auto) 0.46 K/uL (0.11-0.59); Monocytes % (auto) 11.9 %; Neutrophils # (auto) 2.56 K/uL (1.4-6.5); Neutrophils % (auto) 66.3 %
[2020-03-02 06:42] LABS: Albumin Level 3.6 gm/dl (3.4-5.0); BUN Creatinine Ratio 15.6 (10-20); Calcium 8.1 mg/dl (8.5-10.1); Creatinine Clr Calc Pharmacy 115.7 ml/min; Est GFR (Non-African American) 102.7; Magnesium 1.8 mg/dl (1.8-2.4)
[2020-03-02 06:45] LABS: Albumin Globulin Ratio 1.1 (0.9-2); Bilirubin,Total 0.4 mg/dl (0.2-1); Globulin 3.2 gm/dl (2.5-4.0); Total Protein 6.8 gm/dl (6.4-8.2)
[2020-03-02] MEDS: FOLIC ACID 1 MG TAB PO SCH (08:33)
[2020-03-02] MEDS: CEROVITE ADV FORMULA TAB PO SCH (08:34)
[2020-03-02] MEDS: THIAMINE HCL 100 MG TAB PO SCH (08:34)
[2020-03-02] MEDS ORDERED: ACETAMINOPHEN 325 MG TAB PO PRN (08:48)
[2020-03-02] MEDS ORDERED: KETOROLAC TROMETHAMINE 15 MG/ML VIAL IV PRN (08:48)
[2020-03-02] MEDS: LORazepam 1 MG/2 ML VIAL IV PRN (09:05)
[2020-03-02] MEDS: NSS + 20MEQ KCL 20 MEQ/1,000 ML BAG IV SCH ×2 (09:07→19:36)
--- NOTE | 2020-03-02 09:53 | Electrocardiogram Report ---
Test Reason : Blood Pressure : / mmHG Vent. Rate : 071 BPM Atrial Rate : 071 BPM P-R Int : 206 ms QRS Dur : 090 ms QT Int : 392 ms P-R-T Axes : 035 -50 019 degrees QTc Int : 425 ms Normal sinus rhythm with sinus arrhythmia Left anterior fascicular block Abnormal ECG When compared with ECG of 28-APR-2019 15:26, Nonspecific T wave abnormality no longer evident in Anterior leads Confirmed by Tarik Lucio ([id number]) on 03/02/2020 9:53:31 AM Referred By: REFERRED SELF Confirmed By:Tarik Lucio
--- NOTE | 2020-03-02 13:59 | Hospitalist Progress Note ---
Date of Service March 02, 2020 Assessment & Plan (1) Alcohol abuse: On KARMEN as he has had prior seizures from withdrawal. - Monitor - Encourage cessation - Gabapentin taper - Thiamine and folic acid PO supplements (2) Seizure disorder: Not on any antiepileptic; presumed due to alcohol withdrawal. - Monitor - Seizure precautions (3) Depression: On no meds for this. - Monitor (4) SAH (subarachnoid hemorrhage): History of. No recurrence on CT head on 03/01. - Monitor (5) Thrombocytopenia: Platelets 75 upon admission. Likely due to bone marrow suppression. No indication of cirrhosis on imaging of CT a/p and labs indicate adequate synthetic function of liver (normal INR & albumin). - Follow serially (6) DVT prophylaxis: SCDs - Low DVT risk per admission calculator Admission and Anticipated Discharge Date Admission Date: March 01, 2020 Subjective Pain over the left eye from his fall. Mild withdrawal symptoms only. Otherwise, reports no fevers/chills, chest pain, shortness of breath, abdominal pain, nausea, or vomiting. Physical Exam Constitutional: WD/WN, vitals as above Eyes: + eyelid abnormality (Large bruising around left eye) and EOM intact bilaterally; no conjunctival abnormality ENMT: external ear and nose normal, oropharynx normal Neck: trachea midline, no thyromegaly normal visual inspection Respiratory: normal respiratory effort, lungs clear to auscultation no respiratory distress Cardiovascular: RRR, no murmur, no edema Gastrointestinal (Abdomen): Inspection/Auscultation: abdomen normal to inspection; abdomen not distended Musculoskeletal: Head/Neck/Chest: + head abnormal to inspection (Bruising and stitches over left eye); + abnormal head shape and + evidence of head trauma Skin: no rashes, warm and dry Neurologic: moves all extremities and awake Psychiatric: Orientation: alert, oriented to person and cooperative Results & Data Results & Data ([facility]) Vital Signs (Past 12 Hours) Vital Signs Temp Pulse Pulse Resp BP Pulse Ox 03/02/20 12:39 75 03/02/20 11:20 37.0 C 88 16 160/84 H 96 03/02/20 07:41 37.3 C 76 18 140/83 94 03/02/20 02:41 37.4 C 82 14 97/61 L 94 PG Care Time/CCT Total # of Minutes Spent Total Time Spent with Patient: Total time spent is greater than 50% in coordination of care (as documented) at patient's floor/unit and/or counseling patient: Coding Level of Care Code 13720 Subseq Hosp Care Lvl 3 Diagnoses Alcohol abuse F10.10 Seizure disorder G40.909 Depression F32.9 SAH (subarachnoid hemorrhage) I60.9 Thrombocytopenia D69.6 DVT prophylaxis Z29.9
[2020-03-03] MEDS: GABAPENTIN 600 MG TAB PO SCH ×3 (04:05→23:48)
[2020-03-03] MEDS: NSS + 20MEQ KCL 20 MEQ/1,000 ML BAG IV SCH ×2 (05:34→15:25)
[2020-03-03] MEDS: LORazepam 1 MG/2 ML VIAL IV PRN ×2 (07:58→20:24)
[2020-03-03] MEDS: THIAMINE HCL 100 MG TAB PO SCH (07:59)
[2020-03-03] MEDS: FOLIC ACID 1 MG TAB PO SCH (07:59)
[2020-03-03] MEDS: CEROVITE ADV FORMULA TAB PO SCH (07:59)
[2020-03-03 11:30] LABS: Hematocrit (blood only) 39.7 % (42-52); Hemoglobin 13.5 g/dL (14.0-18.0); Mean Corpuscular Hemoglobin 34.6 pg (25-34); Mean Corpuscular Volume 101.8 fL (80-100); RDW Coefficient of Variation 13.8 % (11.5-14.5); RDW Standard Deviation 51.7 fL (36.4-46.3); White Blood Count 3.87 K/uL (4.8-10.8)
[2020-03-03 11:34] LABS: Mean Platelet Volume 9.8 fL (7.4-10.4); Platelet Count 93 K/uL (130-400)
[2020-03-03 11:42] LABS: Partial Thromboplastin Ratio 1.1; Prothrombin Time 10.6 Seconds (9.0-12.0)
[2020-03-03 11:45] LABS: Basophils # (auto) 0.03 K/uL (0-0.2); Basophils % (auto) 0.8 %; Eosinophils # (auto) 0.06 K/uL (0-0.5); Eosinophils % (auto) 1.6 %; Immature Granulocytes # (auto) 0.01 K/uL (0.00-0.02); Immature Granulocytes % (auto) 0.3 %; Lymphocytes # (auto) 0.46 K/uL (1.2-3.4); Lymphocytes % (auto) 11.9 %; Monocytes # (auto) 0.66 K/uL (0.11-0.59); Monocytes % (auto) 17.1 %; Neutrophils # (auto) 2.65 K/uL (1.4-6.5); Neutrophils % (auto) 68.3 %
[2020-03-03 12:11] LABS: Albumin Globulin Ratio 1.1 (0.9-2); Albumin Level 3.8 gm/dl (3.4-5.0); BUN Creatinine Ratio 8.6 (10-20); Bilirubin,Total 0.9 mg/dl (0.2-1); Globulin 3.6 gm/dl (2.5-4.0); Magnesium 2.3 mg/dl (1.8-2.4); Potassium 4.3 mmol/L (3.5-5.1); Total Protein 7.4 gm/dl (6.4-8.2)
[2020-03-03] MEDS: LORazepam 2 MG/4 ML VIAL IV PRN ×2 (17:18→23:47)
--- NOTE | 2020-03-03 18:02 | Hospitalist Progress Note ---
Date of Service March 03, 2020 Assessment & Plan (1) Alcohol abuse: On KARMEN as he has had prior seizures from withdrawal. - Encouraged cessation - Continue gabapentin taper - Thiamine and folic acid PO supplements - Monitor for withdrawal - Has needed 2 doses so far today. (2) Seizure disorder: Not on any antiepileptic; presumed due to alcohol withdrawal. - Monitor - Seizure precautions (3) Depression: On no meds for this. - Monitor (4) SAH (subarachnoid hemorrhage): History of. No recurrence on CT head on 03/01. - Monitor (5) Thrombocytopenia: Platelets 75 upon admission. Likely due to bone marrow suppression. No indication of cirrhosis on imaging of CT a/p and labs indicate adequate synthetic function of liver (normal INR & albumin). - Follow serially - Up to 93 today. (6) DVT prophylaxis: SCDs - Low DVT risk per admission calculator Admission and Anticipated Discharge Date Admission Date: March 01, 2020 Subjective Feeling better today. Less pain/swelling in the eye. Minor shakes, but no major withdrawal symptoms. Reports no fevers/chills, chest pain, shortness of breath, abdominal pain, nausea, or vomiting. Physical Exam Constitutional: WD/WN, vitals as above Eyes: + eyelid abnormality (Large bruising around left eye) and EOM intact bilaterally; no conjunctival abnormality ENMT: external ear and nose normal, oropharynx normal Neck: trachea midline, no thyromegaly normal visual inspection Respiratory: normal respiratory effort, lungs clear to auscultation no respiratory distress Cardiovascular: RRR, no murmur, no edema Gastrointestinal (Abdomen): Inspection/Auscultation: abdomen normal to inspection; abdomen not distended Musculoskeletal: Head/Neck/Chest: + head abnormal to inspection (Bruising and stitches over left eye); + evidence of head trauma Skin: no rashes, warm and dry Neurologic: moves all extremities and awake Mild tremor and tongue fasciculations Psychiatric: Orientation: alert, oriented to person and cooperative Results & Data Results & Data ([facility]) Vital Signs (Past 12 Hours) Vital Signs Temp Pulse Pulse Resp BP BP Pulse Ox 03/03/20 16:57 37.1 C 93 H 20 158/105 H 97 03/03/20 16:04 73 03/03/20 13:03 37.3 C 65 18 161/100 H 97 03/03/20 09:29 63 03/03/20 07:52 37.1 C 67 20 166/100 H 173/101 H 96 PG Care Time/CCT Total # of Minutes Spent Total Time Spent with Patient: Total time spent is greater than 50% in coordination of care (as documented) at patient's floor/unit and/or counseling patient: Coding Level of Care Code 34894 Subseq Hosp Care Lvl 2 Diagnoses Alcohol abuse F10.10 Seizure disorder G40.909 Depression F32.9 SAH (subarachnoid hemorrhage) I60.9 Thrombocytopenia D69.6 DVT prophylaxis Z29.9
[2020-03-04] MEDS: NSS + 20MEQ KCL 20 MEQ/1,000 ML BAG IV SCH ×3 (01:04→20:29)
[2020-03-04] MEDS: LORazepam 1 MG/2 ML VIAL IV PRN ×3 (01:43→15:57)
[2020-03-04] MEDS: CEROVITE ADV FORMULA TAB PO SCH (08:49)
[2020-03-04] MEDS: FOLIC ACID 1 MG TAB PO SCH (08:49)
[2020-03-04] MEDS: THIAMINE HCL 100 MG TAB PO SCH (08:49)
[2020-03-04] MEDS: LORazepam 2 MG/4 ML VIAL IV PRN ×3 (08:56→21:54)
[2020-03-04] MEDS: GABAPENTIN 600 MG TAB PO SCH (11:12)
[2020-03-04 11:16] LABS: Basophils # (auto) 0.04 K/uL (0-0.2); Eosinophils # (auto) 0.08 K/uL (0-0.5); Hematocrit (blood only) 41.4 % (42-52); Hemoglobin 14.3 g/dL (14.0-18.0); Immature Granulocytes # (auto) 0.01 K/uL (0.00-0.02); Immature Granulocytes % (auto) 0.2 %; Lymphocytes # (auto) 0.38 K/uL (1.2-3.4); Lymphocytes % (auto) 9.4 %; Mean Corpuscular Hemoglobin 35.1 pg (25-34); Mean Corpuscular Hgb Conc 34.5 g/dL (32-36); Mean Corpuscular Volume 101.7 fL (80-100); Monocytes # (auto) 0.67 K/uL (0.11-0.59); Monocytes % (auto) 16.5 %; Neutrophils # (auto) 2.88 K/uL (1.4-6.5); Neutrophils % (auto) 70.9 %; Nucleated RBC # (auto) 0.03 K/uL (0-0); Nucleated RBC % (auto) 0.7 %; Platelet Count 114 K/uL (130-400); RDW Coefficient of Variation 13.7 % (11.5-14.5); RDW Standard Deviation 51.5 fL (36.4-46.3); Red Blood Count 4.07 M/uL (4.7-6.1); White Blood Count 4.06 K/uL (4.8-10.8)
[2020-03-04 11:24] LABS: Partial Thromboplastin Time 28.9 Seconds (21.0-31.0); Prothrombin Time 10.4 Seconds (9.0-12.0)
[2020-03-04 11:43] LABS: Albumin Globulin Ratio 0.9 (0.9-2); Albumin Level 3.7 gm/dl (3.4-5.0); BUN Creatinine Ratio 11.5 (10-20); Bilirubin,Total 0.9 mg/dl (0.2-1); Calcium 9.6 mg/dl (8.5-10.1); Creatinine Clr Calc Pharmacy 115.7 ml/min; Est GFR (Non-African American) 102.7; Globulin 4.1 gm/dl (2.5-4.0); Magnesium 2.2 mg/dl (1.8-2.4); Potassium 4.2 mmol/L (3.5-5.1); Total Protein 7.8 gm/dl (6.4-8.2)
--- NOTE | 2020-03-04 12:30 | Hospitalist Progress Note ---
Date of Service March 04, 2020 Assessment & Plan (1) Alcohol abuse: On KARMEN as he has had prior seizures from withdrawal. - Encouraged cessation - Continue gabapentin taper - Thiamine and folic acid PO supplements - Monitor for withdrawal - Has needed 2 doses so far today, though mostly for high diastolic BP and tremors (which may be baseline for him). (2) Seizure disorder: Not on any antiepileptic; presumed due to alcohol withdrawal. - Monitor - Seizure precautions (3) Hypertension: BP today is 170/125. Likely some aspect of essential HTN and withdrawal. - Hydralazine PRN - If persists to be hypertensive, will start daily oral med (4) Depression: On no meds for this. - Monitor (5) SAH (subarachnoid hemorrhage): History of. No recurrence on CT head on 03/01. - Monitor (6) Thrombocytopenia: Platelets 75 upon admission. Likely due to bone marrow suppression. No indication of cirrhosis on imaging of CT a/p and labs indicate adequate synthetic function of liver (normal INR & albumin). - Follow serially - Up to 114 on 03/04. (7) DVT prophylaxis: SCDs - Low DVT risk per admission calculator Admission and Anticipated Discharge Date Admission Date: March 01, 2020 Subjective Doing better overall. Less tremor. Eye is looking great. Reports no fevers/chills, chest pain, shortness of breath, abdominal pain, nausea, or vomiting. Physical Exam Constitutional: WD/WN, vitals as above Eyes: + eyelid abnormality (Improving bruising around left eye) and EOM intact bilaterally; no conjunctival abnormality ENMT: external ear and nose normal, oropharynx normal Neck: trachea midline, no thyromegaly normal visual inspection Respiratory: normal respiratory effort, lungs clear to auscultation no respiratory distress Cardiovascular: RRR, no murmur, no edema Gastrointestinal (Abdomen): Inspection/Auscultation: abdomen normal to inspection; abdomen not distended Musculoskeletal: Head/Neck/Chest: + head abnormal to inspection (Bruising and stitches over left eye); + evidence of head trauma Skin: no rashes, warm and dry Neurologic: moves all extremities and awake Psychiatric: Orientation: alert, oriented to person and cooperative Results & Data Results & Data ([facility]) Vital Signs (Past 12 Hours) Vital Signs Temp Pulse Pulse Resp BP BP Pulse Ox 03/04/20 12:03 36.8 C 87 16 169/126 H 94 03/04/20 11:07 37.0 C 93 H 20 136/96 96 03/04/20 08:53 36.9 C 90 20 157/113 H 96 03/04/20 07:52 89 03/04/20 07:11 36.9 C 76 16 150/102 H 163/108 H 98 03/04/20 06:10 36.9 C 92 H 18 147/101 H 95 03/04/20 03:17 37 C 90 20 147/83 H 95 03/04/20 01:04 36.9 C 80 18 178/107 H 98 PG Care Time/CCT Total # of Minutes Spent Total Time Spent with Patient: Total time spent is greater than 50% in coordination of care (as documented) at patient's floor/unit and/or counseling patient: Coding Level of Care Code 80791 Subseq Hosp Care Lvl 3 Diagnoses Alcohol abuse F10.10 Seizure disorder G40.909 Hypertension I10 Depression F32.9 SAH (subarachnoid hemorrhage) I60.9 Thrombocytopenia D69.6 DVT prophylaxis Z29.9
[2020-03-04] MEDS: hydrALAZINE HCL 20 MG/ML VIAL IV PRN (13:27)
[2020-03-05] MEDS: NSS + 20MEQ KCL 20 MEQ/1,000 ML BAG IV SCH ×2 (05:37→15:45)
[2020-03-05] MEDS: THIAMINE HCL 100 MG TAB PO SCH ×3 (08:26→20:47)
[2020-03-05] MEDS: FOLIC ACID 1 MG TAB PO SCH (08:27)
[2020-03-05] MEDS: CEROVITE ADV FORMULA TAB PO SCH (08:44)
[2020-03-05] MEDS: DOXYCYCLINE HYCLATE 100 MG CAP PO SCH ×2 (09:47→20:47)
[2020-03-05] MEDS ORDERED: GABAPENTIN 600 MG TAB PO SCH (12:00)
--- NOTE | 2020-03-06 00:30 | Hospitalist Progress Note ---
Date of Service March 05, 2020 Assessment & Plan (1) Alcohol abuse: with withdrawal improving last dose ativan late last pm pt feeling better however stop fluids tonight ambulate as tolerated and w/ assistance by staff to avoid fall/injury increase thiamine 200mg BID folate MVI completed gabapentin protocol reassess tomorrow (2) Seizure disorder: Not on any antiepileptic; presumed due to alcohol withdrawal. no seizures while here (3) Hypertension: BPs improved (4) Depression: no issues; not on meds (5) SAH (subarachnoid hemorrhage): History of. recent head CT neg. (6) Thrombocytopenia: likely due to alcohol abuse improving with cessation cbc in am previous b12/folate wnl (7) Mucocele, appendix: CT abd/pelvis with abnormal appendix distended, fluid-filled (NOT appendicitis). chronic. mucocele? send to gen surg post-d/c. (8) TSH elevation: with low FT4 repeat TFTs as outpatient may have early hypothyroidism (9) UTI (urinary tract infection): coag neg staph doxy 100mg BID x 7 days no prostatitis symptoms (10) DVT prophylaxis: if he doesn't go home tomorrow add chemical means Admission and Anticipated Discharge Date Admission Date: March 01, 2020 Subjective feels overall ok. last dose ativan - late last pm. feels shaky. eating ok. unsteady on feet still. a/o x 3 today. Review of Systems 2 Respiratory: no cough and no dyspnea Cardiovascular: no chest pain Gastrointestinal: no abdominal pain, no nausea and no vomiting Genitourinary: no dysuria and no difficulty urinating Physical Exam Constitutional: no acute distress and no altered mental status tremors/shaky Eyes: no nystagmus ENMT: external ear and nose normal, oropharynx normal Respiratory: normal respiratory effort, lungs clear to auscultation Cardiovascular: Rate/Rhythm: regular rhythm and + tachycardic Heart Sounds: normal S1 and normal S2; no murmur Vessels: posterior tibial pulses present and dorsalis pedis pulses present Extremities: no edema Gastrointestinal (Abdomen): Inspection/Auscultation: normal bowel sounds Percussion/Palpation: abdomen soft and + hepatomegaly; abdomen nontender and no splenomegaly Skin: no jaundice Neurologic: Motor/Sensory: + tremor Psychiatric: A+Ox3, euthymic affect Results & Data Results & Data ([facility]) Vital Signs (Past 12 Hours) Vital Signs Temp Pulse Pulse Resp BP Pulse Ox 03/06/20 00:17 79 03/06/20 00:06 37.0 C 82 18 137/89 96 03/05/20 19:40 36.9 C 82 18 145/96 H 96 03/05/20 16:20 37.4 C 100 H 18 149/93 H 97 03/05/20 15:57 97 H PG Care Time/CCT Total # of Minutes Spent Total Time Spent with Patient: Total time spent is greater than 50% in coordination of care (as documented) at patient's floor/unit and/or counseling patient: Coding Level of Care Code 62760 Subseq Hosp Care Lvl 2 Diagnoses Alcohol abuse F10.10 Seizure disorder G40.909 Hypertension I10 Depression F32.9 SAH (subarachnoid hemorrhage) I60.9 Thrombocytopenia D69.6 Mucocele, appendix K38.8 TSH elevation R79.89 UTI (urinary tract infection) N39.0 DVT prophylaxis Z29.9
[2020-03-06 07:26] LABS: Hemoglobin 14.4 g/dL (14.0-18.0); Mean Corpuscular Hemoglobin 34.9 pg (25-34); Mean Corpuscular Hgb Conc 34.3 g/dL (32-36); Mean Corpuscular Volume 101.7 fL (80-100); Mean Platelet Volume 9.5 fL (7.4-10.4); Platelet Count 149 K/uL (130-400); RDW Coefficient of Variation 13.5 % (11.5-14.5); RDW Standard Deviation 50.5 fL (36.4-46.3); Red Blood Count 4.13 M/uL (4.7-6.1); White Blood Count 4.31 K/uL (4.8-10.8)
[2020-03-06] MEDS: CEROVITE ADV FORMULA TAB PO SCH (07:32)
[2020-03-06] MEDS: hydrALAZINE HCL 20 MG/ML VIAL IV PRN (07:32)
[2020-03-06] MEDS: THIAMINE HCL 100 MG TAB PO SCH (07:32)
[2020-03-06] MEDS: DOXYCYCLINE HYCLATE 100 MG CAP PO SCH (07:32)
[2020-03-06] MEDS: FOLIC ACID 1 MG TAB PO SCH (07:33)
[2020-03-06 07:57] LABS: BUN Creatinine Ratio 14.2 (10-20); Calcium 9.5 mg/dl (8.5-10.1); Creatinine Clr Calc Pharmacy 115.7 ml/min; Est GFR (Non-African American) 102.7; Potassium 3.6 mmol/L (3.5-5.1)
--- NOTE | 2020-03-06 16:05 | Discharge Summary ---
Date of Service date of admission - March 01, 2020 date of discharge - March 06, 2020 Admission HPI Per Admitting Provider The patient is a 59-year-old male with a past medical history including subarachnoid hemorrhage, bilateral hand numbness, depression, difficulty controlling anger, diffuse cerebral atrophy, encephalomalacia, headache, hearing loss, alcohol withdrawal seizures, memory deficit, nocturia, thrombosis of right popliteal vein, anxiety and alcohol withdrawal seizures. The patient was brought to the emergency department by police after being found on the ground wet and confused on [facility] in [place]. EMS reported patient had brief episodes of absence type seizures without tonic-clonic activity. The patient does not remember how he fell or what he was doing at the time. Reports his last alcohol intake was yesterday but does drink on a daily basis. He does feel that he is having some withdrawal symptoms at this time. He was found to have head laceration that required suturing in the ED. Principal Diagnosis 1. fall with head injury and forehead laceration requiring suture repair 2. alcohol withdrawal 3. alcoholism 4. abnormal appendix on CT abdomen/pelvis Discharge Exam Constitutional no acute distress and no altered mental status Eyes no nystagmus ENMT external ear and nose normal, oropharynx normal Respiratory normal respiratory effort, lungs clear to auscultation Cardiovascular Rate/Rhythm: regular rate and regular rhythm Heart Sounds: normal S1 and normal S2; no murmur Vessels: posterior tibial pulses present and dorsalis pedis pulses present Extremities: no edema Gastrointestinal (Abdomen) Inspection/Auscultation: normal bowel sounds Percussion/Palpation: abdomen soft and + hepatomegaly; abdomen nontender and no splenomegaly Skin no jaundice Trauma: + evidence of skin trauma (Forehead, left periorbital area (resolving ecchymoses)) and + laceration (Left eyebrow - sutures intact, clean, no drainage) Neurologic Motor/Sensory: + tremor Psychiatric A+Ox3, euthymic affect Discharge Data Allergies Allergy/AdvReac Type Severity Reaction Status Date / Time lamotrigine Allergy Unknown Unknown Verified 03/08/20 08:16 meclizine Allergy Unknown Unknown Verified 03/08/20 08:16 Consultations 03/01/20 22:43 Consult Case Management - Discharge Planning Routine PT, OT Procedures Performed suture repair left eyebrow laceration (performed by ER) Ordered Studies 03/01/20 18:37 CT abd pelvis IV con only Stat - 1. No acute traumatic process within the abdomen or pelvis. 2. Old, healed left-sided rib fractures and an old L2 superior endplate compression fracture. 3. Mildly distended and fluid-filled appendix measuring up to 7 mm in diameter. This has slightly progressed. No periappendiceal fat stranding to suggest acute appendicitis. Consider follow-up nonemergent surgical consultation to exclude the possibility of a mucocele. CT cervical spine wo con Stat - no fractures. CT head/brain wo con Stat - no acute ICH or stroke; Small focus of encephalomalacia within the right frontal lobe consistent with an old infarct. Hospital Course (1) Alcohol abuse: With withdrawal. Improved with gabapentin protocol, ativan prn, and time. No IV ativan for nearly 48 hours prior to discharge. Minimal tremors at time of discharge. Seen by PT and felt appropriate for home with home PT evaluation advised. Patient was awake, alert, and oriented at discharge. Received thiamine 200mg BID, folate, and MVI while here. On day of discharge we had a discussion about alcohol abstinence but it seemed as if the patient was not ready to fully abstain at this time. He was given 2 days of librium to take at home for any residual minor etoh withdrawal symptoms but was counseled that if he resumed drinking he should THROW the LIBRIUM away and NOT take the medication. (2) Seizure disorder: Not on any antiepileptic; presumed due to alcohol withdrawal in the past. no seizures while here. (3) Hypertension: BPs mildly elevated during the stay likely due to alcohol withdrawal. Was NOT initiated on anti-hypertensives while here. (4) Depression: no issues; not on meds at this time. (5) SAH (subarachnoid hemorrhage): History of. recent head CT neg for any ICH. (6) Thrombocytopenia: likely due to alcohol abuse. improved while here. count was 149 at discharge. previous b12/folate wnl. (7) Mucocele, appendix: CT abd/pelvis with abnormal appendix. distended, fluid-filled (NOT appendicitis and abdominal exam normal while here). chronic. mucocele? send to gen surg post-d/c as soon as possible. likely to need elective appendectomy. (8) TSH elevation: with low FT4 repeat TFTs as outpatient may have early hypothyroidism medication was not started while here (9) UTI (urinary tract infection): coag neg staph doxy 100mg BID x 7 days no prostatitis symptoms (10) Laceration of face: left eyebrow region. sutures intact at discharge. needs sutures removed ~03/08/2020. patient reminded that sutures need removal about that time. Total Time Total Time Spent Total Time Spent (In Minutes): 40 Total Time Includes: Examination of the Patient, Discharge Planning, Medication Reconciliation and Communication With Other Providers Discharge Plan Discharge Items Patient Disposition: Home - Home Health Services Reason For Visit: FALL, ALCOHOL WITHDRAWAL Discharge Diagnosis: 1. alcohol withdrawal 2. fall with head injury 3. abnormal APPENDIX on CAT scan - FOLLOW-up with surgery stu 4. urinary tract infection 5. laceration left forehead - sutures present; WHEN YOU SEE SURGERY ON 03/08/2020 PLEASE ASK THEM TO REMOVE THESE SUTURES Activity: As commented below Activity Comment: gradually increase activity over next 5 days Bathing: No limitations Driving/Machine Use: NO DRIVING Non-emergency contact: Primary Care Provider and Surgeon Call non-emergency contact if: you have any medication questions, your symptoms worsen and you have a fever Follow-up/Referrals: Danny Hanley MD [Primary Care Provider] - 03/13/20 11:20 am (You have an appt with your PCP on Monday 03/13 at 1120. It is important that you keep this appt. Please arrive 15 minutes prior to your appt. Your appt is at [address] ) Nitesh Tuttle DO [Physician] - 03/08/20 8:30 am (You have an appt with Dr. Tuttle on , at 0830. It is important that you keep this appt. You will need to arrive 15 minutes prior to this appt. This appt is at [address] [place] [address] Dr. Quigley [address] [place], [place] ) Diet: Regular Addtl Attending Provider Instructions: You were treated for a fall with head injury. You had a laceration over the left forehead that was repaired by the emergency room. Sutures should be removed on 03/08/2020 - at your surgery appointment they can do this for you. You were treated for the problems listed in "discharge diagnoses" above. Most of your alcohol withdrawal is done. You can take chlordiazepoxide 10mg three times a day for 2 days only. HOWEVER -- if you resume drinking alcohol at home DO NOT TAKE THIS MEDICATION. THROW IT AWAY. If you remain sober - I encourage you to keep up the good work - then it is ok to take this medication. We are setting up physical therapy for you at your home. Take 6 more days of doxycycline antibiotic for urinary infection. This medication can sometimes cause heartburn. Follow-up - see separate section VERY VERY IMPORTANT TO ATTEND THE GENERAL SURGERY APPOINTMENT ON 03/08/20 FOR THE ABNORMAL APPENDIX AND GET YOUR SUTURES OUT It was my pleasure to meet you, Stay well, Dr Bland Pending Studies at Discharge: No Stand-Alone Forms: My [facility], Smoking Cessation Medications and DC Order Prescriptions: New doxycycline hyclate 100 mg Capsule 100 mg PO BID 6 Days Qty: 12 RF: 0 thiamine HCl (vitamin B1) [Vitamin B-1] 100 mg Tablet 200 mg PO BID 30 Days Qty: 120 RF: 0 Continued folic acid 1 mg tablet 1 mg PO QAM Qty: 90 RF: 3 multivitamin with minerals [Men's One Daily] Tablet 1 tab PO DAILY Qty: 90 RF: 3 Discharge Orders: Discharge Order (Routine); Ordered 03/06/20 Ordered By: Wilver Bland Admission Data Admit Date/Time: 03/01/20 21:02 Attending Provider: Wilver Bland Admit Provider: David Pittman Primary Care Provider: Danny Hanley V. Other Providers: Gilberto Fairbanks Other Interventions: Discharge Summary Assessment (RN) Last Done: 03/06/20 13:57 Coding Level of Care Code D/C Day Management >30 mins Diagnoses Alcohol abuse F10.10 Seizure disorder G40.909 Hypertension I10 Depression F32.9 SAH (subarachnoid hemorrhage) I60.9 Thrombocytopenia D69.6 Mucocele, appendix K38.8 TSH elevation R79.89 UTI (urinary tract infection) N39.0 Laceration of face S01.81XA
== END 2020-03-06 16:25 | disposition home health service (06) | DRG 897 ==
LOC: ED 18:24 → SUATTDRO 21:02 → 2N 21:24

== ENCOUNTER 2021-09-29 08:31 | Inpatient (IN) ==
[2021-09-29] MEDS ORDERED: LORazepam 1 MG TAB PO PRN ×2 (08:47→12:45)
[2021-09-29] MEDS ORDERED: MULTI-VITAMIN INFUSION 10 ML, THIAMINE HCL 100 MG, FOLIC ACID 1 MG in SODIUM CHLORIDE 0... IV ONE (08:47)
[2021-09-29] MEDS ORDERED: LORazepam 2 MG/1 ML VIAL IV STA ×2 (08:47→11:37)
[2021-09-29] MEDS ORDERED: THIAMINE HCL 200 MG in SODIUM CHLORIDE 0.9% 50 ML IV STA (08:47)
--- NOTE | 2021-09-29 08:55 | Emergency Department Note ---
Impression & Plan Alcohol withdrawal, Alcohol withdrawal delirium, Hypomagnesemia, Hallucination, visual ED Provider Note NAME: TO GASPAR AGE: 60 SEX: M : 1960 ARRIVES VIA: Police [employer] INFORMANT: Patient, ED PROVIDER(S): Blake Simeon DO CHIEF COMPLAINT: Altered mental status HPI: The patient is a 60-year-old male who presented to the emergency department for an evaluation of altered mental status. The patient called the police today because he was having people coming into his house or using a shower. He also states that doctors and nurses were coming into his house and taking things. When he arrived at the emergency department he continues to have the feeling that people are coming into his house. He states that children been coming into his house to use his shower in his bathroom. There was no signs of anybody was in his house the police were concerned because the patient appeared to be somewhat confused and brought him to the emergency department for further evaluation. The patient does have a history of alcohol abuse. He states he has not been taking his medications the way he supposed to and states that he has not used alcohol since last Thursday. He denies having any trauma. He denies having any headaches or vomiting. He states he has been having some trouble walking because of his right leg but states that it is not weak and he did not injure. The patient denies having any fever or cough. The patient denies having any suicidal homicidal ideation. ROS: See above HPI for pertinent positives & negatives. A total of 10 systems reviewed and were otherwise negative. PAST MEDICAL HISTORY: See Below PAST SURGICAL HISTORY: See Below FAMILY HISTORY: See Below SOCIAL HISTORY: See Below HOME MEDICATIONS: See Below ALLERGIES: See Below VITALS: See Below PHYSICAL EXAMINATION: GENERAL: Patient is awake and alert. The patient follows commands well. He does appear to be somewhat anxious. EYES: The conjunctivae are clear. The pupils are round and reactive. EARS, NOSE, MOUTH AND THROAT: The nose is without any evidence of any deformity. NECK: The neck is nontender and supple. RESPIRATORY: Normal respiratory effort is noted there is no evidence of wheezing rhonchi or rales CARDIOVASCULAR: Tachycardic and regular heart sounds were noted auscultation. There is no definite murmur. GASTROINTESTINAL: The abdomen is soft. Abdomen is nontender. MUSCULOSKELETAL/EXTREMITIES: There is no evidence of gross deformity full range of motion is noted in the hips and shoulders. SKIN: Skin is cool and diaphoretic. There is no significant pedal edema. Pulses are symmetric in both wrists. NEUROLOGIC: Patient is awake alert and oriented to person place and situation. Strength was symmetric. Patellar tendon reflexes were 3+ bilaterally. Clonus was noted in both feet. PSYCH: Patient is awake and alert. He makes good eye contact. He denies having any suicidal homicidal ideation but still continues to have thoughts that somebody was in his home. MEDICAL DECISION MAKING: The patient is a 60-year-old male who presented to the emergency department for an evaluation of altered mental status. The patient arrived with police. The patient's history is positive for alcohol abuse and alcohol withdrawal. The patient's history and physical exam do appear to be consistent with alcohol withdrawal. He initially was very tachycardic and hypertensive. He was treated with Ativan. He was also treated with IV fluids and banana bag. He was given supplemental thiamine as well. On reevaluation his vital signs were improved however the patient's mental status does not appear to be significantly improved. Given his presentation at the patient would appear to be a good candidate for inpatient management. The [facility] hospitalist was notified and will evaluate the patient in the emergency department. Triage Nursing notes reviewed. Prior medical records reviewed Vital Signs: reviewed and remarkable for tachycardia and hypertension. Differential diagnosis: Infection, hypoglycemia, electrolyte abnormalities, overdose, toxicologic, cardiac sources, intracerebral event, neurologic, trauma, as well as other path ologies. ER treatment provided: See below Diagnostics interpreted by me: ECG: EKG was obtained in the emergency department. My interpretation is sinus tachycardia 106 bpm. There is no ectopy. Poor wave progression with nonspecific ST segment abnormalities were noted. This was compared to a tracing from March 01, 2020. The rate is increased otherwise no changes were noted. Cardiac Monitoring: An order was placed for continuous cardiac monitoring. The monitor shows a rate of 105 bpm with sinus tachycardia. Laboratory studies: As stated above and show below. Imaging studies: See below Consultation(s): Dr. Doty was notified about the patient. ED COURSE: Procedures: none Critical Care: I have personally spent greater than 55 minutes of critical care time in the direct management of this patient. This includes bedside care, interpretation of diagnostic studies, and testing, discussion with consultants, patient, and family members, and other required patient management activities. This 55 sherry dajuan is in excess of all separately billable procedures. Past Med/Surg History Medical History Alcohol abuse Alcohol withdrawal seizure Altered mental status Depression Diffuse cerebral atrophy Encephalomalacia Noted on 02/[address] History of seizure Mixed etiology per review of records. H/o tonic-clonic seizures, possible absence sz, also seizures from ETOH withdrawal. Patient is supposed to be following with [facility] neurology but has been largely noncompliant and has many barriers to consistent care. Supposed to be on Vimpat but per review of S records patient has not been able to afford medication or has neglected to f/u with care. Admitted 03/01/20 to [facility] for AMS. Possible seizure activity noted by EMS in ambulance, but no seizures during admission. Hypothyroidism Mild, noted on 03/01/20 labs. Not on replacement therapy. Intracranial hemorrhage 2/ fall with head trauma/temporal bone fracture 05/2018. Laceration of eyebrow, left Memory deficit Mental health disorder Skull fracture Per review of records, temporal bone fracture first in 2014, and again 05/2018 (seen at [place] ED and flown to [place] for further tx) Suicide attempt 2015 Surgical History H/O colonoscopy No history of previous surgery Family History Sister Seizure Brother Seizure Mother No pertinent family history Father No pertinent family history Social History Smoking Status: Never smoker Hx Alcohol Use: Yes Alcohol type: beer and hard liquor Hx Substance Use: No Preferred Language: Persian Communication Ability: Effective Visual Impairment: No Limitations Hearing Ability: Normal Terrazzo Helper Required: No Beliefs That Will Affect Care: None marital status: Single Current Living Situation: Alone Current Living Situation Comment: Apartment current occupational status: disabled Feels Safe at Home: Yes Childhood Exposure to Second-Hand Smoke: No Seatbelt Use: always Assistive Devices: None Allergies Allergies Allergy/AdvReac Type Severity Reaction Status Date / Time lamotrigine Allergy Unknown Unknown Verified 04/11/20 09:49 meclizine Allergy Unknown Unknown Verified 04/11/20 09:49 Home Meds Previous Rx's Medication Instructions Recorded multivitamin with minerals (Men's 1 tab PO DAILY #90 tabs 03/06/20 One Daily) folic acid 1 mg tablet See Rx Instructions .Route 07/19/21 .COMPLEX #30 tabs Results & Data (ED) Vital Signs Vital Signs - 24 hr 09/29/21 08:35 09/29/21 08:49 Temperature 36.7 C Temperature Source Temporal Artery Scan Pulse Rate 127 H 105 H Pulse Rhythm Regular Pulse Strength Normal Respiratory Rate 18 Respiratory Effort / Characteristics Non-Labored Spontaneous Respiratory Depth Normal Respiratory Pattern Regular Blood Pressure 155/99 H Blood Pressure Mean 117 Blood Pressure Position Sitting Pulse Oximetry 96 95 Oxygen Delivery Method Room Air Room Air Sepsis Recent Fever Within 48 Hours No Sepsis New/Unexplained Change in Mental Status N/A Sepsis Action Taken by Nursing No Action Required Home Medications Current Medication List: was personally reviewed by me Laboratory Data Attestation: I reviewed the patient's lab results. Result diagrams: 09/29/21 09:02 09/29/21 09:02 Lab Results 09/29/21 09/29/21 09/29/21 Range/Units 08:37 09:00 09:02 WBC 6.88 (4.8-10.8) K/ul RBC 4.51 L (4.63-6.08) M/uL Hgb 15.6 (14.0-18.0) g/dl Hct 43.6 (40.1-51.0) % MCV 96.7 (80.0-100.0) fL MCH 34.6 H (25.0-34.0) pg MCHC 35.8 (32.0-36.0) g/dL RDW Std Deviation 43.3 (36.4-46.3) fL RDW Coeff of Teddy 12.1 (11.5-14.5) % Plt Count 147 (130-400) K/uL MPV 9.9 (9.4-12.4) fL Immature Gran % (Auto) 0.7 % Neut % (Auto) 78.6 % Lymph % (Auto) 8.3 % [place] % (Auto) 11.2 % Eos % (Auto) 0.3 % Baso % (Auto) 0.9 % Neut # (Auto) 5.41 (1.4-6.5) K/uL Lymph # (Auto) 0.57 L (1.2-3.4) K/uL [place] # (Auto) 0.77 (0.24-0.82) K/uL Eos # (Auto) 0.02 (0-0.50) K/uL Baso # (Auto) 0.06 (0-0.2) K/uL Immature Gran # (Auto) 0.05 H (0.00-0.02) K/uL PT (9.0-12.0) Seconds INR (0.9-1.1) APTT (21.0-31.0) Seconds PTT Ratio Sodium (136-145) mmol/L Potassium (3.5-5.1) mmol/L Chloride (98-107) mmol/L Carbon Dioxide (21-32) mmol/L Anion Gap (3-11) BUN (6-23) mg/dl Creatinine (0.6-1.4) mg/dl Est Cr Clr Drug Dosing ml/min Est GFR ( Amer) ml/min Est GFR (Non-Af Amer) ml/min BUN/Creatinine Ratio (10-20) Glucose (70-99(Fasting)) mg/dl POC Glucose 150 H (70-99) mg/dl Calcium (8.5-10.1) mg/dl Magnesium (1.7-2.4) mg/dl Total Bilirubin (0.2-1.0) mg/dl AST (13-39) U/L ALT (7-52) U/L Alkaline Phosphatase (34-104) U/L Total Creatine Kinase (30-223) U/L Troponin I High Sens (0-20) pg/ml Total Protein (6.0-8.3) gm/dl Albumin (3.4-5.0) gm/dl Globulin (2.5-4.0) gm/dl Albumin/Globulin Ratio (0.9-2) Lipase (11-82) U/L Salicylates (3.0-30) mg/dl Acetaminophen (10-30) ug/ml Ethyl Alcohol mg/dL (<10.0) mg/dl SARS-CoV-2, RNA, NAAT NEGATIVE (NEGATIVE) 07/24/22 07/24/22 07/24/22 Range/Units 09:02 09:02 09:02 WBC (4.8-10.8) K/ul RBC (4.63-6.08) M/uL Hgb (14.0-18.0) g/dl Hct (40.1-51.0) % MCV (80.0-100.0) fL MCH (25.0-34.0) pg MCHC (32.0-36.0) g/dL RDW Std Deviation (36.4-46.3) fL RDW Coeff of Teddy (11.5-14.5) % Plt Count (130-400) K/uL MPV (9.4-12.4) fL Immature Gran % (Auto) % Neut % (Auto) % Lymph % (Auto) % [place] % (Auto) % Eos % (Auto) % Baso % (Auto) % Neut # (Auto) (1.4-6.5) K/uL Lymph # (Auto) (1.2-3.4) K/uL [place] # (Auto) (0.24-0.82) K/uL Eos # (Auto) (0-0.50) K/uL Baso # (Auto) (0-0.2) K/uL Immature Gran # (Auto) (0.00-0.02) K/uL PT 10.9 (9.0-12.0) Seconds INR 1.0 (0.9-1.1) APTT 28.2 (21.0-31.0) Seconds PTT Ratio 1.0 Sodium 139 (136-145) mmol/L Potassium 3.4 L (3.5-5.1) mmol/L Chloride 102 (98-107) mmol/L Carbon Dioxide 22 (21-32) mmol/L Anion Gap 15 H (3-11) BUN 13 (6-23) mg/dl Creatinine 1.31 (0.6-1.4) mg/dl Est Cr Clr Drug Dosing 60.0 ml/min Est GFR ( Amer) 68.1 ml/min Est GFR (Non-Af Amer) 58.8 ml/min BUN/Creatinine Ratio 9.9 L (10-20) Glucose 126 H (70-99(Fasting)) mg/dl POC Glucose (70-99) mg/dl Calcium 10.8 H (8.5-10.1) mg/dl Magnesium 1.6 L (1.7-2.4) mg/dl Total Bilirubin 1.4 H (0.2-1.0) mg/dl AST 63 H (13-39) U/L ALT 39 (7-52) U/L Alkaline Phosphatase 64 (34-104) U/L Total Creatine Kinase 352 H (30-223) U/L Troponin I High Sens 9.2 (0-20) pg/ml Total Protein 8.7 H (6.0-8.3) gm/dl Albumin 5.2 H (3.4-5.0) gm/dl Globulin 3.5 (2.5-4.0) gm/dl Albumin/Globulin Ratio 1.5 (0.9-2) Lipase 18 (11-82) U/L Salicylates < 3.0 L (3.0-30) mg/dl Acetaminophen < 3 L (10-30) ug/ml Ethyl Alcohol mg/dL (<10.0) mg/dl SARS-CoV-2, RNA, NAAT (NEGATIVE) 09/29/21 Range/Units 09:02 WBC (4.8-10.8) K/ul RBC (4.63-6.08) M/uL Hgb (14.0-18.0) g/dl Hct (40.1-51.0) % MCV (80.0-100.0) fL MCH (25.0-34.0) pg MCHC (32.0-36.0) g/dL RDW Std Deviation (36.4-46.3) fL RDW Coeff of Teddy (11.5-14.5) % Plt Count (130-400) K/uL MPV (9.4-12.4) fL Immature Gran % (Auto) % Neut % (Auto) % Lymph % (Auto) % [place] % (Auto) % Eos % (Auto) % Baso % (Auto) % Neut # (Auto) (1.4-6.5) K/uL Lymph # (Auto) (1.2-3.4) K/uL [place] # (Auto) (0.24-0.82) K/uL Eos # (Auto) (0-0.50) K/uL Baso # (Auto) (0-0.2) K/uL Immature Gran # (Auto) (0.00-0.02) K/uL PT (9.0-12.0) Seconds INR (0.9-1.1) APTT (21.0-31.0) Seconds PTT Ratio Sodium (136-145) mmol/L Potassium (3.5-5.1) mmol/L Chloride (98-107) mmol/L Carbon Dioxide (21-32) mmol/L Anion Gap (3-11) BUN (6-23) mg/dl Creatinine (0.6-1.4) mg/dl Est Cr Clr Drug Dosing ml/min Est GFR ( Amer) ml/min Est GFR (Non-Af Amer) ml/min BUN/Creatinine Ratio (10-20) Glucose (70-99(Fasting)) mg/dl POC Glucose (70-99) mg/dl Calcium (8.5-10.1) mg/dl Magnesium (1.7-2.4) mg/dl Total Bilirubin (0.2-1.0) mg/dl AST (13-39) U/L ALT (7-52) U/L Alkaline Phosphatase (34-104) U/L Total Creatine Kinase (30-223) U/L Troponin I High Sens (0-20) pg/ml Total Protein (6.0-8.3) gm/dl Albumin (3.4-5.0) gm/dl Globulin (2.5-4.0) gm/dl Albumin/Globulin Ratio (0.9-2) Lipase (11-82) U/L Salicylates (3.0-30) mg/dl Acetaminophen (10-30) ug/ml Ethyl Alcohol mg/dL < 10.0 (<10.0) mg/dl SARS-CoV-2, RNA, NAAT (NEGATIVE) Administered Medications Multivitamins 10 ml/ Thiamine HCl 100 mg/ Folic Acid 1 mg/Sodium Chloride 1,011.2 mls @ 500 mls/hr IV .Q2H2M ONE Stop: 09/29/21 10:48 Last Admin: 09/29/21 09:12 Dose: 500 mls/hr Documented By: Discontinued Medications Sodium Chloride (Nss 1000ml) 1,000 mls @ 999 mls/hr IV .Q1H1M EMIL Stop: 09/29/21 10:00 Last Admin: 09/29/21 09:36 Dose: 999 mls/hr Documented By: ALBERTA Thiamine HCl 200 mg/ Sodium (Chloride) 52 mls @ 208 mls/hr IV NOW STA Stop: 09/29/21 08:48 Last Infusion: 09/29/21 09:27 Dose: 0 mls/hr Documented By: Admin: 09/29/21 09:12 Dose: 208 mls/hr Documented By: ALBERTA Lorazepam (Lorazepam 2 Mg/1 Ml Vial) 2 mg IV NOW STA; Protocol Stop: 09/29/21 08:48 Last Admin: 09/29/21 09:28 Dose: 2 mg Documented By: TOMMIE Imaging Data Radiologist's Impression: Chest X-Ray 09/29/21 08:47 XR chest 1V portable CLINICAL HISTORY: Altered mental status. COMPARISON STUDY: Chest radiograph March 01, 2020. FINDINGS: Lung volumes are normal. Lungs are clear. There is no pneumothorax or pleural effusion. Cardiac size is normal. Mediastinal contours are normal. There is no evidence for pulmonary edema. Multiple old bilateral rib fractures are again noted. IMPRESSION: No acute cardiopulmonary findings. ACT 112: Negative or not required by law. Electronically signed by: Harry Jose M.D. 09/29/2021 9:44 AM Discharge Plan Visit Data Chief Complaint: Alcohol Withdrawal Stated Complaint: MENTAL HEALTH EVAL ED Provider: Blake Simeon Discharge Problem: Alcohol withdrawal, Alcohol withdrawal delirium, Hypomagnesemia, Hallucination, visual Patient Disposition: Being Evaluated by Hospitalist Forms Stand Alone Forms: My [facility], Suicide Prevention Resources Prescriptions Prescriptions: No Action folic acid 1 mg tablet See Rx Instructions .ROUTE .COMPLEX Qty: 30 5RF Dose Instruction: TAKE 1 TABLET BY MOUTH EVERY MORNING Rx Instructions: TAKE 1 TABLET BY MOUTH EVERY MORNING multivitamin with minerals [Men's One Daily] Tablet 1 tab PO DAILY Qty: 90 3RF Referrals Referrals: Danny Hanley MD [Primary Care Provider] -
[2021-09-29] MEDS ORDERED: SODIUM CHLORIDE 0.9% 1000ML 1,000 ML IV SCH (09:00)
[2021-09-29 09:18] LABS: Basophils # (auto) 0.06 K/uL (0-0.2); Basophils % (auto) 0.9 %; Eosinophils # (auto) 0.02 K/uL (0-0.50); Eosinophils % (auto) 0.3 %; Hematocrit (blood only) 43.6 % (40.1-51.0); Hemoglobin 15.6 g/dl (14.0-18.0); Immature Granulocytes # (auto) 0.05 K/uL (0.00-0.02); Immature Granulocytes % (auto) 0.7 %; Lymphocytes # (auto) 0.57 K/uL (1.2-3.4); Lymphocytes % (auto) 8.3 %; Mean Corpuscular Hemoglobin 34.6 pg (25.0-34.0); Mean Corpuscular Hgb Conc 35.8 g/dL (32.0-36.0); Mean Corpuscular Volume 96.7 fL (80.0-100.0); Mean Platelet Volume 9.9 fL (9.4-12.4); Monocytes # (auto) 0.77 K/uL (0.24-0.82); Monocytes % (auto) 11.2 %; Neutrophils # (auto) 5.41 K/uL (1.4-6.5); Neutrophils % (auto) 78.6 %; Platelet Count 147 K/uL (130-400); RDW Coefficient of Variation 12.1 % (11.5-14.5); RDW Standard Deviation 43.3 fL (36.4-46.3); Red Blood Count 4.51 M/uL (4.63-6.08); White Blood Count 6.88 K/ul (4.8-10.8)
[2021-09-29 09:37] LABS: Partial Thromboplastin Time 28.2 Seconds (21.0-31.0); Prothrombin Time 10.9 Seconds (9.0-12.0)
[2021-09-29 09:42] LABS: Albumin Globulin Ratio 1.5 (0.9-2); Albumin Level 5.2 gm/dl (3.4-5.0); BUN Creatinine Ratio 9.9 (10-20); Bilirubin,Total 1.4 mg/dl (0.2-1.0); Calcium 10.8 mg/dl (8.5-10.1); Est GFR (African American) 68.1 ml/min; Est GFR (Non-African American) 58.8 ml/min; Globulin 3.5 gm/dl (2.5-4.0); Magnesium 1.6 mg/dl (1.7-2.4); Potassium 3.4 mmol/L (3.5-5.1); Total Protein 8.7 gm/dl (6.0-8.3)
--- NOTE | 2021-09-29 09:46 | XRay Report ---
XR chest 1V portable CLINICAL HISTORY: Altered mental status. COMPARISON STUDY: Chest radiograph March 01, 2020. FINDINGS: Lung volumes are normal. Lungs are clear. There is no pneumothorax or pleural effusion. Car diac size is normal. Mediastinal contours are normal. There is no evidence for pulmonary edema. Multi ple old bilateral rib fractures are again noted. IMPRESSION: No acute cardiopulmonary findings. ACT 112: Negative or not required by law. Electronically signed by: Harry Jose M.D. 09/29/2021 9:44 AM
[2021-09-29 09:49] LABS: Troponin I High Sensitivity 9.2 pg/ml (0-20)
[2021-09-29 10:00] LABS: Acetaminophen < 3 ug/ml (10-30); Salicylate < 3.0 mg/dl (3.0-30)
--- NOTE | 2021-09-29 10:36 | CT Scan Report ---
HEAD CT NONCONTRAST CT DOSE: 1547.15 mGy.cm HISTORY: Altered mental status. TECHNIQUE: Multiaxial CT images of the head were performed without the use of intravenous contrast. A utomated exposure control was utilized for this study. A dose lowering technique was utilized adheri ng to the principles of ALARA. Comparison: Head CT 03/01/2020. Findings: The paranasal sinuses and mastoid air cells are clear. The calvarium and skull base are int act. There is no mass, hematoma, midline shift, acute infarct. White matter hypodensity is nonspecifi c but suggestive of microvascular ischemic change. The ventricles and sulci demonstrate mild age-rela osmin involutional changes. Mild motion artifact. 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 Impression: No significant change compared to the prior study. No acute intracranial abnormality. ACT 112: Negative or not required by law. Electronically signed by: Stevie Morin M.D. 09/29/2021 10:34 AM
[2021-09-29] MEDS: MAGNESIUM SULFATE / D5W 1 GM/100 ML BAG IV SCH ×2 (10:38→11:45)
--- NOTE | 2021-09-29 11:48 | History & Physical Report ---
Date of Service September 29, 2021 Assessment & Plan (1) Alcohol withdrawal: Plan: Difficult to get history from patient. Possibly last alcohol drink on Thursday or Thursday. Unclear why he stopped but reports multiple tries to stop previously and rehab. Denies prior alcohol withdrawal seizure although this is seizure if mentioned on his past medical history - entered in 2019 and 2013. Initial plan to use gabapentin and lorazepam 1-3mg IV PRN however after 12mg of Ativan he is still trying to get out of bed, tremors, diaphoretic and tachycardic Therefore will transfer to the ICU for ongoing care as may need Precedex drip or Phenobarbital. LR @ 125ml/hr (2) Delirium tremens: Plan: Tachycardia, delirious. BP normal and no significant fever. Management as above (3) Hallucination, visual: Plan: Secondary to alcohol withdrawal as above (4) Wernickes encephalopathy: Plan: Possible diagnosis. No need for thiamine levels as already had banana bag and 200mg IV thiamine when seen. Having significant nystagmus especially while looking ot the left. Reports ambulatory dysfunction. Start thiamine 500mg IV TID for 2 days then 250mg IV daily after that (5) Hypomagnesemia: Plan: Magnesium level 1.6. Magnesium sulfate 2 g IV given in ER. Repeat with a.m. labs. Plan VTE Prophylaxis -defer to ICU Diet - regular Dispositon - admit to ICU Admission and Anticipated Discharge Date Admission Date: September 29, 2021 History of Present Illness Chief Complaint: Patient hallucinations and delusions of persecution Primary Care Provider: Danny Hanley MD Naveen Ahn is a 60 year old male who presents to the ER with him by [place] [employer] with visual hallucinations and delusions of persec ution. The patient is unable to give me much of a history only telling me for the last 2 days he has been off balance and confused. He cannot tell me how much he usually drinks but thinks he stopped drinking on Thursday or Thursday but cannot tell me why. He reports multiple previous admissions for alcohol withdrawal and going through inpatient rehab -but cannot elaborate on this. He denies any alcohol withdrawal seizures in the past however on review of the electronic health record this does not appear to be true. While trying to get a history he becomes very tangential and thinks that there is a street lamp in his room while pointing to the tap. Allergies Allergy/AdvReac Type Severity Reaction Status Date / Time lamotrigine Allergy Unknown Unknown Verified 09/29/21 15:49 meclizine Allergy Unknown Unknown Verified 09/29/21 15:49 Home Medications Medication Instructions Recorded Confirmed Type multivitamin with minerals (Men's 1 tab PO DAILY #90 tabs 03/06/20 09/29/21 Rx One Daily) folic acid 1 mg tablet 1 mg PO QAM 09/29/21 09/29/21 History Past Med/Surg History Medical History Alcohol abuse Alcohol withdrawal seizure Altered mental status Depression Diffuse cerebral atrophy Encephalomalacia Noted on 02/[address] History of seizure Mixed etiology per review of records. H/o tonic-clonic seizures, possible abs ence sz, also seizures from ETOH withdrawal. Patient is supposed to be following with [facility] neurology but has been largely noncompliant and has many barriers to consistent care. Supposed to be on Vimpat but per review of S records patient has not been able to afford medication or has neglected to f/u with care. Admitted 03/01/20 to [facility] for AMS. Possible seizure activity noted by EMS in ambulance, but no seizures during admission. Hypothyroidism Mild, noted on 03/01/20 labs. Not on replacement therapy. Intracranial hemorrhage 2/2 fall with head trauma/temporal bone fracture 05/2018. Laceration of eyebrow, left Memory deficit Mental health disorder Skull fracture Per review of records, temporal bone fracture first in 2014, and again 05/2018 (seen at [place] ED and flown to [place] for further tx) Suicide attempt 2015 Surgical History H/O colonoscopy No history of previous surgery Family History Sister Seizure Brother Seizure Mother No pertinent family history Father No pertinent family history Social History Smoking Status: Never smoker Tobacco Cessation Education Requested by Patient: No Hx Alcohol Use: Yes Alcohol type: beer and hard liquor Preferred Language: Austrian Communication Ability: Impaired Visual Impairment: No Limitations Hearing Ability: Normal 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 Beliefs That Will Affect Care: None marital status: Single Current Living Situation: Other Current Living Situation Comment: UNKNOWN current occupational status: disabled Feels Safe at Home: Yes Childhood Exposure to Second-Hand Smoke: No Seatbelt Use: always Assistive Devices: None Review of Systems Review of Systems: All systems reviewed & are unremarkable except as noted in HPI & below Physical Exam Constitutional: well developed, + acute distress (tremors, agitated) and + disheveled; + not well nourished Eyes: PERRL, conjunctivae normal, anicteric sclerae + nystagmus ENMT: Mouth: + dry oral mucous membranes Neck: trachea midline, no thyromegaly Respiratory: normal respiratory effort, lungs clear to auscultation Cardiovascular: Rate/Rhythm: regular rhythm and + tachycardic Heart Sounds: no murmur Extremities: normal capillary refill; no calf tenderness and no pedal edema Gastrointestinal (Abdomen): normal bowel sounds, soft, nontender, no hepatosplenomegaly Musculoskeletal: no cyanosis or clubbing, extremities motor strength 5/5 Skin: no rashes, warm and dry + erythema (on nasolabial folds) Neurologic: moves all extremities, awake and + confused; no focal motor deficits Speech / Cognition: + abnormal speech (mildly slurred) Motor/Sensory: + tremor (b/l resting R > L); no pronator drift Coordination: + abnormal [id number] test (b/l equal) Psychiatric: Orientation: alert and oriented to person (self); + not oriented to place and + not oriented to time Eye Contact: good eye contact Speech: normal rate/rhythm/volume of speech (some slurring) Affect: + labile affect Mood: + anxious mood Thought Process: + tangential thought process Thought Content: + persecution (deslusions of people coming into his house to take his stuff) Suicidal Thoughts: denies suicidal thoughts Homicidal Thoughts: denies homicidal thoughts Hallucinations: + visual hallucinations (thinks the tap is a lamp post) Insight: + severely impaired insight Judgement: + severely impaired judgement Genitourinary: no CVA tenderness Results & Data Results & [facility] ([facility]) Vital Signs (Past 12 Hours) Vital Signs Temp Pulse Pulse Resp BP BP Pulse Ox 09/29/21 10:30 96 H 20 142/115 H 96 07/24/22 11:30 99 H 16 125/89 97 09/29/21 11:14 102 H 23 144/72 H 96 09/29/21 08:49 105 H 95 09/29/21 08:35 36.7 C 127 H 18 155/99 H 96 O2 Del Method 09/29/21 10:30 Room Air 09/29/21 11:30 Room Air 09/29/21 11:14 Room Air 09/29/21 08:49 Room Air 09/29/21 08:35 Room Air Laboratory Results Abnormal lab results 09/29/21 09/29/21 09/29/21 Range/Units 08:37 09:02 09:02 RBC 4.51 L (4.63-6.08) M/uL MCH 34.6 H (25.0-34.0) pg Lymph # (Auto) 0.57 L (1.2-3.4) K/uL Immature Gran # (Auto) 0.05 H (0.00-0.02) K/uL Potassium 3.4 L (3.5-5.1) mmol/L Anion Gap 15 H (3-11) BUN/Creatinine Ratio 9.9 L (10-20) Glucose 126 H (70-99(Fasting)) mg/dl POC Glucose 150 H (70-99) mg/dl Calcium 10.8 H (8.5-10.1) mg/dl Magnesium 1.6 L (1.7-2.4) mg/dl Total Bilirubin 1.4 H (0.2-1.0) mg/dl AST 63 H (13-39) U/L Total Creatine Kinase 352 H (30-223) U/L Total Protein 8.7 H (6.0-8.3) gm/dl Albumin 5.2 H (3.4-5.0) gm/dl Salicylates (3.0-30) mg/dl Acetaminophen (10-30) ug/ml 09/29/21 Range/Units 09:02 RBC (4.63-6.08) M/uL MCH (25.0-34.0) pg Lymph # (Auto) (1.2-3.4) K/uL Immature Gran # (Auto) (0.00-0.02) K/uL Potassium (3.5-5.1) mmol/L Anion Gap (3-11) BUN/Creatinine Ratio (10-20) Glucose (70-99(Fasting)) mg/dl POC Glucose (70-99) mg/dl Calcium (8.5-10.1) mg/dl Magnesium (1.7-2.4) mg/dl Total Bilirubin (0.2-1.0) mg/dl AST (13-39) U/L Total Creatine Kinase (30-223) U/L Total Protein (6.0-8.3) gm/dl Albumin (3.4-5.0) gm/dl Salicylates < 3.0 L (3.0-30) mg/dl Acetaminophen < 3 L (10-30) ug/ml Diagnostic Findings HEAD CT NONCONTRAST CT DOSE: 1547.15 mGy.cm HISTORY: Altered mental status. TECHNIQUE: Multiaxial CT images of the head were performed without the use of intravenous contrast. Automated exposure control was utilized for this study. A dose lowering technique was utilized adhering to the principles of ALARA. Comparison: Head CT 03/01/2020. Findings: The paranasal sinuses and mastoid air cells are clear. The calvarium and skull base are intact. There is no mass, hematoma, midline shift, acute infarct. White matter hypodensity is nonspecific but suggestive of microvascular ischemic change. The ventricles and sulci demonstrate mild age-related involutional changes. Mild motion artifact. Old small infarct at the high convexity is again noted. Impression: No significant change compared to the prior study. No acute intracranial abnormality. XR chest 1V portable CLINICAL HISTORY: Altered mental status. COMPARISON STUDY: Chest radiograph March 01, 2020. FINDINGS: Lung volumes are normal. Lungs are clear. There is no pneumothorax or pleural effusion. Cardiac size is normal. Mediastinal contours are normal. There is no evidence for pulmonary edema. Multiple old bilateral rib fractures are again noted. IMPRESSION: No acute cardiopulmonary findings. Medications Administered ER Medications Given: NSS 1L bolus Thiamine 200mg IV Lorazepam 2mg IV + 1m IV Banana Bag Magnesium sulphate 1g IV x2 ECG Indication: tachycardia Rate (beats per minute): 106 Rhythm: sinus tachycardia Findings: + left axis deviation Comparison ECG Date: from (March 01, 2020) Change: the following changes noted (anterior infarct now present) Code Status & VTE Plan Code Status Full - presumed, patient lacks capacity to consent, unable to contact family members on admission VTE Prophylaxis Plan VTE Prophylaxis will be ordered: Yes PG Care Time/CCT Total # of Minutes Spent Total Time Spent with Patient: Total time spent is greater than 50% in coordination of care (as documented) at patient's floor/unit and/or counseling patient: Coding Level of Care Code 85095 Initial Inpt Care Lvl 3 Diagnoses Alcohol withdrawal F10.931 Complication of substance-induced condition: with delirium Delirium tremens F10.931 Hallucination, visual R44.1 Wernickes encephalopathy E51.2 Hypomagnesemia E83.42 (1) Alcohol withdrawal Complication of substance-induced condition: with delirium Qualified Code(s): F10.931 - Alcohol use, unspecified with withdrawal delirium
[2021-09-29] MEDS ORDERED: ONDANSETRON INJ 2 MG/ML 2 ML VIAL IV PRN (12:45)
[2021-09-29] MEDS ORDERED: FOLIC ACID 1 MG TAB PO SCH (12:45)
[2021-09-29] MEDS ORDERED: ACETAMINOPHEN 325 MG TAB PO PRN (12:45)
[2021-09-29] MEDS ORDERED: GABAPENTIN 1200MG ALCOHOL WITHDRAWAL LOAD PO STA (12:45)
[2021-09-29] MEDS ORDERED: GABAPENTIN 600 MG TAB PO ONE (13:00)
[2021-09-29] MEDS: LACTATED RINGER'S 1,000 ML IV SCH ×2 (13:12→21:52)
[2021-09-29] MEDS ORDERED: LORazepam 1 MG in SYRINGE 0.5 ML IV PRN (14:06)
[2021-09-29] MEDS ORDERED: LORazepam 2 MG in SYRINGE 1 ML IV PRN (14:06)
[2021-09-29] MEDS ORDERED: LORazepam 2 MG/1 ML VIAL ONE (14:12)
[2021-09-29] MEDS: LORazepam 3 MG in SYRINGE 1.5 ML IV PRN ×2 (14:13→14:56)
[2021-09-29] MEDS ORDERED: Ativan IV Alcohol Withdrawal--Active Protocol IV SCH (14:15)
[2021-09-29] MEDS: THIAMINE HCL 500 MG in SODIUM CHLORIDE 0.9% 50 ML IV SCH ×2 (14:19→21:52)
[2021-09-29] MEDS ORDERED: LORazepam 2 MG/1 ML VIAL IV PRN (14:24)
[2021-09-29] MEDS ORDERED: ICU PROTOCOL FOR HYPERGLYCEMIA PRN (16:31)
[2021-09-29] MEDS ORDERED: STAT IV Infusion **Titration per Protocol STA (19:24)
[2021-09-29] MEDS ORDERED: VASOPRESSIN 20 UNITS in 0.9 % SODIUM CHLORIDE 100 ML IV SCH (19:30)
[2021-09-29] MEDS ORDERED: GABAPENTIN 600 MG TAB PO SCH (20:00)
--- NOTE | 2021-09-29 20:06 | Critical Care Consultation ---
Date of Consultation September 29, 2021 Assessment & Plan (1) Admitted to intensive care unit: Reason Critically Ill: 60-year-old male presenting with altered mental status with concerns for alcohol withdrawal and delirium tremens requiring escalating doses of sedation with concerns for need for further aggressive sedation medications with need for airway monitoring. NEURO - * CAM ICU: POSITIVE * Altered mental status: * Likely secondary to alcohol withdrawal with delirium tremens. * Patient admitted for similar symptoms in the past. * Negative head CT today. No signs of trauma otherwise. * Currently on CIWA protocol with Ativan dosing per protocol. * Patient currently sedated, no need for further medications at this time (i.e. Precedex). Can certainly be started if needed. * End Tidal CO2 monitoring for now. * Seizure Disorder: * Per patient's record. * Not currently on antiepileptic medications. * Question if this diagnosis related to previous EtOH withdrawal. CARDIAC/VASCULAR - * Initially hypertensive and tachycardic: * Likely 2/2 EtOH withdrawal. * s/s improved w/ symptomatic management. * Elevated CPK: * Will recheck in AM. * Continue w/ IVF * Monitor on telemetry. RESPIRATORY - * No h/o pulmonary disease. * Saturating well on 2L now. GI/NUTRITION - * Progress diet as clinical course improves. RENAL/LYTES - * Hypokalemia: * Replace appropriately. * IVF: LR @ 100 mL/hr - * No concerns at this time. ENDO - * No h/o DM or thyroid disease. * BSGs per unit protocol. ISS --> gtt per unit policy. HEME - * Stable H&H ID - * No concerns for infectious contribution at this time. LINES/IV ACCESS - * PIVs x1 DVT PROPHYLAXIS - * SCDs I have personally spent 35 minutes of critical care time in the direct management of this patient. This is a life/limb threatening event. This includes time spent evaluating patient, direct bedside care, chart review, placing orders, interpretation of diagnostic studies, discussion with consultants, patient, and family members, as well as other required patient management activities. This time is exclusive of all separately billable procedures, and teaching time and separate from and in addition to any other critical care service time. Thank you for allowing us to participate in the care of this patient. Please refer to my attending physician's documentation for any further recommendations. (2) Alcohol withdrawal: (3) Delirium tremens: History of Present Illness Attending Physician: Wilver Doty MD History of Present Illness Patient is a 60-year-old male with a significant past medical history of alcoholism, anxiety, and seizure disorder. Patient had apparently called 911 this morning as he was confused. He was brought to the emergency department for ongoing care. Unfortunately, patient was found to be in delirium tremens. He had a negative head CT. Patient was hypertensive and tachycardic. His symptoms responded to Ativan. Unfortunately, the patient had required escalating doses of Ativan it was felt best the patient be admitted to the ICU. Patient unable to contribute to HPI secondary to current level of sedation status post Ativan administration. Allergies Allergy/AdvReac Type Severity Reaction Status Date / Time lamotrigine Allergy Unknown Unknown Verified 09/29/21 15:49 meclizine Allergy Unknown Unknown Verified 09/29/21 15:49 Home Medications Medication Instructions Recorded Confirmed Type multivitamin with minerals (Men's 1 tab PO DAILY #90 tabs 03/06/20 09/29/21 Rx One Daily) folic acid 1 mg tablet 1 mg PO QAM 09/29/21 09/29/21 History Patient History Medical History Alcohol abuse Alcohol withdrawal seizure Altered mental status Depression Diffuse cerebral atrophy Encephalomalacia Noted on 02/[address] History of seizure Mixed etiology per review of records. H/o tonic-clonic seizures, possible absence sz, also seizures from ETOH withdrawal. Patient is supposed to be following with [facility] neurology but has been largely noncompliant and has many barriers to consistent care. Supposed to be on Vimpat but per review of [facility] records patient has not been able to afford medication or has neglected to f/u with care. Admitted 03/01/20 to [facility] for AMS. Possible seizure activity noted by EMS in ambulance, but no seizures during admission. Hypothyroidism Mild, noted on 03/01/20 labs. Not on replacement therapy. Intracranial hemorrhage 2/2 fall with head trauma/temporal bone fracture 05/2018. Laceration of eyebrow, left Memory deficit Mental health disorder Skull fracture Per review of records, temporal bone fracture first in 2014, and again 05/2018 (seen at [place] ED and flown to [place] for further tx) Suicide attempt 2015 Surgical History H/O colonoscopy No history of previous surgery Family History Sister Seizure Brother Seizure Mother No pertinent family history Father No pertinent family history Social History Smoking Status: Never smoker Tobacco Cessation Education Requested by Patient: No Hx Alcohol Use: Yes Alcohol type: beer and hard liquor Preferred Language: Armenian Communication Ability: Impaired Visual Impairment: No Limitations Hearing Ability: Normal Rolled Ham Lacer Required: No Beliefs That Will Affect Care: None marital status: Single Current Living Situation: Other Current Living Situation Comment: UNKNOWN current occupational status: disabled Feels Safe at Home: Yes Childhood Exposure to Second-Hand Smoke: No Seatbelt Use: always Assistive Devices: None Review of Systems Review of Systems: Unobtainable due to cognitive status and Unobtainable due to reduced consciousness Physical Exam Physical Exam: VITAL SIGNS - Vital signs and nursing notes were reviewed. GENERAL - 60-year-old male appearing his stated age who is in no acute distress. Sleeping, but wake with stimuli. SKIN - Without rashes. HEAD - NC/AT. EYES - PERRL bilaterally. Sclera anicteric. EARS - No deformities of external structures noted on gross examination bilaterally. NOSE - Midline and without cyanosis. No epistaxis or purulent drainage noted. MOUTH/OROPHARYNX - Without perioral cyanosis. Buccal mucosa pink and moist and without leukoplakia. NECK - Neck with FROM. Supple to palpation. No nuchal rigidity. LUNGS - Chest wall symmetric without accessory muscle use, intercostals retractions, or central cyanosis. Normal vesicular breath sounds CTA B/L. No wheezes, rales, or rhonchi appreciated. CARDIAC - RRR with S1/S2. No murmur, rubs, or gallops appreciated. ABDOMEN - Abdominal contour flat without pulsations or visible masses. BS normoactive all four quadrants. No tenderness, palpable masses, hepatosplenomegaly, or ascites noted. EXTREMITIES - No clubbing or peripheral cyanosis. No pretibial edema present. +3/5 radial and dorsalis pedis pulses palpated throughout. +5/5 strength noted in UE/LE bilaterally. NEUROLOGIC/PSYCH - No focal neurological deficits appreciated. Patient sleeping but awakens to stimuli. Confused. Becomes agitated easily. Results & Data Results & Data ([facility]) Vital Signs (Past 12 Hours) Vital Signs Temp Pulse Pulse Resp BP BP Pulse Ox 09/29/21 19:41 09/29/21 16:31 36.8 C 09/29/21 19:00 84 20 97 09/29/21 19:00 99/73 L 09/29/21 18:00 88 24 95 09/29/21 17:00 86 20 93 09/29/21 17:00 96/66 L 09/29/21 16:13 115/84 09/29/21 16:13 85 16 96 09/29/21 16:09 96 H 18 95 09/29/21 15:30 92 H 22 92 09/29/21 15:30 96/77 L 09/29/21 15:01 108 H 17 09/29/21 15:01 155/97 H 09/29/21 15:00 111 H 26 H 09/29/21 14:30 152/105 H 09/29/21 14:30 116 H 18 09/29/21 14:26 143/116 H 09/29/21 14:26 106 H 21 09/29/21 14:00 124 H 27 H 09/29/21 14:00 168/112 H 09/29/21 13:31 100 H 23 09/29/21 13:31 150/105 H 09/29/21 13:01 103 H 22 96 09/29/21 13:01 132/94 09/29/21 13:00 103 H 21 96 09/29/21 12:01 139/89 09/29/21 12:01 19 09/29/21 12:00 120 H 17 09/29/21 11:32 104 H 15 96 09/29/21 11:32 125/89 09/29/21 11:14 144/72 H 09/29/21 11:14 113 H 20 97 09/29/21 11:00 97 H 23 09/29/21 10:30 140/115 H 09/29/21 10:30 98 H 18 09/29/21 10:01 145/100 H 09/29/21 10:01 99 H 18 09/29/21 10:00 105 H 26 H 09/29/21 09:30 120/88 09/29/21 09:30 105 H 25 H 93 09/29/21 09:16 116 H 20 93 09/29/21 16:26 36.8 C 105 H 28 H 115/84 96 09/29/21 15:43 37 C 90 18 96/77 L 93 09/29/21 12:57 37.4 C 101 H 22 132/94 97 09/29/21 12:57 09/29/21 10:30 96 H 20 142/115 H 96 09/29/21 11:30 99 H 16 125/89 97 09/29/21 11:14 102 H 23 144/72 H 96 09/29/21 08:49 105 H 95 09/29/21 08:35 36.7 C 127 H 18 155/99 H 96 Pulse Ox O2 Del Method O2 Del Method O2 Flow Rate 09/29/21 19:41 Nasal Cannula 2 09/29/21 16:31 09/29/21 19:00 09/29/21 19:00 09/29/21 18:00 09/29/21 17:00 09/29/21 17:00 09/29/21 16:13 09/29/21 16:13 09/29/21 16:09 09/29/21 15:30 09/29/21 15:30 09/29/21 15:01 09/29/21 15:01 09/29/21 15:00 09/29/21 14:30 09/29/21 14:30 09/29/21 14:26 09/29/21 14:26 09/29/21 14:00 09/29/21 14:00 09/29/21 13:31 09/29/21 13:31 09/29/21 13:01 09/29/21 13:01 09/29/21 13:00 09/29/21 12:01 09/29/21 12:01 09/29/21 12:00 09/29/21 11:32 09/29/21 11:32 09/29/21 11:14 09/29/21 11:14 09/29/21 11:00 09/29/21 10:30 09/29/21 10:30 09/29/21 10:01 09/29/21 10:01 09/29/21 10:00 09/29/21 09:30 09/29/21 09:30 09/29/21 09:16 09/29/21 16:26 Room Air 09/29/21 15:43 Room Air 09/29/21 12:57 Room Air 09/29/21 12:57 96 Room Air 09/29/21 10:30 Room Air 09/29/21 11:30 Room Air 09/29/21 11:14 Room Air 09/29/21 08:49 Room Air 09/29/21 08:35 Room Air Coding Level of Care Code Critical Care 1st 30-74 mins Diagnoses Admitted to intensive care unit Z78.9 Alcohol withdrawal F10.931 Complication of substance-induced condition: with delirium Delirium tremens F10.931 Time Spent (min) 35 (1) Alcohol withdrawal Complication of substance-induced condition: with delirium Qualified Code(s): F10.931 - Alcohol use, unspecified with withdrawal delirium
[2021-09-30] MEDS: LACTATED RINGER'S 1,000 ML IV SCH (06:01)
[2021-09-30 06:02] LABS: Appearance Urine Clear (Clear); Bacteria Urine Automated Negative (Negative); Bilirubin Urine Negative (Negative); Blood Urine Negative (Negative); Cast Urine Automated 0 /lpf (0-5); Color Urine Yellow; Glucose Urine UA Negative (Negative); Ketones Urine Negative (Negative); Leukocyte Esterase Urine Negative (Negative); Nitrite Urine Positive (Negative); Protein Urine Negative (Negative); RBC Urine Automated 0-4 /hpf (0-4); Specific Gravity Urine 1.007 (1.000-1.030); Urobilinogen Urine Negative (Negative); pH Urine 5.5 (4.5-7.5)
[2021-09-30 06:07] LABS: Albumin Globulin Ratio 1.4 (0.9-2); Albumin Level 3.7 gm/dl (3.4-5.0); BUN Creatinine Ratio 12.3 (10-20); Bilirubin,Total 1.1 mg/dl (0.2-1.0); Calcium 8.7 mg/dl (8.5-10.1); Creatinine Clr Calc Pharmacy 120.9 ml/min; Est GFR (African American) 122.6 ml/min; Est GFR (Non-African American) 105.7 ml/min; Globulin 2.6 gm/dl (2.5-4.0); Magnesium 1.9 mg/dl (1.7-2.4); Phosphorus 3.2 mg/dl (2.5-4.9); Potassium 3.3 mmol/L (3.5-5.1); Total Protein 6.3 gm/dl (6.0-8.3)
[2021-09-30 06:17] LABS: Basophils # (auto) 0.04 K/uL (0-0.2); Eosinophils # (auto) 0.05 K/uL (0-0.50); Eosinophils % (auto) 1.2 %; Hematocrit (blood only) 37.3 % (40.1-51.0); Hemoglobin 12.8 g/dl (14.0-18.0); Immature Granulocytes # (auto) 0.03 K/uL (0.00-0.02); Immature Granulocytes % (auto) 0.7 %; Lymphocytes % (auto) 16.7 %; Mean Corpuscular Hgb Conc 34.3 g/dL (32.0-36.0); Mean Corpuscular Volume 101.9 fL (80.0-100.0); Mean Platelet Volume 10.1 fL (9.4-12.4); Monocytes # (auto) 0.65 K/uL (0.24-0.82); Monocytes % (auto) 15.5 %; Neutrophils # (auto) 2.72 K/uL (1.4-6.5); Neutrophils % (auto) 64.9 %; Platelet Count 120 K/uL (130-400); RDW Coefficient of Variation 12.4 % (11.5-14.5); RDW Standard Deviation 46.6 fL (36.4-46.3); Red Blood Count 3.66 M/uL (4.63-6.08); White Blood Count 4.19 K/ul (4.8-10.8)
[2021-09-30 06:24] LABS: Amphetamines+Metham, Urine Neg (Neg); Barbiturates, Urine Neg (Neg); Benzodiazepine, Urine Neg (Neg); Cocaine, Urine Neg (Neg); MDMA (Ecstacy), Urine Neg (Neg); Methadone, Urine Neg (Neg); Opiate, Urine Neg (Neg); Phencyclidine, Urine Neg (Neg)
[2021-09-30] MEDS ORDERED: MAG SULFATE 50% 1GM/2ML VIAL IV STA (07:36)
[2021-09-30] MEDS ORDERED: POTASSIUM CHLORIDE CRTAB 20 MEQ TABCR PO STA (07:36)
[2021-09-30] MEDS ORDERED: MAGNESIUM SULFATE / D5W 1 GM/100 ML BAG IV ONE (07:45)
[2021-09-30] MEDS: THIAMINE HCL 500 MG in SODIUM CHLORIDE 0.9% 50 ML IV SCH ×3 (09:07→22:06)
[2021-09-30] MEDS: FOLIC ACID 1 MG TAB PO SCH ×2 (09:20→22:10)
--- NOTE | 2021-09-30 09:26 | Critical Care Progress Note ---
Date of Service September 30, 2021 Assessment & Plan (1) Admitted to intensive care unit: (2) Alcohol withdrawal: (3) Hallucination, visual: Plan Reason Critically Ill: 60-year-old male presenting with altered mental status with concerns for alcohol withdrawal and delirium tremens requiring escalating doses of sedation with concerns for need for further aggressive sedation medications with need for airway monitoring. NEURO - * CAM ICU: Negative * Altered mental status:--> Improved * Likely secondary to alcohol withdrawal. EtOH not detectable 09/29/2021 * Negative head CT. No signs of trauma otherwise. * Currently on CIWA protocol with Ativan dosing per protocol. * Patient currently sedated, no need for further medications at this time (i.e. Precedex). Can certainly be started if needed. * End Tidal CO2 monitoring for now. * Seizure Disorder: * Per patient's record. * Not currently on antiepileptic medications. * Question if this diagnosis related to previous EtOH withdrawal. CARDIAC/VASCULAR - * Initially hypertensive and tachycardic: * Likely 2/2 EtOH withdrawal. * s/s improved w/ symptomatic management. * Monitor on telemetry. RESPIRATORY - * No h/o pulmonary disease. GI/NUTRITION - * Progress diet as clinical course improves. RENAL/LYTES - * Hypokalemia: * Replace appropriately. - * No concerns at this time. ENDO - * No h/o DM or thyroid disease. * BSGs per unit protocol. ISS --> gtt per unit policy. HEME - * Stable H&H -- Thrombocytopenia Likely from chronic alcohol abuse Continue to monitor ID - * No concerns for infectious contribution at this time. --Prophylaxis VTE: IPC GI: None Lines: Peripheral Diet: Regular Plan: In/out: +3.9 L, urine output 700 mL Hypokalemia and hypomagnesemia being replaced Continue with thiamine and folic acid. DC IV fluids. Start the patient on regular diet Continue with withdrawal protocol Patient hemodynamically stable to be downgraded to medical floor Please note the above document was generated using voice recognition software. It may contain grammatical, syntax or spelling errors.Any formal questions or concerns about the content, text or information contained within the body of this dictation should be directly addressed to the provider for clarification. Admission and Anticipated Discharge Date Admission Date: September 29, 2021 Subjective Patient seen and examined at bedside. No acute distress, no adverse events overnight. Denies any headache, no nausea or vomiting Asking for food. Patient is awake alert oriented. Answering all questions appropriately Review of Systems Review of Systems: All systems reviewed & are unremarkable except as noted in Subjective Physical Exam Physical Exam: Constitutional: No acute distress HEENT: EOMI, PERRLA Respiratory system: Good air entry bilaterally, no wheeze, rhonchi, no crackles CVS: S1-S2 positive, no murmurs or gallops Abdomen: Soft, nontender, nondistended, positive bowel sounds x4 Extremities: +2 pulses bilaterally radialis/ dorsalis pedis, no cyanosis, no edema Neuro: Awake alert oriented x3 Psych: Normal mood and affect G/U: No Andrade Skin: no rashes, warm and dry Lymphatic: no cervical or axillary lymphadenopathy Results & Data Results & [facility] ([facility]) Vital Signs (Past 12 Hours) Vital Signs Temp Pulse Resp BP Pulse Ox O2 Del Method O2 Flow Rate 09/30/21 06:00 70 18 100 09/30/21 06:00 136/95 09/30/21 05:01 94 H 16 98 09/30/21 05:01 125/76 09/30/21 05:00 25 H 99 09/30/21 04:00 82 18 98 09/30/21 04:00 99/69 L 09/30/21 03:00 77 24 97 09/30/21 03:00 135/84 09/30/21 04:08 36.5 C 09/30/21 02:00 81 18 99 09/30/21 02:00 110/68 09/30/21 01:00 82 18 99 09/30/21 01:00 115/73 09/30/21 00:00 82 24 92 09/30/21 00:00 117/75 09/29/21 23:00 83 18 96 09/29/21 22:00 15 94 09/29/21 22:00 127/97 09/30/21 00:10 36.5 C 09/30/21 01:55 Nasal Cannula 2 Laboratory Results 09/30/21 04:56 09/30/21 04:56 Coding Level of Care Code 41760 Subseq Hosp Care Lvl 3 Diagnoses Admitted to intensive care unit Z78.9 Alcohol withdrawal F10.931 Complication of substance-induced condition: with delirium Hallucination, visual R44.1 (1) Alcohol withdrawal Complication of substance-induced condition: with delirium Qualified Code(s): F10.931 - Alcohol use, unspecified with withdrawal delirium
[2021-09-30] MEDS ORDERED: GABAPENTIN 600 MG TAB PO SCH (10:00)
--- NOTE | 2021-09-30 12:04 | Hospitalist Progress Note ---
Date of Service September 30, 2021 Assessment & Plan (1) Alcohol withdrawal: Plan: Appears to be doing much better today. Hemodynamics stable. Orientated x3. No further hallucinations. Will continue lorazepam just as needed per AWSS. Will continue to monitor overnight and have case management discuss rehabilitation with him and have PT/OT assess his safety for discharge. (2) Delirium tremens: Plan: Resolved (3) Hallucination, visual: Plan: Secondary to alcohol withdrawal as above - resolved (4) Wernickes encephalopathy: Plan: Possible diagnosis. No thiamine levels as already had banana bag and 200mg IV thiamine when admitted. Nystagmus improved. Will have PT/OT assess his ambulatory dysfunction. Continue thiamine 500mg IV TID for 2 days then 250mg IV daily after that (5) Hypomagnesemia: Plan: Repleted with supplementation Plan VTE Prophylaxis -Start lovenox 40mg SQ daily Diet - regular Disposition - stable for transfer to med/surg Admission and Anticipated Discharge Date Admission Date: September 29, 2021 Subjective Patient much improved today. No hallucinations. No tremors or agitation. Orientated x3. Able to recount what happened yesterday to some degree and remembered police bringing him in to the hospital. No chest pain, abdominal pain, shortness of breath. Review of Systems Review of Systems: All systems reviewed & are unremarkable except as noted in Subjective Physical Exam Constitutional: well developed and + disheveled; + not well nourished and no acute distress Eyes: PERRL, conjunctivae normal, anicteric sclerae + nystagmus (left lateral vision - improved) ENMT: Mouth: + dry oral mucous membranes Respiratory: normal respiratory effort, lungs clear to auscultation Cardiovascular: Rate/Rhythm: regular rate and regular rhythm Heart Sounds: no murmur Extremities: normal capillary refill; no calf tenderness and no pedal edema Gastrointestinal (Abdomen): normal bowel sounds, soft, nontender, no hepatosplenomegaly Musculoskeletal: no cyanosis or clubbing, extremities motor strength 5/5 Skin: no rashes, warm and dry Neurologic: moves all extremities and awake; not confused Speech / Cognition: normal speech Motor/Sensory: no tremor and no pronator drift Psychiatric: Orientation: alert and oriented x 3 Eye Contact: good eye contact Speech: normal rate/rhythm/volume of speech Affect: euthymic affect Mood: no anxious mood Thought Process: clear/coherent thought process Thought Content: no persecution Hallucinations: no visual hallucinations Results & Data Results & Data ([facility]) Vital Signs (Past 12 Hours) Vital Signs Temp Pulse Pulse Resp BP BP Pulse Ox 09/30/21 11:45 36.9 C 82 16 130/86 97 09/30/21 11:00 76 21 95 09/30/21 11:00 130/89 09/30/21 10:00 99 H 18 96 09/30/21 10:00 123/94 09/30/21 09:00 71 17 99 09/30/21 09:00 114/72 09/30/21 08:00 36.8 C 92 H 16 99 09/30/21 08:00 144/101 H 09/30/21 07:00 79 20 95 09/30/21 07:00 123/73 09/30/21 09:00 09/30/21 06:00 70 18 100 09/30/21 06:00 136/95 09/30/21 05:01 94 H 16 98 09/30/21 05:01 125/76 09/30/21 05:00 25 H 99 09/30/21 04:00 82 18 98 09/30/21 04:00 99/69 L 09/30/21 03:00 77 24 97 09/30/21 03:00 135/84 09/30/21 04:08 36.5 C 09/30/21 02:00 81 18 99 09/30/21 02:00 110/68 09/30/21 01:00 82 18 99 09/30/21 01:00 115/73 09/30/21 00:00 82 24 92 09/30/21 00:00 117/75 09/30/21 00:10 36.5 C 09/30/21 01:55 O2 Del Method O2 Flow Rate 09/30/21 11:45 Room Air 09/30/21 11:00 09/30/21 11:00 09/30/21 10:00 09/30/21 10:00 09/30/21 09:00 09/30/21 09:00 09/30/21 08:00 09/30/21 08:00 09/30/21 07:00 09/30/21 07:00 09/30/21 09:00 Room Air 09/30/21 06:00 09/30/21 06:00 09/30/21 05:01 09/30/21 05:01 09/30/21 05:00 09/30/21 04:00 09/30/21 04:00 09/30/21 03:00 09/30/21 03:00 09/30/21 04:08 09/30/21 02:00 09/30/21 02:00 09/30/21 01:00 09/30/21 01:00 09/30/21 00:00 09/30/21 00:00 09/30/21 00:10 09/30/21 01:55 Nasal Cannula 2 PG Care Time/CCT Total # of Minutes Spent Total Time Spent with Patient: Total time spent is greater than 50% in coordination of care (as documented) at patient's floor/unit and/or counseling patient: Coding Level of Care Code 37374 Subseq Hosp Care Lvl 2 Diagnoses Alcohol withdrawal F10.931 Complication of substance-induced condition: with delirium Delirium tremens F10.931 Hallucination, visual R44.1 Wernickes encephalopathy E51.2 Hypomagnesemia E83.42 (1) Alcohol withdrawal Complication of substance-induced condition: with delirium Qualified Code(s): F10.931 - Alcohol use, unspecified with withdrawal delirium
[2021-09-30] MEDS: ENOXAPARIN INJ 40 MG/0.4 ML SYR SQ SCH (12:19)
--- NOTE | 2021-09-30 13:59 | Electrocardiogram Report ---
Test Reason : Blood Pressure : / mmHG Vent. Rate : 106 BPM Atrial Rate : 106 BPM P-R Int : 176 ms QRS Dur : 078 ms QT Int : 344 ms P-R-T Axes : 031 -49 011 degrees QTc Int : 456 ms Poor data quality, interpretation may be adversely affected Sinus tachycardia Left axis deviation Low voltage QRS Inferior infarct (cited on or before 29-SEP-2021) Anterolateral infarct , age undetermined Abnormal ECG When compared with ECG of 01-MAR-2020 19:07, Vent. rate has increased BY 35 BPM Anterolateral infarct is now Present Questionable change in initial forces of Inferior leads Confirmed by Praful Reyes ([id number]) on 09/30/2021 1:59:17 PM Referred By: REFERRED SELF Confirmed By:Praful Reyes
[2021-10-01] MEDS: ENOXAPARIN INJ 40 MG/0.4 ML SYR SQ SCH (08:44)
[2021-10-01] MEDS: FOLIC ACID 1 MG TAB PO SCH (08:45)
[2021-10-01] MEDS: THIAMINE HCL 500 MG in SODIUM CHLORIDE 0.9% 50 ML IV SCH ×2 (08:48→16:40)
[2021-10-01 09:52] LABS: Albumin Globulin Ratio 1.5 (0.9-2); Albumin Level 4.1 gm/dl (3.4-5.0); BUN Creatinine Ratio 9.1 (10-20); Calcium 9.4 mg/dl (8.5-10.1); Est GFR (African American) 114.3 ml/min; Est GFR (Non-African American) 98.6 ml/min; Globulin 2.8 gm/dl (2.5-4.0); Magnesium 1.7 mg/dl (1.7-2.4); Phosphorus 2.3 mg/dl (2.5-4.9); Potassium 3.4 mmol/L (3.5-5.1); Total Protein 6.9 gm/dl (6.0-8.3)
--- NOTE | 2021-10-01 12:49 | Discharge Summary ---
Date of Service October 01, 2021 Admission HPI Per Admitting Provider Naveen Ahn is a 60 year old male who presents to the ER with him by [place] [employer] with visual hallucinations and delusions of persecution. The patient is unable to give me much of a history only telling me for the last 2 days he has been off balance and confused. He cannot tell me how much he usually drinks but thinks he stopped drinking on Thursday or Thursday but cannot tell me why. He reports multiple previous admissions for alcohol withdrawal and going through inpatient rehab -but cannot elaborate on this. He denies any alcohol withdrawal seizures in the past however on review of the [employer] record this does not appear to be true. While trying to get a history he becomes very tangential and thinks that there is a street lamp in his room while pointing to the tap. Principal Diagnosis Alcohol withdrawal with hallucinations Delirium tremens Possible Wernicke's encephalopathy Discharge Exam Constitutional well developed and + disheveled; + not well nourished and no acute distress Eyes PERRL, conjunctivae normal, anicteric sclerae no nystagmus Respiratory normal respiratory effort, lungs clear to auscultation Cardiovascular Rate/Rhythm: regular rate and regular rhythm Heart Sounds: no murmur Extremities: normal capillary refill; no calf tenderness and no pedal edema Gastrointestinal (Abdomen) normal bowel sounds, soft, nontender, no hepatosplenomegaly Musculoskeletal no cyanosis or clubbing, extremities motor strength 5/5 Skin no rashes, warm and dry + erythema (on nasolabial folds) Neurologic moves all extremities and awake; no focal motor deficits and not confused Speech / Cognition: normal speech Motor/Sensory: no tremor and no pronator drift Psychiatric Orientation: alert and oriented x 3 Eye Contact: good eye contact Speech: normal rate/rhythm/volume of speech Affect: euthymic affect Mood: no anxious mood Thought Process: linear/logical thought process and clear/coherent thought process Thought Content: no persecution Suicidal Thoughts: denies suicidal thoughts Homicidal Thoughts: denies homicidal thoughts Hallucinations: no visual hallucinations Genitourinary no CVA tenderness Discharge Data Allergies Allergy/AdvReac Type Severity Reaction Status Date / Time lamotrigine Allergy Unknown Unknown Verified 09/29/21 15:49 meclizine Allergy Unknown Unknown Verified 09/29/21 15:49 Consultations 09/29/21 10:30 ED Decision to Admit Stat 09/29/21 19:40 Consult Leather Colorer Routine Ordered Studies 09/29/21 08:48 CT head/brain wo con Stat Impression: No significant change compared to the prior study. No acute intracranial abnormality. Hospital Course (1) Alcohol withdrawal: You were admitted to [facility] from September 29 - 2021 due to hallucinations and ambulatory dysfunction. You were diagnosed with alcohol withdrawal with hallucinations and delirium tremens. This was treated with lorazepam during your inpatient stay but since you have not needed any in the last 24 hours does not need to be continued at home. You were treated with high dose thiamine for possible Wernicke's encephalopathy (combination of confusion, decreased balance and eye symptoms). Please continue on thiamine 250mg PO daily on discharge. You were cleared by physical therapy and occupational therapy and were not interest with rehabilitation on discharge. Recommend using your previously learned techniques from prior rehab to abstain from alcohol. (2) Delirium tremens: (3) Hallucination, visual: (4) Wernickes encephalopathy: (5) Hypomagnesemia: Total Time Total Time Spent Total Time Spent (In Minutes): 40 Discharge Plan Discharge Items Patient Disposition: Home - Self-Care Reason For Visit: alcohol withdrawal Discharge Diagnosis: Alcohol withdrawal with hallucinations Delirium tremens (from alcohol withdrawal) Possible Wernicke's encephalopathy (vitamin B1 deficiency) Activity: Resume your previous activity Non-emergency contact: Primary Care Provider Call non-emergency contact if: you have any medication questions and your symptoms worsen Follow-up/Referrals: Danny Hanley MD [Primary Care Provider] - 10/08/21 1:15 pm Diet: Regular Addtl Attending Provider Instructions: You were admitted to [facility] from September 29 - 2021 due to hallucinations and ambulatory dysfunction. You were diagnosed with alcohol withdrawal with hallucinations and delirium tremens. This was treated with lorazepam during your inpatient stay but since you have not needed any in the last 24 hours does not need to be continued at home. You were treated with high dose thiamine for possible Wernicke's encephalopathy (combination of confusion, decreased balance and eye symptoms). Please continue on thiamine 250mg PO daily on discharge. You were cleared by physical therapy and occupational therapy and were not interest with rehabilitation on discharge. Recommend using your previously learned techniques from prior rehab to abstain from alcohol. Pending Studies at Discharge: No Stand-Alone Forms: My [facility], Smoking Cessation Medications and DC Order Prescriptions: New thiamine HCl (vitamin B1) 250 mg tablet 250 mg PO DAILY Qty: 30 0RF Continued Men's One Daily Tablet 1 tab PO DAILY Qty: 90 3RF folic acid 1 mg tablet 1 mg PO QAM Rx Instructions: TAKE 1 TABLET BY MOUTH EVERY MORNING Discharge Orders: Discharge Order (Routine); Ordered 10/01/21 Ordered By: Wilver Mack/Other Patient Handouts: Alcohol Withdrawal: What to Expect, ED Alcohol Withdrawal Admission Data Admit Date/Time: 09/29/21 12:02 Attending Provider: Wilver Doty Admit Provider: Wilver Doty Primary Care Provider: Danny Hanley V. Other Providers: Wilver Doty ; Gigi Black Other Interventions: Discharge Summary Assessment (RN) Last Done: 10/01/21 15:28 Coding Diagnoses Alcohol withdrawal F10.931 Complication of substance-induced condition: with delirium Delirium tremens F10.931 Hallucination, visual R44.1 Wernickes encephalopathy E51.2 Hypomagnesemia E83.42
[2021-10-01] MEDS ORDERED: GABAPENTIN 600 MG TAB PO SCH (14:00)
[2021-10-03] MEDS ORDERED: GABAPENTIN 600 MG TAB PO SCH (06:00)
== END 2021-10-01 16:41 | disposition home or self-care (01) | DRG 897 ==
LOC: ED 08:31 → EDINP 12:02 → 1E 12:45 → 3W 09-30 11:39

== ENCOUNTER 2023-05-28 16:23 | Inpatient (IN) ==
[2023-05-28 16:58] LABS: Basophils # (auto) 0.04 K/uL (0.00-0.20); Basophils % (auto) 0.6 %; Eosinophils # (auto) 0.06 K/uL (0.00-0.50); Hematocrit (blood only) 43.8 % (42.0-52.0); Hemoglobin 15.4 g/dl (14.0-18.0); Immature Granulocytes # (auto) 0.03 K/uL (0.01-0.20); Immature Granulocytes % (auto) 0.5 %; Lymphocytes # (auto) 0.79 K/uL (1.20-3.40); Lymphocytes % (auto) 12.6 %; Mean Corpuscular Hemoglobin 33.5 pg (25.0-34.0); Mean Corpuscular Hgb Conc 35.2 g/dL (32.0-36.0); Mean Corpuscular Volume 95.2 fL (80.0-100.0); Mean Platelet Volume 10.1 fL (9.4-12.4); Monocytes # (auto) 0.68 K/uL (0.11-0.59); Monocytes % (auto) 10.9 %; Neutrophils # (auto) 4.65 K/uL (1.40-6.50); Neutrophils % (auto) 74.4 %; Platelet Count 170 K/uL (130-400); RDW Coefficient of Variation 11.4 % (11.5-14.5); RDW Standard Deviation 39.6 fL (36.4-46.3); White Blood Count 6.25 K/ul (4.8-10.8)
[2023-05-28 17:02] LABS: Alanine Aminotransferase 17 U/L (7-52); Albumin Globulin Ratio 1.5 (0.9-2); Albumin Level 4.6 gm/dl (3.4-5.0); Alkaline Phosphatase 67 U/L (34-104); Anion Gap 12 (3-11); Aspartate Aminotransferase 46 U/L (13-39); Bilirubin,Total 1.8 mg/dl (0.2-1.0); Blood Urea Nitrogen 12 mg/dl (6-23); Carbon Dioxide 24 mmol/L (21-32); Chloride 99 mmol/L (98-107); Est GFR (African American) 102.9 ml/min; Est GFR (Non-African American) 88.8 ml/min; Glucose 91 mg/dl (70-99(Fasting)); Potassium 3.6 mmol/L (3.5-5.1); Sodium 135 mmol/L (136-145); Total Protein 7.6 gm/dl (6.0-8.3)
[2023-05-28 17:06] LABS: INR 1.1 (0.9-1.1); Prothrombin Time 11.6 Seconds (9.0-12.0)
[2023-05-28] MEDS: SODIUM CHLORIDE 0.9% 1,000 ML IV ONE (17:21)
--- NOTE | 2023-05-28 17:23 | Emergency Department Note ---
Impression & Plan Weakness, Falling, Dizziness, Visual disorder ED Provider Note NAME: TO GASPAR Sr AGE: 62 SEX: M : 1960 ARRIVES VIA: Walk-In INFORMANT: [Patient] ED PROVIDER(S): [Jose Alfredo Plascencia MD] CHIEF COMPLAINT: Fall, weakness HISTORY OF PRESENT ILLNESS: The patient is a 62-year-old male who presents to the ER with frequent falls. He has had issues for over a month. The patient feels dizzy when he stands. He states that he has fallen several times, he has struck his head. He has been crawling on the floor to get around his home, today he crawled over to his neighbors. The ambulance was called. The patient denies fever or chills, denies cough or cold. The patient states his weakness is diffuse, his dizziness is diffuse, no one-sided symptoms. He is not on blood thinning agents. The patient states that he saw an eye doctor who told him he needed cataract surgery. PMHx/PSHx/Social Hx: See Below PHYSICAL EXAM: GENERAL: Patient is in no acute distress. HEENT: No acute trauma, normocephalic atraumatic, mucous membranes moist, no nasal congestion. Cloudy lenses consistent with cataracts NECK: No stridor, no adenopathy, no meningismus, trachea is midline. LUNGS: Clear to auscultation bilaterally, no wheeze, no rhonchi, breath sounds equal. HEART: Without murmurs gallops or rubs, regular rate and rhythm. ABDOMEN: Soft, nontender, no peritonitis. EXTREMITIES: No cyanosis, full range of motion of all the joints without pain or difficulty. NEUROLOGIC: Oriented x 3, no acute motor or sensory deficits, no focal weakness. No facial droop or extremity drift. Excellent historian SKIN: No jaundice, no diaphoresis. DIFFERENTIAL DIAGNOSIS: Debilitation, dehydration, electrolyte imbalance, anemia, intracranial bleeding, cataracts, among others EMERGENCY DEPARTMENT PROCEDURES: MEDICAL DECISION MAKING: There is no leukocytosis or concerning anemia. There is a normal platelet count. No worrisome coagulopathy. No significant electrolyte abnormality requiring emergent correction. There were some subtle liver enzyme elevations of unknown significance. Patient appeared to be in a euthyroid state. ECG shows a normal sinus rhythm, no ST elevation. Cardiac enzyme testing x 1 is not consistent with acute cardiac injury. Urinalysis shows some dehydration, no infection. Urine tox was negative. Alcohol level was undetectable. Chest x- ray did not show pneumonia or CHF. Brain CT showed no acute bleed or mass effect. On exam, the patient appeared to have cataracts bilaterally. He had no focal neurologic findings, no speech slur. Patient received IV saline for hydration. The patient is falling, he has been crawling around on the floor. His vision is extremely poor and I suspect this is a large part of why he is having significant difficulty at home. He is not able to care for himself in his current state. Patient was seen by case management. He is in no condition for discharge. Hospitalization is indicated. I did speak with the patient, the on-call hospitalist was consulted. Prior/Outside records/notes reviewed: Today's EMS notes describing his presentation and transport to this hospital. ECG per my interpretation: Indication was weakness and falling. The ECG shows a normal sinus rhythm with a rate of 86. There is a potential old anterior lateral infarct and potential old inferior infarct. There is no acute ST elevation, no PVCs. The QTc is 447. Continuous Cardiac Monitoring per my interpretation: An order was placed for continuous cardiac monitoring. The monitor shows a rate of 85 with normal sinus rhythm. Imaging/x-ray results per my interpretation: Chest x-ray does not show mediastinal widening, pneumonia or pneumothorax. Chronic Medical/Social conditions affecting care: Care/Management discussed with: Case management, the on-call hospitalist. Level of care consideration(s): After review of the information above and other included data: --I believe the patient requires escalation of care to admission DISPOSITION: Admission Past Med/Surg History Medical History Hypothyroidism Mild, noted on 03/01/20 labs. Not on replacement therapy. Mucocele, appendix TSH elevation Hypertension Laceration of eyebrow, left Thrombocytopenia SAH (subarachnoid hemorrhage) 04/28/2019- [facility]- ER Depression Diffuse cerebral atrophy Encephalomalacia Noted on 02/[address] Alcohol withdrawal seizure Memory deficit Alcohol abuse Alcohol withdrawal Suicide attempt 2014 Skull fracture Per review of records, temporal bone fracture first in 2014, and again 05/2018 (seen at [place] ED and flown to [place] for further tx) Intracranial hemorrhage 2/2 fall with head trauma/temporal bone fracture 05/2018. History of seizure Mixed etiology per review of records. H/o tonic-clonic seizures, possible absence sz, also seizures from ETOH withdrawal. Patient is supposed to be following with [facility] neurology but has been largely noncompliant and has many barriers to consistent care. Supposed to be on Vimpat but per review of S records patient has not been able to afford medication or has neglected to f/u with care. Admitted 03/01/20 to [facility] for AMS. Possible seizure activity noted by EMS in ambulance, but no seizures during admission. Altered mental status Mental health disorder Surgical History H/O colonoscopy No history of previous surgery Family History Sister Seizure Brother Seizure Mother No pertinent family history Father No pertinent family history Social History Smoking Status: Never smoker Hx Alcohol Use: Yes Alcohol type: beer and hard liquor Hx Substance Use: No Preferred Language: Togolese Communication Ability: Effective Visual Impairment: No Limitations Hearing Ability: Normal Shoe Worker Required: No Beliefs That Will Affect Care: None marital status: Single Current Living Situation: Alone Current Living Situation Comment: Lives alone in upstairs apartment current occupational status: disabled Other Information That Helps Us Care for You: No Feels Safe at Home: Hesitant to Answer Safety Concerns: Afraid for Self Childhood Exposure to Second-Hand Smoke: No Seatbelt Use: always Assistive Devices: None Allergies Allergies Allergy/AdvReac Type Severity Reaction Status Date / Time lamotrigine Allergy Unknown Unknown Verified 05/28/23 18:31 meclizine Allergy Unknown Unknown Verified 05/28/23 18:31 Home Meds Home Medications Medication Instructions Recorded Confirmed diphenhydramine HCl 25 mg tablet 25 mg PO HS PRN Sleep 05/28/23 05/28/23 (Sleep Aid (diphenhydramine)) multivitamin with minerals 1 tab PO DAILY 05/28/23 05/28/23 Results & Data (ED) Vital Signs Vital Signs - 24 hr 05/28/23 16:46 05/28/23 18:23 Pulse Rate [Apical] 85 79 Respiratory Rate 20 18 Respiratory Effort / Characteristics Non-Labored Spontaneous Non-Labored Spontaneous Respiratory Depth Normal Normal Respiratory Pattern Regular Regular Blood Pressure [Right Arm] 154/104 H 154/105 H Blood Pressure Mean [Right Arm] 120 121 Blood Pressure Position [Right Arm] Semi-fowlers Semi-fowlers Pulse Oximetry 97 95 Oxygen Delivery Method Room Air Room Air Home Medications Current Medication List: was personally reviewed by me Laboratory Data Attestation: I reviewed the patient's lab results. 05/28/23 14:31 05/28/23 14:31 Lab Results 05/28/23 Range/Units 14:31 WBC 6.25 (4.8-10.8) K/ul RBC 4.60 L (4.70-6.10) M/uL Hgb 15.4 (14.0-18.0) g/dl Hct 43.8 (42.0-52.0) % MCV 95.2 (80.0-100.0) fL MCH 33.5 (25.0-34.0) pg MCHC 35.2 (32.0-36.0) g/dL RDW Std Deviation 39.6 (36.4-46.3) fL RDW Coeff of Teddy 11.4 L (11.5-14.5) % Plt Count 170 (130-400) K/uL MPV 10.1 (9.4-12.4) fL Immature Gran % (Auto) 0.5 % Neut % (Auto) 74.4 % Lymph % (Auto) 12.6 % [place] % (Auto) 10.9 % Eos % (Auto) 1.0 % Baso % (Auto) 0.6 % Neut # (Auto) 4.65 (1.40-6.50) K/uL Lymph # (Auto) 0.79 L (1.20-3.40) K/uL [place] # (Auto) 0.68 H (0.11-0.59) K/uL Eos # (Auto) 0.06 (0.00-0.50) K/uL Baso # (Auto) 0.04 (0.00-0.20) K/uL Immature Gran # (Auto) 0.03 (0.01-0.20) K/uL PT 11.6 (9.0-12.0) Seconds INR 1.1 (0.9-1.1) APTT 33 H (21-31) Seconds PTT Ratio 1.2 Sodium 135 L (136-145) mmol/L Potassium 3.6 (3.5-5.1) mmol/L Chloride 99 (98-107) mmol/L Carbon Dioxide 24 (21-32) mmol/L Anion Gap 12 H (3-11) BUN 12 (6-23) mg/dl Creatinine 0.92 (0.6-1.4) mg/dl Est Cr Clr Drug Dosing Not Reportable Est GFR ( Amer) 102.9 ml/min Est GFR (Non-Af Amer) 88.8 ml/min BUN/Creatinine Ratio 13.0 (10-20) Glucose 91 (70-99(Fasting)) mg/dl Calcium 10.0 (8.6-10.3) mg/dl Magnesium 1.7 (1.7-2.4) mg/dl Total Bilirubin 1.8 H (0.2-1.0) mg/dl AST 46 H (13-39) U/L ALT 17 (7-52) U/L Alkaline Phosphatase 67 (34-104) U/L Troponin I High Sens 3.8 (0-20) pg/ml Total Protein 7.6 (6.0-8.3) gm/dl Albumin 4.6 (3.4-5.0) gm/dl Globulin 3.0 (2.5-4.0) gm/dl Albumin/Globulin Ratio 1.5 (0.9-2) TSH 3.652 (0.300-4.500) uIu/ml Administered Medications Discontinued Medications Gadobutrol (Gadobutrol 30ml Vial) 6.7 ml IV ONCE ONE Stop: 05/28/23 22:34 Last Admin: 05/28/23 22:35 Dose: 6.7 ml Documented By: ANNALEE Sodium Chloride (Nss) 1,000 mls @ 999 mls/hr IV .Q1H1M ONE Stop: 05/28/23 18:09 Last Infusion: 05/28/23 18:57 Dose: Infused Documented By: Admin: 05/28/23 17:21 Dose: 999 mls/hr Documented By: MILTON Imaging Data Radiologist's Impression: Head CT 05/28/23 17:[address] DOSE: 625.8 mGy.cm HISTORY: fall, hit head TECHNIQUE: Multiaxial CT images of the head were performed without the use of intravenous contrast. Automated exposure control was utilized for this study. A dose lowering technique was utilized adhering to the principles of ALARA. Comparison: None. Findings: Moderate mucosal thickening within the left maxillary sinus. The remaining paranasal sinuses and mastoid air cells are clear. The calvarium and skull base are intact. There is no mass, hematoma, midline shift, acute infarct. White matter hypodensity is nonspecific but suggestive of microvascular ischemic change. The ventricles and sulci demonstrate mild age-related involutional changes. Impression: No acute infarct or intracranial hemorrhage. ACT 112: Negative or not required by law. Electronically signed by: Stevie Morin M.D. 05/28/2023 6:09 PM Chest X-Ray 05/28/23 17:22 XR chest 1V portable HISTORY: weak COMPARISON: None. FINDINGS: No pneumothorax. No pleural effusions. The lungs are clear. The heart is normal in size. There are old, healed left-sided rib fractures. IMPRESSION: No acute process. ACT 112: Negative or not required by law. Electronically signed by: Stevie Morin M.D. 05/28/2023 5:41 PM Discharge Plan Visit Data Chief Complaint: Fall Stated Complaint: FALL, AMS ED Provider: Jose Alfredo Plascencia Discharge Problem: Weakness, Falling, Dizziness, Visual disorder Patient Disposition: Admitted As Inpatient Condition: Fair Discharge Instructions Interventions: ED Discharge Assessment Last Done: 05/28/23 21:42
[2023-05-28 17:34] LABS: Magnesium 1.7 mg/dl (1.7-2.4)
[2023-05-28 17:37] LABS: Partial Thromboplastin Ratio 1.2; Partial Thromboplastin Time 33 Seconds (21-31)
--- NOTE | 2023-05-28 17:43 | XRay Report ---
XR chest 1V portable HISTORY: weak COMPARISON: None. FINDINGS: No pneumothorax. No pleural effusions. The lungs are clear. The heart is normal in size. Th ere are old, healed left-sided rib fractures. IMPRESSION: No acute process. ACT 112: Negative or not required by law. Electronically signed by: Stevie Morin M.D. 05/28/2023 5:41 PM
[2023-05-28 17:59] LABS: Thyroid Stimulating Hormone 3.652 uIu/ml (0.300-4.500)
--- NOTE | 2023-05-28 18:11 | CT Scan Report ---
HEAD CT NONCONTRAST CT DOSE: 625.8 mGy.cm HISTORY: fall, hit head TECHNIQUE: Multiaxial CT images of the head were performed without the use of intravenous contrast. A utomated exposure control was utilized for this study. A dose lowering technique was utilized adheri ng to the principles of ALARA. Comparison: None. Findings: Moderate mucosal thickening within the left maxillary sinus. The remaining paranasal sinuse s and mastoid air cells are clear. The calvarium and skull base are intact. There is no mass, hematom a, midline shift, acute infarct. White matter hypodensity is nonspecific but suggestive of microvascu lar ischemic change. The ventricles and sulci demonstrate mild age-related involutional changes. Impression: No acute infarct or intracranial hemorrhage. ACT 112: Negative or not required by law. Electronically signed by: Stevie Morin M.D. 05/28/2023 6:09 PM
[2023-05-28 19:08] LABS: Troponin I High Sensitivity 3.8 pg/ml (0-20)
--- NOTE | 2023-05-28 19:22 | History & Physical Report ---
Date of Service May 28, 2023 Assessment & Plan (1) Frequent falls: Plan: - Etiology unclear; no focal neurological findings on exam, vision loss noted. - Vision issues seem to be contributing, needs cataract surgery - Will order MRI Brain to r/u mass or stroke that could be effecting vision/balance - Trop= 3.8, EKG with NSR; will monitor on telemetry- orthostatic vitals ordered - PT/OT ordered - Case management consulted (2) Vision abnormalities: Plan: - per pt has been seen by ophthalmology and needs B/l cataract surgery - significant vision loss on exam, will order MRI brain to r/u other cause of vision loss (3) Hypothyroidism: Plan: - noted in history, not on replacement - TSH= 3.652 on admission (4) Hypertension: Plan: - elevated in ED - has been on medications for HTN in the past, not currently on mediations - wait for results MRI Brain prior to treating - if remains elevated would consider re-starting daily mediation- could start with 20mg olmesartan (5) Alcohol abuse: Plan: - history of alcohol abuse requiring ICU admission - pt states he drinks 2-3 beers about once per week - ETOH level and UDS pending - was on thiamine/folate supplementation in the past; will restart PO supplementation. Order thiamine/folate levels - AWSS protocol ordered (6) Essential tremor: Plan: - right sided essential tremor noted - has been present for years, worse with anxiety - imaging as per above (7) Total bilirubin, elevated: Plan: - total bilirubin= 1.8 with AST= 46 - has been elevated in the past - hepatic steatosis noted on prior imaging with concern for fatty changes - lipid panel qAM Plan Code: DNR/DNI Diet: NPO pending MRI Brain results VTE Prophylaxis- SCDs, defer chemical until results MRI brain History of Present Illness Chief Complaint: Frequent falls. Question of secondary to visual impairment Primary Care Provider: NO PCP 62 year old male with a past medical history of alcohol abuse, anxiety, seizure disorder (not on anti-epileptics) presenting with concern for frequent falls. States that for about the last week he has been having issues with frequent falls. Denies LOC with these events. Feels as though his balance is off. Has been having issues with his vision, was seen by ophthalmology and needs cataract surgery, but has been unable to get as he does not have a ride. Lives in alone in apartment, has a son but is not in the area. Crawled over to neighbors apartment this morning and EMS was called. History of alcohol abuse, has been admitted for delirium tremens in the past. States that he has not been drinking recently, but unclear on exactly how much/how frequently he has been drinking. History of seizure noted in chart, unclear if related to alcohol use, but has not had any recent seizures and is not on any anti-epileptics. ED Course: Head CT/CXR without acute findings 1L NSS Allergies Allergy/AdvReac Type Severity Reaction Status Date / Time lamotrigine Allergy Unknown Unknown Verified 05/28/23 18:31 meclizine Allergy Unknown Unknown Verified 05/28/23 18:31 Home Medications Medication Instructions Recorded Confirmed Type diphenhydramine HCl 25 mg tablet 25 mg PO HS PRN Sleep 05/28/23 05/28/23 History (Sleep Aid (diphenhydramine)) multivitamin with minerals 1 tab PO DAILY 05/28/23 05/28/23 History Past Med/Surg History Medical History (Updated 05/28/23 @ 19:55 by Linda Simpson, ) Hypothyroidism Mild, noted on 03/01/20 labs. Not on replacement therapy. Mucocele, appendix TSH elevation Hypertension Laceration of eyebrow, left Thrombocytopenia SAH (subarachnoid hemorrhage) 04/28/2019- [facility]- ER Depression Diffuse cerebral atrophy Encephalomalacia Noted on 02/[address] Alcohol withdrawal seizure Memory deficit Alcohol abuse Alcohol withdrawal Suicide attempt 2014 Skull fracture Per review of records, temporal bone fracture first in 2014, and again 05/2018 (seen at [place] ED and flown to [place] for further tx) Intracranial hemorrhage 2/2 fall with head trauma/temporal bone fracture 05/2018. History of seizure Mixed etiology per review of records. H/o tonic-clonic seizures, possible absence sz, also seizures from ETOH withdrawal. Patient is supposed to be following with [facility] neurology but has been largely noncompliant and has many barriers to consistent care. Supposed to be on Vimpat but per review of S records patient has not been able to afford medication or has neglected to f/u with care. Admitted 03/01/20 to [facility] for AMS. Possible seizure activity noted by EMS in ambulance, but no seizures during admission. Altered mental status Mental health disorder Surgical History H/O colonoscopy No history of previous surgery Family History Sister Seizure Brother Seizure Mother No pertinent family history Father No pertinent family history Social History Smoking Status: Never smoker Hx Alcohol Use: Yes Alcohol type: beer and hard liquor Preferred Language: Nigerian Communication Ability: Impaired Visual Impairment: No Limitations Hearing Ability: Normal Information Lead Required: No Beliefs That Will Affect Care: None marital status: Single Current Living Situation: Other Current Living Situation Comment: UNKNOWN current occupational status: disabled Feels Safe at Home: Yes Childhood Exposure to Second-Hand Smoke: No Seatbelt Use: always Assistive Devices: None Review of Systems Review of Systems: As per above Physical Exam Physical Exam: Constitutional: well-appearing, no acute distress HEENT: NCAT, no conjunctival injection. PERRLA CV: regular rhythm, no murmur appreciated, extremities well-perfused, no LE edema Resp: CTABL, no wheezes/rales/rhonchi appreciated, no increased work of breathing GI: soft, nondistended, nontender, BS normoactive MSK: no gross deformities appreciated Skin: warm, dry, no rash appreciated Neuro: alert, oriented, no focal neurologic deficit appreciated. CN II-XII intact, strength 5/5 UE and LE B/L. Results & Data Results & Data Vital Signs (Past 12 Hours) Vital Signs Pulse Resp BP Pulse Ox O2 Del Method 05/28/23 18:23 79 18 154/105 H 95 Room Air 05/28/23 16:46 85 20 154/104 H 97 Room Air Supervising Physician Co-Signing Physician Notes I have personally seen, evaluated and examined the patient. I have also personally discussed the management of the patient with the resident physician/SHARIF and I agree with the exam findings documented in the history and physical examination and the documented assessment and plan unless otherwise stated below. Brief Exam: In general is a 63-year-old male who is alert and oriented x 3. I did address his CODE STATUS with him he told me it was May 27 and we are [facility]. He does wish to be a DNR. From a historical standpoint his vision loss issues is somewhat obscure it appears he has been having visual difficulty for at least a few years however over the last weeks to months its become profoundly worse resulting in frequent falls. Due to the profound vision loss on exam as documented below and above, we are going to do an MRI of the brain to rule out any type of central lesion contributing to his loss HEENT normocephalic atraumatic visual cataracts on exam. Patient has profound vision loss. I have a blue exam glove on I held my hand within 3 to 4 inches of his eyes and he cannot even tell me that my hand was there for sure. He cannot determine the number of fingers I hold up with either. Heart: Regular rate and rhythm no murmur. Lungs: Clear bilaterally. Abdomen flat soft and nontender with positive bowel sounds. Extremities intact his strength is paradoxical. He has some mild decrease strength in his left lower extremity compared to his right. And he has mild decrease strength in his right upper extremity compared to his left hand he is right-hand dominant. I do not appreciate cerebellar sign of pronator drift. The patient cannot do any finger-nose testing because of his visual impairment. Neurologically: As described above. Assessment/plan. As described above. Please refer to orders for further planning. Resident Activity Tracking Resident Involvement: Resident Care Provided Care Provided: Adult Hospital Medicine
[2023-05-28 20:22] LABS: Appearance Urine Clear (Clear); Bilirubin Urine Negative (Negative); Blood Urine Negative (Negative); Color Urine Orange; Glucose Urine UA Negative (Negative); Ketones Urine 2+ (Negative); Leukocyte Esterase Urine Negative (Negative); Nitrite Urine Negative (Negative); Protein Urine Negative (Negative); Specific Gravity Urine 1.009 (1.000-1.030); Urobilinogen Urine Negative (Negative); pH Urine 5.5 (4.5-7.5)
[2023-05-28 21:15] LABS: Amphetamines+Metham, Urine Neg (Neg); Barbiturates, Urine Neg (Neg); Benzodiazepine, Urine Neg (Neg); Cocaine, Urine Neg (Neg); MDMA (Ecstacy), Urine Neg (Neg); Marijuana, Urine Neg (Neg); Methadone, Urine Neg (Neg); Opiate, Urine Neg (Neg); Phencyclidine, Urine Neg (Neg)
[2023-05-28] MEDS: GADOBUTROL 30ML VIAL IV ONE (22:35)
--- NOTE | 2023-05-29 00:32 | Magnetic Resonance Report ---
Exam(s): MRI HEAD W/WO Contrast IV Amt: 6.7mL Gadavist given existing IV EXAM: MR Head Without and With Intravenous Contrast CLINICAL HISTORY: Reason for exam: Vision Loss. TECHNIQUE: Magnetic resonance images of the head/brain without and with intravenous contrast in multiple planes. CONTRAST: Patient received 6.7mL Gadavist given existing IV of IV contrast COMPARISON: Comparison made to prior head CT from September 29, 2021. FINDINGS: Brain: Mild nonspecific white matter changes. Remote ischemic injuries of the bilateral parietal lobes with hemosiderin staining. No mass. No hemorrhage. No acute infarct. The flow voids at the base of the brain are intact. Normal enhancement of the brain parenchyma. The dural venous sinuses are patent. Ventricles: Mild to moderate ventriculomegaly. Bones/joints: Unremarkable. No acute fracture. Sinuses: Chronic maxillary and ethmoid sinusitis. No acute sinusitis. Mastoid air cells: Unremarkable as visualized. No mastoid effusion. Orbits: Unremarkable as visualized. IMPRESSION: No evidence of acute intracranial pathology. Electronically signed by: Veronica Meng MD 05/29/23 00:30 AM
[2023-05-29] MEDS: THIAMINE HCL 500 MG in SODIUM CHLORIDE 0.9% 50 ML IV SCH (01:26)
--- NOTE | 2023-05-29 02:59 | CT Scan Report ---
Exam(s): CT C SPINE EXAM: CT Cervical Spine Without Intravenous Contrast CLINICAL HISTORY: Reason for exam: falls. TECHNIQUE: Axial computed tomography images of the cervical spine without intravenous contrast. CTDI is 16.43 mGy and DLP is 355.39 mGy-cm. Automated exposure control was utilized for the study. A dose lowering technique was utilized adhering to the principles of ALARA. COMPARISON: Comparison made to prior CT scan cervical spine from March 01, 2020. FINDINGS: Vertebrae: Unremarkable. No acute fracture. Discs/spinal canal/neural foramina: No acute findings. No spinal canal stenosis. Soft tissues: Unremarkable. IMPRESSION: No evidence of acute cervical spine pathology. Electronically signed by: Veronica Meng MD 05/29/23 02:58 AM
--- NOTE | 2023-05-29 03:02 | CT Scan Report ---
Exam(s): CT T SPINE EXAM: CT Thoracic Spine Without Intravenous Contrast CLINICAL HISTORY: Reason for exam: falls. TECHNIQUE: Axial computed tomography images of the thoracic spine without intravenous contrast. CTDI is 39.18 mGy and DLP is 2156.2 mGy-cm. Automated exposure control was utilized for the study. A dose lowering technique was utilized adhering to the principles of ALARA. COMPARISON: Comparison made to prior CT scan of the thoracic spine from December 20, 2012. FINDINGS: Remote bilateral rib fracture deformities. Vertebrae: Remote fracture deformities of the T3, T4, T5, T12, L1 and L2 segments. No acute fracture. Remote fracture of the left L2 transverse process. Discs/spinal canal/neural foramina: No acute findings. No spinal canal stenosis. Soft tissues: Unremarkable. IMPRESSION: No evidence of acute thoracic spine pathology. Electronically signed by: Veronica Meng MD 05/29/23 03:01 AM
--- NOTE | 2023-05-29 03:04 | Communication Note ---
Date of Service: May 29, 2023 Patient with new onset BLE paresthesias and weakness. No saddle paresthesia, urinary, or fecal incontinence. Most likely diagnosis is B12 deficiency. Will start on thiamine and folate IV with B12 sublingual. Ordered CT imaging as well. Multiple old spinal fractures. Probable L4 acute/subacute fracture. Ordered ortho consult. Would defer on further imaging to specialist team. Discussed case with Dr. New. See attending attestation for further documentation Resident Activity Tracking Resident Involvement: Resident Care Provided Care Provided: Adult [facility] Medicine
--- NOTE | 2023-05-29 03:06 | CT Scan Report ---
Exam(s): CT L SPINE EXAM: CT Lumbar Spine Without Intravenous Contrast CLINICAL HISTORY: Reason for exam: BLE weakness. TECHNIQUE: Axial computed tomography images of the lumbar spine without intravenous contrast. CTDI is 39.18 mGy and DLP is 2156.2 mGy-cm. Automated exposure control was utilized for the study. A dose lowering technique was utilized adhering to the principles of ALARA. COMPARISON: No relevant prior studies available. FINDINGS: Vertebrae: Findings concerning for acute/subacute single column fracture of the L4 vertebral body. Remote fracture deformities of the T12, L1, L2, and L3 segments. Transitional S1 segment. Discs/spinal canal/neural foramina: No acute findings. No spinal canal stenosis. Soft tissues: Unremarkable. IMPRESSION: Findings concerning for an acute/subacute single column superior endplate fracture of the L4 vertebral body. This fracture is amenable to vertebroplasty or kyphoplasty. Communications: Verify Receipt Electronically signed by: Veronica Meng MD 05/29/23 03:05 AM
[2023-05-29 06:54] LABS: Albumin Globulin Ratio 1.4 (0.9-2); Albumin Level 3.9 gm/dl (3.4-5.0); Bilirubin,Total 1.2 mg/dl (0.2-1.0); Calcium 9.1 mg/dl (8.6-10.3); Chol HDL Ratio 3.1 (0-5); Creatinine Clr Calc Pharmacy 114.6 ml/min; Est GFR (African American) 117.9 ml/min; Est GFR (Non-African American) 101.7 ml/min; Globulin 2.7 gm/dl (2.5-4.0); Magnesium 1.7 mg/dl (1.7-2.4); Phosphorus 3.4 mg/dl (2.5-4.9); Potassium 2.9 mmol/L (3.5-5.1); Total Protein 6.6 gm/dl (6.0-8.3)
[2023-05-29] MEDS: FOLIC ACID 1 MG in SYRINGE 9.8 ML IV SCH (08:19)
[2023-05-29] MEDS: CYANOCOBALAMIN (B-12) 500 MCG TABLET PO SCH (08:19)
[2023-05-29] MEDS ORDERED: THIAMINE HCL 100 MG TAB PO SCH (09:00)
[2023-05-29] MEDS ORDERED: FOLIC ACID 1 MG TAB PO SCH (09:00)
--- NOTE | 2023-05-29 12:00 | Electrocardiogram Report ---
Test Reason : Blood Pressure : / mmHG Vent. Rate : 086 BPM Atrial Rate : 086 BPM P-R Int : 178 ms QRS Dur : 074 ms QT Int : 374 ms P-R-T Axes : 035 -45 005 degrees QTc Int : 447 ms Normal sinus rhythm Left axis deviation Low voltage QRS possible Inferior infarct (cited on or before 29-SEP-2021) Anterolateral infarct (cited on or before 29-SEP-2021) Abnormal ECG When compared with ECG of 29-SEP-2021 09:07, No significant change was found Confirmed by Gulshan Markham ([id number]) on 05/29/2023 12:00:16 PM Referred By: REFERRED SELF Confirmed By:Jose Markham
[2023-05-29] MEDS ORDERED: chlordiazePOXIDE ALCOHOL WITHDRAWL 50MG PO STA (16:26)
--- NOTE | 2023-05-29 16:30 | Hospitalist Progress Note ---
Date of Service May 29, 2023 Assessment & Plan (1) Frequent falls: Plan: - Likely from chronic alcohol abuse and thiamine deficiency. -strokes have been rules out. Etiology unclear; no focal neurological findings on exam, vision loss noted. - Vision issues seem to be contributing, needs cataract surgery - Trop= 3.8, EKG with NSR; will monitor on telemetry- orthostatic vitals ordered - PT/OT ordered - Case management consulted -continue thiamine -added librium taper. (2) Vision abnormalities: Plan: - per pt has been seen by ophthalmology and needs B/l cataract surgery - significant vision loss on exam, will order MRI brain to r/u other cause of vision loss (3) Hypothyroidism: Plan: - noted in history, not on replacement - TSH= 3.652 on admission (4) Hypertension: Plan: - elevated in ED - has been on medications for HTN in the past, not currently on mediations - wait for results MRI Brain prior to treating - if remains elevated would consider re-starting daily mediation- could start with 20mg olmesartan (5) Alcohol abuse: Plan: - history of alcohol abuse requiring ICU admission - pt states he drinks 2-3 beers about once per week - ETOH level and UDS pending - was on thiamine/folate supplementation in the past; will restart PO supplementation. Order thiamine/folate levels - AWSS protocol ordered (6) Essential tremor: Plan: - right sided essential tremor noted - has been present for years, worse with anxiety - imaging as per above (7) Total bilirubin, elevated: Plan: - total bilirubin= 1.8 with AST= 46 - has been elevated in the past - hepatic steatosis noted on prior imaging with concern for fatty changes - lipid panel qAM Plan Code: DNR/DNI Diet: NPO pending MRI Brain results VTE Prophylaxis- SCDs, defer chemical until results MRI brain Admission and Anticipated Discharge Date Admission Date: May 28, 2023 Subjective 62 yo male is confused. Review of Systems Review of Systems: Unobtainable due to cognitive status Physical Exam Physical Exam: Constitutional: well-appearing, no acute distress HEENT: NCAT, no conjunctival injection. PERRLA CV: regular rhythm, no murmur appreciated, extremities well-perfused, no LE edema Resp: CTABL GI: soft, nondistended, nontender, BS normoactive MSK: no gross deformities appreciated Neuro: confused. Results & Data Results & Data Vital Signs (Past 12 Hours) Vital Signs Temp Pulse Pulse Resp BP Pulse Ox O2 Del Method 05/29/23 15:27 36.9 C 83 16 136/84 96 Room Air 05/29/23 12:28 36.6 C 56 L 16 129/84 96 Room Air 05/29/23 07:51 36.8 C 85 16 131/83 96 Room Air 05/29/23 07:29 76 PG Care Time/CCT Total # of Minutes Spent Total Time Spent with Patient: Total time spent is greater than 50% in coordination of care (as documented) at patient's floor/unit and/or counseling patient: Coding Level of Care Code 59690 SUB INP/OBS CARE 2/35MIN Diagnoses Frequent falls R29.6 Vision abnormalities H53.9 Hypothyroidism E03.9 Hypertension I10 Alcohol abuse F10.10 Essential tremor G25.0 Total bilirubin, elevated R17
[2023-05-29] MEDS: chlordiazePOXIDE HCl 25 MG CAP PO SCH (17:48)
[2023-05-29] MEDS: POTASSIUM CHLORIDE / WTR 10 MEQ/100 ML PLCT IV SCH (17:53)
[2023-05-29] MEDS: LORazepam 1 MG TAB PO PRN (22:30)
[2023-05-30] MEDS ORDERED: LORazepam 1 MG TAB PO PRN (01:03)
[2023-05-30] MEDS ORDERED: LORazepam 1 MG in SYRINGE 0.5 ML IV PRN (01:50)
[2023-05-30] MEDS ORDERED: Ativan IV Alcohol Withdrawal--Active Protocol IV PRN (01:50)
--- NOTE | 2023-05-30 01:54 | Communication Note ---
Date of Service: May 30, 2023 Notified by nursing on several occasions regarding patient agitation and restlessness. Initially tried soft mitts and one-to-one supervision, however patient became increasingly agitated despite PO ativan given per AWSS protocol. Patient scored AWSS of 15, based on increased levels of agitation the decision was made to implement the AWSS active active protocol for IV Ativan dosing and patient was transferred from med/tele status to PCU level of care. Will hold additional Librium upon initiation of IV ativan protocol, can be reassessed by day team. Resident Activity Tracking Resident Involvement: Resident Care Provided Care Provided: Adult Hospital Medicine
[2023-05-30] MEDS: LORazepam 3 MG in SYRINGE 1.5 ML IV PRN (02:01)
[2023-05-30] MEDS: LORazepam 1 MG in SYRINGE 0.5 ML IV STA (02:20)
[2023-05-30] MEDS: INFLUENZA VIRUS QUADRIVALENT VACCINE (IIV4) 0.5 ML SYR IM ONE (02:20)
[2023-05-30] MEDS: LORazepam 2 MG in SYRINGE 1 ML IV PRN (02:35)
[2023-05-30] MEDS ORDERED: chlordiazePOXIDE ALCOHOL WITHDRAWL 50MG PO STA (16:43)
[2023-05-30] MEDS: chlordiazePOXIDE HCl 25 MG CAP PO SCH (18:26)
--- NOTE | 2023-05-30 18:28 | Hospitalist Progress Note ---
Date of Service May 30, 2023 Assessment & Plan (1) Frequent falls: Plan: - Likely from chronic alcohol abuse and thiamine deficiency. -strokes have been rules out. Etiology unclear; no focal neurological findings on exam, vision loss noted. - Vision issues seem to be contributing, needs cataract surgery - Trop= 3.8, EKG with NSR; will monitor on telemetry- orthostatic vitals ordered - PT/OT ordered - Case management consulted -continue thiamine -added librium taper. Overnight patient worsened. SWitched to ativan doses. On 05/29 patient improved and resumed librium taper. (2) Vision abnormalities: Plan: - per pt has been seen by ophthalmology and needs B/l cataract surgery - significant vision loss on exam, will order MRI brain to r/u other cause of vision loss (3) Hypothyroidism: Plan: - noted in history, not on replacement - TSH= 3.652 on admission (4) Hypertension: Plan: - elevated in ED - has been on medications for HTN in the past, not currently on mediations - wait for results MRI Brain prior to treating - if remains elevated would consider re-starting daily mediation- could start with 20mg olmesartan (5) Alcohol abuse: Plan: - history of alcohol abuse requiring ICU admission - pt states he drinks 2-3 beers about once per week - ETOH level and UDS pending - was on thiamine/folate supplementation in the past; will restart PO supplementation. Order thiamine/folate levels - AWSS protocol ordered (6) Essential tremor: Plan: - right sided essential tremor noted - has been present for years, worse with anxiety - imaging as per above (7) Total bilirubin, elevated: Plan: - total bilirubin= 1.8 with AST= 46 - has been elevated in the past - hepatic steatosis noted on prior imaging with concern for fatty changes - lipid panel qAM Plan Code: DNR/DNI Diet: NPO pending MRI Brain results VTE Prophylaxis- SCDs, defer chemical until results MRI brain Admission and Anticipated Discharge Date Admission Date: May 29, 2023 Subjective Patient is resting. Review of Systems Review of Systems: All systems reviewed & are unremarkable except as noted in HPI & below Physical Exam Physical Exam: Constitutional: well-appearing, no acute distress HEENT: NCAT, no conjunctival injection. PERRLA CV: regular rhythm, no murmur appreciated, extremities well-perfused, no LE edema Resp: CTABL GI: soft, nondistended, nontender, BS normoactive MSK: no gross deformities appreciated Neuro: confused. Results & Data Results & Data Vital Signs (Past 12 Hours) Vital Signs Temp Pulse Pulse Resp BP Pulse Ox O2 Del Method 05/30/23 16:00 36.7 C 05/30/23 15:28 132/95 Room Air 05/30/23 15:28 75 18 96 05/30/23 14:00 67 18 99 05/30/23 14:00 122/85 05/30/23 12:14 36.6 C 05/30/23 12:00 68 21 98 05/30/23 12:00 117/87 05/30/23 11:00 70 24 99 05/30/23 10:00 82 20 100 05/30/23 10:00 116/86 05/30/23 09:20 73 18 98 Room Air 05/30/23 09:03 76 17 99 05/30/23 09:03 131/97 05/30/23 09:00 82 24 98 05/30/23 08:00 37.0 C 05/30/23 08:00 80 20 100 05/30/23 08:00 121/80 05/30/23 07:00 78 20 100 PG Care Time/CCT Total # of Minutes Spent Total Time Spent with Patient: Total time spent is greater than 50% in coordination of care (as documented) at patient's floor/unit and/or counseling patient: Coding Level of Care Code 35281 SUB INP/OBS CARE 2/35MIN Diagnoses Frequent falls R29.6 Vision abnormalities H53.9 Hypothyroidism E03.9 Hypertension I10 Alcohol abuse F10.10 Essential tremor G25.0 Total bilirubin, elevated R17
[2023-05-30] MEDS ORDERED: chlordiazePOXIDE HCl 25 MG CAP PO SCH (18:30)
[2023-05-31 08:17] LABS: Hematocrit (blood only) 41.9 % (42.0-52.0); Mean Corpuscular Hemoglobin 33.8 pg (25.0-34.0); Mean Corpuscular Hgb Conc 35.8 g/dL (32.0-36.0); Mean Corpuscular Volume 94.4 fL (80.0-100.0); Mean Platelet Volume 9.9 fL (9.4-12.4); Platelet Count 153 K/uL (130-400); RDW Coefficient of Variation 11.6 % (11.5-14.5); RDW Standard Deviation 39.8 fL (36.4-46.3); Red Blood Count 4.44 M/uL (4.70-6.10); White Blood Count 5.17 K/ul (4.8-10.8)
[2023-05-31 08:48] LABS: Potassium 3.5 mmol/L (3.5-5.1)
[2023-05-31 08:49] LABS: Calcium 9.3 mg/dl (8.6-10.3)
[2023-05-31 08:53] LABS: BUN Creatinine Ratio 7.4 (10-20); Creatinine Clr Calc Pharmacy 116.3 ml/min; Est GFR (African American) 118.6 ml/min; Est GFR (Non-African American) 102.4 ml/min
--- NOTE | 2023-05-31 15:00 | Hospitalist Progress Note ---
Date of Service May 31, 2023 Assessment & Plan (1) Frequent falls: Plan: - Likely from chronic alcohol abuse and thiamine deficiency. -strokes have been rules out. Etiology unclear; no focal neurological findings on exam, vision loss noted. - Vision issues seem to be contributing, needs cataract surgery - Trop= 3.8, EKG with NSR; will monitor on telemetry- orthostatic vitals ordered - PT/OT ordered - Case management consulted -continue thiamine -added librium taper. Overnight patient worsened. SWitched to ativan doses. On 05/29 patient improved and resumed librium taper. On 05/30, patient is no longer confused. (2) Vision abnormalities: Plan: - per pt has been seen by ophthalmology and needs B/l cataract surgery - significant vision loss on exam, will order MRI brain to r/u other cause of vision loss (3) Hypothyroidism: Plan: - noted in history, not on replacement - TSH= 3.652 on admission (4) Hypertension: Plan: - elevated in ED - has been on medications for HTN in the past, not currently on mediations - wait for results MRI Brain prior to treating - if remains elevated would consider re-starting daily mediation- could start with 20mg olmesartan (5) Alcohol abuse: Plan: - history of alcohol abuse requiring ICU admission - pt states he drinks 2-3 beers about once per week - ETOH level and UDS pending - was on thiamine/folate supplementation in the past; will restart PO supplementation. Order thiamine/folate levels - AWSS protocol ordered (6) Essential tremor: Plan: - right sided essential tremor noted - has been present for years, worse with anxiety - imaging as per above (7) Total bilirubin, elevated: Plan: - total bilirubin= 1.8 with AST= 46 - has been elevated in the past - hepatic steatosis noted on prior imaging with concern for fatty changes - lipid panel qAM Plan Code: DNR/DNI Diet: NPO pending MRI Brain results VTE Prophylaxis- SCDs, defer chemical until results MRI brain Admission and Anticipated Discharge Date Admission Date: May 29, 2023 Subjective 62 yo male reports no new symptoms. Patient is tolerating her diet. Review of Systems Review of Systems: All systems reviewed & are unremarkable except as noted in HPI & below Physical Exam Physical Exam: Constitutional: well-appearing, no acute distress HEENT: NCAT, no conjunctival injection. PERRLA CV: regular rhythm, no murmur appreciated, extremities well-perfused, no LE edema Resp: CTABL GI: soft, nondistended, nontender, BS normoactive MSK: no gross deformities appreciated Neuro: no longer confused. oriented to place person and time. Results & Data Results & Data Vital Signs (Past 12 Hours) Vital Signs Temp Pulse Pulse Resp BP Pulse Ox O2 Del Method 05/31/23 11:59 37.1 C 104 H 18 107/78 93 Room Air 05/31/23 08:15 76 05/31/23 07:46 36.7 C 66 18 105/70 94 Room Air 05/31/23 03:42 36.8 C 78 18 124/78 96 Room Air PG Care Time/CCT Total # of Minutes Spent Total Time Spent with Patient: Total time spent is greater than 50% in coordination of care (as documented) at patient's floor/unit and/or counseling patient: Coding Level of Care Code 55446 SUB INP/OBS CARE 2/35MIN Diagnoses Frequent falls R29.6 Vision abnormalities H53.9 Hypothyroidism E03.9 Hypertension I10 Alcohol abuse F10.10 Essential tremor G25.0 Total bilirubin, elevated R17
[2023-05-31] MEDS: chlordiazePOXIDE HCl 25 MG CAP PO SCH (17:58)
[2023-05-31] MEDS ORDERED: chlordiazePOXIDE HCl 25 MG CAP PO SCH (18:30)
[2023-05-31] MEDS: ACETAMINOPHEN 325 MG TAB PO PRN (20:49)
[2023-06-01 04:04] LABS: Mean Corpuscular Hemoglobin 33.6 pg (25.0-34.0); Mean Corpuscular Volume 95.9 fL (80.0-100.0); Platelet Count 144 K/uL (130-400); RDW Coefficient of Variation 11.6 % (11.5-14.5); RDW Standard Deviation 40.9 fL (36.4-46.3); Red Blood Count 4.17 M/uL (4.70-6.10); White Blood Count 4.09 K/ul (4.8-10.8)
[2023-06-01 04:20] LABS: Albumin Globulin Ratio 1.4 (0.9-2); Albumin Level 3.6 gm/dl (3.4-5.0); BUN Creatinine Ratio 9.1 (10-20); Bilirubin,Total 1.3 mg/dl (0.2-1.0); Calcium 9.1 mg/dl (8.6-10.3); Creatinine Clr Calc Pharmacy 102.7 ml/min; Est GFR (African American) 112.7 ml/min; Est GFR (Non-African American) 97.3 ml/min; Globulin 2.5 gm/dl (2.5-4.0); Magnesium 1.6 mg/dl (1.7-2.4); Phosphorus 4.1 mg/dl (2.5-4.9); Potassium 3.3 mmol/L (3.5-5.1); Total Protein 6.1 gm/dl (6.0-8.3)
[2023-06-01] MEDS: PERFLUTREN LIPID MICROSPHERE (DEFINITY) IV ONE (07:09)
--- NOTE | 2023-06-01 13:04 | XCELERA ---
[id number]
[2023-06-01] MEDS: chlordiazePOXIDE HCl 25 MG CAP PO SCH (18:09)
--- NOTE | 2023-06-01 21:33 | Hospitalist Progress Note ---
Date of Service June 01, 2023 Assessment & Plan (1) Frequent falls: Plan: - Likely from chronic alcohol abuse and thiamine deficiency. -strokes have been rules out. Etiology unclear; no focal neurological findings on exam, vision loss noted. - Vision issues seem to be contributing, needs cataract surgery - Trop= 3.8, EKG with NSR; will monitor on telemetry- orthostatic vitals ordered - PT/OT ordered - Case management consulted -continue thiamine -added librium taper. Overnight patient worsened. SWitched to ativan doses. On 05/29 patient improved and resumed librium taper. On 05/30, patient is no longer confused. On 05/31 awaiting consult from ortho for patient to be able to participate with PT/OT (2) Vision abnormalities: Plan: - per pt has been seen by ophthalmology and needs B/l cataract surgery - significant vision loss on exam, will order MRI brain to r/u other cause of vision loss (3) Hypothyroidism: Plan: - noted in history, not on replacement - TSH= 3.652 on admission (4) Hypertension: Plan: - elevated in ED - has been on medications for HTN in the past, not currently on mediations - wait for results MRI Brain prior to treating - if remains elevated would consider re-starting daily mediation- could start with 20mg olmesartan (5) Alcohol abuse: Plan: - history of alcohol abuse requiring ICU admission - pt states he drinks 2-3 beers about once per week - ETOH level and UDS pending - was on thiamine/folate supplementation in the past; will restart PO supplementation. Order thiamine/folate levels - AWSS protocol ordered (6) Essential tremor: Plan: - right sided essential tremor noted - has been present for years, worse with anxiety - imaging as per above (7) Total bilirubin, elevated: Plan: - total bilirubin= 1.8 with AST= 46 - has been elevated in the past - hepatic steatosis noted on prior imaging with concern for fatty changes - lipid panel qAM Plan Code: DNR/DNI Diet: NPO pending MRI Brain results VTE Prophylaxis- SCDs, defer chemical until results MRI brain Admission and Anticipated Discharge Date Admission Date: May 29, 2023 Subjective Patient reports no new symptoms. Review of Systems Review of Systems: All systems reviewed & are unremarkable except as noted in HPI & below Physical Exam Physical Exam: Constitutional: well-appearing, no acute distress HEENT: NCAT, no conjunctival injection. PERRLA CV: regular rhythm, no murmur appreciated, extremities well-perfused, no LE edema Resp: CTABL GI: soft, nondistended, nontender, BS normoactive MSK: no gross deformities appreciated Neuro: no longer confused. oriented to place person and time. Results & Data Results & Data Vital Signs (Past 12 Hours) Vital Signs Temp Pulse Pulse Resp BP Pulse Ox O2 Del Method 06/01/23 19:00 36.5 C 81 16 98/72 L 97 Room Air 06/01/23 15:07 75 06/01/23 14:47 36.7 C 69 18 99/64 L 97 Room Air 06/01/23 10:44 36.6 C 58 L 18 110/74 96 Room Air PG Care Time/CCT Total # of Minutes Spent Total Time Spent with Patient: Total time spent is greater than 50% in coordination of care (as documented) at patient's floor/unit and/or counseling patient: Coding Level of Care Code 21525 SUB INP/OBS CARE 2/35MIN Diagnoses Frequent falls R29.6 Vision abnormalities H53.9 Hypothyroidism E03.9 Hypertension I10 Alcohol abuse F10.10 Essential tremor G25.0 Total bilirubin, elevated R17
[2023-06-02 07:08] LABS: Hematocrit (blood only) 40.9 % (42.0-52.0); Hemoglobin 14.5 g/dl (14.0-18.0); Mean Corpuscular Hemoglobin 33.8 pg (25.0-34.0); Mean Corpuscular Hgb Conc 35.5 g/dL (32.0-36.0); Mean Corpuscular Volume 95.3 fL (80.0-100.0); Mean Platelet Volume 10.7 fL (9.4-12.4); Platelet Count 158 K/uL (130-400); RDW Coefficient of Variation 11.8 % (11.5-14.5); RDW Standard Deviation 40.8 fL (36.4-46.3); Red Blood Count 4.29 M/uL (4.70-6.10); White Blood Count 5.42 K/ul (4.8-10.8)
[2023-06-02 07:24] LABS: BUN Creatinine Ratio 9.9 (10-20); Creatinine Clr Calc Pharmacy 97.6 ml/min; Est GFR (African American) 110.4 ml/min; Est GFR (Non-African American) 95.3 ml/min; Potassium 3.4 mmol/L (3.5-5.1)
--- NOTE | 2023-06-02 09:50 | Consultation ---
Date of Consultation June 02, 2023 Assessment & Plan (1) Lumbar compression fracture: Dr. Dove has reviewed imaging and treatment plan. Treatment is conservative. He is a very poor surgical candidate. I will order an LSO brace to be worn with ambulation/standing and activity. May remove when in bed and when in a seated position. No lifting over 5 pounds. Ambulate ad karel. He can follow-up in our office in 2 weeks. [phone]. Will sign off. History of Present Illness Reason for Consultation: Lumbar compression fracture Attending Physician: Ugo Sheehan History of Present Illness Is a 62-year-old gentleman who has been in the hospital since May 28, 2023 with a diagnosis of frequent falls and vision imbalances. He has multiple chronic lumbar compression fractures and acute L4. It is difficult for him to answer my questions upon examination today. He does state he has some lower back pain. Allergies Allergy/AdvReac Type Severity Reaction Status Date / Time lamotrigine Allergy Unknown Unknown Verified 05/28/23 18:31 meclizine Allergy Unknown Unknown Verified 05/28/23 18:31 Home Medications Medication Instructions Recorded Confirmed Type diphenhydramine HCl 25 mg tablet 25 mg PO HS PRN Sleep 05/28/23 05/28/23 History (Sleep Aid (diphenhydramine)) multivitamin with minerals 1 tab PO DAILY 05/28/23 05/28/23 History Patient History Medical History Hypothyroidism Mild, noted on 03/01/20 labs. Not on replacement therapy. Mucocele, appendix TSH elevation Hypertension Laceration of eyebrow, left Thrombocytopenia SAH (subarachnoid hemorrhage) 04/28/2019- [facility]- ER Depression Diffuse cerebral atrophy Encephalomalacia Noted on 02/[address] Alcohol withdrawal seizure Memory deficit Alcohol abuse Alcohol withdrawal Suicide attempt 2014 Skull fracture Per review of records, temporal bone fracture first in 2014, and again 05/2018 (seen at [facility] and flown to [place] for further tx) Intracranial hemorrhage 2/2 fall with head trauma/temporal bone fracture 05/2018. History of seizure Mixed etiology per review of records. H/o tonic-clonic seizures, possible absence sz, also seizures from ETOH withdrawal. Patient is supposed to be following with [facility] neurology but has been largely noncompliant and has many barriers to consistent care. Supposed to be on Vimpat but per review of [facility] records patient has not been able to afford medication or has neglected to f/u with care. Admitted 03/01/20 to [facility] for AMS. Possible seizure activity noted by EMS in ambulance, but no seizures during admission. 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 Beliefs That Will Affect Care: None marital status: Single Current Living Situation: Alone Current Living Situation Comment: Lives alone in upstairs apartment current occupational status: disabled Other Information That Helps Us Care for You: No Feels Safe at Home: Hesitant to Answer Safety Concerns: Afraid for Self Childhood Exposure to Second-Hand Smoke: No Seatbelt Use: always Assistive Devices: Cane Review of Systems Review of Systems: All systems reviewed & are unremarkable except as noted in HPI & below Physical Exam Physical Exam: He is alert and oriented but slow to answer my questions, just staring Some tenderness over the midline lumbar spine Strength is intact bilateral lower extremities Results & Data Vital Signs (Past 12 Hours) Vital Signs Temp Pulse Pulse Resp BP Pulse Ox O2 Del Method 06/02/23 07:56 36.5 C 77 18 90/72 L 97 Room Air 06/02/23 07:40 74 06/02/23 02:57 36.7 C 71 16 101/68 96 Room Air 06/01/23 22:56 36.4 C L 70 16 93/61 L 96 Room Air Diagnostic Findings [facility], [place] [phone] CT Scan Report Patient: TO GASPAR Admit Date: 05/28/23 MR#: [id number] Address1: [address] Acct ID:[id number] Address2: Date: 1960 [facility] Zip: [place] [address] Age: 62 Location: 2N Sex: M Room/Bed: N287-2 Att Phy: Jesus Cooper, PhD, DO Diagnosis: FREQUENT FALLS Sowmya Phy: PCP,NO Service Date: 05/29/23 Fam Phy: Interpreting Phy: Veronica Hanna Phy: Linda Simpson, Ordering Phy: Joanie Blancas MD cc: ~ Exam(s): CT C SPINE EXAM: CT Cervical Spine Without Intravenous Contrast CLINICAL HISTORY: Reason for exam: falls. TECHNIQUE: Axial computed tomography images of the cervical spine without intravenous contrast. CTDI is 16.43 mGy and DLP is 355.39 mGy-cm. Automated exposure control was utilized for the study. A dose lowering technique was utilized adhering to the principles of ALARA. COMPARISON: Comparison made to prior CT scan cervical spine from March 01, 2020. FINDINGS: Vertebrae: Unremarkable. No acute fracture. Discs/spinal canal/neural foramina: No acute findings. No spinal canal stenosis. Soft tissues: Unremarkable. IMPRESSION: No evidence of acute cervical spine pathology. Electronically signed by: Veronica Meng MD 05/29/23 02:58 AM Dictated: 05/29/23257 Transcribed: 05/29/23257 [place], [place] [phone] CT Scan Report Patient: TO GASPAR Admit Date: 05/28/23 MR#: [id number] Address1: [address] Acct ID:[id number] Address2: Date: 1960 [facility] Zip: [place] [address] Age: 62 Location: 2N Sex: M Room/Bed: N2[facility] Att Phy: Jesus Cooper, PhD, DO Diagnosis: FREQUENT FALLS Sowmya Phy: PCP,NO Service Date: 05/29/23 Fam Phy: Interpreting Phy: Veronica Meng MDAdmit Phy: Linda Simpson, Ordering Phy: Joanie Blancas MD cc: ~ Exam(s): CT T SPINE EXAM: CT Thoracic Spine Without Intravenous Contrast CLINICAL HISTORY: Reason for exam: falls. TECHNIQUE: Axial computed tomography images of the thoracic spine without intravenous contrast. CTDI is 39.18 mGy and DLP is 2156.2 mGy-cm. Automated exposure control was utilized for the study. A dose lowering technique was utilized adhering to the principles of ALARA. COMPARISON: Comparison made to prior CT scan of the thoracic spine from December 20, 2012. FINDINGS: Remote bilateral rib fracture deformities. Vertebrae: Remote fracture deformities of the T3, T4, T5, T12, L1 and L2 segments. No acute fracture. Remote fracture of the left L2 transverse process. Discs/spinal canal/neural foramina: No acute findings. No spinal canal stenosis. Soft tissues: Unremarkable. IMPRESSION: No evidence of acute thoracic spine pathology. Electronically signed by: Veronica Meng MD 05/29/23 03:01 AM Dictated: 05/29/23300 Transcribed: 05/29/23300 [place], [place] [phone] CT Scan Report Patient: TO GASPAR Admit Date: 05/28/23 MR#: [id number] Address1: [address] Acct ID:[id number] Address2: Date: 1960 [facility] Zip: [place] [address] Age: 62 Location: Sex: M Room/Bed: [facility] Att Phy: Jesus Cooper, PhD, DO Diagnosis: FREQUENT FALLS Sowmya Phy: PCP,NO Service Date: 05/29/23 Fam Phy: Interpreting Phy: Veronica Meng MDAdmit Phy: Linda Simpson DO Ordering Phy: Joanie Blancas MD cc: ~ ADDENDUM ADDENDUM: 05/29/23 03:10 Verify Receipt Verified receipt with Nurse Ring for Dr. Blancas on 05/28 03:10 (-04:00) Electronically signed by: Veronica Meng MD Electronically signed by: Veronica Meng MD 05/29/23 03:05 AM ADDENDUM END Exam(s): CT L SPINE EXAM: CT Lumbar Spine Without Intravenous Contrast CLINICAL HISTORY: Reason for exam: BLE weakness. TECHNIQUE: Axial computed tomography images of the lumbar spine without intravenous contrast. CTDI is 39.18 mGy and DLP is 2156.2 mGy-cm. Automated exposure control was utilized for the study. A dose lowering technique was utilized adhering to the principles of ALARA. COMPARISON: No relevant prior studies available. FINDINGS: Vertebrae: Findings concerning for acute/subacute single column fracture of the L4 vertebral body. Remote fracture deformities of the T12, L1, L2, and L3 segments. Transitional S1 segment. Discs/spinal canal/neural foramina: No acute findings. No spinal canal stenosis. Soft tissues: Unremarkable. IMPRESSION: Findings concerning for an acute/subacute single column superior endplate fracture of the L4 vertebral body. This fracture is amenable to vertebroplasty or kyphoplasty. Communications: Verify Receipt Electronically signed by: Veronica Meng MD 05/29/23 03:05 AM Dictated: 05/29/23 0305 Transcribed: 05/29/23 0305 [employer] Auto-Saved
--- NOTE | 2023-06-02 21:51 | Hospitalist Progress Note ---
Date of Service June 02, 2023 Assessment & Plan (1) Frequent falls: Plan: Possible metabolic encephalopathy due to alcohol abuse - Likely from chronic alcohol abuse and thiamine deficiency. -strokes have been rules out. Etiology unclear; no focal neurological findings on exam, vision loss noted. - Vision issues seem to be contributing, needs cataract surgery - Trop= 3.8, EKG with NSR; will monitor on telemetry- orthostatic vitals ordered - PT/OT ordered - Case management consulted -continue thiamine -added librium taper. Overnight patient worsened. SWitched to ativan doses. On 05/29 patient improved and resumed librium taper. On 05/30, patient is no longer confused. On 05/31 awaiting consult from ortho for patient to be able to participate with PT/OT On 06/01 Patient now cleared for PT. will have eval tomorrow. (2) Vision abnormalities: Plan: - per pt has been seen by ophthalmology and needs B/l cataract surgery - significant vision loss on exam, will order MRI brain to r/u other cause of vision loss (3) Hypothyroidism: Plan: - noted in history, not on replacement - TSH= 3.652 on admission (4) Hypertension: Plan: - elevated in ED - has been on medications for HTN in the past, not currently on mediations - wait for results MRI Brain prior to treating - if remains elevated would consider re-starting daily mediation- could start with 20mg olmesartan (5) Alcohol abuse: Plan: - history of alcohol abuse requiring ICU admission - pt states he drinks 2-3 beers about once per week - ETOH level and UDS pending - was on thiamine/folate supplementation in the past; will restart PO supplementation. Order thiamine/folate levels - AWSS protocol ordered (6) Essential tremor: Plan: - right sided essential tremor noted - has been present for years, worse with anxiety - imaging as per above (7) Total bilirubin, elevated: Plan: - total bilirubin= 1.8 with AST= 46 - has been elevated in the past - hepatic steatosis noted on prior imaging with concern for fatty changes - lipid panel qAM Plan Code: DNR/DNI Diet: NPO pending MRI Brain results VTE Prophylaxis- SCDs, defer chemical until results MRI brain Admission and Anticipated Discharge Date Admission Date: May 29, 2023 Subjective 62 yo male reports no new symptoms. Review of Systems Review of Systems: All systems reviewed & are unremarkable except as noted in HPI & below Physical Exam Physical Exam: Constitutional: well-appearing, no acute distress HEENT: NCAT, no conjunctival injection. PERRLA CV: regular rhythm, no murmur appreciated, extremities well-perfused, no LE edema Resp: CTABL GI: soft, nondistended, nontender, BS normoactive MSK: no gross deformities appreciated Neuro: no longer confused. oriented to place person and time. Results & Data Results & Data Vital Signs (Past 12 Hours) Vital Signs Temp Pulse Pulse Resp BP Pulse Ox O2 Del Method 06/02/23 19:00 36.5 C 67 16 100/64 96 Room Air 06/02/23 15:58 95 H 06/02/23 14:00 36.5 C 71 18 124/74 93 Room Air 06/02/23 11:01 36.8 C 65 14 104/70 97 Room Air PG Care Time/CCT Total # of Minutes Spent Total Time Spent with Patient: Total time spent is greater than 50% in coordination of care (as documented) at patient's floor/unit and/or counseling patient: Coding Level of Care Code 13474 SUB INP/OBS CARE 2/35MIN Diagnoses Frequent falls R29.6 Vision abnormalities H53.9 Hypothyroidism E03.9 Hypertension I10 Alcohol abuse F10.10 Essential tremor G25.0 Total bilirubin, elevated R17
[2023-06-03 06:52] LABS: Hematocrit (blood only) 42.3 % (42.0-52.0); Hemoglobin 15.1 g/dl (14.0-18.0); Mean Corpuscular Hemoglobin 33.9 pg (25.0-34.0); Mean Corpuscular Hgb Conc 35.7 g/dL (32.0-36.0); Mean Corpuscular Volume 94.8 fL (80.0-100.0); Mean Platelet Volume 10.3 fL (9.4-12.4); Platelet Count 161 K/uL (130-400); RDW Coefficient of Variation 11.6 % (11.5-14.5); RDW Standard Deviation 40.3 fL (36.4-46.3); Red Blood Count 4.46 M/uL (4.70-6.10); White Blood Count 6.02 K/ul (4.8-10.8)
[2023-06-03 07:25] LABS: BUN Creatinine Ratio 8.4 (10-20); Calcium 9.3 mg/dl (8.6-10.3); Creatinine Clr Calc Pharmacy 95.3 ml/min; Est GFR (African American) 109.3 ml/min; Est GFR (Non-African American) 94.3 ml/min; Potassium 3.2 mmol/L (3.5-5.1)
[2023-06-03] MEDS: POTASSIUM CHLORIDE CRTAB 20 MEQ TABCR PO SCH (10:14)
--- NOTE | 2023-06-03 14:40 | Hospitalist Progress Note ---
Date of Service June 03, 2023 Assessment & Plan (1) Frequent falls: Plan: OT and PT recommend [facility] discharge. 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 No evidence of acute CVA (2) Toxic encephalopathy: Plan: He is lethargic, probably from the Librium which is temporarily on hold. Supportive care. (3) Vision abnormalities: Plan: He has been seen by ophthalmology and needs B/l cataract surgery. Brain MRI scan negative for other potential causes of vision deficits (4) Hypothyroidism: Plan: Stable. Continue current medical management (5) Hypertension: Plan: Hypertensive in the ED but his blood pressure has actually been running on the low side during his hospital stay. No intervention needed at this time. Will follow. Brain MRI scan negative (6) Alcohol abuse: Plan: Past history of alcohol abuse requiring ICU admission. Continue thiamine supplementation. AWSS protocol (7) Total bilirubin, elevated: Plan: Mild. Undoubtedly related to alcohol intake and hepatic steatosis. Plan Anticipate eventual discharge to [facility] Admission and Anticipated Discharge Date Admission Date: May 29, 2023 Subjective Very lethargic. He is oriented to name and place. Librium is placed on hold. Potassium is mildly low and supplementation ordered. Back brace ordered for the L4 fracture which will not require surgical intervention per orthopedic spine consultation. Anticipate eventual discharge to [facility] for rehab Review of Systems 2 Review of Systems: The patient is very lethargic and unable to reliably answer any questions regarding review of systems at this time Physical Exam 2 Physical Exam: General-lethargic. Nearly somnolent. Oriented to name and place however. No fever HEENT-head atraumatic and normocephalic, pupils equal and reactive to light, extraocular muscles intact Neck-no lymphadenopathy or thyromegaly, trachea midline Chest-clear to auscultation. No rales, wheezing or rhonchi Cardiac-regular rate and rhythm, normal S1 and S2 Abdomen-normal bowel sounds, nontender, no hepatosplenomegaly Extremities-no cyanosis, clubbing, or edema Neuro-cranial nerves II through XII intact, motor and sensory function within normal limits, strength symmetrical, no focal deficits Psych-lethargic from medication sedation Results & Data Results & Data Vital Signs (Past 12 Hours) Vital Signs Temp Pulse Pulse Resp BP BP Pulse Ox 06/03/23 10:49 36.5 C 64 18 93/55 L 98 06/03/23 07:26 54 L 06/03/23 07:11 36.7 C 58 L 18 103/70 95 06/03/23 02:49 36.6 C 60 18 108/70 95 O2 Del Method 06/03/23 10:49 Room Air 06/03/23 07:26 06/03/23 07:11 Room Air 06/03/23 02:49 Room Air Laboratory Results 06/03/23 05:47 06/03/23 05:47 PG Care Time/CCT Total # of Minutes Spent Total Time Spent with Patient: Total time spent is greater than 50% in coordination of care (as documented) at patient's floor/unit and/or counseling patient: Coding Level of Care Code 81793 SUB INP/OBS CARE 3/50MIN Diagnoses Frequent falls R29.6 Toxic encephalopathy G92.9 Vision abnormalities H53.9 Hypothyroidism E03.9 Hypertension I10 Alcohol abuse F10.10 Total bilirubin, elevated R17
[2023-06-04 07:09] LABS: BUN Creatinine Ratio 8.4 (10-20); Calcium 9.5 mg/dl (8.6-10.3); Creatinine Clr Calc Pharmacy 95.3 ml/min; Est GFR (African American) 109.3 ml/min; Est GFR (Non-African American) 94.3 ml/min; Potassium 3.7 mmol/L (3.5-5.1)
--- NOTE | 2023-06-04 08:31 | Hospitalist Progress Note ---
Date of Service June 04, 2023 Assessment & Plan (1) Frequent falls: Plan: PT here with frequent falls, previous alcohol abuse and now some visual impairment from cataracts that may benefit from surgical correction Pt sustained L4 fracture with fall, pain control is suboptimal, using brace adding scheduled tyenol, lidoderm and ultram LS spine CT shows L4 endplate fracture, eval by orhto spine, conservative treatment with Brace and symptom control OT and PT recommend acute rehab at discharge. 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 No evidence of acute CVA (2) Toxic encephalopathy: Plan: He is lethargic, probably from the Librium which is temporarily on hold. Supportive care. (3) Vision abnormalities: Plan: He has been seen by ophthalmology and needs B/l cataract surgery. Brain MRI scan negative for other potential causes of vision deficits (4) Hypothyroidism: Plan: Stable. Continue current medical management (5) Hypertension: Plan: Hypertensive in the ED but his blood pressure has actually been running on the low side during his hospital stay. No intervention needed at this time. Will follow. Brain MRI scan negative (6) Alcohol abuse: Plan: Past history of alcohol abuse requiring ICU admission. Continue thiamine supplementation. AWSS protocol (7) Total bilirubin, elevated: Plan: Mild. Undoubtedly related to alcohol intake and hepatic steatosis. Plan Anticipate eventual discharge to [facility] Admission and Anticipated Discharge Date Admission Date: May 29, 2023 Subjective pt is with limited verbal interface, has some back pain, mostly with movement, 4/10, is also bothered by his vision. Physical Exam Physical Exam: resting comfortable pain with movement no radicular pain no shortness of breath Results & Data Results & Data Vital Signs (Past 12 Hours) Vital Signs Temp Pulse Pulse Resp BP BP Pulse Ox 06/04/23 08:00 97.7 F 79 18 125/68 119/69 97 06/04/23 07:30 75 06/04/23 03:00 97.3 F L 71 17 105/74 96 06/04/23 00:00 68 06/03/23 23:16 98.1 F 63 18 103/68 94 06/03/23 20:30 O2 Del Method 06/04/23 08:00 Room Air 06/04/23 07:30 06/04/23 03:00 Room Air 06/04/23 00:00 06/03/23 23:16 Room Air 06/03/23 20:30 Room Air Laboratory Results reviewed chemistry started new pain management strategy PG Care Time/CCT Total # of Minutes Spent Total Time Spent with Patient: Total time spent is greater than 50% in coordination of care (as documented) at patient's floor/unit and/or counseling patient: Coding Level of Care Code 95058 SUB INP/OBS CARE 3/50MIN Diagnoses Frequent falls R29.6 Toxic encephalopathy G92.9 Vision abnormalities H53.9 Hypothyroidism E03.9 Hypertension I10 Alcohol abuse F10.10 Total bilirubin, elevated R17
[2023-06-04] MEDS: ACETAMINOPHEN 500 MG TAB PO SCH (20:20)
[2023-06-05] MEDS: traMADol HCL 50 MG TABLET PO PRN (00:53)
[2023-06-05] MEDS: LIDOCAINE 5% 1 PATCH TD SCH (08:08)
[2023-06-05 08:46] LABS: Anion Gap 7 (3-11); BUN Creatinine Ratio 7.6 (10-20); Blood Urea Nitrogen 7 mg/dl (6-23); Calcium 9.7 mg/dl (8.6-10.3); Carbon Dioxide 25 mmol/L (21-32); Chloride 106 mmol/L (98-107); Est GFR (African American) 102.9 ml/min; Est GFR (Non-African American) 88.8 ml/min; Glucose 98 mg/dl (70-99(Fasting)); Sodium 138 mmol/L (136-145)
--- NOTE | 2023-06-05 14:01 | XRay Report ---
XR chest 1V portable HISTORY: eval hypoxia COMPARISON: Chest 05/28/2023. FINDINGS: The lungs are clear. Cardiac silhouette is normal in size. No pleural effusions. No pneumot horax. There are old, healed left-sided rib fractures. IMPRESSION: No acute process. ACT 112: Negative or not required by law. Electronically signed by: Stevie Morin M.D. 06/05/2023 1:59 PM
--- NOTE | 2023-06-05 18:06 | Discharge Summary ---
Date of Service June 05, 2023 Admission HPI Per Admitting Provider 62 year old male with a past medical history of alcohol abuse, anxiety, seizure disorder (not on anti-epileptics) presenting with concern for frequent falls. States that for about the last week he has been having issues with frequent falls. Denies LOC with these events. Feels as though his balance is off. Has been having issues with his vision, was seen by ophthalmology and needs cataract surgery, but has been unable to get as he does not have a ride. Lives in alone in apartment, has a son but is not in the area. Crawled over to neighbors apartment this morning and EMS was called. History of alcohol abuse, has been admitted for delirium tremens in the past. States that he has not been drinking recently, but unclear on exactly how much/how frequently he has been drinking. History of seizure noted in chart, unclear if related to alcohol use, but has not had any recent seizures and is not on any anti-epileptics. ED Course: Head CT/CXR without acute findings 1L NSS Principal Diagnosis mechanical fall L4 vertebral body fracture vision impairment from cataracts previously diagnosed Wernicke encephalopathy Discharge Exam pt is withdrawn, given positive motivation has some pain with transition of movement clear lungs, low oxygen sats, checked CXR was clear Discharge Data Allergies Allergy/AdvReac Type Severity Reaction Status Date / Time lamotrigine Allergy Unknown Unknown Verified 05/28/23 18:31 meclizine Allergy Unknown Unknown Verified 05/28/23 18:31 Consultations 05/28/23 18:59 ED Decision to Admit Stat 05/29/23 03:22 Consult Orthopedic Spine Surgery Routine 06/01/23 16:26 Consult Orthopedic Spine Surgery Routine Ordered Studies 05/28/23 17:09 CT head/brain wo con Stat 05/28/23 19:21 MRI Brain [MR brain wo/w con] Stat 05/29/23 00:17 CT cervical spine wo con Urgent CT spine [CT lumbar spine wo con] Urgent CT spine [CT thoracic spine wo con] Urgent Hospital Course (1) Frequent falls: PT here with frequent falls, previous alcohol abuse and now some visual impairment from cataracts that may benefit from surgical correction Pt sustained L4 fracture with fall, pain control is suboptimal, using brace adding scheduled tyenol, lidoderm and ultram LS spine CT shows L4 endplate fracture, eval by orhto spine, conservative treatment with Brace and symptom control OT and PT recommend acute rehab at discharge. 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 No evidence of acute CVA (2) Toxic encephalopathy: improved and conversant, consider depression treatment if not improved (3) Vision abnormalities: He has been seen by ophthalmology and needs B/l cataract surgery. Brain MRI scan negative for other potential causes of vision deficits (4) Hypothyroidism: Stable. Continue current medical management (5) Hypertension: Hypertensive in the ED but his blood pressure has actually been running on the low side during his hospital stay. No intervention needed at this time. Brain MRI scan negative (6) Alcohol abuse: Past history of alcohol abuse requiring ICU admission. Continue thiamine supplementation. (7) Total bilirubin, elevated: Mild. Undoubtedly related to alcohol intake and hepatic steatosis. Total Time Total Time Spent Total Time Spent (In Minutes): It required greater than 30 minutes to prepare this patient for discharge. Discharge Plan Discharge Items Patient Disposition: Transfer Inpatient Rehab Fac Reason For Visit: FREQUENT FALLS Discharge Diagnosis: mechanical fall L4 vertebral body fracture vision impairment from cataracts previously diagnosed Wernicke encephalopathy Condition on Discharge: Fair Activity: Per Instructions section Non-emergency contact: Primary Care Provider Call non-emergency contact if: your symptoms worsen Follow-up/Referrals: PCP,NO [Primary Care Provider] - Diet: Regular Addtl Attending Provider Instructions: wear LSO brace when doing therapy, no lifting over 5 pounds, please follow up with orhto spine in 2 weeks this pt is very depressed about his lot in life, may consider starting an antidepressant, did try to provide motivational encouragement during his stay here eventually will need optho appt for possible cataract surgery some atelectasis suspected at d/c encourage incentive spirometry Pending Studies at Discharge: No Stand-Alone Forms: My [facility] Skilled Items Patient informed of condition?: Yes DNR: Yes Discharge Level of Care: Acute rehab Communicable Disease: No Discharge Prognosis: Stable Lines: None Urinary Catheter: No Medications and DC Order Prescriptions: New tramadol 50 mg Tablet 50 mg PO Q4H PRN (Reason: pain) Qty: 20 0RF acetaminophen [Tylenol Extra Strength] 500 mg Tablet 1,000 mg PO TID Qty: 90 0RF lidocaine 5 % Adhesive Patch,Medicated 1 patch transdermal QAM Qty: 15 0RF thiamine HCl (vitamin B1) 100 mg tablet 100 mg PO DAILY Qty: 30 0RF Continued multivitamin with minerals Tablet 1 tab PO DAILY Discontinued diphenhydramine HCl [Sleep Aid (diphenhydramine)] 25 mg Tablet 25 mg PO HS PRN (Reason: Sleep) Discharge Orders: Discharge Order (Routine); Ordered 06/05/23 Ordered By: Alvaro Fletcher Admission Data Admit Date/Time: 05/29/23 16:18 Attending Provider: Alvaro Fletcher Admit Provider: Linda Simpson Primary Care Provider: PCP,NO Other Providers: [facility]; Jesus Cooper; Hernán Duvall; Deshaun Dove Coding Level of Care Code 02242 INP/OBS DISCH >30 MIN Diagnoses Frequent falls R29.6 Toxic encephalopathy G92.9 Vision abnormalities H53.9 Hypothyroidism E03.9 Hypertension I10 Alcohol abuse F10.10 Total bilirubin, elevated R17
== END 2023-06-05 16:59 | DRG 91 ==
LOC: EDBD → 2N 16:23 → ED 16:23 → MERGE 16:23 → SUATTDRO 19:07 → 2N 21:42 → SUATTDRO 05-29 16:18 → 1E 05-30 01:59 → 2S 05-30 22:37

== ENCOUNTER 2024-12-02 22:44 | Inpatient (IN) ==
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
[2024-12-02 23:29] LABS: Hematocrit (blood only) 38.5 % (42.0-52.0); Hemoglobin 13.6 g/dl (14.0-18.0); Immature Granulocytes # (auto) 0.05 K/uL (0.01-0.20); Immature Granulocytes % (auto) 0.6 %; Mean Corpuscular Hemoglobin 34.4 pg (25.0-34.0); Mean Corpuscular Volume 97.5 fL (80.0-100.0); Platelet Count 105 K/uL (130-400); RDW Standard Deviation 45.4 fL (36.4-46.3); Red Blood Count 3.95 M/uL (4.70-6.10); White Blood Count 8.75 K/ul (4.8-10.8)
--- NOTE | 2024-12-02 23:43 | CT Scan Report ---
Exam(s): CT HEAD Without Contrast EXAM: CT Head Without Intravenous Contrast CLINICAL HISTORY: Reason for exam: Head trauma moderate-severe. TECHNIQUE: Axial computed tomography images of the head/brain without intravenous contrast. CTDI is 23 mGy and DLP is 494 mGy-cm. Automated exposure control was utilized for the study. A dose lowering technique was utilized adhering to the principles of ALARA. COMPARISON: No relevant prior studies available. FINDINGS: Brain: Generalized cerebral volume loss. No acute intracranial edema, hemorrhage or abnormal mass-effect. Ventricles: Unremarkable. No ventriculomegaly. Bones/joints: Unremarkable. No acute fracture. Soft tissues: Right parietal scalp hematoma. Sinuses: Unremarkable as visualized. No acute sinusitis. Mastoid air cells: Unremarkable as visualized. No mastoid effusion. IMPRESSION: No acute intracranial abnormality. No fracture.. Electronically signed by: Jose Luis Juarez MD 12/02/24 23:42 PM
--- NOTE | 2024-12-02 23:45 | XRay Report ---
Exam(s): XR PELVIS, 1-2 views EXAM: XR Pelvis, 1 or 2 Views CLINICAL HISTORY: Reason for exam: Trauma. TECHNIQUE: Frontal view of the pelvis. COMPARISON: June 22, 2023. FINDINGS: Bones/joints: Unremarkable. No acute fracture. No dislocation. Soft tissues: Unremarkable. IMPRESSION: Negative pelvis x-ray. Electronically signed by: Jose Luis Juarez MD 12/02/24 23:44 PM
--- NOTE | 2024-12-02 23:47 | XRay Report ---
Exam(s): XR CXR 1 VIEW EXAM: XR Chest, 1 View CLINICAL HISTORY: Reason for exam: trauma. TECHNIQUE: Frontal view of the chest. COMPARISON: June 22, 2023. FINDINGS: Lungs: Unremarkable. No acute infiltration, atelectasis or mass. Pleural space: Unremarkable. No pneumothorax or pleural fluid. Heart: Unremarkable. No cardiomegaly. Mediastinum: Unremarkable. Normal mediastinal contour. Bones/joints: No acute findings. IMPRESSION: No acute findings in the chest. Electronically signed by: Jose Luis Juarez MD 12/02/24 23:46 PM
[2024-12-02 23:51] LABS: Alanine Aminotransferase 66.0 U/L (7-52); Albumin Globulin Ratio 1.4 (0.9-2); Albumin Level 4.7 gm/dl (3.4-5.0); Alkaline Phosphatase 96.0 U/L (34-104); Anion Gap 21.0 (3-11); Bilirubin,Total 1.9 mg/dl (0.2-1.0); Blood Urea Nitrogen 15.0 mg/dl (6-23); Calcium 10.0 mg/dl (8.6-10.3); Carbon Dioxide 19.0 mmol/L (21-32); Chloride 94.0 mmol/L (98-107); Creatinine Clr Calc Pharmacy 59.6 ml/min; Globulin 3.4 gm/dl (2.5-4.0); Glucose 97.0 mg/dl (70-99(Fasting)); Potassium 2.9 mmol/L (3.5-5.1); Sodium 134.0 mmol/L (136-145); Total Protein 8.1 gm/dl (6.0-8.3)
[2024-12-02 23:59] LABS: INR 1.0 (0.9-1.1); Partial Thromboplastin Time 32 Seconds (21-31); Prothrombin Time 11.2 Seconds (9.0-12.0)
--- NOTE | 2024-12-03 00:04 | CT Scan Report ---
Exam(s): CT C SPINE EXAM: CT Cervical Spine Without Intravenous Contrast CLINICAL HISTORY: Reason for exam: Neck trauma. TECHNIQUE: Axial computed tomography images of the cervical spine without intravenous contrast. CTDI is 37.12 mGy and DLP is 1201.54 mGy-cm. Automated exposure control was utilized for the study. A dose lowering technique was utilized adhering to the principles of ALARA. COMPARISON: No relevant prior studies available. FINDINGS: Vertebrae: Unremarkable. No acute fracture. No misalignment. Discs/spinal canal/neural foramina: Degenerative disc disease, most pronounced at C5/C6. No spinal canal stenosis. Soft tissues: Unremarkable. IMPRESSION: No acute findings in the cervical spine. Electronically signed by: Jose Luis Juarez MD 12/03/24 00:03 AM
[2024-12-03] MEDS: LORazepam 1 MG/1 ML SYR ED Inj Use IV STA (06:17)
[2024-12-03] MEDS: SODIUM CHLORIDE 0.9% 1,000 ML IV ONE (06:45)
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
[2024-12-03] MEDS: POTASSIUM CHLORIDE / WTR 10 MEQ/100 ML PLCT IV SCH (07:25)
[2024-12-03 08:04] LABS: Base Excess VBG 0.5 mEq/L; HCO3 VBG 25 mmol/L; Oxygen Saturation VBG 63.1 %; PCO2 VBG 37 mmHg (38-50); PO2 VBG 42 mmHg; pH VBG 7.43 (7.36-7.41)
[2024-12-03] MEDS: THIAMINE HCL 500 MG in SODIUM CHLORIDE 0.9% 50 ML IV STA (08:09)
[2024-12-03 08:26] LABS: Magnesium 1.5 mg/dl (1.7-2.4)
[2024-12-03] MEDS: LACTATED RINGER'S 1,000 ML IV ONE (08:33)
[2024-12-03 08:48] LABS: Appearance Urine Clear (Clear); Bacteria Urine Automated None Seen (None Seen); Epithelial Cell Urine Auto 0-2 /hpf (0-2); Glucose Urine UA Negative (Negative)
[2024-12-03] MEDS: MAGNESIUM OXIDE 400 MG TAB PO SCH (09:46)
[2024-12-03 09:50] LABS: Amphetamines+Metham, Urine Neg (Neg); MDMA (Ecstacy), Urine Neg (Neg); Marijuana, Urine Neg (Neg)
[2024-12-03] MEDS: FOLIC ACID 1 MG TAB PO SCH (10:59)
[2024-12-03 11:29] LABS: Thyroid Stimulating Hormone 3.259 uIu/ml (0.300-4.500)
[2024-12-03] MEDS ORDERED: HALOPERIDOL LACTATE 5 MG/ML 1 ML VIAL IM PRN (18:15)
[2024-12-03] MEDS: THIAMINE HCL 500 MG in SODIUM CHLORIDE 0.9% 50 ML IV SCH (18:41)
--- NOTE | 2024-12-03 21:18 | Communication Note ---
Date of Service: December 03, 2024 Nurse alerted me that pt got 3mg IV ativan prn dose for AWSS score of 20. Contacted attending and ICU provider. Pt was previously given valium doses. Will transition IV ativan prn for AWSS scores to IV valium prn for AWSS scores with q4h scheduled dose which I discussed with nurse. Pt low 100s tachycardic with stable BPs. He is having hallucinations but able to follow commands at times. Defer physical exam given pt reaching for and grabbing nurse but he overall appears decent at this time. Will continue to monitor overnight. Resident Activity Tracking Resident Involvement: Resident Care Provided Care Provided: Adult Hospital Medicine
[2024-12-04 05:08] LABS: Alanine Aminotransferase 66.0 U/L (7-52); Albumin Globulin Ratio 1.4 (0.9-2); Albumin Level 4.1 gm/dl (3.4-5.0); Alkaline Phosphatase 90.0 U/L (34-104); Anion Gap 11.0 (3-11); Bilirubin,Total 2.7 mg/dl (0.2-1.0); Blood Urea Nitrogen 11.0 mg/dl (6-23); Calcium 9.5 mg/dl (8.6-10.3); Carbon Dioxide 26.0 mmol/L (21-32); Chloride 102.0 mmol/L (98-107); Creatinine Clr Calc Pharmacy 110.0 ml/min; Globulin 3.0 gm/dl (2.5-4.0); Glucose 91.0 mg/dl (70-99(Fasting)); Hematocrit (blood only) 37.2 % (42.0-52.0); Hemoglobin 12.7 g/dl (14.0-18.0); Immature Granulocytes # (auto) 0.03 K/uL (0.01-0.20); Immature Granulocytes % (auto) 0.5 %; Magnesium 1.6 mg/dl (1.7-2.4); Mean Corpuscular Hemoglobin 34.0 pg (25.0-34.0); Mean Corpuscular Volume 99.5 fL (80.0-100.0); Platelet Count 89 K/uL (130-400); Potassium 3.2 mmol/L (3.5-5.1); RDW Standard Deviation 46.6 fL (36.4-46.3); Red Blood Count 3.74 M/uL (4.70-6.10); Sodium 139.0 mmol/L (136-145); Total Protein 7.1 gm/dl (6.0-8.3); White Blood Count 6.45 K/ul (4.8-10.8)
[2024-12-04 05:27] LABS: INR 1.1 (0.9-1.1); Prothrombin Time 11.8 Seconds (9.0-12.0)
[2024-12-04] MEDS: MAGNESIUM SULFATE / D5W 1 GM/100 ML BAG IV SCH (05:28)
[2024-12-04] MEDS: POTASSIUM CHLORIDE CRTAB 20 MEQ TABCR PO STA (05:28)
--- NOTE | 2024-12-04 06:46 | Electrocardiogram Report ---
Test Reason : Blood Pressure : */* mmHG Vent. Rate : 109 BPM Atrial Rate : 109 BPM P-R Int : 176 ms QRS Dur : 74 ms QT Int : 340 ms P-R-T Axes : 44 -62 45 degrees QTcB Int : 457 ms Sinus tachycardia Left axis deviation Low voltage QRS Possible Lateral infarct , age undetermined Inferior infarct (cited on or before 04-Jun-2018) When compared with ECG of 22-Jun-2023 18:10, Vent. rate has increased by 49 bpm Confirmed by Damon Monet ([id number]) on 12/04/2024 6:46:05 AM Referred By: REFERRED SELF Confirmed By: Damon Monet
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
[2024-12-04] MEDS ORDERED: THIAMINE HCL 100 MG in SYRINGE 9 ML IV SCH ×2 (09:00→10:00)
[2024-12-05 05:02] LABS: Hematocrit (blood only) 38.3 % (42.0-52.0); Hemoglobin 13.1 g/dl (14.0-18.0); Immature Granulocytes # (auto) 0.03 K/uL (0.01-0.20); Immature Granulocytes % (auto) 0.6 %; Mean Corpuscular Hemoglobin 34.0 pg (25.0-34.0); Mean Corpuscular Volume 99.5 fL (80.0-100.0); Platelet Count 106 K/uL (130-400); RDW Standard Deviation 46.6 fL (36.4-46.3); Red Blood Count 3.85 M/uL (4.70-6.10); White Blood Count 5.31 K/ul (4.8-10.8)
[2024-12-05 05:15] LABS: Alanine Aminotransferase 67.0 U/L (7-52); Albumin Globulin Ratio 1.3 (0.9-2); Albumin Level 3.9 gm/dl (3.4-5.0); Alkaline Phosphatase 93.0 U/L (34-104); Anion Gap 9.0 (3-11); Bilirubin,Total 1.9 mg/dl (0.2-1.0); Blood Urea Nitrogen 9.0 mg/dl (6-23); Calcium 9.2 mg/dl (8.6-10.3); Carbon Dioxide 25.0 mmol/L (21-32); Chloride 103.0 mmol/L (98-107); Creatinine Clr Calc Pharmacy 116.5 ml/min; Globulin 2.9 gm/dl (2.5-4.0); Glucose 105.0 mg/dl (70-99(Fasting)); Potassium 3.1 mmol/L (3.5-5.1); Sodium 137.0 mmol/L (136-145); Total Protein 6.8 gm/dl (6.0-8.3)
[2024-12-05] MEDS ORDERED: HALOPERIDOL LACTATE 5 MG/ML 1 ML VIAL IM ONE (07:09)
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
[2024-12-05] MEDS: POTASSIUM CHLORIDE CRTAB 20 MEQ TABCR PO STA (08:34)
[2024-12-05] MEDS ORDERED: THIAMINE HCL 100 MG in SODIUM CHLORIDE 0.9% 50 ML IV SCH (09:00)
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
[2024-12-05] MEDS: MAGNESIUM SULFATE / D5W 1 GM/100 ML BAG IV ONE (19:50)
[2024-12-06 07:49] LABS: Hematocrit (blood only) 40.2 % (42.0-52.0); Hemoglobin 14.2 g/dl (14.0-18.0); Immature Granulocytes # (auto) 0.04 K/uL (0.01-0.20); Immature Granulocytes % (auto) 0.7 %; Mean Corpuscular Hemoglobin 35.8 pg (25.0-34.0); Mean Corpuscular Volume 101.3 fL (80.0-100.0); Platelet Count 148 K/uL (130-400); RDW Standard Deviation 47.9 fL (36.4-46.3); Red Blood Count 3.97 M/uL (4.70-6.10); White Blood Count 6.03 K/ul (4.8-10.8)
[2024-12-06 08:08] LABS: Alanine Aminotransferase 92.0 U/L (7-52); Albumin Globulin Ratio 1.5 (0.9-2); Albumin Level 4.3 gm/dl (3.4-5.0); Alkaline Phosphatase 100.0 U/L (34-104); Anion Gap 10.0 (3-11); Bilirubin,Total 1.9 mg/dl (0.2-1.0); Blood Urea Nitrogen 11.0 mg/dl (6-23); Calcium 9.5 mg/dl (8.6-10.3); Carbon Dioxide 26.0 mmol/L (21-32); Chloride 103.0 mmol/L (98-107); Creatinine Clr Calc Pharmacy 101.4 ml/min; Globulin 2.8 gm/dl (2.5-4.0); Glucose 110.0 mg/dl (70-99(Fasting)); Magnesium 2.0 mg/dl (1.7-2.4); Potassium 3.6 mmol/L (3.5-5.1); Sodium 139.0 mmol/L (136-145); Total Protein 7.1 gm/dl (6.0-8.3)
[2024-12-06] MEDS: THIAMINE HCL 100 MG TAB PO SCH (09:01)
[2024-12-06 15:57] VITALS: BP 116/79; PULSE 84; RESP 17; TEMP 99.1; O2SAT 95
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
== END 2024-12-06 17:03 | disposition home health service (06) | DRG 897 ==
LOC: SUATTDRO → ED 22:44 → EDINP 12-03 08:19 → SUATTDRO 12-03 08:19 → 1E 12-03 09:26 → 3N 12-05 15:17